=== PATIENT | female | born 1975 ===

== ENCOUNTER 2017-08-10 13:04 | Emergency (ER) | payer SELFPAY ==
[2017-08-10 13:46] VITALS: BP 114/62; PULSE 69; RESP 18; TEMP 98.5; O2SAT 98
[2017-08-10] MEDS ORDERED: Sodium Chloride 0.9% 1,000 ML IV STA (14:07)
--- NOTE | 2017-08-10 14:24 | ED PDOC ---
HPI: CCC, URI, Sore Throat Time Seen by Provider: 08/10/17 13:57 Chief Complaint (Nursing): Cough, Cold, Congestion Chief Complaint (Provider): Cough History Per: Patient History/Exam Limitations: no limitations Onset/Duration Of Symptoms: Days (4) Additional Complaint(s): Cough, congestion, runny nose, body aches, nausea, vomit nonbloody. Has weakness all over. Green sputum. No chest pain or dyspnea. No abd pain. No numbness, tingles, vision changes. Past Medical History Reviewed: Nursing Documentation, Vital Signs Vital Signs: Last Vital Signs Temp 98.5 F 08/10/17 13:42 Pulse 69 08/10/17 13:42 Resp 18 08/10/17 13:42 BP 114/62 08/10/17 13:42 Pulse Ox 98 08/10/17 15:13 - Medical History PMH: Diabetes (type II), HTN, Hypercholesterolemia, Hyperlipidemia Denies: Arthritis, Asthma, Atrial Fibrillation, Cardia Arrhythmia, CHF, COPD , Chronic Kidney Disease, Seizures - Surgical History Surgical History: Denies: CABG, Pacemaker - Family History Family History: States: Unknown Family Hx Denies: CAD - Social History Alcohol: None Drugs: Denies - Home Medications Home Medications: Ambulatory Orders Medication Instructions Recorded Aspirin [Aspirin Chewable] 81 mg PO DAILY #0 chew 03/12/16 Gabapentin [Neurontin] 100 mg PO TID #0 cap 03/12/16 Glimepiride [Amaryl] 4 mg PO DAILY #0 tablet 03/12/16 Omeprazole 40 mg PO DAILY #0 capsule. 03/12/16 Simvastatin 20 mg PO DAILY #0 tablet 03/12/16 Clindamycin [Cleocin] 300 mg PO TID #30 cap 05/08/16 Losartan Potassium [Cozaar] 50 mg PO DAILY #0 tablet 05/12/16 Metoprolol Tartrate [Lopressor] 50 mg PO BID #0 tab 05/12/16 Benzonatate [Tessalon Perles] 100 mg PO BID PRN 5 Days sgl 08/10/17 Ibuprofen [Motrin] 600 mg PO TID 7 Days tab 08/10/17 - Allergies Allergies/Adverse Reactions: Allergies Allergy/AdvReac Type Severity Reaction Status Date / Time No Known Allergies Allergy Verified 08/10/17 13:46 Review of Systems ROS Statement: Except As Marked, All Systems Reviewed And Found Negative Constitutional: Positive for: Weakness ENT: Positive for: Nose Pain, Nose Discharge, Nose Congestion, Throat Pain Respiratory: Positive for: Cough, Sputum. Negative for: Shortness of Breath Gastrointestinal: Positive for: Nausea, Vomiting. Negative for: Abdominal Pain , Diarrhea Neurological: Positive for: Weakness Physical Exam - Reviewed Nursing Documentation Reviewed: Yes Vital Signs Reviewed: Yes - Physical Exam Appears: Positive for: Non-toxic, No Acute Distress Head Exam: Positive for: ATRAUMATIC, NORMAL INSPECTION, NORMOCEPHALIC Skin: Positive for: Normal Color, Warm, DRY Eye Exam: Positive for: EOMI, Normal appearance, PERRL ENT: Positive for: Nasal Congestion. Negative for: Pharyngeal Erythema, Tonsillar Exudate Neck: Positive for: Normal, Painless ROM, Supple Cardiovascular/Chest: Positive for: Regular Rate, Rhythm Respiratory: Positive for: CNT, Normal Breath Sounds Gastrointestinal/Abdominal: Positive for: Normal Exam, Bowel Sounds, Soft. Negative for: Tenderness Back: Positive for: Normal Inspection. Negative for: L CVA Tenderness, R CVA Tenderness Extremity: Positive for: Normal ROM. Negative for: Tenderness, Pedal Edema Neurologic/Psych: Positive for: Alert, business support assistant II-XII, Oriented. Negative for: Motor/Sensory Deficits - Laboratory Results Result Diagrams: 08/10/17 14:35 08/10/17 14:35 Interpretation Of Abn Labs: bun and cr similar to old - ECG ECG: Positive for: Interpreted By Me, Viewed By Me ECG Rhythm: Positive for: Normal QRS, Normal ST Segment, Sinus Rhythm O2 Sat by Pulse Oximetry: 98 Pulse Ox Interpretation: Normal - Progress ED Course And Treament: 1516: Stable. AAOx3. Pain free. Tolerated PO. Flu neg. Fu with pcp. Disposition - Clinical Impression Clinical Impression: URI (upper respiratory infection), Vomiting - Patient ED Disposition Is Patient to be Admitted: No Counseled Patient/Family Regarding: Studies Performed, Diagnosis, Need For Followup, Rx Given - Disposition Referrals: [facility] [Outside] - 08/15/17 Disposition: Routine/Home Disposition Time: 15:17 Condition: STABLE Additional Instructions: Return if not better in 3 days. Prescriptions: Benzonatate [Tessalon Perles] 100 mg PO BID PRN 5 Days sgl PRN Reason: Cough Ibuprofen [Motrin] 600 mg PO TID 7 Days tab Instructions: Acute Nausea and Vomiting (ED), Upper Respiratory Infection (ED) Print Language: ICELANDIC
[2017-08-10 14:41] LABS: BASO # 0.1 K/uL (0.0-0.2); EOS # 0.2 K/uL (0.0-0.7); EOS % 2.7 % (0.0-4.0); LYMPH # 2.2 K/uL (1.0-4.3); LYMPH % 30.7 % (20.0-40.0); MEAN CELL VOLUME 92.1 fl (81.0-99.0); MEAN CORPUSCULAR HEMOGLOBIN 29.9 pg (27.0-31.0); MEAN CORPUSCULAR HGB CONC 32.5 g/dL (33.0-37.0); MEAN PLATELET VOLUME 8.1 fl (7.2-11.7); MONO # 0.6 K/uL (0.0-0.8); MONO % 8.4 % (0.0-10.0); NEUT # 4.1 K/uL (1.8-7.0); NEUT % 57.2 % (50.0-75.0); NRBC % 0.1 % (0.0-0.0); RBC 3.66 Mil/uL (3.80-5.20); RED CELL DISTRIBUTION WIDTH 14.6 % (11.5-14.5); WHITE BLOOD COUNT 7.2 K/uL (4.8-10.8)
[2017-08-10 14:53] LABS: ALB/GLOB RATIO 0.8 (1.0-2.1); ALBUMIN 2.6 g/dL (3.5-5.0); ALT/SGPT 30 U/L (9-52); AST/SGOT 28 U/L (14-36); CALCIUM 8.6 mg/dL (8.4-10.2); GFR AFRICAN-AMERICAN 22; GFR NON-AFRICAN AMERICAN 18
[2017-08-10 14:56] LABS: BLOOD UREA NITROGEN 46 mg/dl (7-17)
--- NOTE | 2017-08-11 11:27 | CARD ---
APPROVED REPORT EKG Measurement Heart [id number] <Conclusion> Normal sinus rhythm Nonspecific ST abnormality Abnormal ECG
== END 2017-08-10 15:51 | disposition home or self-care (01) ==
LOC: H.ER 13:04
DX: J06.9 Acute upper respiratory infection, unspecified (principal); E11.9 Type 2 diabetes mellitus without complications; Z79.84 Long term (current) use of oral hypoglycemic drugs; E78.00 Pure hypercholesterolemia, unspecified; I10 Essential (primary) hypertension; Z79.82 Long term (current) use of aspirin
CPT/HCPCS: 80053; 82948; 84484; 85025; 87804; 93005; 96374; 99282; J1885; J2405; J7040

== ENCOUNTER 2017-11-09 17:44 | Observation (INO) | payer SELFPAY ==
--- NOTE | 2017-11-09 19:42 | ED PDOC ---
Lower Extremity Pain/Injury Time Seen by Provider: 11/09/17 19:01 Chief Complaint (Nursing): Lower Extremity Problem/Injury Chief Complaint (Provider): Lower Extremity Problem/Injury History Per: Patient History/Exam Limitations: no limitations Onset/Duration Of Symptoms: Days (x 2 weeks ) Current Symptoms Are (Timing): Still Present Additional Complaint(s): 42 year old female with a history of HTN, DM, and high cholesterol presents to the ED with right foot pain and swelling that began 2 weeks ago. Patient reports she has had similar symptoms before, went to see her PMD and received medication to resolve the symptoms. She denies chest pain, difficulty breathing , and headache. No numbness, tingles, weakness. No long distance travel or hormone tx. PMD: [facility] Past Medical History Reviewed: Historical Data, Nursing Documentation, Vital Signs Vital Signs: Last Vital Signs Temp 98.0 F 11/09/17 18:32 Pulse 77 11/09/17 18:32 Resp 18 11/09/17 18:32 BP 146/73 11/09/17 18:32 Pulse Ox 99 11/09/17 18:32 - Medical History PMH: Diabetes (type II), HTN, Hypercholesterolemia, Hyperlipidemia Denies: Arthritis, Asthma, Atrial Fibrillation, Cardia Arrhythmia, CHF, COPD , Chronic Kidney Disease, Seizures - Surgical History Surgical History: Denies: CABG, Pacemaker - Family History Family History: States: Unknown Family Hx Denies: CAD - Home Medications Home Medications: Ambulatory Orders Medication Instructions Recorded Aspirin [Aspirin Chewable] 81 mg PO DAILY #0 chew 03/12/16 Gabapentin [Neurontin] 100 mg PO TID #0 cap 03/12/16 Glimepiride [Amaryl] 4 mg PO DAILY #0 tablet 03/12/16 Omeprazole 40 mg PO DAILY #0 capsule. 03/12/16 Simvastatin 20 mg PO DAILY #0 tablet 03/12/16 Clindamycin [Cleocin] 300 mg PO TID #30 cap 05/08/16 Losartan Potassium [Cozaar] 50 mg PO DAILY #0 tablet 05/12/16 Metoprolol Tartrate [Lopressor] 50 mg PO BID #0 tab 05/12/16 Acetaminophen [Tylenol 325mg tab] 650 mg PO TID PRN 5 Days tab 08/10/17 Benzonatate [Tessalon Perles] 100 mg PO BID PRN 5 Days sgl 08/10/17 - Allergies Allergies/Adverse Reactions: Allergies Allergy/AdvReac Type Severity Reaction Status Date / Time No Known Allergies Allergy Verified 08/10/17 13:46 Review of Systems ROS Statement: Except As Marked, All Systems Reviewed And Found Negative Musculoskeletal: Positive for: Foot Pain (right foot pain and swelling) Physical Exam - Reviewed Nursing Documentation Reviewed: Yes Vital Signs Reviewed: Yes - Physical Exam Appears: Positive for: Non-toxic, No Acute Distress Head Exam: Positive for: ATRAUMATIC, NORMOCEPHALIC Skin: Positive for: Normal Color, Warm, Dry Eye Exam: Positive for: EOMI, Normal appearance, PERRL Cardiovascular/Chest: Positive for: Regular Rate, Rhythm. Negative for: Murmur Respiratory: Positive for: Normal Breath Sounds. Negative for: Respiratory Distress Pulses-Dorsalis Pedis (L): 2+ Pulses-Dorsalis Pedis (R): 2+ Gastrointestinal/Abdominal: Positive for: Normal Exam, Soft Back: Positive for: Normal Inspection. Negative for: L CVA Tenderness, R CVA Tenderness Extremity: Positive for: Pedal Edema (swelling and pitting 2+ in feet, 1+ in calf. ). Negative for: Tenderness (or erythema ), Calf Tenderness Neurologic/Psych: Positive for: Alert, Oriented. Negative for: Motor/Sensory Deficits - Laboratory Results Result Diagrams: 11/09/17 21:09 11/09/17 21:09 Interpretation Of Abn Labs: 5.7 k; bun and cr similar to old - ECG ECG: Positive for: Interpreted By Me, Viewed By Me ECG Rhythm: Positive for: Normal QRS, Normal ST Segment, Sinus Rhythm O2 Sat by Pulse Oximetry: 99 (RA) Pulse Ox Interpretation: Normal - CT Scan/US us Other Rad Studies (CT/US): Radiology Report Reviewed Other Rad Interpretation: neg - Progress ED Course And Treament: 2002: Stable. Spoke with [facility] resident who will admit. Renal failure worsened with high K. Will need admit and nephrology evaluation. Medical Decision Making Medical Decision Making: Time: 19:19 Initial Plan: --EKG --BNP --CMP --Troponin I --CBC with differentials --Duplex US lower extremities Duplex US FINDINGS: Right deep veins: Unremarkable. No DVT in the right common femoral, femoral, proximal deep femoral or popliteal veins. The veins demonstrate normal color flow, are normally compressible, with normal phasic flow and/or augmentation response. Right superficial veins: Unremarkable. No thrombus in the visualized right great saphenous vein. Left deep veins: Unremarkable. No DVT in the left common femoral, femoral, proximal deep femoral or popliteal veins. The veins demonstrate normal color flow, are normally compressible, with normal phasic flow and/or augmentation response. Left superficial veins: Unremarkable. No thrombus in the visualized left great saphenous vein. Soft tissues: No acute findings. No popliteal cyst. IMPRESSION: Normal bilateral lower extremity duplex venous ultrasound. ---- Scribe Attestation: Documented by Nurys Winkler, acting as a scribe for Nasir Tamez MD Provider Scribe Attestation: All medical record entries made by the Scribe were at my direction and personally dictated by me. I have reviewed the chart and agree that the record accurately reflects my personal performance of the history, physical exam, medical decision making, and the department course for this patient. I have also personally directed, reviewed, and agree with the discharge instructions and disposition. Disposition - Clinical Impression Clinical Impression: Renal failure, Hyperkalemia - Patient ED Disposition Is Patient to be Admitted: Yes Counseled Patient/Family Regarding: Studies Performed - Disposition Disposition Time: 22:03 Condition: FAIR
[2017-11-09 21:16] LABS: BASO # 0.1 K/uL (0.0-0.2); BASO % 0.7 % (0.0-2.0); EOS # 0.1 K/uL (0.0-0.7); EOS % 1.7 % (0.0-4.0); HEMOGLOBIN 10.1 g/dL (12.0-16.0); LYMPH # 1.6 K/uL (1.0-4.3); LYMPH % 21.5 % (20.0-40.0); MEAN CELL VOLUME 93.9 fl (81.0-99.0); MEAN CORPUSCULAR HEMOGLOBIN 30.9 pg (27.0-31.0); MEAN CORPUSCULAR HGB CONC 32.9 g/dL (33.0-37.0); MEAN PLATELET VOLUME 7.6 fl (7.2-11.7); MONO # 0.4 K/uL (0.0-0.8); MONO % 5.9 % (0.0-10.0); NEUT # 5.2 K/uL (1.8-7.0); NEUT % 70.2 % (50.0-75.0); RBC 3.27 Mil/uL (3.80-5.20); RED CELL DISTRIBUTION WIDTH 14.8 % (11.5-14.5); WHITE BLOOD COUNT 7.5 K/uL (4.8-10.8)
[2017-11-09 21:39] LABS: B-TYPE NATRIURETIC PEPTIDE 672 pg/ml (0-450)
[2017-11-09 21:43] LABS: ALB/GLOB RATIO 0.9 (1.0-2.1); ALBUMIN 2.8 g/dL (3.5-5.0); ALT/SGPT 37 U/L (9-52); AST/SGOT 29 U/L (14-36); BLOOD UREA NITROGEN 43 mg/dl (7-17); CALCIUM 8.4 mg/dL (8.4-10.2); GFR AFRICAN-AMERICAN 17; GFR NON-AFRICAN AMERICAN 14
[2017-11-09] MEDS ORDERED: Albuterol 0.083% Inhal Sol (2.5 mg/3 mL) UD INH STA (21:55)
[2017-11-09] MEDS ORDERED: Sod Polystyrene Sulf 15 gm/60 ml Susp PO STA (21:55)
[2017-11-09] MEDS ORDERED: Insulin Regular 100 units/ml IV STA (21:55)
[2017-11-09] MEDS ORDERED: Dextrose 50% SYRINGE Inj (50 ml) IVP ONE (21:56)
--- NOTE | 2017-11-09 22:40 | CP.PCM.HP ---
History of Present Illness - History of Present Illness History of Present Illness: Hx taken from patient and medical records PMD: Dr Downs [facility] Full code Nex of kin: Sara Garcia ([place] [phone]) 42 y/o F with PMhx of uncontrolled IDDM, HTN and CKD presented to ED with c/o R/ foot and ankle pain and B/L LE edema. Patient states R/ankle and foot pain started after twisting her r/ankle few days ago. Denies numbness or tingling. Afebrile. LE edema is chronic although patient admits has been getting worse for the past week. Patient is taking meds as prescribed including Lasix and Aldactone. Patient has been following up with Nephrology Dr Orozco at [facility] for the past year. She had a kidney biopsy last year and was told that her kidneys were working(30%) she does not have copy of results. Patient was recently started on Minoxidil after she visited Dr Orozco last week and took the first dose today. Patient reports some SE effects after taking Minoxidil today including burning sensation in her neck. THe patient states she has been using 22 units of NPH AM and 20 at night but admits sometimes skipping doses and not always checking her sugars at home. Denies SOB, CP, palpitations, headache, vomiting, nausea. Admits constipation. ED course CBC: Hgb 10.1 CMP: BUN/Creat 43/3.5, K 5.7 ProBnp 672 US LE: No DVT(Vrad report) PMHx: IDDM, HTN, CKD SxhX: C-Sect x1, Cleft lip SHx: Denies tobacco or drugs. ETOH social FHX: MOther and Father DM and HTN NKDA Present on Admission - Present on Admission Any Indicators Present on Admission: Yes History of Uncontrolled Diabetes: Yes Review of Systems - Review of Systems All systems: reviewed and no additional remarkable complaints except (those noted on HPI) Past Patient History - Infectious Disease Hx of Infectious Diseases: None - Past Medical History & Family History Past Medical History?: Yes - Past Social History Smoking Status: Never Smoked Alcohol: Social - CARDIAC Hx Atrial Fibrillation: No Hx Cardia Arrhythmia: No Hx Congestive Heart Failure: No Hx Hypercholesterolemia: Yes Hx Hypertension: Yes Hx Pacemaker: No - PULMONARY Hx Asthma: No Hx Chronic Obstructive Pulmonary Disease (COPD): No - NEUROLOGICAL Hx Seizures: No - HEENT Hx HEENT Problems: No - RENAL Hx Chronic Kidney Disease: Yes Hx Dialysis: No - ENDOCRINE/METABOLIC Hx Endocrine Disorders: Yes (DM2) Hx Diabetes Mellitus Type 2: Yes - HEMATOLOGICAL/ONCOLOGICAL Hx Blood Disorders: No - INTEGUMENTARY Hx Dermatological Problems: No - MUSCULOSKELETAL/RHEUMATOLOGICAL Hx Arthritis: No - GASTROINTESTINAL Hx Gastrointestinal Disorders: No - GENITOURINARY/GYNECOLOGICAL Hx Genitourinary Disorders: No - PSYCHIATRIC Hx Psychophysiologic Disorder: No Hx Substance Use: Yes (History of ETOH abuse. No ETOH since 01/2016) - SURGICAL HISTORY Hx Surgeries: Yes Hx Section: Yes Hx Coronary Artery Bypass Graft: No - ANESTHESIA Hx Anesthesia: Yes Hx Anesthesia Reactions: No Hx Malignant Hyperthermia: No Meds Allergies/Adverse Reactions: Allergies Allergy/AdvReac Type Severity Reaction Status Date / Time No Known Allergies Allergy Verified 08/10/17 13:46 Physical Exam - Constitutional Appears: Non-toxic, No Acute Distress - Head Exam Head Exam: NORMAL INSPECTION - Eye Exam Eye Exam: EOMI, PERRL - ENT Exam ENT Exam: Mucous Membranes Moist - Neck Exam Neck exam: Negative for: Lymphadenopathy, Tenderness - Respiratory Exam Respiratory Exam: Clear to Auscultation Bilateral, NORMAL BREATHING PATTERN. absent: Decreased Breath Sounds, Rales, Rhonchi, Wheezes, Respiratory Distress, Stridor - Cardiovascular Exam Cardiovascular Exam: REGULAR RHYTHM, +S1, +S2. absent: Gallop, Systolic Murmur - GI/Abdominal Exam GI & Abdominal Exam: Normal Bowel Sounds, Soft. absent: Distended, Firm, Guarding, Rebound, Tenderness - Extremities Exam Extremities exam: Positive for: pedal edema (2+). Negative for: calf tenderness , normal inspection (B/L LE edema. Tenderness R/foot and ankle lateral with mild redness and warmness present in the same area. Edema same as L/foot) - Back Exam Back exam: absent: CVA tenderness (L), CVA tenderness (R) - Neurological Exam Neurological exam: Alert, Oriented x3 - Psychiatric Exam Psychiatric exam: Normal Affect, Normal Mood - Skin Skin Exam: Warm Results - Vital Signs Recent Vital Signs: Last Vital Signs Temp 98.0 F 11/09/17 18:32 Pulse 77 11/09/17 18:32 Resp 18 11/09/17 18:32 BP 146/73 11/09/17 18:32 Pulse Ox 99 11/09/17 22:03 - Labs Result Diagrams: 11/09/17 21:09 11/09/17 21:09 Labs: Laboratory Results - last 24 hr 11/09/17 11/09/17 21:09 21:09 WBC 7.5 RBC 3.27 L Hgb 10.1 L Hct 30.7 L MCV 93.9 MCH 30.9 MCHC 32.9 L RDW 14.8 H Plt Count 279 MPV 7.6 Neut % (Auto) 70.2 Lymph % (Auto) 21.5 [place] % (Auto) 5.9 Eos % (Auto) 1.7 Baso % (Auto) 0.7 Neut # (Auto) 5.2 Lymph # (Auto) 1.6 [place] # (Auto) 0.4 Eos # (Auto) 0.1 Baso # (Auto) 0.1 Sodium 138 Potassium 5.7 H Chloride 113 H Carbon Dioxide 14 L Anion Gap 17 BUN 43 H Creatinine 3.5 H Est GFR ( Amer) 17 Est GFR (Non-Af Amer) 14 Random Glucose 85 Calcium 8.4 Total Bilirubin 0.2 AST 29 ALT 37 Alkaline Phosphatase 96 Troponin I < 0.0120 NT-Pro-B Natriuret Pep 672 H Total Protein 5.9 L Albumin 2.8 L Globulin 3.1 Albumin/Globulin Ratio 0.9 L Assessment & Plan - Assessment and Plan (Free Text) Assessment: 42 y/o F with PMHx of uncontrolled IDDM, HTN and CKD admitted for LE edema CKD/ Hyperkalemia Lower ext edema B/L 2+ Probably secondary to CKD Patient on Lasix 40 mg daily and aldactone at home Will give extra dose of Lasix 40 mg IV once Hold aldactone for now since Creatinine clearance borderline 30 CXR ordered Brobnp slightly elevated. Maybe due to impaired kidney function? NO rales or SOB. Unlikely Cardiac(Normal Echo on 05/2016) CKD st 3b BUN/Creat 43/3.5 slightly improvement from 10/15/17 = 54/3.7 but has been progressively worsening for the past 2 years Patient is f/u with Dr Orozco, [employer] at [facility]. Had kidney biopsy there. Told her CKD was due to HTN and DM. NO reports available Presents with hyperkalemia and LE edema Normal Renal US on 2016 Nephrology consult. Will f/u recs F/U MG and Phosphorus Hyperkalemia Poss secondary to CKD + Medication SE Mild Kayaxalate given at ED Hold Losartan and aldactone for now F/U BMP AM IDDM Uncontrolled last HgbAc1 in 05/05/17 = 8.8 On NPH at home BID, noncompliant Start NPH 15 units AMHS for now Low dose ISS F/U A1c HTN Chronic WNL on admission Hold Losartan for now due to hyperkalemia Hold Minoxidil due to patient complains of SE C/W Lasix PO daily Monitor Consider restarting Losartan tomorrow if K WNL R/Ankle sprain Suspected Twisted ankle few days ago Redness + tenderness F/U Xrays to r/o Fx Consider Topical treatment/PT or NSAIDs carefully due to CKD DVT prophylaxis Lovenox 30 mg daily
[2017-11-09] MEDS ORDERED: Dextrose 50% SYRINGE Inj (50 ml) ONE ×2 (22:47→23:15)
[2017-11-09] MEDS ORDERED: Sod Polystyrene Sulf 15 gm/60 ml Susp ONE (22:47)
[2017-11-09] MEDS ORDERED: Insulin Regular 100 units/ml ONE (22:47)
[2017-11-09] MEDS ORDERED: Dextrose 50% SYRINGE Inj (50 ml) IV PRN (23:13)
[2017-11-09] MEDS ORDERED: Glucagon Recombinant 1 mg Inj IM PRN (23:13)
[2017-11-10 06:14] LABS: BASO % 0.8 % (0.0-2.0); EOS # 0.1 K/uL (0.0-0.7); EOS % 2.5 % (0.0-4.0); HEMOGLOBIN 8.9 g/dL (12.0-16.0); LYMPH # 2.1 K/uL (1.0-4.3); LYMPH % 35.4 % (20.0-40.0); MEAN CELL VOLUME 93.1 fl (81.0-99.0); MEAN CORPUSCULAR HEMOGLOBIN 31.9 pg (27.0-31.0); MEAN CORPUSCULAR HGB CONC 34.3 g/dL (33.0-37.0); MEAN PLATELET VOLUME 7.9 fl (7.2-11.7); MONO # 0.5 K/uL (0.0-0.8); MONO % 9.2 % (0.0-10.0); NEUT % 52.1 % (50.0-75.0); RBC 2.78 Mil/uL (3.80-5.20); RED CELL DISTRIBUTION WIDTH 14.5 % (11.5-14.5); WHITE BLOOD COUNT 5.8 K/uL (4.8-10.8)
[2017-11-10 06:40] LABS: CALCIUM 8.1 mg/dL (8.4-10.2)
--- NOTE | 2017-11-10 08:34 | US ---
PROCEDURE: Bilateral lower extremity venous duplex Doppler. HISTORY: r/o dvt COMPARISON: Lower extremity ultrasound dated 03/11/2016. TECHNIQUE: Bilateral common femoral, superficial femoral, popliteal and posterior tibial veins were evaluated. Flow was assessed with color Doppler, compressibility, assessment of phasic flow and augmentation response. FINDINGS: COMMON FEMORAL VEIN: Right CFV: Unremarkable. Left CFV: Unremarkable. SUPERFICIAL FEMORAL VEIN: Right SFV: Unremarkable. Left SFV: Unremarkable. POPLITEAL VEIN: Right Popliteal: Unremarkable. Left Popliteal: Unremarkable. POSTERIOR TIBIAL VEIN: Right PTV: Unremarkable. Left PTV: Unremarkable. OTHER FINDINGS: None. IMPRESSION: No evidence of deep venous thrombosis.
[2017-11-10] MEDS: Enoxaparin 30 mg Syringe SC SCH (08:43)
[2017-11-10] MEDS: Lidocaine 5% Patch TD SCH (08:46)
[2017-11-10] MEDS: Insulin Regular 100 units/ml SC SCH ×4 (08:47→22:29)
[2017-11-10] MEDS: Insulin NPH Human 100 Units/ml Inj SC SCH ×2 (08:47→21:13)
--- NOTE | 2017-11-10 08:54 | CP.PCM.CON ---
History of Present Illness - History of Present Illness History of Present Illness: pt is seen and examined, full consult is dictated #[id number] 1. Darin on ckd 2. proteinuria r/o dm nephropathy check u/a, c/s, repeat sif,uif Past Patient History - Infectious Disease Hx of Infectious Diseases: None - Past Medical History & Family History Past Medical History?: Yes - Past Social History Smoking Status: Never Smoked - CARDIAC Hx Atrial Fibrillation: No Hx Cardia Arrhythmia: No Hx Congestive Heart Failure: No Hx Hypercholesterolemia: Yes Hx Hypertension: Yes Hx Pacemaker: No - PULMONARY Hx Asthma: No Hx Chronic Obstructive Pulmonary Disease (COPD): No - NEUROLOGICAL Hx Seizures: No - HEENT Hx HEENT Problems: No - RENAL Hx Chronic Kidney Disease: Yes Hx Dialysis: No - ENDOCRINE/METABOLIC Hx Endocrine Disorders: Yes Hx Diabetes Mellitus Type 2: Yes - HEMATOLOGICAL/ONCOLOGICAL Hx Blood Disorders: No - INTEGUMENTARY Hx Dermatological Problems: No - MUSCULOSKELETAL/RHEUMATOLOGICAL Hx Falls: No - GASTROINTESTINAL Hx Gastrointestinal Disorders: No - GENITOURINARY/GYNECOLOGICAL Hx Genitourinary Disorders: No - PSYCHIATRIC Hx Substance Use: No - SURGICAL HISTORY Hx Surgeries: Yes Hx Section: Yes Hx Coronary Artery Bypass Graft: No - ANESTHESIA Hx Anesthesia: Yes Hx Anesthesia Reactions: No Hx Malignant Hyperthermia: No Meds Allergies/Adverse Reactions: Allergies Allergy/AdvReac Type Severity Reaction Status Date / Time No Known Allergies Allergy Verified 08/10/17 13:46 - Medications Medications: Current Medications Acetaminophen (Tylenol 325mg Tab) 650 mg PO Q6 PRN PRN Reason: Pain, moderate (4-7) Aspirin (Aspirin Chewable) 81 mg PO DAILY [facility] Last Admin: 11/10/17 08:44 Dose: 81 mg Atorvastatin Calcium (Lipitor) 10 mg PO DAILY [facility] Last Admin: 11/10/17 08:45 Dose: 10 mg Carvedilol (Coreg) 12.5 mg PO BID [facility] Last Admin: 11/10/17 08:44 Dose: 12.5 mg Dextrose (Dextrose 50% Inj) 0 ml IV STAT PRN; Protocol PRN Reason: Hypoglycemia Protocol Dextrose (Glutose 15) 0 gm PO ONCE PRN; Protocol PRN Reason: Hypoglycemia Protocol Docusate Sodium (Colace) 100 mg PO BID [facility] Last Admin: 11/10/17 08:38 Dose: 100 mg Enoxaparin Sodium (Lovenox) 30 mg SC DAILY [facility] PRN Reason: Protocol Last Admin: 11/10/17 08:43 Dose: 30 mg Furosemide (Lasix) 40 mg PO DAILY [facility] Last Admin: 11/10/17 08:44 Dose: 40 mg Glucagon (Glucagen Diagnostic Kit) 0 mg IM STAT PRN; Protocol PRN Reason: Hypoglycemia Protocol Insulin Human NPH (Humulin N) 15 units SC AMHS [facility] Last Admin: 11/10/17 08:47 Dose: 15 units Insulin Human Regular (Humulin R) 0 units SC ACCU-CHECK [facility] PRN Reason: Protocol Last Admin: 11/10/17 08:47 Dose: Not Given Lidocaine (Lidoderm) 1 ea TD DAILY [facility] Last Admin: 11/10/17 08:46 Dose: 1 ea Results - Vital Signs Recent Vital Signs: Last Vital Signs Temp 98.5 F 11/10/17 08:06 Pulse 86 11/10/17 08:44 Resp 18 11/10/17 08:06 BP 130/76 11/10/17 08:44 Pulse Ox 99 11/10/17 08:06 - Labs Result Diagrams: 11/10/17 05:00 11/10/17 05:00 Labs: Laboratory Results - last 24 hr 11/09/17 11/09/17 11/10/17 21:09 21:09 00:33 WBC 7.5 RBC 3.27 L Hgb 10.1 L Hct 30.7 L MCV 93.9 MCH 30.9 MCHC 32.9 L RDW 14.8 H Plt Count 279 MPV 7.6 Neut % (Auto) 70.2 Lymph % (Auto) 21.5 [place] % (Auto) 5.9 Eos % (Auto) 1.7 Baso % (Auto) 0.7 Neut # (Auto) 5.2 Lymph # (Auto) 1.6 [place] # (Auto) 0.4 Eos # (Auto) 0.1 Baso # (Auto) 0.1 Sodium 138 Potassium 5.7 H Chloride 113 H Carbon Dioxide 14 L Anion Gap 17 BUN 43 H Creatinine 3.5 H Est GFR ( Amer) 17 Est GFR (Non-Af Amer) 14 POC Glucose (mg/dL) Random Glucose 85 Calcium 8.4 Phosphorus 5.8 H Magnesium 2.6 H Total Bilirubin 0.2 AST 29 ALT 37 Alkaline Phosphatase 96 Troponin I < 0.0120 NT-Pro-B Natriuret Pep 672 H Total Protein 5.9 L Albumin 2.8 L Globulin 3.1 Albumin/Globulin Ratio 0.9 L 11/10/17 11/10/17 11/10/17 05:00 05:00 05:21 WBC 5.8 RBC 2.78 L Hgb 8.9 L Hct 25.8 L MCV 93.1 MCH 31.9 H MCHC 34.3 RDW 14.5 Plt Count 234 MPV 7.9 Neut % (Auto) 52.1 Lymph % (Auto) 35.4 [place] % (Auto) 9.2 Eos % (Auto) 2.5 Baso % (Auto) 0.8 Neut # (Auto) 3.0 Lymph # (Auto) 2.1 [place] # (Auto) 0.5 Eos # (Auto) 0.1 Baso # (Auto) 0.0 Sodium 141 Potassium 4.9 Chloride 116 H Carbon Dioxide 15 L Anion Gap 15 BUN 41 H Creatinine 3.6 H Est GFR ( Amer) 17 Est GFR (Non-Af Amer) 14 POC Glucose (mg/dL) 134 H Random Glucose 133 H Calcium 8.1 L Phosphorus Magnesium Total Bilirubin AST ALT Alkaline Phosphatase Troponin I NT-Pro-B Natriuret Pep Total Protein Albumin Globulin Albumin/Globulin Ratio
--- NOTE | 2017-11-10 09:49 | CP.PCM.PN ---
Subjective - Date & Time of Evaluation Date of Evaluation: 11/10/17 Time of Evaluation: 09:00 - Subjective Subjective: 42 y/o F evaluated and examined by bedside. Pt reports feeling better than yesterday. Pain is well controlled with medications, b/l leg swelling has improved according to patient. Pt afebrile, tolerating PO with NO acute events overnight. Objective - Vital Signs/Intake and Output Vital Signs (last 24 hours): Temp Pulse Resp BP Pulse Ox 98.5 F 86 18 130/76 99 11/10/17 08:06 11/10/17 08:44 11/10/17 08:06 11/10/17 08:44 11/10/17 08:06 - Medications Medications: Current Medications Acetaminophen (Tylenol 325mg Tab) 650 mg PO Q6 PRN PRN Reason: Pain, moderate (4-7) Aspirin (Aspirin Chewable) 81 mg PO DAILY [facility] Last Admin: 11/10/17 08:44 Dose: 81 mg Atorvastatin Calcium (Lipitor) 10 mg PO DAILY [facility] Last Admin: 11/10/17 08:45 Dose: 10 mg Carvedilol (Coreg) 12.5 mg PO BID [facility] Last Admin: 11/10/17 08:44 Dose: 12.5 mg Dextrose (Dextrose 50% Inj) 0 ml IV STAT PRN; Protocol PRN Reason: Hypoglycemia Protocol Dextrose (Glutose 15) 0 gm PO ONCE PRN; Protocol PRN Reason: Hypoglycemia Protocol Docusate Sodium (Colace) 100 mg PO BID [facility] Last Admin: 11/10/17 08:38 Dose: 100 mg Enoxaparin Sodium (Lovenox) 30 mg SC DAILY [facility] PRN Reason: Protocol Last Admin: 11/10/17 08:43 Dose: 30 mg Furosemide (Lasix) 40 mg IV Q12H [facility] Glucagon (Glucagen Diagnostic Kit) 0 mg IM STAT PRN; Protocol PRN Reason: Hypoglycemia Protocol Insulin Human NPH (Humulin N) 15 units SC AMHS [facility] Last Admin: 11/10/17 08:47 Dose: 15 units Insulin Human Regular (Humulin R) 0 units SC ACCU-CHECK [facility] PRN Reason: Protocol Last Admin: 11/10/17 08:47 Dose: Not Given Lidocaine (Lidoderm) 1 ea TD DAILY [facility] Last Admin: 11/10/17 08:46 Dose: 1 ea - Labs Labs: 11/10/17 05:00 11/10/17 05:00 - Constitutional Appears: No Acute Distress - Head Exam Head Exam: NORMAL INSPECTION - Eye Exam Eye Exam: EOMI - ENT Exam ENT Exam: Mucous Membranes Moist - Neck Exam Neck Exam: Full ROM. absent: Meningismus - Respiratory Exam Respiratory Exam: Clear to Ausculation Bilateral, NORMAL BREATHING PATTERN - Cardiovascular Exam Cardiovascular Exam: +S1, +S2 - GI/Abdominal Exam GI & Abdominal Exam: Soft, Normal Bowel Sounds. absent: Tenderness - Rectal Exam Rectal Exam: NORMAL INSPECTION - Extremities Exam Extremities Exam: Joint Swelling, Pedal Edema, Tenderness. absent: Calf Tenderness - Neurological Exam Neurological Exam: Alert, Awake, Oriented x3 - Psychiatric Exam Psychiatric exam: Normal Affect, Normal Mood Assessment and Plan - Assessment and Plan (Free Text) Assessment: 42 y/o F with PMHx of uncontrolled IDDM, HTN and CKD admitted for LE edema CKD/ Hyperkalemia Lower Extremity Edema -Most possibly due tonephrotic syndrome -Lasix 40 mg IV Q12H -Hold aldactone since CrCl is borderline 30 -CXR - no active disease -Pro-BNP slightly elevated. -Normal Echocardiogram on 05/2016 -F/U immunofixation, prot electrophoresis, UCx. Fracture of R 3rd metatarsal. -On 10/15/17: XR of R foot showed a mild displaced 3rd metatarsal fracture. -XR R ankle and foot ordered. -Podiatry was consulted. F/U recommendations -Acetaminophen for pain management -Lidoderm patch. CKD stage 3b -Patient is f/u with Dr Orozco, [employer] And [employer] Man at [facility]. Had kidney biopsy there. Told her CKD was due to HTN and DM. NO reports available -Presents with hyperkalemia and LE edema -Normal Renal US on 2015 -Nephrology consult. Hyperkalemia -Poss secondary to CKD + Medication Side effect -Mild -Hold Losartan and aldactone for now -Repeated K+ level 4.9-wnl IDDM -Uncontrolled -last HgbAc1 in 05/05/17 = 8.8 -On NPH at home BID, noncompliant -Start NPH 15 units AMHS for now -Low dose ISS -F/U A1c HTN -Chronic -Stable -Hold Losartan for now due to hyperkalemia -Hold Minoxidil due to patient complaints of SE -Lasix PO daily DVT prophylaxis -Lovenox 30 mg daily
--- NOTE | 2017-11-10 10:05 | RAD ---
HISTORY: R/O CHF COMPARISON: Chest radiograph dated 05/10/2016 TECHNIQUE: Chest PA and lateral FINDINGS: LUNGS: No active pulmonary disease. PLEURA: No significant pleural effusion identified. No pneumothorax apparent. CARDIOVASCULAR: Normal. OSSEOUS STRUCTURES: No significant abnormalities. VISUALIZED UPPER ABDOMEN: Normal. OTHER FINDINGS: None. IMPRESSION: No active disease.
--- NOTE | 2017-11-10 12:16 | CARD ---
APPROVED REPORT EKG Measurement Heart [id number] <Conclusion> Normal sinus rhythm Cannot rule out Anterior infarct, age undetermined Abnormal ECG
[2017-11-10 12:48] LABS: SQUAMOUS EPITHIAL 2 /hpf (0-5); URINE BILIRUBIN NEGATIVE (NEGATIVE); URINE BLOOD NEGATIVE (NEGATIVE); URINE CLARITY CLOUDY (Clear); URINE COLOR YELLOW (YELLOW); URINE GLUCOSE (UA) >=500 mg/dL (Normal); URINE LEUKOCYTE ESTERASE NEG Leu/uL (Negative); URINE PROTEIN >=500 mg/dL (NEGATIVE); URINE UROBILINOGEN 0.2-1.0 mg/dL (0.2-1.0)
[2017-11-10] MEDS ORDERED: Morphine 4 MG/ML VIAL IVP PRN ×2 (17:48)
[2017-11-11] MEDS: Insulin Regular 100 units/ml SC SCH ×3 (06:08→17:27)
[2017-11-11 06:44] LABS: HEMOGLOBIN 9.1 g/dL (12.0-16.0); MEAN CELL VOLUME 93.4 fl (81.0-99.0); MEAN CORPUSCULAR HEMOGLOBIN 31.9 pg (27.0-31.0); MEAN CORPUSCULAR HGB CONC 34.2 g/dL (33.0-37.0); RBC 2.84 Mil/uL (3.80-5.20); RED CELL DISTRIBUTION WIDTH 14.3 % (11.5-14.5); WHITE BLOOD COUNT 5.5 K/uL (4.8-10.8)
[2017-11-11 06:55] LABS: IRON 35 ug/dL (37-170)
[2017-11-11 07:05] LABS: % IRON SATURATION 14 % (20-55); TOTAL IRON BINDING CAPACITY 241 ug/dL (250-450)
[2017-11-11 07:07] LABS: ALB/GLOB RATIO 0.8 (1.0-2.1); ALBUMIN 2.3 g/dL (3.5-5.0); ALT/SGPT 32 U/L (9-52); AST/SGOT 23 U/L (14-36); BLOOD UREA NITROGEN 43 mg/dl (7-17); CALCIUM 7.9 mg/dL (8.4-10.2); GFR AFRICAN-AMERICAN 15; GFR NON-AFRICAN AMERICAN 13
[2017-11-11 07:29] LABS: FERRITIN 13.5 ng/Ml (6.24-137.0)
[2017-11-11] MEDS: Lidocaine 5% Patch TD SCH (08:19)
[2017-11-11] MEDS: Enoxaparin 30 mg Syringe SC SCH (08:20)
[2017-11-11] MEDS ORDERED: Insulin NPH Human 100 Units/ml Inj SC SCH ×2 (09:00→22:00)
--- NOTE | 2017-11-11 09:46 | CP.PCM.PN ---
Subjective - Date & Time of Evaluation Date of Evaluation: 11/11/17 Time of Evaluation: 08:15 - Subjective Subjective: 42 y/o F evaluated and examined by bedside. Pt c/o headache, pressure-like, bilateral and 8/10 intensity. Pt reports she usually applies salazar's vaporub on frontal area as she can not take NSAID's due to her kidney failure. Pt afebrile , tolerating Po with NO acute events overnight. Objective - Vital Signs/Intake and Output Vital Signs (last 24 hours): Temp Pulse Resp BP Pulse Ox 98.2 F 73 18 143/84 98 11/11/17 07:51 11/11/17 08:18 11/11/17 07:51 11/11/17 08:18 11/11/17 07:51 - Medications Medications: Current Medications Acetaminophen (Tylenol 325mg Tab) 650 mg PO Q6 PRN PRN Reason: Pain, moderate (4-7) Aspirin (Aspirin Chewable) 81 mg PO DAILY [facility] Last Admin: 11/11/17 08:18 Dose: 81 mg Atorvastatin Calcium (Lipitor) 10 mg PO DAILY [facility] Last Admin: 11/11/17 08:18 Dose: 10 mg Calcium Acetate (Phoslo) 667 mg PO WM [facility] Last Admin: 11/11/17 08:17 Dose: 667 mg Carvedilol (Coreg) 12.5 mg PO BID [facility] Last Admin: 11/11/17 08:18 Dose: 12.5 mg Dextrose (Dextrose 50% Inj) 0 ml IV STAT PRN; Protocol PRN Reason: Hypoglycemia Protocol Dextrose (Glutose 15) 0 gm PO ONCE PRN; Protocol PRN Reason: Hypoglycemia Protocol Docusate Sodium (Colace) 100 mg PO BID [facility] Last Admin: 11/11/17 08:17 Dose: 100 mg Enoxaparin Sodium (Lovenox) 30 mg SC DAILY [facility] PRN Reason: Protocol Last Admin: 11/11/17 08:20 Dose: 30 mg Epoetin Vickey (Procrit) 20,000 unit SC ONCE ONE Stop: 11/11/17 10:01 Furosemide (Lasix) 80 mg IV Q12@0600,1800 [facility] Last Admin: 11/11/17 05:30 Dose: 80 mg Glucagon (Glucagen Diagnostic Kit) 0 mg IM STAT PRN; Protocol PRN Reason: Hypoglycemia Protocol Insulin Human NPH (Humulin N) 18 units SC QAM [facility] Last Admin: 11/11/17 08:21 Dose: 18 units Insulin Human NPH (Humulin N) 12 units SC HS [facility] Insulin Human Regular (Humulin R) 0 units SC ACCU-CHECK [facility] PRN Reason: Protocol Last Admin: 11/11/17 06:08 Dose: Not Given Lidocaine (Lidoderm) 1 ea TD DAILY [facility] Last Admin: 11/11/17 08:19 Dose: 1 ea Morphine Sulfate (Morphine) 1 mg IVP Q6 PRN PRN Reason: Pain, moderate (4-7) Last Admin: 11/10/17 21:25 Dose: 1 mg Morphine Sulfate (Morphine) 2 mg IVP Q6 PRN PRN Reason: Pain, severe (8-10) - Labs Labs: 11/11/17 05:30 11/11/17 05:30 - Constitutional Appears: No Acute Distress - Head Exam Head Exam: ATRAUMATIC - Eye Exam Eye Exam: EOMI, Normal appearance - Neck Exam Neck Exam: Full ROM. absent: Meningismus - Respiratory Exam Respiratory Exam: Clear to Ausculation Bilateral, NORMAL BREATHING PATTERN - Cardiovascular Exam Cardiovascular Exam: +S1, +S2 - GI/Abdominal Exam GI & Abdominal Exam: Soft, Normal Bowel Sounds. absent: Guarding, Rigid, Tenderness, Rebound - Neurological Exam Neurological Exam: Alert, Awake, Oriented x3 - Psychiatric Exam Psychiatric exam: Normal Affect, Normal Mood Assessment and Plan - Assessment and Plan (Free Text) Assessment: 42 y/o F with PMHx of uncontrolled IDDM, HTN and CKD admitted for LE edema CKD/ Hyperkalemia Lower Extremity Edema -Most possibly due tonephrotic syndrome -Lasix 40 mg IV Q12H -Hold aldactone since CrCl is borderline 30 -CXR - no active disease -Pro-BNP slightly elevated. -Normal Echocardiogram on 05/2016 -F/U immunofixation, prot electrophoresis, UCx. Fracture of R 3rd metatarsal. -On 10/15/17: XR of R foot showed a mild displaced 3rd metatarsal fracture. -XR R ankle and foot ordered. -Podiatry was consulted. F/U recommendations -Acetaminophen for pain management -Lidoderm patch. CKD stage 3b -Patient is f/u with Dr Orozco, Human Capital Consultant at [facility]. Had kidney biopsy there. Told her CKD was due to HTN and DM. NO reports available -Presents with hyperkalemia and LE edema -Normal Renal US on 2016 -Nephrology consult. Hyperkalemia -Poss secondary to CKD + Medication Side effect -Mild -Hold Losartan and aldactone for now -Repeated K+ level 4.9-wnl IDDM -Uncontrolled -last HgbAc1 in 05/05/17 = 8.8 -On NPH at home BID, noncompliant -Start NPH 15 units AMHS for now -Low dose ISS -F/U A1c HTN -Chronic -Stable -Hold Losartan for now due to hyperkalemia -Hold Minoxidil due to patient complaints of SE -Lasix PO daily DVT prophylaxis -Lovenox 30 mg daily
[2017-11-11] MEDS ORDERED: Epoetin Alfa 20000 UNIT/ML (RENAL DOSE) SC ONE (10:00)
--- NOTE | 2017-11-11 10:44 | CP.PCM.CON ---
History of Present Illness - History of Present Illness History of Present Illness: Podiatry Consult note: Dr. Rosado 42 year old male with PMHx of uncontrolled IDDM, HTN and CKD was seen and evaluated at bedside for right foot pain. Patient reports that she was at work and slipped off and injured her foot. Reports that the incident occured about a two to three weeks ago. Reports that she has been having pain since then. States that the pain has decreased since then. States that she has been walking on the foot since the injury. Denies of any other pedal complains at this time. Denies of recent F/N/V/C/SOB/CP. PMHx: IDDM, HTN, CKD PSHx: C-Sect x1, Cleft lip SHx: Denies tobacco or drugs. ETOH social Allergies: N.K.D.A Review of Systems - Constitutional Constitutional: As Per HPI Past Patient History - Infectious Disease Hx of Infectious Diseases: None - Past Medical History & Family History Past Medical History?: Yes - Past Social History Smoking Status: Never Smoked - CARDIAC Hx Atrial Fibrillation: No Hx Cardia Arrhythmia: No Hx Congestive Heart Failure: No Hx Hypercholesterolemia: Yes Hx Hypertension: Yes Hx Pacemaker: No - PULMONARY Hx Asthma: No Hx Chronic Obstructive Pulmonary Disease (COPD): No - NEUROLOGICAL Hx Seizures: No - HEENT Hx HEENT Problems: No - RENAL Hx Chronic Kidney Disease: Yes Hx Dialysis: No - ENDOCRINE/METABOLIC Hx Endocrine Disorders: Yes Hx Diabetes Mellitus Type 2: Yes - HEMATOLOGICAL/ONCOLOGICAL Hx Blood Disorders: No - INTEGUMENTARY Hx Dermatological Problems: No - MUSCULOSKELETAL/RHEUMATOLOGICAL Hx Falls: No - GASTROINTESTINAL Hx Gastrointestinal Disorders: No - GENITOURINARY/GYNECOLOGICAL Hx Genitourinary Disorders: No - PSYCHIATRIC Hx Substance Use: No - SURGICAL HISTORY Hx Surgeries: Yes Hx Section: Yes Hx Coronary Artery Bypass Graft: No - ANESTHESIA Hx Anesthesia: Yes Hx Anesthesia Reactions: No Hx Malignant Hyperthermia: No Meds Allergies/Adverse Reactions: Allergies Allergy/AdvReac Type Severity Reaction Status Date / Time No Known Allergies Allergy Verified 08/10/17 13:46 - Medications Medications: Current Medications Acetaminophen (Tylenol 325mg Tab) 650 mg PO Q6 PRN PRN Reason: Pain, moderate (4-7) Aspirin (Aspirin Chewable) 81 mg PO DAILY [facility] Last Admin: 11/11/17 08:18 Dose: 81 mg Atorvastatin Calcium (Lipitor) 10 mg PO DAILY [facility] Last Admin: 11/11/17 08:18 Dose: 10 mg Calcium Acetate (Phoslo) 667 mg PO WM [facility] Last Admin: 11/11/17 08:17 Dose: 667 mg Carvedilol (Coreg) 12.5 mg PO BID [facility] Last Admin: 11/11/17 08:18 Dose: 12.5 mg Dextrose (Dextrose 50% Inj) 0 ml IV STAT PRN; Protocol PRN Reason: Hypoglycemia Protocol Dextrose (Glutose 15) 0 gm PO ONCE PRN; Protocol PRN Reason: Hypoglycemia Protocol Docusate Sodium (Colace) 100 mg PO BID [facility] Last Admin: 11/11/17 08:17 Dose: 100 mg Enoxaparin Sodium (Lovenox) 30 mg SC DAILY [facility] PRN Reason: Protocol Last Admin: 11/11/17 08:20 Dose: 30 mg Furosemide (Lasix) 80 mg IV Q12@0600,1800 [facility] Last Admin: 11/11/17 05:30 Dose: 80 mg Glucagon (Glucagen Diagnostic Kit) 0 mg IM STAT PRN; Protocol PRN Reason: Hypoglycemia Protocol Insulin Human NPH (Humulin N) 18 units SC QAM [facility] Last Admin: 11/11/17 08:21 Dose: 18 units Insulin Human NPH (Humulin N) 12 units SC HS [facility] Insulin Human Regular (Humulin R) 0 units SC ACCU-CHECK [facility] PRN Reason: Protocol Last Admin: 11/11/17 06:08 Dose: Not Given Lidocaine (Lidoderm) 1 ea TD DAILY [facility] Last Admin: 11/11/17 08:19 Dose: 1 ea Morphine Sulfate (Morphine) 1 mg IVP Q6 PRN PRN Reason: Pain, moderate (4-7) Last Admin: 11/10/17 21:25 Dose: 1 mg Morphine Sulfate (Morphine) 2 mg IVP Q6 PRN PRN Reason: Pain, severe (8-10) Physical Exam - Constitutional Appears: Well, Non-toxic, No Acute Distress - Extremities Exam Additional comments: Bilateral LE focused exam: VASC: DP/PT pulses are palpable 2/4 B/L. Cap refill time: < 3 seconds to all digits. Skin temperature warm to cool from proximal to distal. +2 pitting edema on bilateral LE distal to the knee joint DERM: no open lesions, no inter digital maceration, nails are cut to hygenic length, no clinical suspicion of active infection NEURO: Epicritic and protective sensation intact ORTHO: Pain present on palpation along the course of the 3rd metatarsal on the right foot, no pain during AROM or PROM at the MTPJ on the right foot, no pain on palpation of the lateral and medial collateral ligaments at the ankle joint, no pain on tib-fib squeeze test, no pain during ROM in all 4 directions at the ankle joint, MMT: 5/5 in all 4 direction at the ankle joint - Neurological Exam Neurological exam: Alert, Oriented x3 - Psychiatric Exam Psychiatric exam: Normal Affect, Normal Mood Results - Vital Signs Recent Vital Signs: Last Vital Signs Temp 98.2 F 11/11/17 07:51 Pulse 73 11/11/17 08:18 Resp 18 11/11/17 07:51 BP 143/84 11/11/17 08:18 Pulse Ox 98 11/11/17 07:51 - Labs Result Diagrams: 11/11/17 05:30 11/11/17 05:30 Labs: Laboratory Results - last 24 hr 11/10/17 11/10/17 11/10/17 05:00 10:22 10:43 WBC RBC Hgb Hct MCV MCH MCHC RDW Plt Count Sodium Potassium Chloride Carbon Dioxide Anion Gap BUN Creatinine Est GFR ( Amer) Est GFR (Non-Af Amer) POC Glucose (mg/dL) 295 H Random Glucose Hemoglobin A1c 7.8 H Calcium Phosphorus Iron TIBC % Saturation Ferritin Total Bilirubin AST ALT Alkaline Phosphatase Total Protein Total Protein (PEP) 4.6 L Albumin Globulin Albumin/Globulin Ratio Urine Color Urine Clarity Urine pH Ur Specific [place] Urine Protein Urine Glucose (UA) Urine Ketones Urine Blood Urine Nitrate Urine Bilirubin Urine Urobilinogen Ur Leukocyte Esterase Ur Squamous Epith Cells 11/10/17 11/10/17 11/10/17 12:20 15:49 21:11 WBC RBC Hgb Hct MCV MCH MCHC RDW Plt Count Sodium Potassium Chloride Carbon Dioxide Anion Gap BUN Creatinine Est GFR ( Amer) Est GFR (Non-Af Amer) POC Glucose (mg/dL) 116 H 147 H Random Glucose Hemoglobin A1c Calcium Phosphorus Iron TIBC % Saturation Ferritin Total Bilirubin AST ALT Alkaline Phosphatase Total Protein Total Protein (PEP) Albumin Globulin Albumin/Globulin Ratio Urine Color Yellow Urine Clarity Cloudy Urine pH 6.0 Ur Specific [place] 1.010 Urine Protein >=500 Urine Glucose (UA) >=500 Urine Ketones Negative Urine Blood Negative Urine Nitrate Negative Urine Bilirubin Negative Urine Urobilinogen 0.2-1.0 Ur Leukocyte Esterase Neg Ur Squamous Epith Cells 2 11/11/17 11/11/17 11/11/17 05:29 05:30 05:30 WBC 5.5 RBC 2.84 L Hgb 9.1 L Hct 26.6 L MCV 93.4 MCH 31.9 H MCHC 34.2 RDW 14.3 Plt Count 250 Sodium 140 Potassium 4.2 Chloride 113 H Carbon Dioxide 17 L Anion Gap 14 BUN 43 H Creatinine 3.9 H Est GFR ( Amer) 15 Est GFR (Non-Af Amer) 13 POC Glucose (mg/dL) 57 L Random Glucose 53 L Hemoglobin A1c Calcium 7.9 L Phosphorus 6.3 H Iron TIBC % Saturation Ferritin 13.5 Total Bilirubin < 0.1 L AST 23 ALT 32 Alkaline Phosphatase 69 Total Protein 5.1 L Total Protein (PEP) Albumin 2.3 L Globulin 2.9 Albumin/Globulin Ratio 0.8 L Urine Color Urine Clarity Urine pH Ur Specific [place] Urine Protein Urine Glucose (UA) Urine Ketones Urine Blood Urine Nitrate Urine Bilirubin Urine Urobilinogen Ur Leukocyte Esterase Ur Squamous Epith Cells 11/11/17 11/11/17 05:30 06:19 WBC RBC Hgb Hct MCV MCH MCHC RDW Plt Count Sodium Potassium Chloride Carbon Dioxide Anion Gap BUN Creatinine Est GFR ( Amer) Est GFR (Non-Af Amer) POC Glucose (mg/dL) 96 Random Glucose Hemoglobin A1c Calcium Phosphorus Iron 35 L TIBC 241 L % Saturation 14 L Ferritin Total Bilirubin AST ALT Alkaline Phosphatase Total Protein Total Protein (PEP) Albumin Globulin Albumin/Globulin Ratio Urine Color Urine Clarity Urine pH Ur Specific [place] Urine Protein Urine Glucose (UA) Urine Ketones Urine Blood Urine Nitrate Urine Bilirubin Urine Urobilinogen Ur Leukocyte Esterase Ur Squamous Epith Cells Assessment & Plan - Assessment and Plan (Free Text) Assessment: 42 year old female with PMHx of IDDM, HTN, CKD was evaluated for comminuted, displaced right 3rd metatarsal neck fracture Plan: Patient seen and evaluated Discussed plan with attending Dr. Ashlee Puente, labs and charts reviewed X-rays of the foot and ankle ordered/reviewed - Displaced, comminuted fracture at the level of 3rd metatarsal neck on the right Patient provided a surgical shoe - educated to remain in a surgical shoe at all times during WB Rx: CAM boot given Recommend patient to follow up in the podiatry clinic for further care Thank you for the podiatry consult and allowing to take part in patient care - Date & Time Date: 11/11/17 Time: 15:12
--- NOTE | 2017-11-11 12:27 | CP.PCM.PN ---
Subjective - Date & Time of Evaluation Date of Evaluation: 11/11/17 Time of Evaluation: 12:26 - Subjective Subjective: pt is seen and examined, follow up consult is dictated #[id number] Objective - Vital Signs/Intake and Output Vital Signs (last 24 hours): Temp Pulse Resp BP Pulse Ox 98.6 F 73 18 138/69 100 11/11/17 12:00 11/11/17 12:00 11/11/17 12:00 11/11/17 12:00 11/11/17 12:00 - Medications Medications: Current Medications Acetaminophen (Tylenol 325mg Tab) 650 mg PO Q6 PRN PRN Reason: Pain, moderate (4-7) Aspirin (Aspirin Chewable) 81 mg PO DAILY [facility] Last Admin: 11/11/17 08:18 Dose: 81 mg Atorvastatin Calcium (Lipitor) 10 mg PO DAILY [facility] Last Admin: 11/11/17 08:18 Dose: 10 mg Calcium Acetate (Phoslo) 667 mg PO WM [facility] Last Admin: 11/11/17 08:17 Dose: 667 mg Carvedilol (Coreg) 12.5 mg PO BID [facility] Last Admin: 11/11/17 08:18 Dose: 12.5 mg Dextrose (Dextrose 50% Inj) 0 ml IV STAT PRN; Protocol PRN Reason: Hypoglycemia Protocol Dextrose (Glutose 15) 0 gm PO ONCE PRN; Protocol PRN Reason: Hypoglycemia Protocol Docusate Sodium (Colace) 100 mg PO BID [facility] Last Admin: 11/11/17 08:17 Dose: 100 mg Enoxaparin Sodium (Lovenox) 30 mg SC DAILY [facility] PRN Reason: Protocol Last Admin: 11/11/17 08:20 Dose: 30 mg Furosemide (Lasix) 80 mg IV Q12@0600,1800 [facility] Last Admin: 11/11/17 05:30 Dose: 80 mg Glucagon (Glucagen Diagnostic Kit) 0 mg IM STAT PRN; Protocol PRN Reason: Hypoglycemia Protocol Insulin Human NPH (Humulin N) 18 units SC QAM [facility] Last Admin: 11/11/17 08:21 Dose: 18 units Insulin Human NPH (Humulin N) 12 units SC HS [facility] Insulin Human Regular (Humulin R) 0 units SC ACCU-CHECK [facility] PRN Reason: Protocol Last Admin: 11/11/17 06:08 Dose: Not Given Lidocaine (Lidoderm) 1 ea TD DAILY [facility] Last Admin: 11/11/17 08:19 Dose: 1 ea Morphine Sulfate (Morphine) 1 mg IVP Q6 PRN PRN Reason: Pain, moderate (4-7) Last Admin: 11/10/17 21:25 Dose: 1 mg Morphine Sulfate (Morphine) 2 mg IVP Q6 PRN PRN Reason: Pain, severe (8-10) - Labs Labs: 11/11/17 05:30 11/11/17 05:30
--- NOTE | 2017-11-11 14:01 | RAD ---
PROCEDURE: Right Ankle Radiographs. HISTORY: Ankle pain. History of trauma. COMPARISON: Comparison made with prior radiographs of the right ankle dated 10/15/2017 as well as concurrent radiographs right foot. FINDINGS: BONES: No evidence of acute displaced fracture nor dislocation. The osseous structures appear intact. No cortical destructive changes seen. Tiny posterior calcaneal enthesophyte JOINTS: Joint spaces preserved. No significant osteoarthritis. . Ankle mortise maintained. Talar dome intact SOFT TISSUES: Moderate diffuse bilateral soft tissue swelling. . Soft tissue swelling extends proximally into the soft tissues surrounding the distal tibia and fibula The small calcifications in the pretibial soft tissues likely represent calcified phleboliths. OTHER FINDINGS: None. IMPRESSION: No evidence of acute displaced fracture nor dislocation. Moderate diffuse soft tissue swelling.
--- NOTE | 2017-11-11 14:27 | RAD ---
PROCEDURE: Right Foot Radiographs. . HISTORY: Foot pain, Hx of recent 3rd metatarsal fracture. COMPARISON: Comparison made with concurrent radiographs of right ankle as well as prior radiographs right foot 10/15/2017 FINDINGS: BONES: Fracture at the level of the neck distal 3rd metatarsal, likely a stress fracture and new since prior exam. Re- demonstrated is a comminuted fracture of the 3rd metatarsal. There is moderate to fairly significant the surrounding soft tissue swelling most conspicuous within the dorsal soft tissues. . JOINTS: Mild hallux valgus deformity with slight overgrowth of the head of the 1st metatarsal and mild DJD 1st MTP joint. SOFT TISSUES: Normal. OTHER FINDINGS: None. IMPRESSION: Fracture at the level of the neck distal 3rd metatarsal, likely a stress fracture and new since prior exam. Re- demonstrated is a comminuted fracture of the 3rd metatarsal. There is moderate to fairly significant the surrounding soft tissue swelling most conspicuous within the dorsal soft tissues. Mild hallux valgus deformity with slight overgrowth of the head of the 1st metatarsal and mild DJD 1st MTP joint.
--- NOTE | 2017-11-11 15:29 | CP.PCM.DIS ---
Provider - Provider Date of Admission: 11/09/17 22:01 Attending physician: Hien Hadley MD Primary care physician: Dr May at [facility] Consults: Nephrology: Dr Rose Podiatry: Dr Rosado Time Spent in preparation of Discharge (in minutes): 25 Diagnosis - Discharge Diagnosis (1) Fracture of toe of left foot Status: Acute Comment: -XR of L foot showed fracture at level of neck of distal 3rd metatarsal , and re-demonstrated comminuted fracture of the 3rd metatarsal. -Will f/u podiatry in outpatient setting. (2) Renal insufficiency Status: Acute Hospital Course - Lab Results Lab Results: Micro Results 11/10/17 12:20 Urine,Clean Catch Urine Culture - Final No Growth (<1,000 CFU/ML) Most Recent Lab Values WBC 5.5 K/uL (4.8-10.8) 11/11/17 05:30 RBC 2.84 Mil/uL (3.80-5.20) L 11/11/17 05:30 Hgb 9.1 g/dL (12.0-16.0) L 11/11/17 05:30 Hct 26.6 % (34.0-47.0) L 11/11/17 05:30 MCV 93.4 fl (81.0-99.0) 11/11/17 05:30 MCH 31.9 pg (27.0-31.0) H 11/11/17 05:30 MCHC 34.2 g/dL (33.0-37.0) 11/11/17 05:30 RDW 14.3 % (11.5-14.5) 11/11/17 05:30 Plt Count 250 K/uL (130-400) 11/11/17 05:30 MPV 7.9 fl (7.2-11.7) 11/10/17 05:00 Neut % (Auto) 52.1 % (50.0-75.0) 11/10/17 05:00 Lymph % (Auto) 35.4 % (20.0-40.0) 11/10/17 05:00 Campbell % (Auto) 9.2 % (0.0-10.0) 11/10/17 05:00 Eos % (Auto) 2.5 % (0.0-4.0) 11/10/17 05:00 Baso % (Auto) 0.8 % (0.0-2.0) 11/10/17 05:00 Neut # (Auto) 3.0 K/uL (1.8-7.0) 11/10/17 05:00 Lymph # (Auto) 2.1 K/uL (1.0-4.3) 11/10/17 05:00 Campbell # (Auto) 0.5 K/uL (0.0-0.8) 11/10/17 05:00 Eos # (Auto) 0.1 K/uL (0.0-0.7) 11/10/17 05:00 Baso # (Auto) 0.0 K/uL (0.0-0.2) 11/10/17 05:00 Sodium 140 mmol/l (132-148) 11/11/17 05:30 Potassium 4.2 MMOL/L (3.6-5.0) 11/11/17 05:30 Chloride 113 mmol/L (98-107) H 11/11/17 05:30 Carbon Dioxide 17 mmol/L (22-30) L 11/11/17 05:30 Anion Gap 14 (10-20) 11/11/17 05:30 BUN 43 mg/dl (7-17) H 11/11/17 05:30 Creatinine 3.9 mg/dl (0.7-1.2) H 11/11/17 05:30 Est GFR ( Amer) 15 11/11/17 05:30 Est GFR (Non-Af Amer) 13 11/11/17 05:30 POC Glucose (mg/dL) 134 mg/dL (65-110) H 11/11/17 10:41 Random Glucose 53 mg/dL (65-105) L 11/11/17 05:30 Hemoglobin A1c 7.8 % (4.2-6.5) H 11/10/17 05:00 Calcium 7.9 mg/dL (8.4-10.2) L 11/11/17 05:30 Phosphorus 6.3 mg/dl (2.5-4.5) H 11/11/17 05:30 Magnesium 2.6 MG/DL (1.6-2.3) H 11/10/17 00:33 Iron 35 ug/dL (37-170) L 11/11/17 05:30 TIBC 241 ug/dL (250-450) L 11/11/17 05:30 % Saturation 14 % (20-55) L 11/11/17 05:30 Ferritin 13.5 ng/Ml (6.24-137.0) 11/11/17 05:30 Total Bilirubin < 0.1 mg/dl (0.2-1.3) L 11/11/17 05:30 AST 23 U/L (14-36) 11/11/17 05:30 ALT 32 U/L (9-52) 11/11/17 05:30 Alkaline Phosphatase 69 U/L (38-126) 11/11/17 05:30 Troponin I < 0.0120 ng/mL (0.00-0.120) 11/09/17 21:09 NT-Pro-B Natriuret Pep 672 pg/ml (0-450) H 11/09/17 21:09 Total Protein 5.1 G/DL (6.3-8.2) L 11/11/17 05:30 Total Protein (PEP) 4.6 g/dL (6.1-8.1) L 11/10/17 10:22 Albumin 2.3 g/dL (3.5-5.0) L 11/11/17 05:30 Globulin 2.9 gm/dL (2.2-3.9) 11/11/17 05:30 Albumin/Globulin Ratio 0.8 (1.0-2.1) L 11/11/17 05:30 Urine Color Yellow (YELLOW) 11/10/17 12:20 Urine Clarity Cloudy (Clear) 11/10/17 12:20 Urine pH 6.0 (5.0-8.0) 11/10/17 12:20 Ur Specific [place] 1.010 (1.003-1.030) 11/10/17 12:20 Urine Protein >=500 mg/dL (NEGATIVE) 11/10/17 12:20 Urine Glucose (UA) >=500 mg/dL (Normal) 11/10/17 12:20 Urine Ketones Negative mg/dL (NEGATIVE) 11/10/17 12:20 Urine Blood Negative (NEGATIVE) 11/10/17 12:20 Urine Nitrate Negative (NEGATIVE) 11/10/17 12:20 Urine Bilirubin Negative (NEGATIVE) 11/10/17 12:20 Urine Urobilinogen 0.2-1.0 mg/dL (0.2-1.0) 11/10/17 12:20 Ur Leukocyte Esterase Neg Naomi/uL (Negative) 11/10/17 12:20 Ur Squamous Epith Cells 2 /hpf (0-5) 11/10/17 12:20 - Hospital Course Hospital Course: 42 y/o F with a PMHx of uncontrolled IDDM, HTN and CKD admitted for R foot and R ankle pain and B/L LE edema. 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 XR of L foot showed fracture at level of neck of distal 3rd metatarsal, and re- demonstrated comminuted fracture of the 3rd metatarsal. Podiatry evaluated patient and recommended immobilization boot and f/u as outpatient. Home medications were resumed and pt was instructed to f/u with her neprhologist within 1 week. - Date & Time of H&P Date of H&P: 11/11/17 Time of H&P: 22:40 Discharge Exam - Head Exam Head Exam: NORMAL INSPECTION - Eye Exam Eye Exam: EOMI, Normal appearance - ENT Exam ENT Exam: Mucous Membranes Moist - Neck Exam Neck exam: Full Rom - Respiratory Exam Respiratory Exam: Clear to PA & Lateral, NORMAL BREATHING PATTERN, UNREMARKABLE - Cardiovascular Exam Cardiovascular Exam: +S1, +S2 - GI/Abdominal Exam GI & Abdominal Exam: Normal Bowel Sounds, Soft. absent: Distended, Guarding, Tenderness - Extremities Exam Extremities exam: pedal edema, tenderness Discharge Plan - Follow Up Plan Condition: FAIR Disposition: HOME/ ROUTINE Instructions: Hyperkalemia (DC), Kidney Failure (DC) Additional Instructions: -Por favor, jesus ellie roque con [facility] podiatra (doctor moss) dentro de 7 weber para dominick seguimiento a stewart fractura del tercer dedo de pie derecho. -Por favor, assita a stewart nefrologo (doctor jessica heath) dentro de ellie semana. -Siga estrictatmente stewart dieta renal y continue con vj medicamentos. Referrals: Barbara Rose MD [Staff Provider] - Rocael Downs DO [Family Provider] - Rosado,Antoni, DPM [Doctor Podiatric Medicine] -
[2017-11-11 16:17] VITALS: BP 155/80; PULSE 75; RESP 20; TEMP 98.8; O2SAT 99
--- NOTE | 2017-11-14 08:16 | PN ---
DATE: The patient is located in room 402, bed 2. Requested by Hien Hadley MD. REASON FOR FOLLOWUP: Chronic kidney disease, proteinuria, for further evaluation, and anemia. The patient is a 42-year-old middle-aged female with a history of longstanding hypertension, diabetes for more than 15 years, hyperlipidemia, nephrotic range proteinuria, anemia, was admitted with a chief complaint of bilateral leg swelling and found to have worsening renal function. The patient is feeling slightly better today, less leg swelling. Denies any chest pain or palpitation. Denies any fever or cough. No abdominal pain. No nausea, vomiting, diarrhea. PHYSICAL EXAMINATION: VITAL SIGNS: This morning as follows: Blood pressure 138/69, pulse 73, respirations 18, temperature 98.6, saturation 90%. Height 5 feet 4 inches and weight is 220 pounds. GENERAL: The patient is a 42-year-old middle-aged female, well built, well nourished, not in distress. HEENT: Pupils are normal and reactive to light and accommodation. Conjunctiva pink. Sclera anicteric. Tongue is moist. Trachea is midline. LUNGS: Symmetric on both sides. Bilateral breath sounds present. Clear to auscultation. CVS: Partridge at the fifth intercostal space, midclavicular area. S1 and S2 audible. No murmur or gallop. ABDOMEN: Normal in appearance, soft, tympanic. No guarding. No hepatosplenomegaly. SHIPPING POINT INSPECTOR: The patient is alert, awake, oriented x3. Nonfocal neuro examination. Cranial nerves II-XII grossly intact. Sensory and motor system are within normal limits. EXTREMITIES: No cyanosis, no clubbing. The patient has 1 to 2+ edema in both lower extremities. CURRENT MEDICATIONS: Include as follows: Lasix 40 mg p.o. daily, Coreg 12.5 mg p.o. b.i.d., Aldactone 25 mg p.o. daily, minoxidil 5 mg p.o. daily, Lipitor 40 mg p.o. at bedtime, losartan 50 mg p.o. daily, simvastatin 20 mg p.o. daily, omeprazole and metoprolol 50 mg p.o. b.i.d., Amaryl 4 mg daily, gabapentin 100 mg p.o. three times a day., clindamycin 300 mg p.o. three times a day, Tessalon Perles, aspirin 81 mg daily, and Tylenol. The patient was given pneumococcal vaccine on 05/11/2016. CURRENT LABORATORY DATA: Include as follows: As of 11/11/2017: WBC 5.5, hemoglobin 9.1, hemoglobin is 26.6, platelets 250. Sodium 140, potassium 4.2, chloride 113, CO2 is 17, BUN 43, creatinine 3.9, glucose 96, calcium 7.9, phosphorus 6.3, iron 35, TIBC 241, saturation 40, and ferritin is 13.5, total bili 0.1, AST 23, ALT 32, alkaline phosphatase 69, total protein 5.1, albumin is 2.3. Serum immunofixation is pending. In summary, the patient is a 42-year-old middle-aged female with hypertension, diabetes, hyperlipidemia, nephrotic range proteinuria, anemia, and increased BUN and creatinine. 1. 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 2. Anemia secondary to chronic kidney disease and iron deficiency anemia. 3. Hypertension. 4. Diabetes. Continue her current medication and follow up as an outpatient in the [facility]. Thank you for allowing me to participate in your patient's care. If renal function continued to deteriorate, the patient might need to be referred to Vascular Surgery for AV fistula as an outpatient. Consider ferrous sulfate 325 mg p.o. three times a day. Continue to monitor H and H as an outpatient. Abdoul Rose MD
--- NOTE | 2017-11-14 08:39 | CON ---
DATE: 11/10/2017 RENAL CONSULTATION LOCATION: The patient is located in room number 402, bed 2. CONSULTATION REQUESTED BY: . REASON FOR FOLLOWUP: Acute renal failure, chronic kidney disease, and proteinuria for further evaluation. HISTORY OF PRESENT ILLNESS: Mrs. Gastelum is a 42-year-old obese female with a past medical history significant for longstanding diabetes for more than 15 years, hypertension for more than 15 years, chronic kidney disease and diabetic retinopathy, status post cataract surgery and questionable status post laser treatment of the right eye and massive proteinuria who was admitted with chief complaints of bilateral leg swelling for about 2-3 weeks and the patient denies any chest pain or palpitation. Denies any nausea, vomiting, or diarrhea. Denies any abdominal pain. No fever. No cough. No dysuria and no frequency. PAST MEDICAL HISTORY: Significant for hypertension, diabetes, hyperlipidemia, chronic kidney disease, diabetes and hypertension for more than 15 years. PAST SURGICAL HISTORY: Status post x1 and cleft lip surgery. ALLERGIES: NO KNOWN DRUG ALLERGIES. SOCIAL HISTORY: No smoking. No alcohol or drugs. FAMILY HISTORY: Both father and mother had diabetes and hypertension. She has 3 children. CURRENT MEDICATIONS: Include as follows; aspirin 81 mg daily, Colace 100 mg p.o. b.i.d., Coreg 12.5 mg p.o. b.i.d., NPH 15 units subcutaneous a.m. and at bedtime, Lasix 40 mg IV every 12 hours, Lidoderm topical daily, Lipitor 10 mg at bedtime, Lovenox 30 mg subcutaneous daily, morphine sulfate 1 to 2 mg IV push q. 4-6 hours. p.r.n., and Tylenol. REVIEW OF SYSTEMS: Significant for bilateral lower extremity swelling for the last few weeks. All other review of systems are reviewed and are negative. PHYSICAL EXAMINATION: VITAL SIGNS: As follows; blood pressure of 130/76, pulse of 80, respirations of 20, temperature of 98.2, and saturation of 99%. Height is 5 feet 4 inches and weight is 220 pounds. GENERAL: Mrs. Gastelum is a 42-year-old obese middle-aged female, well-built and well-nourished, not in any distress. HEENT: Pupils are normal and reactive to light and accommodation. Conjunctivae are pink. Sclerae are anicteric. Tongue is moist. Trachea is midline. LUNGS: Symmetric on both sides. Bilateral breath sounds present. Clear to auscultation. CARDIOVASCULAR SYSTEMS: Pana at the fifth intercostal space, midclavicular line. S1 and S2 audible. No murmur or gallop. ABDOMEN: Normal in appearance. The patient has a subumbilical midline scar present from the previous . Abdomen is soft and tympanic. No guarding. No rigidity. No hepatosplenomegaly. No abdominal bruits. CENTRAL NERVOUS SYSTEM: The patient is alert, awake, and oriented x3. Nonfocal neurological examination. Cranial nerves II through XII are grossly intact. Sensory and motor system is within normal limits. EXTREMITIES: No cyanosis and no clubbing. The patient has 2+ edema in both lower extremities. LABORATORY DATA: Include as follows, as of 11/10/2017, WBC of 5.8, hemoglobin of 8.9, hematocrit of 25.8, and platelets of 234. Sodium of 141, potassium of 4.9, chloride of 116, CO2 of 15, BUN of 41, creatinine of 3.6, glucose of 133, and calcium of 8.1. Hemoglobin A1c is 7.8. Phosphorus is 5.8 and magnesium is 2.6. Urine analysis; yellow, cloudy, PH is 6, specific gravity of 1010, protein more than 500, glucose more than 500, ketones negative, blood negative, bilirubin negative, nitrites negative, and urobilinogen 0.2 to 1.0. Leukocyte esterase is negative. Squamous epithelial cells are 2. Other laboratory data from the previous admission as of 05/22/2016, urine protein more than 500. Review of the old chart from the [facility] was negative. As of 11/03/2015, hepatitis B surface antigen negative, hepatitis B surface antibody was negative, hepatitis C antibodies was negative, and HIV was negative. As of 08/10/2017, influenza was negative. As of 04/03/2016, complement level of C3 137, C4 is 36 and PADMA was negative. Serum immunofixation as of 04/10/2016 faint IgG lambda monoclonal protein band is present. As of 12/23/2015, free lambda monoclonal light chain present and urine immunofixation and no monoclonal protein detected. Ultrasound kidneys were normal in size. ASSESSMENT: In summary, Nestor Fuchs is a 42-year-old obese female with a history of longstanding hypertension, diabetes, hyperlipidemia, chronic kidney disease who was admitted with increase in BUN and creatinine and bilateral lower extremity swelling, and low hemoglobin and hematocrit. 1. Renal failure acute on chronic kidney disease versus progression of the chronic kidney disease, rule out diabetic nephropathy versus chronic . 2. Anemia secondary to renal failure, rule out multiple myeloma, as serum immunofixation was positive for IgG lambda in the past. Repeat urine immunofixation and serum immunofixation and also check parathyroid hormone intact level. 3. Hypertension. 4. Diabetes. 5. Fluid overload secondary to renal failure. PLAN: Continue IV Lasix every 12 hours and titrate as needed up to 120 mg q. 12 hours. until the edema subsides. We will also check PTH intact level. We will check iron TIBC and ferritin level. We will follow with you. Thank you for allowing me to participate in your patient's care. Abdoul Rose MD
[2017-11-14 12:56] LABS: ALBUMIN (PEP) 2.1 g/dL (3.8-4.8); ALPHA-1-GLOBULIN (PEP) 0.3 g/dL (0.2-0.3)
== END 2017-11-11 18:00 | disposition home or self-care (01) ==
LOC: H.ER 17:44 → H.ERHOLD 22:01 → H.TEL 11-10 00:29
PROVIDERS: ADMIT Family Medicine Geriatric Medicine; ATTEND Family Medicine Geriatric Medicine
DX: E87.5 Hyperkalemia (principal); N18.2 Chronic kidney disease, stage 2 (mild); S92.331A Displaced fracture of third metatarsal bone, right foot, initial encounter for closed fracture; I12.9 Hypertensive chronic kidney disease with stage 1 through stage 4 chronic kidney disease, or unspecified chronic kidney disease; D63.1 Anemia in chronic kidney disease; E11.22 Type 2 diabetes mellitus with diabetic chronic kidney disease; E11.319 Type 2 diabetes mellitus with unspecified diabetic retinopathy without macular edema; Z91.19 Patient's noncompliance with other medical treatment and regimen; E78.5 Hyperlipidemia, unspecified; E78.00 Pure hypercholesterolemia, unspecified; E66.9 Obesity, unspecified; Z79.4 Long term (current) use of insulin; Z79.84 Long term (current) use of oral hypoglycemic drugs; Z87.730 Personal history of (corrected) cleft lip and palate; X58.XXXA Exposure to other specified factors, initial encounter; Y92.9 Unspecified place or not applicable
CPT/HCPCS: 36415; 71046; 73610; 73630; 80048; 80053; 81003; 82570; 82728; 82948; 83036; 83540; 83550; 83735; 83880; 83970; 84100; 84155; 84156; 84165; 84166; 84484; 85025; 85027; 86334; 86335; 87086; 93005; 93970; 96372; 96374; 96375; 96376; 99285; G0378; J1650; J1885; J1940; J2270; Q4081

== ENCOUNTER 2018-01-18 17:13 | Emergency (ER) | payer SELFPAY ==
[2018-01-18 17:43] VITALS: BP 144/80; PULSE 77; RESP 16; TEMP 98.2; O2SAT 97
[2018-01-18 20:05] LABS: BASO % 0.6 % (0.0-2.0); EOS # 0.1 K/uL (0.0-0.7); EOS % 1.4 % (0.0-4.0); HEMOGLOBIN 9.9 g/dL (12.0-16.0); LYMPH % 34.3 % (20.0-40.0); MEAN CORPUSCULAR HEMOGLOBIN 30.7 pg (27.0-31.0); MEAN PLATELET VOLUME 8.1 fl (7.2-11.7); MONO # 0.5 K/uL (0.0-0.8); NEUT # 3.1 K/uL (1.8-7.0); NEUT % 54.7 % (50.0-75.0); RBC 3.21 Mil/uL (3.80-5.20); RED CELL DISTRIBUTION WIDTH 15.1 % (11.5-14.5); WHITE BLOOD COUNT 5.7 K/uL (4.8-10.8)
[2018-01-18 20:16] LABS: ALB/GLOB RATIO 0.8 (1.0-2.1); ALBUMIN 2.3 g/dL (3.5-5.0); ALT/SGPT 56 U/L (9-52); AST/SGOT 54 U/L (14-36); BLOOD UREA NITROGEN 49 mg/dl (7-17); CALCIUM 7.7 mg/dL (8.4-10.2); GFR AFRICAN-AMERICAN 13; GFR NON-AFRICAN AMERICAN 11
[2018-01-18 20:38] LABS: INR 0.9 (0.9-1.2); PROTHROMBIN TIME 9.4 Seconds (9.8-13.1)
[2018-01-18 20:39] LABS: PARTIAL THROMBOPLASTIN TIME 26.8 Seconds (25.6-37.1)
--- NOTE | 2018-01-18 20:47 | ED PDOC ---
Syncope/Near Syncope/Dizziness Time Seen by Provider: 01/18/18 19:16 Chief Complaint (Nursing): Dizziness/Lightheaded Chief Complaint (Provider): Dizziness/Lightheaded History Per: Patient History/Exam Limitations: no limitations Onset/Duration Of Symptoms: Intermittent Episodes (x4) Current Symptoms Are (Timing): Still Present Additional Complaint(s): 42 year old female with medical history of HTN, DM and renal insufficency (no dialysis treatments), presents to the ED with a complaint of intermittent dizziness described as "inbalance", onset of 4 days. She reports additional left ear noise sensation, headache and bilateral leg swelling ( chronic). No reports of chest pain or shortness of breath. Upon arrival to ED, patient states headache has resolved. PMD: Dr. Rocael Downs Past Medical History Reviewed: Historical Data, Nursing Documentation, Vital Signs Vital Signs: Last Vital Signs Temp 98.2 F 01/18/18 17:40 Pulse 77 01/18/18 17:40 Resp 16 01/18/18 17:40 BP 144/80 01/18/18 17:40 Pulse Ox 97 01/18/18 17:40 - Medical History PMH: Diabetes (type II), HTN, Hypercholesterolemia, Hyperlipidemia, Chronic Kidney Disease Denies: Arthritis, Asthma, Atrial Fibrillation, Cardia Arrhythmia, CHF, COPD , Seizures - Surgical History Surgical History: Denies: CABG, Pacemaker - Family History Family History: States: Unknown Family Hx Denies: CAD - Social History Current smoker - smoking cessation education provided: No Alcohol: Occasional Drugs: Denies - Home Medications Home Medications: Ambulatory Orders Medication Instructions Recorded Aspirin [Aspirin Chewable] 81 mg PO DAILY #0 chew 03/12/16 Gabapentin [Neurontin] 100 mg PO TID #0 cap 03/12/16 Glimepiride [Amaryl] 4 mg PO DAILY #0 tablet 03/12/16 Omeprazole 40 mg PO DAILY #0 capsule. 03/12/16 Simvastatin 20 mg PO DAILY #0 tablet 03/12/16 Clindamycin [Cleocin] 300 mg PO TID #30 cap 05/08/16 Losartan Potassium [Cozaar] 50 mg PO DAILY #0 tablet 05/12/16 Metoprolol Tartrate [Lopressor] 50 mg PO BID #0 tab 05/12/16 Acetaminophen [Tylenol 325mg tab] 650 mg PO TID PRN 5 Days tab 08/10/17 Benzonatate [Tessalon Perles] 100 mg PO BID PRN 5 Days sgl 08/10/17 Atorvastatin [Lipitor] 40 mg PO HS 11/09/17 Carvedilol [Coreg] 12.5 mg PO BID 11/09/17 Furosemide [Lasix] 40 mg PO DAILY 11/09/17 Minoxidil [Loniten] 5 mg PO DAILY 11/09/17 Spironolactone [Aldactone] 25 mg PO DAILY 11/09/17 - Allergies Allergies/Adverse Reactions: Allergies Allergy/AdvReac Type Severity Reaction Status Date / Time No Known Allergies Allergy Verified 01/18/18 17:40 Review of Systems ROS Statement: Except As Marked, All Systems Reviewed And Found Negative ENT: Positive for: Other (left ear noise sensation) Cardiovascular: Negative for: Chest Pain Respiratory: Negative for: Shortness of Breath Musculoskeletal: Positive for: Other (chronic leg swelling bilaterally) Neurological: Positive for: Headache (resolved), Dizziness Physical Exam - Reviewed Nursing Documentation Reviewed: Yes Vital Signs Reviewed: Yes - Physical Exam Appears: Positive for: Non-toxic, No Acute Distress Head Exam: Positive for: ATRAUMATIC, NORMAL INSPECTION, NORMOCEPHALIC Skin: Positive for: Normal Color Eye Exam: Positive for: Normal appearance ENT: Positive for: Normal ENT Inspection Neck: Positive for: Normal Cardiovascular/Chest: Positive for: Regular Rate, Rhythm. Negative for: Murmur Respiratory: Positive for: Normal Breath Sounds. Negative for: Wheezing, Respiratory Distress Gastrointestinal/Abdominal: Positive for: Normal Exam, Soft. Negative for: Tenderness Extremity: Positive for: Normal ROM (upper/lower), Pedal Edema (2+ bilaterally) Neurologic/Psych: Positive for: Alert, Oriented. Negative for: Motor/Sensory Deficits - Laboratory Results Result Diagrams: 01/18/18 19:59 01/18/18 19:59 - ECG O2 Sat by Pulse Oximetry: 97 (RA) Pulse Ox Interpretation: Normal Medical Decision Making Medical Decision Making: Initial Impression: 42 y/o female with dizziness in setting of known HTN and DM Initial Plan: * EKG * CMP * Troponin I * Urine dipstick * CBC * PTT * PT * Antivert 25mg PO * Accucheck Time: 1951 --Accucheck: 140 --Negative for . Time: 2311 --Labs reviewed showed no clinically significant abnormalities. Evaluated by Dr. Toni Shelby who will make arrangements for patient to be evaluated in clinic within the next 24 hours. --Patient is stable and ready for discharge upon provider evaluation. Scribe Attestation: Documented by Rakel Garcia, acting as a scribe for Javier Read MD. Provider Scribe Attestation: All medical record entries made by the Scribe were at my direction and personally dictated by me. I have reviewed the chart and agree that the record accurately reflects my personal performance of the history, physical exam, medical decision making, and the department course for this patient. I have also personally directed, reviewed, and agree with the discharge instructions and disposition. Disposition - Clinical Impression Clinical Impression: Dizziness - Patient ED Disposition Is Patient to be Admitted: No - Disposition Disposition: Routine/Home Disposition Time: 23:14 Condition: STABLE Instructions: Dizziness, Nonvertigo, (DC) Forms: [employer] (Frisian) Print Language: TAJIK
--- NOTE | 2018-01-19 15:06 | CARD ---
APPROVED REPORT Date of service: 01/18/2018 EKG Measurement Heart [id number] <Conclusion> Normal sinus rhythm Normal ECG
== END 2018-01-19 00:20 | disposition home or self-care (01) ==
LOC: H.ER 17:13
DX: R42 Dizziness and giddiness (principal); E11.22 Type 2 diabetes mellitus with diabetic chronic kidney disease; E78.00 Pure hypercholesterolemia, unspecified; I12.9 Hypertensive chronic kidney disease with stage 1 through stage 4 chronic kidney disease, or unspecified chronic kidney disease; Z79.84 Long term (current) use of oral hypoglycemic drugs

== ENCOUNTER 2018-03-28 18:31 | Emergency (ER) | payer SELFPAY ==
[2018-03-28 18:48] VITALS: BP 185/76; PULSE 89; RESP 18; TEMP 99.3; O2SAT 99
--- NOTE | 2018-03-28 19:39 | ED PDOC ---
Lower Extremity Pain/Injury Time Seen by Provider: 03/28/18 18:49 Chief Complaint (Nursing): Lower Extremity Problem/Injury Chief Complaint (Provider): Right knee pain History Per: Patient History/Exam Limitations: no limitations Onset/Duration Of Symptoms: Days (x4) Current Symptoms Are (Timing): Still Present Additional Complaint(s): Marion Gastelum is a 42 year old female, with a past medical history of diabetes and HTN, who presents to the emergency department complaining of right knee pain s/p fall x4 days ago. Patient did not seek medical attention at the time and has been able to ambulate since but pain worsened today prompting ED visit. Patient took Excedrin today for symptoms which did not help. She denies any head injuries or LOC. PMD: [facility] - Knee Description Of Injury: Fell Past Medical History Reviewed: Historical Data, Nursing Documentation, Vital Signs Vital Signs: Last Vital Signs Temp 99.3 F 03/28/18 18:44 Pulse 89 03/28/18 18:44 Resp 18 03/28/18 18:44 BP 185/76 H 03/28/18 18:44 Pulse Ox 99 03/28/18 18:44 - Medical History PMH: Diabetes (type II), HTN, Hypercholesterolemia, Hyperlipidemia, Chronic Kidney Disease - Surgical History Surgical History: - Family History Family History: States: Unknown Family Hx Denies: CAD - Social History Current smoker - smoking cessation education provided: No Alcohol: Social Drugs: Denies - Home Medications Home Medications: Ambulatory Orders Medication Instructions Recorded Aspirin [Aspirin Chewable] 81 mg PO DAILY #0 chew 03/12/16 Gabapentin [Neurontin] 100 mg PO TID #0 cap 03/12/16 Glimepiride [Amaryl] 4 mg PO DAILY #0 tablet 03/12/16 Omeprazole 40 mg PO DAILY #0 capsule.dr 03/12/16 Simvastatin 20 mg PO DAILY #0 tablet 03/12/16 Clindamycin [Cleocin] 300 mg PO TID #30 cap 05/08/16 Losartan Potassium [Cozaar] 50 mg PO DAILY #0 tablet 05/12/16 Metoprolol Tartrate [Lopressor] 50 mg PO BID #0 tab 05/12/16 Acetaminophen [Tylenol 325mg tab] 650 mg PO TID PRN 5 Days tab 08/10/17 Benzonatate [Tessalon Perles] 100 mg PO BID PRN 5 Days sgl 08/10/17 Atorvastatin [Lipitor] 40 mg PO HS 11/09/17 Carvedilol [Coreg] 12.5 mg PO BID 11/09/17 Furosemide [Lasix] 40 mg PO DAILY 11/09/17 Minoxidil [Loniten] 5 mg PO DAILY 11/09/17 Spironolactone [Aldactone] 25 mg PO DAILY 11/09/17 Cyclobenzaprine [Cyclobenzaprine 10 mg PO TID PRN #20 tab 03/28/18 HCl] Naproxen [Naprosyn] 500 mg PO BID #20 tab 03/28/18 - Allergies Allergies/Adverse Reactions: Allergies Allergy/AdvReac Type Severity Reaction Status Date / Time No Known Allergies Allergy Verified 03/28/18 18:43 Review of Systems ROS Statement: Except As Marked, All Systems Reviewed And Found Negative Musculoskeletal: Positive for: Leg Pain (right knee) Physical Exam - Reviewed Nursing Documentation Reviewed: Yes Vital Signs Reviewed: Yes - Physical Exam Appears: Positive for: No Acute Distress Head Exam: Positive for: ATRAUMATIC, NORMOCEPHALIC Skin: Positive for: Normal Color, Warm, Dry Eye Exam: Positive for: Normal appearance Neck: Positive for: Painless ROM Extremity: Positive for: Normal ROM (Full ROM of right knee), Calf Tenderness (moderate swelling and tenderness to right calf region), Other (Diffused ecchymosis to right knee). Negative for: Deformity Neurologic/Psych: Positive for: Alert, Oriented. Negative for: Motor/Sensory Deficits - ECG O2 Sat by Pulse Oximetry: 99 (RA) Pulse Ox Interpretation: Normal - Other Rad Right knee x-ray X-Ray: Interpreted by Me, Viewed By Me X-Ray Interpretation: no fx, no dis, arthritic changes US of right leg X-Ray: Read By Radiologist X-Ray Interpretation: no DVT Medical Decision Making Medical Decision Making: Time: 18:49 Initial Impression: Right knee injury Initial Plan: --Knee 3 views RT [RAD] --Tylenol 325 mg tab 975 mg PO --Toradol 30 mg IM --Ultram 50 mg PO --Duplex Lower Extrm Vein Right [US] Patient reports improvement pain after meds given in ED. Crutches given. Knee immobilizer applied to right leg. Patient given prescriptions for Naprosyn and Flexeril and was advised to follow-up with clinic or orthopedist. Scribe Attestation: Documented by Bryant De Dios, acting as a scribe for Lidia Bowling PA-C Provider Scribe Attestation: All medical record entries made by the Scribe were at my direction and personally dictated by me. I have reviewed the chart and agree that the record accurately reflects my personal performance of the history, physical exam, medical decision making, and the department course for this patient. I have also personally directed, reviewed, and agree with the discharge instructions and disposition. Procedures - Splinting Location: right knee Pre-Made Type: knee immobilizer Pre-Proc Neuro Vasc Exam: normal Post-Proc Neuro Vasc Exam: normal Disposition - Clinical Impression Clinical Impression: Knee contusion - Patient ED Disposition Is Patient to be Admitted: No Counseled Patient/Family Regarding: Studies Performed, Diagnosis, Need For Followup, Rx Given - Disposition Referrals: Jonathan Humphreys MD [Medical Doctor] - [facility] [Outside] Disposition: Routine/Home Disposition Time: 21:37 Condition: STABLE Additional Instructions: Ice, rest and elevate affected area. Take prescription meds as directed as needed for pain. Follow-up with clinic or orthopedist in 2-3 days. Prescriptions: Cyclobenzaprine [Cyclobenzaprine HCl] 10 mg PO TID PRN #20 tab PRN Reason: Muscle Spasm Naproxen [Naprosyn] 500 mg PO BID #20 tab Instructions: Contusion (DC), Knee Sprain (DC), Knee Immobilizer (DC), How to Use Crutches, Going Up and Down Curbs or Stairs With a Walker or Crutches Forms: [employer] (Italian), [employer] (Syrian), [facility] ED S chool/Work Excuse Print Language: [id number]
--- NOTE | 2018-03-29 10:08 | RAD ---
Date of service: 03/28/2018 PROCEDURE: Right Knee Radiographs. HISTORY: trauma COMPARISON: None. FINDINGS: BONES: Limited joint space narrowing seen the medial femorotibial compartment compatible degenerative joint disease. Lesser similar changes are present at the patellofemoral articulation. Osteophyte development is mild at the lateral femorotibial compartment. No destructive bony lesion is identified. JOINTS: No subluxation or dislocation. JOINT EFFUSION: None. OTHER FINDINGS: Marked increased reticular markings seen in the subcutaneous fat throughout than knee, distal thigh and proximal leg suspicious for cellulitis. Clinically correlate further. No emphysematous soft tissue changes accompany these findings. No retained radiodense foreign body appreciable. IMPRESSION: Mild degenerative joint disease right knee but tricompartmental. No subluxation or dislocation. Potential cellulitis pattern as discussed above. Clinically correlate further.
--- NOTE | 2018-03-29 10:42 | US ---
Date of service: 03/28/2018 PROCEDURE: Right lower extremity venous duplex Doppler. HISTORY: ecchymosis and swelling to right leg s/p fall COMPARISON: Bilateral lower extremity duplex venous ultrasound performed 11/09/2017. TECHNIQUE: Common femoral, superficial femoral, popliteal and posterior tibial veins were evaluated. Flow was assessed with color Doppler, compressibility, assessment of phasic flow and augmentation response. FINDINGS: COMMON FEMORAL VEIN: Unremarkable. SUPERFICIAL FEMORAL VEIN: Unremarkable. POPLITEAL VEIN: Unremarkable. POSTERIOR TIBIAL VEIN: Unremarkable. OTHER FINDINGS: Calf subcutaneous edema IMPRESSION: No evidence of deep venous thrombosis in the right lower extremity.
== END 2018-03-28 22:13 | disposition home or self-care (01) ==
LOC: H.ER 18:31
DX: S80.01XA Contusion of right knee, initial encounter (principal); W19.XXXA Unspecified fall, initial encounter; Y92.89 Other specified places as the place of occurrence of the external cause; E11.22 Type 2 diabetes mellitus with diabetic chronic kidney disease; Z79.84 Long term (current) use of oral hypoglycemic drugs
CPT/HCPCS: 29530; 73562; 93971; 96372; 99282; J1885

== ENCOUNTER 2018-04-28 17:28 | Emergency (ER) | payer SELFPAY ==
[2018-04-28 17:47] VITALS: BP 172/65; PULSE 88; RESP 18; TEMP 98.5; O2SAT 100
[2018-04-28] MEDS ORDERED: DiphenhydrAMINE 50 mg/ml Inj IM STA (18:17)
[2018-04-28] MEDS ORDERED: DiphenhydrAMINE 50 mg/ml Inj ONE (18:24)
--- NOTE | 2018-04-28 19:04 | ED PDOC ---
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 Patient states that she has been using Benadryl cream without relief and reports that on Tuesday she had ceviche with a fish she has never had before. Patient denies any chest pain, shortness of breath, fever, or antipyretic use. PMD: none provided Past Medical History Reviewed: Historical Data, Nursing Documentation, Vital Signs Vital Signs: Last Vital Signs Temp 98.5 F 04/28/18 17:44 Pulse 88 04/28/18 17:44 Resp 18 04/28/18 17:44 BP 172/65 H 04/28/18 17:44 Pulse Ox 100 04/28/18 17:44 - Medical History PMH: Diabetes (type II), HTN, Hypercholesterolemia, Hyperlipidemia, Chronic Kidney Disease Denies: Arthritis, Asthma, Atrial Fibrillation, Cardia Arrhythmia, CHF, COPD, Seizures - Surgical History Surgical History: Denies: CABG, Pacemaker - Family History Family History: States: Unknown Family Hx Denies: CAD - Social History Current smoker - smoking cessation education provided: No Alcohol: Social Drugs: Denies - Home Medications Home Medications: Ambulatory Orders Medication Instructions Recorded RX: Aspirin [Aspirin Chewable] 81 mg PO DAILY #0 chew 03/12/16 RX: Gabapentin [Neurontin] 100 mg PO TID #0 cap 03/12/16 RX: Glimepiride [Amaryl] 4 mg PO DAILY #0 tablet 03/12/16 RX: Omeprazole 40 mg PO DAILY #0 capsule.dr 03/12/16 RX: Simvastatin 20 mg PO DAILY #0 tablet 03/12/16 RX: Clindamycin [Cleocin] 300 mg PO TID #30 cap 05/08/16 RX: Losartan Potassium [Cozaar] 50 mg PO DAILY #0 tablet 05/12/16 RX: Metoprolol Tartrate [Lopressor] 50 mg PO BID #0 tab 05/12/16 RX: Acetaminophen [Tylenol 325mg 650 mg PO TID PRN 5 Days tab 08/10/17 tab] RX: Benzonatate [Tessalon Perles] 100 mg PO BID PRN 5 Days sgl 08/10/17 RX: Atorvastatin [Lipitor] 40 mg PO HS 11/09/17 RX: Carvedilol [Coreg] 12.5 mg PO BID 11/09/17 RX: Furosemide [Lasix] 40 mg PO DAILY 11/09/17 RX: Minoxidil [Loniten] 5 mg PO DAILY 11/09/17 RX: Spironolactone [Aldactone] 25 mg PO DAILY 11/09/17 Cyclobenzaprine [Cyclobenzaprine 10 mg PO TID PRN #20 tab 03/28/18 HCl] Naproxen [Naprosyn] 500 mg PO BID #20 tab 03/28/18 DiphenhydrAMINE [Benadryl] 50 mg PO Q6 PRN #20 cap 04/28/18 predniSONE [Prednisone] 20 mg PO DAILY #4 tab 04/28/18 - Allergies Allergies/Adverse Reactions: Allergies Allergy/AdvReac Type Severity Reaction Status Date / Time No Known Allergies Allergy Verified 03/28/18 18:43 Review of Systems ROS Statement: Except As Marked, All Systems Reviewed And Found Negative Constitutional: Negative for: Fever Cardiovascular: Negative for: Chest Pain Respiratory: Negative for: Shortness of Breath Skin: Positive for: Rash Physical Exam - Reviewed Nursing Documentation Reviewed: Yes Vital Signs Reviewed: Yes - Physical Exam Appears: Positive for: Non-toxic, No Acute Distress Head Exam: Positive for: ATRAUMATIC, NORMAL INSPECTION, NORMOCEPHALIC Skin: Positive for: Warm, Dry, Rash (scattered erythematous patches with blanching on upper chest, anterior neck, bilateral legs, no pustules and no break in skin integrity ) Eye Exam: Positive for: EOMI, Normal appearance, PERRL ENT: Positive for: Normal ENT Inspection Neck: Positive for: Normal Cardiovascular/Chest: Positive for: Regular Rate, Rhythm. Negative for: Murmur Respiratory: Positive for: Normal Breath Sounds. Negative for: Respiratory Distress Neurologic/Psych: Positive for: Alert, Oriented. Negative for: Motor/Sensory Deficits - ECG O2 Sat by Pulse Oximetry: 100 (RA) Pulse Ox Interpretation: Normal Medical Decision Making Medical Decision Making: Time: 18:18 Plan: --Prednisone Tab 20 mg PO --Benadryl 50 mg IM Scribe Attestation: Documented by Sheree Aaron, acting as a scribe for Biju Galicia PA-C. Provider Scribe Attestation: All medical record entries made by the Scribe were at my direction and personally dictated by me. I have reviewed the chart and agree that the record accurately reflects my personal performance of the history, physical exam, m edical decision making, and the department course for this patient. I have also personally directed, reviewed, and agree with the discharge instructions and disposition. Disposition - Clinical Impression Clinical Impression: Urticaria - Patient ED Disposition Is Patient to be Admitted: No - Disposition Referrals: [facility] [Outside] [facility] [Outside] Disposition Time: 19:20 Condition: STABLE Additional Instructions: MARION GASTELUM, thank you for letting us take care of you today. Your provider was Channing Das MD and you were treated for POSS ALLERGIC REACTION. The emergency medical care you received today was directed at your acute symptoms. If you were prescribed any medication, please fill it and take as directed. It may take several days for your symptoms to resolve. Return to the Emergency Department if your symptoms worsen, do not improve, or if you have any other problems. Please contact your doctor or call one of the physicians/clinics you have been referred to that are listed on the Patient Visit Information form that is included in your discharge packet. Bring any paperwork you were given at discharge with you along with any medications you are taking to your follow up visit. Our treatment cannot replace ongoing medical care by a primary care provider outside of the emergency department. Thank you for allowing the [facility] team to be part of your care today. If you had an X-Ray or CT scan: A Radiologist will review the ED reading if any change in treatment is needed we will contact you. If you had a blood, urine, or wound culture: It will take several days for the results, if any change in treatment is needed we will contact you. If you had an STI test: It will take 48 hours for the results. Please call after 1 week if you have not heard back. Prescriptions: DiphenhydrAMINE [Benadryl] 50 mg PO Q6 PRN #20 cap PRN Reason: itching or rash predniSONE [Prednisone] 20 mg PO DAILY #4 tab Instructions: Faustinoes (DC) Forms: [facility] (Wolof) Print Language: BAHRAINI
== END 2018-04-28 19:42 | disposition home or self-care (01) ==
LOC: H.ER 17:28
DX: L50.9 Urticaria, unspecified (principal); E11.22 Type 2 diabetes mellitus with diabetic chronic kidney disease; E78.00 Pure hypercholesterolemia, unspecified; Z79.84 Long term (current) use of oral hypoglycemic drugs
CPT/HCPCS: 96372; 99282; J1200

== ENCOUNTER 2018-05-05 16:42 | Inpatient (IN) | payer OTHER, SELFPAY ==
[2018-05-05 18:31] LABS: BASO # 0.1 K/uL (0.0-0.2); BASO % 0.7 % (0.0-2.0); EOS # 0.5 K/uL (0.0-0.7); EOS % 6.2 % (0.0-4.0); HEMOGLOBIN 7.4 g/dL (12.0-16.0); LYMPH # 1.7 K/uL (1.0-4.3); LYMPH % 19.6 % (20.0-40.0); MEAN CELL VOLUME 93.8 fl (81.0-99.0); MEAN CORPUSCULAR HEMOGLOBIN 30.8 pg (27.0-31.0); MEAN CORPUSCULAR HGB CONC 32.9 g/dL (33.0-37.0); MEAN PLATELET VOLUME 7.4 fl (7.2-11.7); MONO # 0.8 K/uL (0.0-0.8); MONO % 9.2 % (0.0-10.0); NEUT # 5.7 K/uL (1.8-7.0); NEUT % 64.3 % (50.0-75.0); RBC 2.4 Mil/uL (3.80-5.20); RED CELL DISTRIBUTION WIDTH 14.7 % (11.5-14.5)
[2018-05-05 18:32] LABS: SQUAMOUS EPITHIAL 2 /hpf (0-5); URINE BACTERIA OCC (<OCC); URINE BILIRUBIN NEGATIVE (NEGATIVE); URINE BLOOD SMALL (NEGATIVE); URINE CLARITY SLIGHTY-CLOUDY (Clear); URINE COLOR STRAW (YELLOW); URINE GLUCOSE (UA) >=500 mg/dL (Normal); URINE LEUKOCYTE ESTERASE NEG Leu/uL (Negative); URINE PROTEIN >=500 mg/dL (NEGATIVE); URINE UROBILINOGEN 0.2-1.0 mg/dL (0.2-1.0)
[2018-05-05 18:36] LABS: WHITE BLOOD COUNT 8.9 K/uL (4.8-10.8)
--- NOTE | 2018-05-05 18:37 | ED PDOC ---
HPI: General Adult Time Seen by Provider: 05/05/18 17:44 Chief Complaint (Nursing): Dizziness/Lightheaded Chief Complaint (Provider): Abnormal Labs History Per: Patient History/Exam Limitations: no limitations Onset/Duration Of Symptoms: Days (x3) Current Symptoms Are (Timing): Still Present Additional Complaint(s): Marion Gastelum is a 42 year old female with a past medical history of hypertension, diabetes, and hyperlipidemia who is presenting to the ED for e valuation of abnormal labs. Patient states that she was seen in [facility], where she had bloodwork done, and was told to go to the ED as labs were abnormal. She reports that for 3 days she has had non-bloody, watery diarrhea and bilateral lower abdominal pain. She denies any fevers, chest pain, shortness of breath, or history of kidney disease. PMD: [facility] Past Medical History Reviewed: Historical Data, Nursing Documentation, Vital Signs Vital Signs: Last Vital Signs Temp 98.7 F 05/05/18 16:59 Pulse 87 05/05/18 16:59 Resp 16 05/05/18 16:59 BP 184/90 H 05/05/18 16:59 Pulse Ox 98 05/05/18 16:59 - Medical History PMH: Diabetes (type II), HTN, Hypercholesterolemia, Hyperlipidemia, Chronic Kidney Disease Denies: Arthritis, Asthma, Atrial Fibrillation, Cardia Arrhythmia, CHF, COPD, Seizures - Surgical History Surgical History: Denies: CABG, Pacemaker - Family History Family History: States: Unknown Family Hx Denies: CAD - Social History Current smoker - smoking cessation education provided: No Alcohol: Social Drugs: Denies - Home Medications Home Medications: Ambulatory Orders Medication Instructions Recorded Atorvastatin [Lipitor] 40 mg PO HS 05/05/18 Carvedilol [Coreg] 12.5 mg PO Q12 05/05/18 Furosemide [Lasix] 40 mg PO DAILY 05/05/18 Insulin Human Isophane (NPH) 22 unit SC QPM 05/05/18 [Novolin N] Insulin Human Isophane (NPH) 24 unit SC QAM 05/05/18 [Novolin N] RX: Aspirin [Ecotrin] 81 mg PO DAILY 05/05/18 RX: Losartan [Cozaar] 100 mg PO DAILY 05/05/18 RX: Spironolactone [Aldactone] 25 mg PO DAILY 05/05/18 - Allergies Allergies/Adverse Reactions: Allergies Allergy/AdvReac Type Severity Reaction Status Date / Time No Known Allergies Allergy Verified 03/28/18 18:43 Review of Systems ROS Statement: Except As Marked, All Systems Reviewed And Found Negative Constitutional: Negative for: Fever Cardiovascular: Negative for: Chest Pain Respiratory: Negative for: Shortness of Breath Gastrointestinal: Positive for: Abdominal Pain, Diarrhea Physical Exam - Reviewed Nursing Documentation Reviewed: Yes Vital Signs Reviewed: Yes - Physical Exam Appears: Positive for: Non-toxic, No Acute Distress Head Exam: Positive for: ATRAUMATIC, NORMAL INSPECTION, NORMOCEPHALIC Skin: Positive for: Normal Color, Warm, DRY Eye Exam: Positive for: EOMI, Normal appearance, PERRL ENT: Positive for: Normal ENT Inspection Neck: Positive for: Normal, Painless ROM, Supple Cardiovascular/Chest: Positive for: Regular Rate, Rhythm. Negative for: Murmur Respiratory: Positive for: Normal Breath Sounds. Negative for: Respiratory Distress Gastrointestinal/Abdominal: Positive for: Soft, Tenderness (minimal bilateral lower abdominal tenderness) Back: Positive for: Normal Inspection. Negative for: L CVA Tenderness, R CVA Tenderness, Vertebral Tenderness Rectal: Positive for: Normal Exam, Other (Mari COFFMAN present as biological engineer). Negative for: Black Stool, Blood Streaked Stool, Hemorrhoids, Mass Extremity: Positive for: Normal ROM. Negative for: Deformity, Swelling Neurologic/Psych: Positive for: Alert, Oriented. Negative for: Motor/Sensory Deficits - Laboratory Results Result Diagrams: 05/06/18 05:15 05/06/18 05:15 - ECG O2 Sat by Pulse Oximetry: 98 (RA) Pulse Ox Interpretation: Normal Medical Decision Making Medical Decision Making: Time: 18:03 Plan: --CT Abd/Pelvis --EKG --CMP --ED Urine --CBC --Blood Culture --Urinalysis Pt. informed of low Hgb and elevated creatinine. Reports no hx of previous transfusions or dialysis but has seen a director of [facility] in the past. Further reports that she does see Dr. Keating in the clinic. Blood transfusion request obtained. Pt. agrees to obtaining blood results. As per lab more stools is needed on hemoccult card. 2nd rectal exam done to obtain more stool with Мария willoughby present as biological engineer. Case d/w Dr. Harry, resident, who states pt. is to be admitted under hospitalist service despite being private pt. of Dr. Keating. Still pending CT and labs. Scribe Attestation: Documented by, Sheree Aaron acting as a scribe for Biju Galicia PA-C. Provider Scribe Attestation: All medical record entries made by the Scribe were at my direction and personally dictated by me. I have reviewed the chart and agree that the record accurately reflects my personal performance of the history, physical exam, medical decision making, and the department course for this patient. I have also personally directed, reviewed, and agree with the discharge instructions and disposition. Disposition - Clinical Impression Clinical Impression: Anemia, Enterocolitis, Renal failure - Patient ED Disposition Is Patient to be Admitted: Transfer of Care (Signed out to Jolanta MORENO pending CT report and discussion with hospitalist) - Disposition Disposition Time: 20:00 Condition: FAIR
[2018-05-05 18:38] LABS: ALB/GLOB RATIO 0.8 (1.0-2.1); ALBUMIN 2.2 g/dL (3.5-5.0); ALT/SGPT 46 U/L (9-52); AST/SGOT 31 U/L (14-36); BLOOD UREA NITROGEN 68 mg/dl (7-17); CALCIUM 7.3 mg/dL (8.4-10.2); GFR NON-AFRICAN AMERICAN 6
[2018-05-05 19:19] LABS: INR 0.9
[2018-05-05 19:22] LABS: PARTIAL THROMBOPLASTIN TIME 28.3 Seconds (25.6-37.1)
[2018-05-05 20:23] LABS: PROTHROMBIN TIME 9.8 Seconds (9.8-13.1)
--- NOTE | 2018-05-05 20:34 | ED PDOC ---
- Laboratory Results Result Diagrams: 05/05/18 18:22 05/05/18 18:22 - ECG O2 Sat by Pulse Oximetry: 98 (RA) Pulse Ox Interpretation: Normal Medical Decision Making Medical Decision Making: Case endorsed to typewriter assembler, Jolanta MORENO, at 1999 due to shift change. Pertinent details reviewed. Labs reviewed. Patient pending CT results, consult with hospitalist. 2114. CT report reviewed. CT Abd/Pelvis: History: Abdominal pain. Diarrhea. Technique Multiple axial, coronal, sagittal CT images were obtained through the abdomen and pelvis without administration of oral or IV contrast material. Radiation dose: Total exam DLP = 923.42 MGy-cm. This CT exam was performed using one or more of the following dose reduction techniques: Automated exposure control, adjustment of the mA and/or kV according to patient size, and/or use of iterative reconstruction technique. Findings Lower thorax Unremarkable. Liver Unremarkable. No gross lesion or ductal dilatation. Gallbladder and bile ducts Unremarkable. Pancreas Unremarkable. No gross lesion or ductal dilatation. Spleen Unremarkable. Adrenals Unremarkable. No mass. Kidneys and ureters Unremarkable. No hydronephrosis. No solid mass. Vasculature Unremarkable. No aortic aneurysm. Bowel No obstruction. There is evidence of thickening involving all colonic segments especially the right colon. There is stranding adjacent to the cecum and ascending colon. This is consistent with colitis. There is also evidence of fluid-filled thick-walled loops of small bowel noted. Wall thickness overall consistent with enteritis. There is diffuse nonspecific anasarca present. Appendix Normal appendix. Peritoneum Unremarkable. No free fluid. No free air. Lymph nodes Unremarkable. No enlarged lymph nodes. Bladder Unremarkable. Reproductive The uterus and ovaries are unremarkable. Bilateral calcified buttock granulomas are present. Bones No acute fracture. Other Findings None. Impression 1. Evidence of enterocolitis as discussed above. Infectious and inflammatory etiologies are considered. 2. Diffuse nonspecific anasarca. Stool guaiac negative Consult placed to Dr Alexander, who is agreeable to admission at this time. Arrangements made for admission. Results discussed with patient using [email or web address] dental associate #[id number]. Patient agr eeable to admission at this time. [id number] Patient with persistently elevated BP in ED. Clonidine 0.2mg PO ordered. Disposition Discussed With Dr.: Kar Alexander Doctor Will See Patient In The: ED Counseled Patient/Family Regarding: Studies Performed, Diagnosis - Clinical Impression Clinical Impression: Anemia, Enterocolitis, Renal failure - POA Present On Arrival: None - Disposition Disposition: Admitted as In-Patient (telemetry) Disposition Time: 21:22 Condition: FAIR Results - Lab Results Lab Results: 05/05/18 05/05/18 05/05/18 20:07 19:05 19:05 WBC RBC Hgb Hct MCV MCH MCHC RDW Plt Count MPV Neut % (Auto) Lymph % (Auto) [place] % (Auto) Eos % (Auto) Baso % (Auto) Neut # (Auto) Lymph # (Auto) [place] # (Auto) Eos # (Auto) Baso # (Auto) PT 9.8 INR 0.9 APTT 28.3 Sodium Potassium Chloride Carbon Dioxide Anion Gap BUN Creatinine Est GFR ( Amer) Est GFR (Non-Af Amer) POC Glucose (mg/dL) Random Glucose Calcium Total Bilirubin AST ALT Alkaline Phosphatase Total Protein Albumin Globulin Albumin/Globulin Ratio Urine Color Urine Clarity Urine pH Ur Specific [place] Urine Protein Urine Glucose (UA) Urine Ketones Urine Blood Urine Nitrate Urine Bilirubin Urine Urobilinogen Ur Leukocyte Esterase Urine RBC (Auto) Urine Microscopic WBC Ur Squamous Epith Cells Urine Bacteria Stool Occult Blood Negative Blood Type O POSITIVE Antibody Screen Negative BBK History Checked No verified bt 05/05/18 05/05/18 05/05/18 19:05 18:22 18:22 WBC 8.9 D RBC 2.40 L Hgb 7.4 L D Hct 22.5 L MCV 93.8 MCH 30.8 MCHC 32.9 L RDW 14.7 H Plt Count 298 MPV 7.4 Neut % (Auto) 64.3 Lymph % (Auto) 19.6 L [place] % (Auto) 9.2 Eos % (Auto) 6.2 H Baso % (Auto) 0.7 Neut # (Auto) 5.7 Lymph # (Auto) 1.7 [place] # (Auto) 0.8 Eos # (Auto) 0.5 Baso # (Auto) 0.1 PT INR APTT Sodium 141 Potassium 4.7 Chloride 118 H Carbon Dioxide 15 L Anion Gap 13 BUN 68 H Creatinine 7.7 H* Est GFR ( Amer) 7 Est GFR (Non-Af Amer) 6 POC Glucose (mg/dL) Random Glucose 128 H Calcium 7.3 L Total Bilirubin < 0.1 L AST 31 ALT 46 Alkaline Phosphatase 95 Total Protein 5.1 L Albumin 2.2 L Globulin 2.9 Albumin/Globulin Ratio 0.8 L Urine Color Urine Clarity Urine pH Ur Specific [place] Urine Protein Urine Glucose (UA) Urine Ketones Urine Blood Urine Nitrate Urine Bilirubin Urine Urobilinogen Ur Leukocyte Esterase Urine RBC (Auto) Urine Microscopic WBC Ur Squamous Epith Cells Urine Bacteria Stool Occult Blood Negative Blood Type Antibody Screen BBK History Checked 05/05/18 05/05/18 18:22 18:12 WBC RBC Hgb Hct MCV MCH MCHC RDW Plt Count MPV Neut % (Auto) Lymph % (Auto) [place] % (Auto) Eos % (Auto) Baso % (Auto) Neut # (Auto) Lymph # (Auto) [place] # (Auto) Eos # (Auto) Baso # (Auto) PT INR APTT Sodium Potassium Chloride Carbon Dioxide Anion Gap BUN Creatinine Est GFR ( Amer) Est GFR (Non-Af Amer) POC Glucose (mg/dL) 147 H Random Glucose Calcium Total Bilirubin AST ALT Alkaline Phosphatase Total Protein Albumin Globulin Albumin/Globulin Ratio Urine Color Straw Urine Clarity Slighty-cloudy Urine pH 7.0 Ur Specific [place] 1.011 Urine Protein >=500 Urine Glucose (UA) >=500 Urine Ketones Negative Urine Blood Small Urine Nitrate Negative Urine Bilirubin Negative Urine Urobilinogen 0.2-1.0 Ur Leukocyte Esterase Neg Urine RBC (Auto) 6 H Urine Microscopic WBC 3 Ur Squamous Epith Cells 2 Urine Bacteria Occ H Stool Occult Blood Blood Type Antibody Screen BBK History Checked
--- NOTE | 2018-05-05 21:53 | CP.PCM.HP ---
<Latisha Harry - Last Filed: 05/06/18 00:29> History of Present Illness - History of Present Illness History of Present Illness: This is 42 y/o F with PMH of CKD stage 3, HTN, DM, anemia and HLD admitted to [facility] for evaluation and treatment of Acute on CKD, enterocolitis, and anemia. Patient presented to ER after PMD called patient for elevated BUN/Cr > 7/60 and instructed to go to the ER for evaluation. As per patient, She has been feeling weak since last 3 months, gets tired after walking to 1-2 blocks, c/o diarrhea and lower abdominal pain since last 3 days, watery loss NB diarrhea, denies any nausea, vomiting or fever. Denies any chest pain, SOB, hematuria. Reports occasionally she feels dizziness with blurred vision. Patient reports she used to follow up with Nephro at [facility], last visit 10/2017, no visit since due to insurance issue. Voyce: [id number] PMD: [facility] PMH:CKD stage 3, HTN, DM, anemia and HLD PSH: , Cleft lip Meds: See med rec Allg: NKDA FH: + DM SH: Denies alcohol/smoking or drug use ROS: As per HPI ER course: 98.7, HR 87, RR 16, 184/90, CBC: no WBCh/h 7.4/22.5 CMP: BUN/CR 68/7.7, Albumin 2.2 Stool negative for blood x2 F/u Bcx CT abdo/pelv: Entrocolitis S/p Clonidine 0.2, PPI 80mg Present on Admission - Present on Admission Any Indicators Present on Admission: No Past Patient History - Infectious Disease Hx of Infectious Diseases: None - Past Medical History & Family History Past Medical History?: Yes - Past Social History Alcohol: Social Drugs: Denies - CARDIAC Hx Atrial Fibrillation: No Hx Cardia Arrhythmia: No Hx Congestive Heart Failure: No Hx Hypercholesterolemia: Yes Hx Hypertension: Yes Hx Pacemaker: No - PULMONARY Hx Asthma: No Hx Chronic Obstructive Pulmonary Disease (COPD): No - NEUROLOGICAL Hx Seizures: No - HEENT Hx HEENT Problems: No - RENAL Hx Chronic Kidney Disease: Yes - ENDOCRINE/METABOLIC Hx Endocrine Disorders: Yes Hx Diabetes Mellitus Type 2: Yes - HEMATOLOGICAL/ONCOLOGICAL Hx Blood Disorders: No - INTEGUMENTARY Hx Dermatological Problems: No - MUSCULOSKELETAL/RHEUMATOLOGICAL Hx Arthritis: No - GASTROINTESTINAL Hx Gastrointestinal Disorders: No - GENITOURINARY/GYNECOLOGICAL Hx Genitourinary Disorders: No - PSYCHIATRIC Hx Psychophysiologic Disorder: No Hx Substance Use: No - SURGICAL HISTORY Hx Coronary Artery Bypass Graft: No - ANESTHESIA Hx Anesthesia: Yes Hx Anesthesia Reactions: No Hx Malignant Hyperthermia: No Meds Allergies/Adverse Reactions: Allergies Allergy/AdvReac Type Severity Reaction Status Date / Time No Known Allergies Allergy Verified 03/28/18 18:43 Physical Exam - Constitutional Appears: No Acute Distress - Head Exam Head Exam: NORMAL INSPECTION - Eye Exam Eye Exam: Normal appearance - ENT Exam ENT Exam: Mucous Membranes Moist - Neck Exam Neck exam: Positive for: Normal Inspection - Respiratory Exam Respiratory Exam: Clear to Auscultation Bilateral, NORMAL BREATHING PATTERN - Cardiovascular Exam Cardiovascular Exam: REGULAR RHYTHM, +S1, +S2 - GI/Abdominal Exam GI & Abdominal Exam: Normal Bowel Sounds, Soft. absent: Guarding, Organomegaly, Rebound, Rigid, Tenderness - Extremities Exam Extremities exam: Positive for: pedal edema. Negative for: tenderness - Back Exam Back exam: absent: CVA tenderness (L), CVA tenderness (R) - Neurological Exam Neurological exam: Alert, CN II-XII Intact, Oriented x3 - Psychiatric Exam Psychiatric exam: Normal Affect - Skin Skin Exam: Dry, Intact, Normal Color, Warm Results - Vital Signs Recent Vital Signs: Last Vital Signs Temp 98.3 F 05/05/18 21:02 Pulse 84 05/05/18 21:30 Resp 18 05/05/18 21:30 BP 160/96 H 05/05/18 21:30 Pulse Ox 100 05/05/18 21:30 - Labs Result Diagrams: 05/05/18 18:22 05/05/18 18:22 Labs: Laboratory Results - last 24 hr 05/05/18 05/05/18 05/05/18 18:12 18:22 18:22 WBC 8.9 D RBC 2.40 L Hgb 7.4 L D Hct 22.5 L MCV 93.8 MCH 30.8 MCHC 32.9 L RDW 14.7 H Plt Count 298 MPV 7.4 Neut % (Auto) 64.3 Lymph % (Auto) 19.6 L [place] % (Auto) 9.2 Eos % (Auto) 6.2 H Baso % (Auto) 0.7 Neut # (Auto) 5.7 Lymph # (Auto) 1.7 [place] # (Auto) 0.8 Eos # (Auto) 0.5 Baso # (Auto) 0.1 PT INR APTT Sodium Potassium Chloride Carbon Dioxide Anion Gap BUN Creatinine Est GFR ( Amer) Est GFR (Non-Af Amer) POC Glucose (mg/dL) 147 H Random Glucose Calcium Total Bilirubin AST ALT Alkaline Phosphatase Total Protein Albumin Globulin Albumin/Globulin Ratio Urine Color Straw Urine Clarity Slighty-cloudy Urine pH 7.0 Ur Specific [place] 1.011 Urine Protein >=500 Urine Glucose (UA) >=500 Urine Ketones Negative Urine Blood Small Urine Nitrate Negative Urine Bilirubin Negative Urine Urobilinogen 0.2-1.0 Ur Leukocyte Esterase Neg Urine RBC (Auto) 6 H Urine Microscopic WBC 3 Ur Squamous Epith Cells 2 Urine Bacteria Occ H Stool Occult Blood Blood Type Antibody Screen BBK History Checked 05/05/18 05/05/18 05/05/18 18:22 19:05 19:05 WBC RBC Hgb Hct MCV MCH MCHC RDW Plt Count MPV Neut % (Auto) Lymph % (Auto) [place] % (Auto) Eos % (Auto) Baso % (Auto) Neut # (Auto) Lymph # (Auto) [place] # (Auto) Eos # (Auto) Baso # (Auto) PT 9.8 INR 0.9 APTT 28.3 Sodium 141 Potassium 4.7 Chloride 118 H Carbon Dioxide 15 L Anion Gap 13 BUN 68 H Creatinine 7.7 H* Est GFR ( Amer) 7 Est GFR (Non-Af Amer) 6 POC Glucose (mg/dL) Random Glucose 128 H Calcium 7.3 L Total Bilirubin < 0.1 L AST 31 ALT 46 Alkaline Phosphatase 95 Total Protein 5.1 L Albumin 2.2 L Globulin 2.9 Albumin/Globulin Ratio 0.8 L Urine Color Urine Clarity Urine pH Ur Specific [place] Urine Protein Urine Glucose (UA) Urine Ketones Urine Blood Urine Nitrate Urine Bilirubin Urine Urobilinogen Ur Leukocyte Esterase Urine RBC (Auto) Urine Microscopic WBC Ur Squamous Epith Cells Urine Bacteria Stool Occult Blood Negative Blood Type Antibody Screen BBK History Checked 05/05/18 05/05/18 19:05 20:07 WBC RBC Hgb Hct MCV MCH MCHC RDW Plt Count MPV Neut % (Auto) Lymph % (Auto) [place] % (Auto) Eos % (Auto) Baso % (Auto) Neut # (Auto) Lymph # (Auto) [place] # (Auto) Eos # (Auto) Baso # (Auto) PT INR APTT Sodium Potassium Chloride Carbon Dioxide Anion Gap BUN Creatinine Est GFR ( Amer) Est GFR (Non-Af Amer) POC Glucose (mg/dL) Random Glucose Calcium Total Bilirubin AST ALT Alkaline Phosphatase Total Protein Albumin Globulin Albumin/Globulin Ratio Urine Color Urine Clarity Urine pH Ur Specific [place] Urine Protein Urine Glucose (UA) Urine Ketones Urine Blood Urine Nitrate Urine Bilirubin Urine Urobilinogen Ur Leukocyte Esterase Urine RBC (Auto) Urine Microscopic WBC Ur Squamous Epith Cells Urine Bacteria Stool Occult Blood Negative Blood Type O POSITIVE Antibody Screen Negative BBK History Checked No verified bt Assessment & Plan - Assessment and Plan (Free Text) Assessment: A/P: 42 y/o F with PMH of CKD stage 3, HTN, DM, anemia and HLD admitted to [facility] for evaluation and treatment of Acute on CKD, enterocolitis, and anemia. Acute injury on chronic kidney disease - Nephrology Consult, follow up recommendations - Will start patient on albumin and IVF 100mls/hr - Follow up AM labs Lower extremity edema, likely 2/2 CKD vs CHF - Lasix 40mg IV, will hold Aldacton for now due to LYNETTE/CKD - Follow up CXR and ECHO Enterocolitis, Infectious vs inflammatory etiologies on CT - Start Zosyn 500 Q8H day#0 - Start Cipro 400 Q24H day#0 - Monitor WBC and VS Diffuse nonspecific anasarca on CT with low albumin - Albumin 12.5gm Q6H x3 doses Anemia, likely due to chronic disease - Type and Screen - Follow up nephro recommendations - Iron panel 11/2017 with low iron, TIBC and % satu Hypertension - Hold Losaartan due to kidney injury - C/w Coreg - Labetolol IV 20mg PRN if BP >200 systolic DM-type II - HBA1C 7.1 on 05/2018 - C/w home NPH 24U AM/22U PM - lispro high dose sliding scale - Hypoglycemic protocol HLD - C/w STATIN DVT PPX - SCD for now (LYNETTE/ANEMIA) <Kar Alexander - Last Filed: 05/06/18 05:04> Results - Vital Signs Recent Vital Signs: Last Vital Signs Temp 98.6 F 05/06/18 00:48 Pulse 73 05/06/18 00:48 Resp 16 05/06/18 02:16 BP 167/83 H 05/06/18 00:48 Pulse Ox 98 05/06/18 04:01 - Labs Result Diagrams: 05/05/18 18:22 05/05/18 18:22 Labs: Laboratory Results - last 24 hr 05/05/18 05/05/18 05/05/18 18:12 18:22 18:22 WBC 8.9 D RBC 2.40 L Hgb 7.4 L D Hct 22.5 L MCV 93.8 MCH 30.8 MCHC 32.9 L RDW 14.7 H Plt Count 298 MPV 7.4 Neut % (Auto) 64.3 Lymph % (Auto) 19.6 L [place] % (Auto) 9.2 Eos % (Auto) 6.2 H Baso % (Auto) 0.7 Neut # (Auto) 5.7 Lymph # (Auto) 1.7 [place] # (Auto) 0.8 Eos # (Auto) 0.5 Baso # (Auto) 0.1 PT INR APTT Sodium Potassium Chloride Carbon Dioxide Anion Gap BUN Creatinine Est GFR ( Amer) Est GFR (Non-Af Amer) POC Glucose (mg/dL) 147 H Random Glucose Calcium Total Bilirubin AST ALT Alkaline Phosphatase Total Protein Albumin Globulin Albumin/Globulin Ratio Urine Color Straw Urine Clarity Slighty-cloudy Urine pH 7.0 Ur Specific [place] 1.011 Urine Protein >=500 Urine Glucose (UA) >=500 Urine Ketones Negative Urine Blood Small Urine Nitrate Negative Urine Bilirubin Negative Urine Urobilinogen 0.2-1.0 Ur Leukocyte Esterase Neg Urine RBC (Auto) 6 H Urine Microscopic WBC 3 Ur Squamous Epith Cells 2 Urine Bacteria Occ H Stool Occult Blood Blood Type Antibody Screen BBK History Checked 05/05/18 05/05/18 05/05/18 18:22 19:05 19:05 WBC RBC Hgb Hct MCV MCH MCHC RDW Plt Count MPV Neut % (Auto) Lymph % (Auto) [place] % (Auto) Eos % (Auto) Baso % (Auto) Neut # (Auto) Lymph # (Auto) [place] # (Auto) Eos # (Auto) Baso # (Auto) PT 9.8 INR 0.9 APTT 28.3 Sodium 141 Potassium 4.7 Chloride 118 H Carbon Dioxide 15 L Anion Gap 13 BUN 68 H Creatinine 7.7 H* Est GFR ( Amer) 7 Est GFR (Non-Af Amer) 6 POC Glucose (mg/dL) Random Glucose 128 H Calcium 7.3 L Total Bilirubin < 0.1 L AST 31 ALT 46 Alkaline Phosphatase 95 Total Protein 5.1 L Albumin 2.2 L Globulin 2.9 Albumin/Globulin Ratio 0.8 L Urine Color Urine Clarity Urine pH Ur Specific [place] Urine Protein Urine Glucose (UA) Urine Ketones Urine Blood Urine Nitrate Urine Bilirubin Urine Urobilinogen Ur Leukocyte Esterase Urine RBC (Auto) Urine Microscopic WBC Ur Squamous Epith Cells Urine Bacteria Stool Occult Blood Negative Blood Type Antibody Screen BBK History Checked 05/05/18 05/05/18 19:05 20:07 WBC RBC Hgb Hct MCV MCH MCHC RDW Plt Count MPV Neut % (Auto) Lymph % (Auto) [place] % (Auto) Eos % (Auto) Baso % (Auto) Neut # (Auto) Lymph # (Auto) [place] # (Auto) Eos # (Auto) Baso # (Auto) PT INR APTT Sodium Potassium Chloride Carbon Dioxide Anion Gap BUN Creatinine Est GFR ( Amer) Est GFR (Non-Af Amer) POC Glucose (mg/dL) Random Glucose Calcium Total Bilirubin AST ALT Alkaline Phosphatase Total Protein Albumin Globulin Albumin/Globulin Ratio Urine Color Urine Clarity Urine pH Ur Specific [place] Urine Protein Urine Glucose (UA) Urine Ketones Urine Blood Urine Nitrate Urine Bilirubin Urine Urobilinogen Ur Leukocyte Esterase Urine RBC (Auto) Urine Microscopic WBC Ur Squamous Epith Cells Urine Bacteria Stool Occult Blood Negative Blood Type O POSITIVE Antibody Screen Negative BBK History Checked No verified bt Attending/Attestation - Attestation I have personally seen and examined this patient.: Yes I have fully participated in the care of the patient.: Yes I have reviewed all pertinent clinical information: Yes Notes (Text): 05/06/18 04:43 I saw, examined and discussed this patient with Dr aHrry. I Agree with the assessment and plan which represent my direct input. this 42 years old female with hx of CKD, DM and HTN comes with lightheadedness, a 3 days of diarrhea and elevated BUN/creatinine. Her Albumin is 2.[address] abdomen/Pelvis shows evidence of diffuse nonspecific anasarca and enterocolitis. A&P #. Diarrhea with Enterocolitis - Cipro - Flagyl - IV Fluids #. Acute on Chronic Kidney disease - Consult Dr Wheat value stream leader - IV Fluids - follow Renal labs #. Malnutrition with hypoalbuminemia - Consult Dietitian #.Diffuse Anasarca secondary to Hypoalbuminemia - Albumin with IV Fluids #. Anemia Secondary to CKD - Follow Iron panel/Vitamin B12/Folate - Transfuse PRBC if HB falls below 7g/dl #. HTN uncontrolled - Restart Home medications - labetalol IV PRN SBP >200 #. DM II -NPH and Lispro insulin Kar Alexander MD
[2018-05-05] MEDS ORDERED: Glucagon Recombinant 1 mg Inj IM PRN (22:30)
[2018-05-05] MEDS ORDERED: Dextrose 50% SYRINGE Inj (50 ml) IV PRN (22:30)
[2018-05-05] MEDS ORDERED: Labetalol 5 mg/ml Inj 20ML IVP STA (22:44)
[2018-05-05] MEDS ORDERED: Sodium Chloride 0.9% 1,000 ML IV SCH (22:45)
[2018-05-05] MEDS ORDERED: Labetalol 5mg/ml (4ml) IVP PRN (22:59)
[2018-05-05] MEDS ORDERED: Ciprofloxacin 400mg/200ml D5W 400 MG/200 ML BAG IVPB SCH (23:00)
[2018-05-06] MEDS: Albumin Human 25% (12.5 gm/50 ml) IV SCH ×3 (00:56→09:56)
[2018-05-06] MEDS: metroNIDAZOLE 500mg/100ml NS 100 ML IVPB SCH ×3 (01:30→16:26)
[2018-05-06 06:55] LABS: BASO # 0.1 K/uL (0.0-0.2); BASO % 0.8 % (0.0-2.0); EOS # 0.5 K/uL (0.0-0.7); EOS % 6.9 % (0.0-4.0); HEMOGLOBIN 7.3 g/dL (12.0-16.0); LYMPH # 1.8 K/uL (1.0-4.3); LYMPH % 23.1 % (20.0-40.0); MEAN CORPUSCULAR HEMOGLOBIN 30.5 pg (27.0-31.0); MEAN CORPUSCULAR HGB CONC 32.1 g/dL (33.0-37.0); MEAN PLATELET VOLUME 7.9 fl (7.2-11.7); MONO # 0.7 K/uL (0.0-0.8); MONO % 9.3 % (0.0-10.0); NEUT # 4.7 K/uL (1.8-7.0); NEUT % 59.9 % (50.0-75.0); RBC 2.38 Mil/uL (3.80-5.20); RED CELL DISTRIBUTION WIDTH 14.7 % (11.5-14.5); WHITE BLOOD COUNT 7.9 K/uL (4.8-10.8)
[2018-05-06 06:58] LABS: IRON 34 ug/dL (37-170)
[2018-05-06 07:07] LABS: % IRON SATURATION 17 % (20-55); TOTAL IRON BINDING CAPACITY 204 ug/dL (250-450)
[2018-05-06 07:42] LABS: ALB/GLOB RATIO 0.8 (1.0-2.1); ALBUMIN 2.2 g/dL (3.5-5.0); ALT/SGPT 40 U/L (9-52); AST/SGOT 24 U/L (14-36); BLOOD UREA NITROGEN 64 mg/dl (7-17); CALCIUM 7.6 mg/dL (8.4-10.2); GFR NON-AFRICAN AMERICAN 6
--- NOTE | 2018-05-06 08:48 | CP.PCM.CON ---
History of Present Illness - History of Present Illness History of Present Illness: renal consult note 42 y/o F with PMH of CKD stage 3, HTN, DM, anemia and HLD admitted to [facility] for evaluation and treatment of Acute on CKD, enterocolitis, and anemia. Patient presented to ER after PMD called patient for elevated BUN/Cr > 7/60 and instructed to go to the ER for evaluation. As per patient, She has been feeling weak since last 3 months, gets tired after walking to 1-2 blocks, c/o diarrhea and lower abdominal pain since last 3 days, watery loss NB diarrhea, denies any nausea, vomiting or fever. Denies any chest pain, SOB, hematuria. Reports occasionally she feels dizziness with blurred vision. Patient reports she used to follow up with Nephro at [facility], last visit 10/2017, no visit since due to insurance issue. Voyce: [id number] PMD: [facility] PMH:CKD stage 3, HTN, DM, anemia and HLD PSH: , Cleft lip Meds: See med rec Allg: NKDA FH: + DM SH: Denies alcohol/smoking or drug use vitals reviewed midl distress sec to nausea heent normal op moist no jvd s1s2 present noresp distress abd soft skin normal ao times 3 A&P: shahida/ckd/acidosis/htn shahida sec to prerenal sec to abdominal pain and diarrhea monitor I&Os continue fluids, morning labs pending acidosis noted, if worsens consider switching bicarb gtt volume stabke d/w nurse bedside Past Patient History - Infectious Disease Hx of Infectious Diseases: None - Past Medical History & Family History Past Medical History?: Yes - Past Social History Smoking Status: Former Smoker - CARDIAC Hx Cardiac Disorders: Yes Hx Atrial Fibrillation: No Hx Cardia Arrhythmia: No Hx Congestive Heart Failure: No Hx Hypercholesterolemia: Yes Hx Hypertension: Yes Hx Pacemaker: No - PULMONARY Hx Respiratory Disorders: No Hx Asthma: No Hx Chronic Obstructive Pulmonary Disease (COPD): No - NEUROLOGICAL Hx Neurological Disorder: No Hx Seizures: No - HEENT Hx HEENT Problems: No - RENAL Hx Chronic Kidney Disease: Yes - ENDOCRINE/METABOLIC Hx Endocrine Disorders: Yes Hx Diabetes Mellitus Type 2: Yes - HEMATOLOGICAL/ONCOLOGICAL Hx Blood Disorders: No - INTEGUMENTARY Hx Dermatological Problems: No - MUSCULOSKELETAL/RHEUMATOLOGICAL Hx Musculoskeletal Disorders: No Hx Arthritis: No Hx Falls: No - GASTROINTESTINAL Hx Gastrointestinal Disorders: No - GENITOURINARY/GYNECOLOGICAL Hx Genitourinary Disorders: No - PSYCHIATRIC Hx Psychophysiologic Disorder: No Hx Substance Use: No - SURGICAL HISTORY Hx Surgeries: Yes Hx Coronary Artery Bypass Graft: No Other/Comment: Cleft left repair - ANESTHESIA Hx Anesthesia: Yes Hx Anesthesia Reactions: No Hx Malignant Hyperthermia: No Meds Allergies/Adverse Reactions: Allergies Allergy/AdvReac Type Severity Reaction Status Date / Time No Known Allergies Allergy Verified 03/28/18 18:43 - Medications Medications: Current Medications Albumin Human (Albumin Human 25% (12.5 Gm/50 Ml)) 12.5 gm IV Q6H [facility] Stop: 05/06/18 10:46 Last Admin: 05/06/18 05:07 Dose: 12.5 gm Aspirin (Ecotrin) 81 mg PO DAILY [facility] Atorvastatin Calcium (Lipitor) 40 mg PO HS [facility] Carvedilol (Coreg) 12.5 mg PO Q12 [facility] Dextrose (Dextrose 50% Inj) 0 ml IV STAT PRN; Protocol PRN Reason: Hypoglycemia Protocol Dextrose (Glutose 15) 0 gm PO ONCE PRN; Protocol PRN Reason: Hypoglycemia Protocol Glucagon (Glucagen Diagnostic Kit) 0 mg IM STAT PRN; Protocol PRN Reason: Hypoglycemia Protocol Sodium Chloride (Sodium Chloride 0.9%) 1,000 mls @ 100 mls/hr IV .Q10H [facility] Stop: 05/06/18 22:44 Last Admin: 05/05/18 23:03 Dose: 100 mls/hr Ciprofloxacin (Cipro 400mg/200ml Dsw) 400 mg in 200 mls @ 200 mls/hr IVPB Q24H [facility]; Protocol Last Admin: 05/06/18 01:28 Dose: 200 mls/hr Metronidazole (Flagyl 500mg/100ml Ns) 100 mls @ 100 mls/hr IVPB Q8 [facility]; Protocol Last Admin: 05/06/18 01:30 Dose: 100 mls/hr Insulin Human Lispro (Humalog) 0 units SC ACHS [facility]; Protocol Insulin Human NPH (Humulin N) 22 units SC QPM [facility] Insulin Human NPH (Humulin N) 24 units SC QAM [facility] Labetalol HCl (Trandate) 20 mg IVP Q6H PRN PRN Reason: Systolic Blood Pressure Last Admin: 05/06/18 05:06 Dose: 20 mg Results - Vital Signs Recent Vital Signs: Last Vital Signs Temp 98.1 F 05/06/18 08:26 Pulse 81 05/06/18 08:26 Resp 20 05/06/18 08:26 BP 152/72 H 05/06/18 08:26 Pulse Ox 99 05/06/18 08:26 - Labs Result Diagrams: 05/06/18 05:15 05/06/18 15:35 Labs: Laboratory Results - last 24 hr 05/05/18 05/05/18 05/05/18 18:12 18:22 18:22 WBC 8.9 D RBC 2.40 L Hgb 7.4 L D Hct 22.5 L MCV 93.8 MCH 30.8 MCHC 32.9 L RDW 14.7 H Plt Count 298 MPV 7.4 Neut % (Auto) 64.3 Lymph % (Auto) 19.6 L Sequoyah % (Auto) 9.2 Eos % (Auto) 6.2 H Baso % (Auto) 0.7 Neut # (Auto) 5.7 Lymph # (Auto) 1.7 Sequoyah # (Auto) 0.8 Eos # (Auto) 0.5 Baso # (Auto) 0.1 PT INR APTT Sodium Potassium Chloride Carbon Dioxide Anion Gap BUN Creatinine Est GFR ( Amer) Est GFR (Non-Af Amer) POC Glucose (mg/dL) 147 H Random Glucose Calcium Phosphorus Magnesium Iron TIBC % Saturation Total Bilirubin AST ALT Alkaline Phosphatase Total Protein Albumin Globulin Albumin/Globulin Ratio Vitamin B12 Urine Color Straw Urine Clarity Slighty-cloudy Urine pH 7.0 Ur Specific Cary 1.011 Urine Protein >=500 Urine Glucose (UA) >=500 Urine Ketones Negative Urine Blood Small Urine Nitrate Negative Urine Bilirubin Negative Urine Urobilinogen 0.2-1.0 Ur Leukocyte Esterase Neg Urine RBC (Auto) 6 H Urine Microscopic WBC 3 Ur Squamous Epith Cells 2 Urine Bacteria Occ H Stool Occult Blood Blood Type Blood Type Confirm Antibody Screen BBK History Checked 05/05/18 05/05/18 05/05/18 18:22 19:05 19:05 WBC RBC Hgb Hct MCV MCH MCHC RDW Plt Count MPV Neut % (Auto) Lymph % (Auto) Sequoyah % (Auto) Eos % (Auto) Baso % (Auto) Neut # (Auto) Lymph # (Auto) Sequoyah # (Auto) Eos # (Auto) Baso # (Auto) PT 9.8 INR 0.9 APTT 28.3 Sodium 141 Potassium 4.7 Chloride 118 H Carbon Dioxide 15 L Anion Gap 13 BUN 68 H Creatinine 7.7 H* Est GFR ( Amer) 7 Est GFR (Non-Af Amer) 6 POC Glucose (mg/dL) Random Glucose 128 H Calcium 7.3 L Phosphorus Magnesium Iron TIBC % Saturation Total Bilirubin < 0.1 L AST 31 ALT 46 Alkaline Phosphatase 95 Total Protein 5.1 L Albumin 2.2 L Globulin 2.9 Albumin/Globulin Ratio 0.8 L Vitamin B12 Urine Color Urine Clarity Urine pH Ur Specific Cary Urine Protein Urine Glucose (UA) Urine Ketones Urine Blood Urine Nitrate Urine Bilirubin Urine Urobilinogen Ur Leukocyte Esterase Urine RBC (Auto) Urine Microscopic WBC Ur Squamous Epith Cells Urine Bacteria Stool Occult Blood Negative Blood Type Blood Type Confirm Antibody Screen BBK History Checked 05/05/18 05/05/18 05/06/18 19:05 20:07 05:15 WBC 7.9 RBC 2.38 L Hgb 7.3 L Hct 22.6 L MCV 95.0 MCH 30.5 MCHC 32.1 L RDW 14.7 H Plt Count 269 MPV 7.9 Neut % (Auto) 59.9 Lymph % (Auto) 23.1 Sequoyah % (Auto) 9.3 Eos % (Auto) 6.9 H Baso % (Auto) 0.8 Neut # (Auto) 4.7 Lymph # (Auto) 1.8 Sequoyah # (Auto) 0.7 Eos # (Auto) 0.5 Baso # (Auto) 0.1 PT INR APTT Sodium Potassium Chloride Carbon Dioxide Anion Gap BUN Creatinine Est GFR ( Amer) Est GFR (Non-Af Amer) POC Glucose (mg/dL) Random Glucose Calcium Phosphorus Magnesium Iron TIBC % Saturation Total Bilirubin AST ALT Alkaline Phosphatase Total Protein Albumin Globulin Albumin/Globulin Ratio Vitamin B12 Urine Color Urine Clarity Urine pH Ur Specific Cary Urine Protein Urine Glucose (UA) Urine Ketones Urine Blood Urine Nitrate Urine Bilirubin Urine Urobilinogen Ur Leukocyte Esterase Urine RBC (Auto) Urine Microscopic WBC Ur Squamous Epith Cells Urine Bacteria Stool Occult Blood Negative Blood Type O POSITIVE Blood Type Confirm Antibody Screen Negative BBK History Checked No verified bt 05/06/18 05/06/18 05/06/18 05:15 05:15 05:15 WBC RBC Hgb Hct MCV MCH MCHC RDW Plt Count MPV Neut % (Auto) Lymph % (Auto) Sequoyah % (Auto) Eos % (Auto) Baso % (Auto) Neut # (Auto) Lymph # (Auto) Sequoyah # (Auto) Eos # (Auto) Baso # (Auto) PT INR APTT Sodium 142 Potassium 4.4 Chloride 122 H Carbon Dioxide 15 L Anion Gap 9 L BUN 64 H Creatinine 7.4 H* Est GFR ( Amer) 7 Est GFR (Non-Af Amer) 6 POC Glucose (mg/dL) Random Glucose 107 H Calcium 7.6 L Phosphorus 6.2 H Magnesium 1.7 Iron 34 L TIBC 204 L % Saturation 17 L Total Bilirubin < 0.1 L AST 24 ALT 40 Alkaline Phosphatase 70 Total Protein 5.0 L Albumin 2.2 L Globulin 2.7 Albumin/Globulin Ratio 0.8 L Vitamin B12 727 Urine Color Urine Clarity Urine pH Ur Specific Cary Urine Protein Urine Glucose (UA) Urine Ketones Urine Blood Urine Nitrate Urine Bilirubin Urine Urobilinogen Ur Leukocyte Esterase Urine RBC (Auto) Urine Microscopic WBC Ur Squamous Epith Cells Urine Bacteria Stool Occult Blood Blood Type Blood Type Confirm Antibody Screen BBK History Checked 05/06/18 05/06/18 05:15 06:41 WBC RBC Hgb Hct MCV MCH MCHC RDW Plt Count MPV Neut % (Auto) Lymph % (Auto) Sequoyah % (Auto) Eos % (Auto) Baso % (Auto) Neut # (Auto) Lymph # (Auto) Sequoyah # (Auto) Eos # (Auto) Baso # (Auto) PT INR APTT Sodium Potassium Chloride Carbon Dioxide Anion Gap BUN Creatinine Est GFR ( Amer) Est GFR (Non-Af Amer) POC Glucose (mg/dL) 116 H Random Glucose Calcium Phosphorus Magnesium Iron TIBC % Saturation Total Bilirubin AST ALT Alkaline Phosphatase Total Protein Albumin Globulin Albumin/Globulin Ratio Vitamin B12 Urine Color Urine Clarity Urine pH Ur Specific Cary Urine Protein Urine Glucose (UA) Urine Ketones Urine Blood Urine Nitrate Urine Bilirubin Urine Urobilinogen Ur Leukocyte Esterase Urine RBC (Auto) Urine Microscopic WBC Ur Squamous Epith Cells Urine Bacteria Stool Occult Blood Blood Type Blood Type Confirm O POSITIVE Antibody Screen BBK History Checked
--- NOTE | 2018-05-06 08:49 | CARD ---
APPROVED REPORT Date of service: 05/05/2018 EKG Measurement Heart [id number] <Conclusion> Normal sinus rhythm Nonspecific T wave abnormality Abnormal ECG
[2018-05-06] MEDS ORDERED: Enoxaparin 40 mg Syringe SC SCH (09:00)
[2018-05-06] MEDS ORDERED: Insulin NPH Human 100 Units/ml Inj SC SCH ×2 (09:00→18:00)
--- NOTE | 2018-05-06 09:24 | CP.PCM.PN ---
<Jonel Pennington - Last Filed: 05/06/18 09:42> Subjective - Date & Time of Evaluation Date of Evaluation: 05/06/18 Time of Evaluation: 09:24 - Subjective Subjective: pt seen and examined at bedside. No acute events overnight. BP remains elevated and uncontrolled. Pt complains of mild headache, but reports it is improving. Feels hungry, but still has abdominal pain which is mildly controlled with meds. Denies fever. No other complaints/concerns. Denies chills, N/V, CP/SOB/palpitations. Objective - Vital Signs/Intake and Output Vital Signs (last 24 hours): Temp Pulse Resp BP Pulse Ox 98.1 F 81 20 152/72 H 98 05/06/18 08:26 05/06/18 08:26 05/06/18 08:26 05/06/18 08:26 05/06/18 08:56 - Medications Medications: Current Medications Albumin Human (Albumin Human 25% (12.5 Gm/50 Ml)) 12.5 gm IV Q6H [facility] Stop: 05/06/18 10:46 Last Admin: 05/06/18 05:07 Dose: 12.5 gm Aspirin (Ecotrin) 81 mg PO DAILY [facility] Atorvastatin Calcium (Lipitor) 40 mg PO HS [facility] Carvedilol (Coreg) 12.5 mg PO Q12 [facility] Dextrose (Dextrose 50% Inj) 0 ml IV STAT PRN; Protocol PRN Reason: Hypoglycemia Protocol Dextrose (Glutose 15) 0 gm PO ONCE PRN; Protocol PRN Reason: Hypoglycemia Protocol Epoetin Vickey (Procrit) 20,000 unit SC TTS [facility] Glucagon (Glucagen Diagnostic Kit) 0 mg IM STAT PRN; Protocol PRN Reason: Hypoglycemia Protocol Sodium Chloride (Sodium Chloride 0.9%) 1,000 mls @ 100 mls/hr IV .Q10H [facility] Stop: 05/06/18 22:44 Last Admin: 05/05/18 23:03 Dose: 100 mls/hr Ciprofloxacin (Cipro 400mg/200ml Dsw) 400 mg in 200 mls @ 200 mls/hr IVPB Q24H [facility]; Protocol Last Admin: 05/06/18 01:28 Dose: 200 mls/hr Metronidazole (Flagyl 500mg/100ml Ns) 100 mls @ 100 mls/hr IVPB Q8 [facility]; Protocol Last Admin: 05/06/18 01:30 Dose: 100 mls/hr Iron Sucrose 100 mg/ Sodium (Chloride) 105 mls @ 105 mls/hr IVPB DAILY [facility] Stop: 05/08/18 09:59 Insulin Human Lispro (Humalog) 0 units SC ACHS [facility]; Protocol Insulin Human NPH (Humulin N) 22 units SC QPM [facility] Insulin Human NPH (Humulin N) 24 units SC QAM [facility] Labetalol HCl (Trandate) 20 mg IVP Q6H PRN PRN Reason: Systolic Blood Pressure Last Admin: 05/06/18 05:06 Dose: 20 mg - Labs Labs: 05/06/18 05:15 05/06/18 05:15 PT 9.8 Seconds (9.8-13.1) 05/05/18 19:05 INR 0.9 05/05/18 19:05 APTT 28.3 Seconds (25.6-37.1) 05/05/18 19:05 - Constitutional Appears: Non-toxic, No Acute Distress - Head Exam Head Exam: ATRAUMATIC, NORMOCEPHALIC - Eye Exam Eye Exam: EOMI Pupil Exam: PERRL - ENT Exam ENT Exam: Mucous Membranes Moist - Neck Exam Neck Exam: Full ROM. absent: Tenderness - Respiratory Exam Respiratory Exam: Clear to Ausculation Bilateral, NORMAL BREATHING PATTERN. absent: Accessory Muscle Use, Rales, Rhonchi, Wheezes - Cardiovascular Exam Cardiovascular Exam: REGULAR RHYTHM, RRR, +S1, +S2. absent: JVD, Rubs, Murmur - GI/Abdominal Exam GI & Abdominal Exam: Soft, Tenderness (LLQ tenderness ), Normal Bowel Sounds - Extremities Exam Extremities Exam: Pedal Edema (2+ pitting b/l up to mid tibia ) - Neurological Exam Neurological Exam: Alert, Awake, CN II-XII Intact, Oriented x3 - Psychiatric Exam Psychiatric exam: Normal Affect, Normal Mood Assessment and Plan - Assessment and Plan (Free Text) Assessment: 42 y/o female with a PMHx remarkable for CKD stage 3, HTN, IDDM, Iron def anemia, and HLD admitted to [facility] for Acute on chronic kidney injury, enterocolitis, and anemia. Plan: 1) Acute injury on chronic kidney Injury -likely 2/2 to dehydration from enterocolitis -Nephrology Consult, follow up recommendations -Will start patient on albumin and IVF 100mls/hr -monitor BUN/Cr, K+ 2) Lower extremity edema, likely 2/2 CKD vs CHF -Lasix 40mg IV, will hold Aldacton for now due to LYNETTE -Follow up CXR and ECHO 3) Enterocolitis -c/w Zosyn 500 Q8H day#2 -c/w Cipro 400 Q24H day#2 -no leukocytosis -afebrile 4) Diffuse nonspecific anasarca on CT with low albumin - Albumin 12.5gm Q6H x3 doses 5) Anemia, likely due to chronic disease -Type and Screen -Follow up nephro recommendations -Iron panel low iron, TIBC and % saturation -below baseline (pt usually runs high 8s) -Hemoglobin 7.4 on presentation, now 7.3 -IV venofer -EPO -Vit B12: wnl -occult blood negative 6) Hypertension -uncontrolled -Hold Losaartan due to acute kidney injury -C/w Coreg -Labetolol IV 20mg PRN if BP >200 systolic -Hydralzine 10mg PRN -monitor 7) IDDM-type II - HBA1C 7.1 on 05/2018 - C/w home NPH 24U AM/22U PM - lispro high dose sliding scale - Hypoglycemic protocol 8) HLD - c/w with home statin therapy 9) DVT PPX -SCD -Heparin 5000 U Q12H <Rachel Murillo - Last Filed: 05/06/18 15:27> Objective - Vital Signs/Intake and Output Vital Signs (last 24 hours): Temp Pulse Resp BP Pulse Ox 98.0 F 83 20 176/84 H 99 05/06/18 12:46 05/06/18 12:46 05/06/18 12:46 05/06/18 12:46 05/06/18 12:46 - Medications Medications: Current Medications Aspirin (Ecotrin) 81 mg PO DAILY [facility] Last Admin: 05/06/18 12:37 Dose: 81 mg Atorvastatin Calcium (Lipitor) 40 mg PO HS [facility] Carvedilol (Coreg) 12.5 mg PO Q12 [facility] Last Admin: 05/06/18 12:36 Dose: 12.5 mg Clonidine HCl (Catapres) 0.1 mg PO BID [facility] Dextrose (Dextrose 50% Inj) 0 ml IV STAT PRN; Protocol PRN Reason: Hypoglycemia Protocol Dextrose (Glutose 15) 0 gm PO ONCE PRN; Protocol PRN Reason: Hypoglycemia Protocol Epoetin Vickey (Procrit) 20,000 unit SC TTS [facility] Last Admin: 05/06/18 12:32 Dose: 20,000 unit Glucagon (Glucagen Diagnostic Kit) 0 mg IM STAT PRN; Protocol PRN Reason: Hypoglycemia Protocol Heparin Sodium (Porcine) (Heparin) 5,000 units SC Q12 [facility]; Protocol Metronidazole (Flagyl 500mg/100ml Ns) 100 mls @ 100 mls/hr IVPB Q8 [facility]; Protocol Last Admin: 05/06/18 09:52 Dose: 100 mls/hr Iron Sucrose 100 mg/ Sodium (Chloride) 105 mls @ 105 mls/hr IVPB DAILY [facility] Stop: 05/08/18 09:59 Last Admin: 05/06/18 12:34 Dose: 105 mls/hr Cefepime HCl 0.500 gm/ Sodium (Chloride) 50 mls @ 50 mls/hr IVPB DAILY [facility]; Protocol Sodium Bicarbonate 50 meq/ (Sodium Chloride) 1,050 mls @ 100 mls/hr IV .[id number] [facility] Stop: 05/07/18 15:13 Insulin Detemir (Levemir) 4 units SC HS [facility] Insulin Human Lispro (Humalog) 0 units SC ACHS [facility]; Protocol Last Admin: 05/06/18 12:33 Dose: Not Given Labetalol HCl (Trandate) 20 mg IVP Q6H PRN PRN Reason: Systolic Blood Pressure Last Admin: 05/06/18 05:06 Dose: 20 mg Ondansetron HCl (Zofran Inj) 4 mg IVP Q6 PRN PRN Reason: Nausea/Vomiting Sodium Bicarbonate (Sodium Bicarbonate Tab) 650 mg PO Q8 [facility] - Labs Labs: 05/06/18 05:15 05/06/18 05:15 PT 9.8 Seconds (9.8-13.1) 05/05/18 19:05 INR 0.9 05/05/18 19:05 APTT 28.3 Seconds (25.6-37.1) 05/05/18 19:05 Attending/Attestation - Attestation I have personally seen and examined this patient.: Yes I have fully participated in the care of the patient.: Yes I have reviewed all pertinent clinical information, including history, physical exam and plan: Yes Notes (Text): Metabolic Acidosis sec to Renal Disease , worsened by GI Loss - start IVF with Sodium Bicarb - Bicarb tabs Enterocolitis - change Cipro to Cefepime, cont IV Flagyl - Uremia prob exacerb vomiting DM Type II, Insulin requiring - Hold NPH due to pt not tolerating PO diet - start low dose Levemir 4 units only
[2018-05-06] MEDS: Insulin Lispro (humaLOG) 100 Units/ml Inj SC SCH ×4 (09:34→21:18)
--- NOTE | 2018-05-06 09:53 | CT ---
Date of service: 05/05/2018 PROCEDURE: CT Abdomen and Pelvis without intravenous contrast HISTORY: b/l lower abd pain COMPARISON: None. TECHNIQUE: Technique. Contrast dose: Radiation dose: Total exam DLP = 923.42 mGy-cm. This CT exam was performed using one or more of the following dose reduction techniques: Automated exposure control, adjustment of the mA and/or kV according to patient size, and/or use of iterative reconstruction technique. FINDINGS: LOWER THORAX: Unremarkable. LIVER: Unremarkable. No gross lesion or ductal dilatation. GALLBLADDER AND BILE DUCTS: Unremarkable. PANCREAS: Unremarkable. No gross lesion or ductal dilatation. SPLEEN: Unremarkable. ADRENALS: Unremarkable. No mass. KIDNEYS AND URETERS: Unremarkable. No hydronephrosis. No solid mass. VASCULATURE: Unremarkable. No aortic aneurysm. No aortic atherosclerotic calcification or mural plaque present. BOWEL: Unremarkable. No obstruction. No gross mural thickening. APPENDIX: Unremarkable. Normal appendix. PERITONEUM: Unremarkable. No free fluid. No free air. LYMPH NODES: Unremarkable. No enlarged lymph nodes. BLADDER: Unremarkable. REPRODUCTIVE: Unremarkable. BONES: No acute fracture. OTHER FINDINGS: Diffuse anasarca. IMPRESSION: Anasarca.
[2018-05-06] MEDS: Epoetin Alfa 20000 UNIT/ML (RENAL DOSE) SC SCH (12:32)
--- NOTE | 2018-05-06 14:31 | RAD ---
Date of service: 05/05/2018 PROCEDURE: CHEST RADIOGRAPH, 1 VIEW HISTORY: CKD, edema LEs COMPARISON: None available. FINDINGS: LUNGS: Clear. PLEURA: No pneumothorax or pleural fluid seen. CARDIOVASCULAR: Normal. OSSEOUS STRUCTURES: No significant abnormalities. VISUALIZED UPPER ABDOMEN: Normal. OTHER FINDINGS: None. IMPRESSION: No active disease.
--- NOTE | 2018-05-06 15:30 | CARD ---
APPROVED REPORT Date of service: 05/06/2018 EXAM: Two-dimensional and M-mode echocardiogram with Doppler and color Doppler. Other Information Quality : GoodRhythm : NSR INDICATION CKD/LEs EDEMA 2D DIMENSIONS IVSd1.29 (0.7-1.1cm)LVDd5.14 (3.9-5.9cm) LVOT Diameter2.06 (1.8-2.4cm)PWd0.78 (0.7-1.1cm) IVSs1.88 (0.8-1.2cm)LVDs3.02 (2.5-4.0cm) FS (%) 41.1 %PWs1.68 (0.8-1.2cm) M-Mode DIMENSIONS Left Atrium (MM)4.66 (2.5-4.0cm)Aortic Root2.84 (2.2-3.7cm) Aortic Valve AoV Peak Odvvvgmy380.6cm/sAoV VTI34.7cmAO Peak GR.12mmHg LVOT Peak Pgzineob855.4cm/sLVOT VTI30.70cmAO Mean GR.6mmHg ISSA (VMAX)1.11wr5XVN (VTI)1.42cm2 Mitral Valve MV E Wyadjjdq40.9cm/sMV E Peak Gr.76mmHgMV DECEL NADG322zg MV A Eacetbaj041.1cm/sMV UXG17khY/A ratio0.8 MVA (PHT)3.33cm2 TDI Lateral E' Peak V6.35cm/sMedial E' Peak V6.52cm/sE/Lateral E'13.1 E/Medial E'12.7 Pulmonary Valve PV Peak Ikffrklw66.4cm/s Tricuspid Valve TR Peak Biijoqkn143iy/sTR Peak Gr.41mhAbBKBC69drSh LEFT VENTRICLE The left ventricle is normal size. There is normal left ventricular wall thickness. The left ventricular systolic function is normal. The estimated ejection fraction is 60-65% No regional wall motion abnormalities noted.. Transmitral Doppler flow pattern is Grade I-abnormal relaxation pattern. No left ventricle thrombus noted on this study. There is no ventricular septal defect visualized. There is no left ventricular aneurysm. There is no mass noted in the left ventricle. RIGHT VENTRICLE The right ventricle is normal size. There is normal right ventricular wall thickness. The right ventricular systolic function is normal. ATRIA The left atrium is mildly dilated. The right atrium size is normal. The interatrial septum is intact with no evidence for an atrial septal defect. AORTIC VALVE The aortic valve is normal in structure. No aortic regurgitation is present. There is no aortic valvular stenosis. There is no aortic valvular vegetation. MITRAL VALVE The mitral valve is normal in structure. There is no evidence of mitral valve prolapse. There is no mitral valve stenosis. There is trace mitral valve regurgitation noted. TRICUSPID VALVE The tricuspid valve is normal in structure. There is trace tricuspid valve regurgitation noted. RVSP is calculated at 30 mm Hg. There is no tricuspid valve prolapse or vegetation. There is no tricuspid valve stenosis. PULMONIC VALVE The pulmonary valve is normal in structure. There is no pulmonic valvular regurgitation. There is no pulmonic valvular stenosis. GREAT VESSELS The aortic root is normal in size. The ascending aorta is normal in size. The pulmonary artery is normal. The IVC is normal in size and collapses >50% with inspiration. PERICARDIAL EFFUSION There is no pericardial effusion. There is no pleural effusion. <Conclusion> The estimated ejection fraction is 60-65% Transmitral Doppler flow pattern is Grade I-abnormal relaxation pattern. The left atrium is mildly dilated. There is trace mitral valve regurgitation noted. There is trace tricuspid valve regurgitation noted. RVSP is calculated at 30 mm Hg.
[2018-05-06 16:25] LABS: CALCIUM 7.6 mg/dL (8.4-10.2)
[2018-05-06] MEDS: Insulin Detemir 100 Units/ml Inj SC SCH (21:22)
[2018-05-07] MEDS: metroNIDAZOLE 500mg/100ml NS 100 ML IVPB SCH ×3 (01:59→16:47)
[2018-05-07 06:41] LABS: MEAN CELL VOLUME 93.9 fl (81.0-99.0); MEAN CORPUSCULAR HEMOGLOBIN 30.2 pg (27.0-31.0); MEAN CORPUSCULAR HGB CONC 32.2 g/dL (33.0-37.0); RBC 2.32 Mil/uL (3.80-5.20); RED CELL DISTRIBUTION WIDTH 15.1 % (11.5-14.5); WHITE BLOOD COUNT 6.2 K/uL (4.8-10.8)
[2018-05-07 07:12] LABS: ALB/GLOB RATIO 0.8 (1.0-2.1); ALBUMIN 2.2 g/dL (3.5-5.0); ALT/SGPT 42 U/L (9-52); AST/SGOT 19 U/L (14-36); BLOOD UREA NITROGEN 56 mg/dl (7-17); CALCIUM 7.5 mg/dL (8.4-10.2); GFR NON-AFRICAN AMERICAN 6
[2018-05-07 07:32] LABS: FERRITIN 74.2 ng/Ml (6.24-137.0)
[2018-05-07] MEDS: Insulin Lispro (humaLOG) 100 Units/ml Inj SC SCH ×4 (09:22→21:22)
[2018-05-07] MEDS: Sucralfate 1 gm/10 ml Oral Susp UD PO SCH ×4 (09:33→21:12)
--- NOTE | 2018-05-07 10:56 | CP.PCM.PN ---
<Jonel Pennington - Last Filed: 05/07/18 17:13> Subjective - Date & Time of Evaluation Date of Evaluation: 05/07/18 Time of Evaluation: 10:52 - Subjective Subjective: pt seen and evaluated at bedside. Afebrile. No acute events overnight. Lying in bed comfortably, NAD. Pt reports nausea, vomiting, and headache returned this morning. Reports constant nausea despite zofran and had a single episode of NBNB emesis this morning. Headache is approx 5-6/10, band like, w/o radiation. pt denies photophobia/phonophobia, numbness/tingling. No other complaints/concerns. Denies changes in vision, CP/SOB/palpitations, N/V/D/C, leg pain. Objective - Vital Signs/Intake and Output Vital Signs (last 24 hours): Temp Pulse Resp BP Pulse Ox 98.8 F 78 20 186/83 H 99 05/07/18 08:37 05/07/18 09:21 05/07/18 08:37 05/07/18 09:21 05/07/18 08:37 - Medications Medications: Current Medications Acetaminophen (Tylenol 325mg Tab) 650 mg PO Q6 PRN PRN Reason: Headache Last Admin: 05/07/18 04:30 Dose: 650 mg Aspirin (Ecotrin) 81 mg PO DAILY [facility] Last Admin: 05/07/18 09:21 Dose: 81 mg Atorvastatin Calcium (Lipitor) 40 mg PO HS [facility] Last Admin: 05/06/18 21:17 Dose: 40 mg Carvedilol (Coreg) 12.5 mg PO Q12 [facility] Last Admin: 05/07/18 09:21 Dose: 12.5 mg Clonidine HCl (Catapres) 0.1 mg PO BID [facility] Last Admin: 05/07/18 09:20 Dose: 0.1 mg Dextrose (Dextrose 50% Inj) 0 ml IV STAT PRN; Protocol PRN Reason: Hypoglycemia Protocol Dextrose (Glutose 15) 0 gm PO ONCE PRN; Protocol PRN Reason: Hypoglycemia Protocol Epoetin Vickey (Procrit) 20,000 unit SC TTS [facility] Last Admin: 05/06/18 12:32 Dose: 20,000 unit Famotidine (Pepcid) 40 mg PO DAILY [facility] Glucagon (Glucagen Diagnostic Kit) 0 mg IM STAT PRN; Protocol PRN Reason: Hypoglycemia Protocol Heparin Sodium (Porcine) (Heparin) 5,000 units SC Q12 [facility]; Protocol Last Admin: 05/07/18 09:19 Dose: 5,000 units Hydralazine HCl (Apresoline) 10 mg IV Q6 PRN PRN Reason: Systolic Blood Pressure Hydralazine HCl (Apresoline) 10 mg PO TID [facility] Metronidazole (Flagyl 500mg/100ml Ns) 100 mls @ 100 mls/hr IVPB Q8 [facility]; Protocol Last Admin: 05/07/18 09:33 Dose: 100 mls/hr Iron Sucrose 100 mg/ Sodium (Chloride) 105 mls @ 105 mls/hr IVPB DAILY [facility] Stop: 05/08/18 09:59 Last Admin: 05/07/18 09:19 Dose: 105 mls/hr Cefepime HCl 0.500 gm/ Sodium (Chloride) 50 mls @ 50 mls/hr IVPB DAILY [facility]; Protocol Last Admin: 05/07/18 09:22 Dose: 50 mls/hr Sodium Bicarbonate 50 meq/ (Sodium Chloride) 1,050 mls @ 100 mls/hr IV .[id number] [facility] Stop: 05/07/18 15:13 Last Admin: 05/07/18 01:00 EST Dose: 100 mls/hr Insulin Detemir (Levemir) 4 units SC HS [facility] Last Admin: 05/06/18 21:22 Dose: 4 units Insulin Human Lispro (Humalog) 0 units SC ACHS [facility]; Protocol Last Admin: 05/07/18 09:22 Dose: Not Given Labetalol HCl (Trandate) 20 mg IVP Q6H PRN PRN Reason: Systolic Blood Pressure Last Admin: 05/06/18 05:06 Dose: 20 mg Ondansetron HCl (Zofran Inj) 4 mg IVP Q6 PRN PRN Reason: Nausea/Vomiting Last Admin: 05/07/18 04:37 Dose: 4 mg Sodium Bicarbonate (Sodium Bicarbonate Tab) 1,300 mg PO Q8 [facility] Last Admin: 05/07/18 09:23 Dose: 1,300 mg Sucralfate (Carafate Oral Susp) 1 gm PO QID [facility] Last Admin: 05/07/18 09:33 Dose: 1 gm - Labs Labs: 05/07/18 05:30 05/07/18 05:30 PT 9.8 Seconds (9.8-13.1) 05/05/18 19:05 INR 0.9 05/05/18 19:05 APTT 28.3 Seconds (25.6-37.1) 05/05/18 19:05 - Constitutional Appears: Non-toxic, No Acute Distress - Head Exam Head Exam: ATRAUMATIC, NORMOCEPHALIC - Eye Exam Eye Exam: EOMI. absent: Nystagmus, Scleral icterus Pupil Exam: PERRL - ENT Exam ENT Exam: Mucous Membranes Moist - Neck Exam Neck Exam: Full ROM. absent: Meningismus, Tenderness - Respiratory Exam Respiratory Exam: Clear to Ausculation Bilateral, NORMAL BREATHING PATTERN. absent: Rales, Rhonchi, Wheezes - Cardiovascular Exam Cardiovascular Exam: REGULAR RHYTHM, RRR, +S1, +S2. absent: JVD, Rubs - GI/Abdominal Exam GI & Abdominal Exam: Soft, Normal Bowel Sounds. absent: Tenderness - Extremities Exam Extremities Exam: Normal Inspection. absent: Calf Tenderness, Pedal Edema, Tenderness - Back Exam Back Exam: absent: CVA tenderness (L), CVA tenderness (R) - Neurological Exam Neurological Exam: Alert, Awake, CN II-XII Intact, Oriented x3 Assessment and Plan - Assessment and Plan (Free Text) Assessment: 42 y/o female with a PMHx remarkable for CKD stage 3, HTN, IDDM, Iron def an emia, and HLD admitted to [facility] for Acute on chronic kidney injury, enterocolitis, and anemia. Plan: 1) Acute injury on chronic kidney Injury -likely 2/2 to dehydration from enterocolitis -improving -Nephrology Consult, follow up recommendations -Will start patient on albumin and IVF 100mls/hr -monitor BUN/Cr, K+ 2) Headache/Nausea/Vomiting/HTN -head CT ordered -zofran -carafate 3) Metabolic Acidosis secondary to LYNETTE -improving -PO bicarb -monitor, repeat BMP in AM 4) Enterocolitis -c/w Zosyn 500 Q8H day#3 -c/w Cipro 400 Q24H day#3 -no leukocytosis -afebrile 5) Diffuse nonspecific anasarca on CT with low albumin - Albumin 12.5gm Q6H x3 doses 6) Acute on Chronic Anemia -Follow up nephro recommendations -Iron panel low iron, TIBC and % saturation -below baseline (pt usually runs high 8s) -down to 7.0 -IV venofer -EPO -1 unit PRBCs -Vit B12: wnl -occult blood negative -f/u H/H post-transfusion 7) Uncontrolled Hypertension -Losartan held 2/2 to LYNETTE -C/w Coreg 12.5 -Labetolol IV 20mg PRN if BP >200 systolic -Hydralzine 10mg PO TID -Clonidine 0.1mg BID -monitor 8) IDDM-type II - HBA1C 7.1 on 05/2018 - C/w home NPH 24U AM/22U PM - lispro high dose sliding scale - Hypoglycemic protocol 9) HLD - c/w with home statin therapy 10) DVT PPX -SCD -Heparin 5000 U Q12H <Rachel Murillo - Last Filed: 05/07/18 17:20> Objective - Vital Signs/Intake and Output Vital Signs (last 24 hours): Temp Pulse Resp BP Pulse Ox 98.1 F 71 16 188/96 H 100 05/07/18 16:27 05/07/18 16:45 05/07/18 16:27 05/07/18 16:45 05/07/18 16:27 - Medications Medications: Current Medications Acetaminophen (Tylenol 325mg Tab) 650 mg PO Q6 PRN PRN Reason: Headache Last Admin: 05/07/18 04:30 Dose: 650 mg Aspirin (Ecotrin) 81 mg PO DAILY [facility] Last Admin: 05/07/18 09:21 Dose: 81 mg Atorvastatin Calcium (Lipitor) 40 mg PO HS [facility] Last Admin: 05/06/18 21:17 Dose: 40 mg Carvedilol (Coreg) 12.5 mg PO Q12 [facility] Last Admin: 05/07/18 09:21 Dose: 12.5 mg Clonidine HCl (Catapres) 0.2 mg PO BID [facility] Dextrose (Dextrose 50% Inj) 0 ml IV STAT PRN; Protocol PRN Reason: Hypoglycemia Protocol Dextrose (Glutose 15) 0 gm PO ONCE PRN; Protocol PRN Reason: Hypoglycemia Protocol Epoetin Vickey (Procrit) 20,000 unit SC TTS [facility] Last Admin: 05/06/18 12:32 Dose: 20,000 unit Famotidine (Pepcid) 40 mg PO DAILY [facility] Last Admin: 05/07/18 10:59 Dose: 40 mg Glucagon (Glucagen Diagnostic Kit) 0 mg IM STAT PRN; Protocol PRN Reason: Hypoglycemia Protocol Heparin Sodium (Porcine) (Heparin) 5,000 units SC Q12 [facility]; Protocol Last Admin: 05/07/18 09:19 Dose: 5,000 units Hydralazine HCl (Apresoline) 10 mg IV Q6 PRN PRN Reason: Systolic Blood Pressure Hydralazine HCl (Apresoline) 10 mg PO TID [facility] Last Admin: 05/07/18 16:45 Dose: 10 mg Metronidazole (Flagyl 500mg/100ml Ns) 100 mls @ 100 mls/hr IVPB Q8 [facility]; Protocol Last Admin: 05/07/18 16:47 Dose: 100 mls/hr Iron Sucrose 100 mg/ Sodium (Chloride) 105 mls @ 105 mls/hr IVPB DAILY [facility] Stop: 05/08/18 09:59 Last Admin: 05/07/18 09:19 Dose: 105 mls/hr Cefepime HCl 0.500 gm/ Sodium (Chloride) 50 mls @ 50 mls/hr IVPB DAILY [facility]; Protocol Last Admin: 05/07/18 09:22 Dose: 50 mls/hr Insulin Detemir (Levemir) 4 units SC HS [facility] Last Admin: 05/06/18 21:22 Dose: 4 units Insulin Human Lispro (Humalog) 0 units SC ACHS [facility]; Protocol Last Admin: 05/07/18 12:52 Dose: 4 units Labetalol HCl (Trandate) 20 mg IVP Q6H PRN PRN Reason: Systolic Blood Pressure Last Admin: 05/06/18 05:06 Dose: 20 mg Ondansetron HCl (Zofran Inj) 4 mg IVP Q6 PRN PRN Reason: Nausea/Vomiting Last Admin: 05/07/18 04:37 Dose: 4 mg Sodium Bicarbonate (Sodium Bicarbonate Tab) 1,300 mg PO Q8 [facility] Last Admin: 05/07/18 09:23 Dose: 1,300 mg Sucralfate (Carafate Oral Susp) 1 gm PO QID [facility] Last Admin: 05/07/18 16:46 Dose: 1 gm - Labs Labs: 05/07/18 05:30 05/07/18 05:30 PT 9.8 Seconds (9.8-13.1) 05/05/18 19:05 INR 0.9 05/05/18 19:05 APTT 28.3 Seconds (25.6-37.1) 05/05/18 19:05 Attending/Attestation - Attestation I have personally seen and examined this patient.: Yes I have fully participated in the care of the patient.: Yes I have reviewed all pertinent clinical information, including history, physical exam and plan: Yes Notes (Text): HTN uncontrolled -Increase Clonidine to 0.2 mg bid
[2018-05-07] MEDS: Famotidine 40 MG/5 ML PO SCH (10:59)
[2018-05-07 16:18] VITALS: BMI 38.3
[2018-05-07 20:33] LABS: FOLATE 8.3 ng/mL
[2018-05-07] MEDS: Insulin Detemir 100 Units/ml Inj SC SCH (21:23)
[2018-05-08] MEDS: metroNIDAZOLE 500mg/100ml NS 100 ML IVPB SCH ×3 (00:50→16:16)
[2018-05-08 06:01] LABS: HEMOGLOBIN 9.2 g/dL (12.0-16.0); MEAN CELL VOLUME 92.8 fl (81.0-99.0); MEAN CORPUSCULAR HEMOGLOBIN 29.8 pg (27.0-31.0); MEAN CORPUSCULAR HGB CONC 32.1 g/dL (33.0-37.0); RBC 3.11 Mil/uL (3.80-5.20); WHITE BLOOD COUNT 7.3 K/uL (4.8-10.8)
[2018-05-08 06:35] LABS: ALB/GLOB RATIO 0.9 (1.0-2.1); ALBUMIN 2.4 g/dL (3.5-5.0); CALCIUM 7.6 mg/dL (8.4-10.2)
[2018-05-08] MEDS: Insulin Lispro (humaLOG) 100 Units/ml Inj SC SCH ×3 (06:40→23:05)
--- NOTE | 2018-05-08 09:26 | CP.PCM.PN ---
<Fidencio June - Last Filed: 05/08/18 14:58> Subjective - Date & Time of Evaluation Date of Evaluation: 05/08/18 Time of Evaluation: 09:21 - Subjective Subjective: 42 y/o F patient seen and evaluated at bedside. Patient was Lying in bed comfortably, NAD. Patient states that she is still having frequent episodes of nausea, NBNB emesis and headache. Patient denies any overnight acute events. patient denies any fever, photophobia/phonophobia, numbness/tingling. She denies changes in vision, CP/SOB/palpitations, N/V/D/C or leg pain. Objective - Vital Signs/Intake and Output Vital Signs (last 24 hours): Temp Pulse Resp BP Pulse Ox 98.3 F 77 18 173/81 H 98 05/08/18 08:26 05/08/18 08:26 05/08/18 08:26 05/08/18 08:26 05/08/18 08:26 - Medications Medications: Current Medications Acetaminophen (Tylenol 325mg Tab) 650 mg PO Q6 PRN PRN Reason: Headache Last Admin: 05/08/18 01:06 Dose: 650 mg Acetaminophen (Tylenol 325mg Tab) 650 mg PO Q6 PRN PRN Reason: Pain, Mild (1-3) Aspirin (Ecotrin) 81 mg PO DAILY [facility] Last Admin: 05/07/18 09:21 Dose: 81 mg Atorvastatin Calcium (Lipitor) 40 mg PO HS [facility] Last Admin: 05/07/18 21:12 Dose: 40 mg Carvedilol (Coreg) 12.5 mg PO Q12 [facility] Last Admin: 05/07/18 21:12 Dose: 12.5 mg Clonidine HCl (Catapres) 0.2 mg PO BID [facility] Dextrose (Dextrose 50% Inj) 0 ml IV STAT PRN; Protocol PRN Reason: Hypoglycemia Protocol Dextrose (Glutose 15) 0 gm PO ONCE PRN; Protocol PRN Reason: Hypoglycemia Protocol Epoetin Vickey (Procrit) 20,000 unit SC TTS [facility] Last Admin: 05/06/18 12:32 Dose: 20,000 unit Famotidine (Pepcid) 40 mg PO DAILY [facility] Last Admin: 05/07/18 10:59 Dose: 40 mg Glucagon (Glucagen Diagnostic Kit) 0 mg IM STAT PRN; Protocol PRN Reason: Hypoglycemia Protocol Heparin Sodium (Porcine) (Heparin) 5,000 units SC Q12 [facility]; Protocol Last Admin: 05/07/18 21:13 Dose: 5,000 units Hydralazine HCl (Apresoline) 10 mg IV Q6 PRN PRN Reason: Systolic Blood Pressure Last Admin: 05/07/18 17:15 Dose: 10 mg Hydralazine HCl (Apresoline) 10 mg PO TID [facility] Last Admin: 05/07/18 16:45 Dose: 10 mg Metronidazole (Flagyl 500mg/100ml Ns) 100 mls @ 100 mls/hr IVPB Q8 [facility]; Protocol Last Admin: 05/08/18 00:50 Dose: 100 mls/hr Iron Sucrose 100 mg/ Sodium (Chloride) 105 mls @ 105 mls/hr IVPB DAILY [facility] Stop: 05/08/18 09:59 Last Admin: 05/07/18 09:19 Dose: 105 mls/hr Cefepime HCl 0.500 gm/ Sodium (Chloride) 50 mls @ 50 mls/hr IVPB DAILY [facility]; Protocol Last Admin: 05/07/18 09:22 Dose: 50 mls/hr Insulin Detemir (Levemir) 4 units SC HS [facility] Last Admin: 05/07/18 21:23 Dose: 4 units Insulin Human Lispro (Humalog) 0 units SC ACHS [facility]; Protocol Last Admin: 05/08/18 06:40 Dose: 2 units Labetalol HCl (Trandate) 20 mg IVP Q6H PRN PRN Reason: Systolic Blood Pressure Last Admin: 05/06/18 05:06 Dose: 20 mg Ondansetron HCl (Zofran Inj) 4 mg IVP Q6 PRN PRN Reason: Nausea/Vomiting Last Admin: 05/08/18 00:49 Dose: 4 mg Sodium Bicarbonate (Sodium Bicarbonate Tab) 1,300 mg PO Q8 [facility] Last Admin: 05/08/18 01:04 Dose: 1,300 mg Sucralfate (Carafate Oral Susp) 1 gm PO QID [facility] Last Admin: 05/07/18 21:12 Dose: 1 gm - Labs Labs: 05/08/18 04:20 05/08/18 04:20 PT 9.8 Seconds (9.8-13.1) 05/05/18 19:05 INR 0.9 05/05/18 19:05 APTT 28.3 Seconds (25.6-37.1) 05/05/18 19:05 - Constitutional Appears: Well, Non-toxic, No Acute Distress - Head Exam Head Exam: ATRAUMATIC, NORMAL INSPECTION, NORMOCEPHALIC - Eye Exam Eye Exam: EOMI, Normal appearance - ENT Exam ENT Exam: Normal Exam - Neck Exam Neck Exam: Full ROM, Normal Inspection - Respiratory Exam Respiratory Exam: Clear to Ausculation Bilateral, NORMAL BREATHING PATTERN - Cardiovascular Exam Cardiovascular Exam: REGULAR RHYTHM - GI/Abdominal Exam GI & Abdominal Exam: Soft, Normal Bowel Sounds - Extremities Exam Extremities Exam: Full ROM, Normal Capillary Refill, Normal Inspection - Back Exam Back Exam: CVA tenderness (L), CVA tenderness (R), muscle spasm - Neurological Exam Neurological Exam: Alert, Awake, Oriented x3 - Psychiatric Exam Psychiatric exam: Normal Affect, Normal Mood - Skin Skin Exam: Dry, Intact, Normal Color, Warm Assessment and Plan - Assessment and Plan (Free Text) Assessment: 42 y/o female patient admitted Acute on chronic kidney injury 2ry to dehydration, enterocolitis, and acute on chronic anemia. Plan: 1) Acute injury on chronic kidney Injury -likely 2/2 to dehydration from enterocolitis -improving -Nephrology Consult, recommendations appreciated -Will start patient on albumin and IVF 100mls/hr -Ordered temporary cath insertion. -Patient to start renal dialysis today as per Dr. Cardenas. -monitor BUN/Cr, K+ 2) Headache/Nausea/Vomiting/HTN -Head CT done: No acute intracranial abnormality. -Start NPO. -Raglan 5mg Q6H PRN IV. -zofran -carafate 3) Metabolic Acidosis secondary to LYNETTE -improving -PO bicarb -monitor, repeat BMP in AM 4) Enterocolitis -c/w flagyl day#2 -c/w Cefipime 500 Q24H day#3 -no leukocytosis -afebrile 5) Diffuse nonspecific anasarca on CT with low albumin - Albumin 12.5gm Q6H x3 doses 6) Acute on Chronic Anemia -Follow up nephro recommendations -Iron panel low iron, TIBC and % saturation -below baseline (pt usually runs high 8s) -down to 7.0 -IV venofer -EPO -1 unit PRBCs -Vit B12: wnl -occult blood negative -f/u H/H post-transfusion 9.08/31 7) Uncontrolled Hypertension -Losartan held 2/2 to LYNETTE -C/w Coreg 12.5 -Labetolol IV 20mg PRN if BP >200 systolic -Hydralzine 10mg PO TID -Clonidine 0.2mg BID -monitor BP 8) IDDM-type II - HBA1C 7.1 on 05/2018 - On low dose Levemir - lispro high dose Correction scale - Hypoglycemic protocol 9) HLD - c/w with home statin therapy 10) DVT PPX -SCD -Heparin 5000 U Q12H <Caitlyn Perez - Last Filed: 05/08/18 15:16> Objective - Vital Signs/Intake and Output Vital Signs (last 24 hours): Temp Pulse Resp BP Pulse Ox 98.9 F 79 18 200/98 H 99 05/08/18 11:53 05/08/18 11:53 05/08/18 11:53 05/08/18 14:41 05/08/18 11:53 - Medications Medications: Current Medications Acetaminophen (Tylenol 325mg Tab) 650 mg PO Q6 PRN PRN Reason: Headache Last Admin: 05/08/18 01:06 Dose: 650 mg Acetaminophen (Tylenol 325mg Tab) 650 mg PO Q6 PRN PRN Reason: Pain, Mild (1-3) Aspirin (Ecotrin) 81 mg PO DAILY [facility] Last Admin: 05/08/18 10:53 Dose: 81 mg Atorvastatin Calcium (Lipitor) 40 mg PO HS [facility] Last Admin: 05/07/18 21:12 Dose: 40 mg Carvedilol (Coreg) 12.5 mg PO Q12 [facility] Last Admin: 05/08/18 10:53 Dose: 12.5 mg Clonidine HCl (Catapres) 0.2 mg PO BID [facility] Last Admin: 05/08/18 10:52 Dose: 0.2 mg Dextrose (Dextrose 50% Inj) 0 ml IV STAT PRN; Protocol PRN Reason: Hypoglycemia Protocol Dextrose (Glutose 15) 0 gm PO ONCE PRN; Protocol PRN Reason: Hypoglycemia Protocol Epoetin Vickey (Procrit) 20,000 unit SC TTS [facility] Last Admin: 05/06/18 12:32 Dose: 20,000 unit Ergocalciferol (Drisdol 50,000 Intl Units Cap) 1 cap PO Q7D [facility] Famotidine (Pepcid) 40 mg PO DAILY [facility] Last Admin: 05/08/18 10:55 Dose: 40 mg Ferrous Gluconate (Fergon) 324 mg PO TID [facility] Last Admin: 05/08/18 14:43 Dose: Not Given Glucagon (Glucagen Diagnostic Kit) 0 mg IM STAT PRN; Protocol PRN Reason: Hypoglycemia Protocol Heparin Sodium (Porcine) (Heparin) 5,000 units SC Q12 [facility]; Protocol Last Admin: 05/08/18 14:47 Dose: Not Given Hydralazine HCl (Apresoline) 10 mg IV Q6 PRN PRN Reason: Systolic Blood Pressure Last Admin: 05/08/18 14:41 Dose: 10 mg Hydralazine HCl (Apresoline) 50 mg PO TID [facility] Last Admin: 05/08/18 14:36 Dose: Not Given Metronidazole (Flagyl 500mg/100ml Ns) 100 mls @ 100 mls/hr IVPB Q8 [facility]; Protocol Last Admin: 05/08/18 10:00 Dose: 100 mls/hr Cefepime HCl 0.500 gm/ Sodium (Chloride) 50 mls @ 50 mls/hr IVPB DAILY [facility]; Protocol Last Admin: 05/08/18 10:54 Dose: 50 mls/hr Insulin Detemir (Levemir) 4 units SC HS [facility] Last Admin: 05/07/18 21:23 Dose: 4 units Insulin Human Lispro (Humalog) 0 units SC ACHS [facility]; Protocol Last Admin: 05/08/18 14:37 Dose: Not Given Labetalol HCl (Trandate) 20 mg IVP Q6H PRN PRN Reason: Systolic Blood Pressure Last Admin: 05/06/18 05:06 Dose: 20 mg Metoclopramide HCl (Reglan) 10 mg IVP Q6 PRN PRN Reason: Nausea/Vomiting Ondansetron HCl (Zofran Inj) 4 mg IVP Q6 PRN PRN Reason: Nausea/Vomiting Last Admin: 05/08/18 10:59 Dose: 4 mg Sevelamer Carbonate (Renvela) 800 mg PO TID [facility] Last Admin: 05/08/18 14:49 Dose: Not Given Sodium Bicarbonate (Sodium Bicarbonate Tab) 1,300 mg PO Q8 [facility] Last Admin: 05/08/18 10:55 Dose: 1,300 mg Vitamin B Complex/Vit C/Folic Acid (Nephro-Tana) 1 tab PO DAILY [facility] Last Admin: 05/08/18 14:49 Dose: Not Given - Labs Labs: 05/08/18 04:20 05/08/18 04:20 PT 9.8 Seconds (9.8-13.1) 05/05/18 19:05 INR 0.9 05/05/18 19:05 APTT 28.3 Seconds (25.6-37.1) 05/05/18 19:05 Attending/Attestation - Attestation I have personally seen and examined this patient.: Yes I have fully participated in the care of the patient.: Yes I have reviewed all pertinent clinical information, including history, physical exam and plan: Yes Notes (Text): 05/08/18 15:10 patient seen examined and discussed with resident Nephro consult appreciated. Will initiated dialysis, d/c fluids/albumin. Patient for temp cath today per IR given lab derangements.
[2018-05-08] MEDS ORDERED: Sodium Chloride 0.45% 1,000 ML IV SCH (09:45)
[2018-05-08] MEDS: Sucralfate 1 gm/10 ml Oral Susp UD PO SCH (10:51)
[2018-05-08] MEDS: Famotidine 40 MG/5 ML PO SCH (10:55)
--- NOTE | 2018-05-08 14:24 | CT ---
Date of service: 05/07/2018 PROCEDURE: CT HEAD WITHOUT CONTRAST. HISTORY: headache, vomiting COMPARISON: Noncontrast head CT 05/10/2016. TECHNIQUE: Axial computed tomography images were obtained through the head/brain without intravenous contrast. Radiation dose: Total exam DLP = 790.89 mGy-cm. This CT exam was performed using one or more of the following dose reduction techniques: Automated exposure control, adjustment of the mA and/or kV according to patient size, and/or use of iterative reconstruction technique. FINDINGS: HEMORRHAGE: No intracranial hemorrhage. BRAIN: Normal ro-white matter differentiation and density are appreciated throughout the cerebrum and cerebellum with the brainstem appearing unremarkable as well. There is no mass effect. There is no suspicious extra-axial fluid collection and the midline brain anatomy appears diffusely unremarkable. VENTRICLES: Unremarkable. No hydrocephalus. CALVARIUM: Unremarkable. PARANASAL SINUSES: Unremarkable as visualized. No significant inflammatory changes. MASTOID AIR CELLS: Unremarkable as visualized. No inflammatory changes. OTHER FINDINGS: None. IMPRESSION: Stable, unremarkable noncontrast CT of the Head. Concordant preliminary report from [facility], 05/07/2018.
[2018-05-08] MEDS: Multivitamin Vitamin B Complex (Nephro-Vite) Tab PO SCH (14:49)
[2018-05-08] MEDS ORDERED: Lidocaine 1% Inj (20ml) ONE (15:18)
--- NOTE | 2018-05-08 15:43 | PCM.SURG1 ---
Surgeon's Initial Post Op Note - Surgeon's Notes Surgeon: [employer] Utility Worker: None Type of Anesthesia: Local Pre-Operative Diagnosis: RF Operative Findings: Patent right IJV Post-Operative Diagnosis: RF Operation Performed: Right IJV shiley catheter placed. with the tip in the prox RA Specimen/Specimens Removed: None Estimated Blood Loss: EBL {In ML}: 1 Date of Surgery/Procedure: 05/08/18 Time of Surgery/Procedure: 15:35
--- NOTE | 2018-05-08 16:08 | CP.PCM.PN ---
Subjective - Date & Time of Evaluation Date of Evaluation: 05/08/18 Time of Evaluation: 15:59 - Subjective Subjective: renal f/up note 42 y/o F with PMH of CKD stage 3, HTN, DM, anemia and HLD admitted to [facility] for evaluation and treatment of Acute on CKD, enterocolitis, and anemia. Patient presented to ER after PMD called patient for elevated BUN/Cr > 7/60 and instructed to go to the ER for evaluation. As per patient, She has been feeling weak since last 3 months, gets tired after walking to 1-2 blocks, c/o diarrhea and lower abdominal pain since last 3 days, watery loss NB diarrhea, denies any nausea, vomiting or fever. Denies any chest pain, SOB, hematuria. Reports occasionally she feels dizziness with blurred vision. Patient reports she used to follow up with Nephro at [facility], last visit 10/2017, no visit since due to insurance issue. Voyce used for latvian interpretation PMD: [facility] PMH:CKD stage 3, HTN, DM, anemia and HLD PSH: , Cleft lip Meds: See med rec Allg: NKDA FH: + DM SH: Denies alcohol/smoking or drug use Subjective: Noted events overnight. Patients feels sick with persistent nausea/vomitting, bad taste Denies chest pain, palpitation, shortness of breath, has leg swelling. Physical Examination: General Appearance: uncomfortable, in no acute respiratory distress, co- operative . ill appearing Vitals reviewed and noted as below Head; Atraumatic, normocephalic ENT: no ulcers no thrush. Tongue is midline. Oropharynx: no rash or ulcers. EYES: Pupils are equal, round and reactive to light accommodation. Eye muscles and extraocular movement intact. Sclera is anicteric. Neck; supple no lymphadenopathy, no thyromegaly or bruit Lungs: Normal respiratory rate/effort. Breath sounds bilateral equal and clear Heart: Normal rate. s1s2 normal. No rub or gallop. Extremities: 2+ edema. No varicose veins Neurological: Patient is alert, awake and oriented to person, place and time. No focal deficit. Strength bilateral appropriate and equal Skin: Warm and dry. Normal turgor. No rash. Palpitation: Normal elasticity for age Abdomen: Abdomen is soft. Bowel sounds +. There is no abdominal tenderness, no guarding/rigidity no organomegaly Psych: normal insight and normal affect/mood MSK: no joint tenderness or swelling. Digits and nails normal, no deformity : kidney or bladder not palpable imaging: anasarca HIV/Hep B and C neg in past Assessment: critical CKD 5 likely ESRD with anasarca ? uremia Diabetic chronic Kidney Disease (E11.22) Hypertensive Chronic Kidney Disease (I12.0) Anemia (D64.9), Hyperphosphatemia (E83.39), Secondary Hyperparathyroidism (E21.1), HTN (I12.0) obesity Plan: considering her low GFR and current symptoms and associated complications, initiation of dialysis is indicated. d/W patients, risks/consequences, pros/cons, she agreed and consented for HD. d/w primary team to obtain permacath placement Will plan for HD as ordered once access in place Continue with Nephrovite 1 tab/day. PRBC as needed for anemia. on RICCARDO as anemic, PRBC as needed added phos binders, last phos level 6.2 started weekly Vit D, pending PTH BP control with meds as ordered. Patient not on RAAS dudley as advanced CKD, consider to add soon once on dialysis. d/c IVF. increased hydralazine Glycemic control, Dialysis consistent diet Further work up/management as per primary team Dose meds/antibiotics (if needed) for ESRD status. Avoid fleets enema/magnesium based laxatives. SW consult for outpt HD placement. vascular surgery consult for AVF. save non- dominant arm from phlebotomy/IV lines. Thanks for allowing me to participate in care of your patient. Will follow patient with you. Please call if any Qs. had d/w team Office: [phone] Objective - Vital Signs/Intake and Output Vital Signs (last 24 hours): Temp Pulse Resp BP Pulse Ox 98.8 F 93 H 18 182/76 H 98 05/08/18 15:56 05/08/18 15:56 05/08/18 15:56 05/08/18 15:56 05/08/18 15:56 - Medications Medications: Current Medications Acetaminophen (Tylenol 325mg Tab) 650 mg PO Q6 PRN PRN Reason: Headache Last Admin: 05/08/18 01:06 Dose: 650 mg Acetaminophen (Tylenol 325mg Tab) 650 mg PO Q6 PRN PRN Reason: Pain, Mild (1-3) Aspirin (Ecotrin) 81 mg PO DAILY [facility] Last Admin: 05/08/18 10:53 Dose: 81 mg Atorvastatin Calcium (Lipitor) 40 mg PO HS [facility] Last Admin: 05/07/18 21:12 Dose: 40 mg Carvedilol (Coreg) 12.5 mg PO Q12 [facility] Last Admin: 05/08/18 10:53 Dose: 12.5 mg Clonidine HCl (Catapres) 0.2 mg PO BID [facility] Last Admin: 05/08/18 10:52 Dose: 0.2 mg Dextrose (Dextrose 50% Inj) 0 ml IV STAT PRN; Protocol PRN Reason: Hypoglycemia Protocol Dextrose (Glutose 15) 0 gm PO ONCE PRN; Protocol PRN Reason: Hypoglycemia Protocol Epoetin Vickey (Procrit) 20,000 unit SC TTS [facility] Last Admin: 05/06/18 12:32 Dose: 20,000 unit Ergocalciferol (Drisdol 50,000 Intl Units Cap) 1 cap PO Q7D [facility] Famotidine (Pepcid) 40 mg PO DAILY [facility] Last Admin: 05/08/18 10:55 Dose: 40 mg Ferrous Gluconate (Fergon) 324 mg PO TID [facility] Last Admin: 05/08/18 14:43 Dose: Not Given Glucagon (Glucagen Diagnostic Kit) 0 mg IM STAT PRN; Protocol PRN Reason: Hypoglycemia Protocol Heparin Sodium (Porcine) (Heparin) 5,000 units SC Q12 [facility]; Protocol Last Admin: 05/08/18 14:47 Dose: Not Given Hydralazine HCl (Apresoline) 10 mg IV Q6 PRN PRN Reason: Systolic Blood Pressure Last Admin: 05/08/18 14:41 Dose: 10 mg Hydralazine HCl (Apresoline) 50 mg PO TID [facility] Last Admin: 05/08/18 14:36 Dose: Not Given Metronidazole (Flagyl 500mg/100ml Ns) 100 mls @ 100 mls/hr IVPB Q8 [facility]; Protoco l Last Admin: 05/08/18 10:00 Dose: 100 mls/hr Cefepime HCl 0.500 gm/ Sodium (Chloride) 50 mls @ 50 mls/hr IVPB DAILY [facility]; Protocol Last Admin: 05/08/18 10:54 Dose: 50 mls/hr Insulin Detemir (Levemir) 4 units SC [facility] Last Admin: 05/07/18 21:23 Dose: 4 units Insulin Human Lispro (Humalog) 0 units SC [facility]; Protocol Last Admin: 05/08/18 14:37 Dose: Not Given Labetalol HCl (Trandate) 20 mg IVP Q6H PRN PRN Reason: Systolic Blood Pressure Last Admin: 05/06/18 05:06 Dose: 20 mg Metoclopramide HCl (Reglan) 10 mg IVP Q6 PRN PRN Reason: Nausea/Vomiting Ondansetron HCl (Zofran Inj) 4 mg IVP Q6 PRN PRN Reason: Nausea/Vomiting Last Admin: 05/08/18 10:59 Dose: 4 mg Sevelamer Carbonate (Renvela) 800 mg PO TID [facility] Last Admin: 05/08/18 14:49 Dose: Not Given Sodium Bicarbonate (Sodium Bicarbonate Tab) 1,300 mg PO Q8 [facility] Last Admin: 05/08/18 10:55 Dose: 1,300 mg Vitamin B Complex/Vit C/Folic Acid (Nephro-Tana) 1 tab PO DAILY [facility] Last Admin: 05/08/18 14:49 Dose: Not Given - Labs Labs: 05/08/18 04:20 05/08/18 04:20 PT 9.8 Seconds (9.8-13.1) 05/05/18 19:05 INR 0.9 05/05/18 19:05 APTT 28.3 Seconds (25.6-37.1) 05/05/18 19:05
[2018-05-08] MEDS: Ergocalciferol 50,000 Intl Units Cap PO SCH (16:19)
[2018-05-08] MEDS: Insulin Detemir 100 Units/ml Inj SC SCH (23:05)
[2018-05-09] MEDS: metroNIDAZOLE 500mg/100ml NS 100 ML IVPB SCH ×3 (01:11→17:15)
[2018-05-09 05:31] LABS: HEMOGLOBIN 9.1 g/dL (12.0-16.0); MEAN CELL VOLUME 92.7 fl (81.0-99.0); MEAN CORPUSCULAR HEMOGLOBIN 30.4 pg (27.0-31.0); MEAN CORPUSCULAR HGB CONC 32.8 g/dL (33.0-37.0); RBC 2.98 Mil/uL (3.80-5.20); WHITE BLOOD COUNT 8.9 K/uL (4.8-10.8)
[2018-05-09 05:43] LABS: ALB/GLOB RATIO 0.9 (1.0-2.1); ALBUMIN 2.3 g/dL (3.5-5.0); CALCIUM 7.8 mg/dL (8.4-10.2)
[2018-05-09] MEDS: Insulin Lispro (humaLOG) 100 Units/ml Inj SC SCH ×4 (08:45→22:43)
[2018-05-09] MEDS: Multivitamin Vitamin B Complex (Nephro-Vite) Tab PO SCH (09:45)
[2018-05-09] MEDS: Famotidine 40 MG/5 ML PO SCH (09:45)
--- NOTE | 2018-05-09 09:49 | CP.PCM.PN ---
<Shaylee,Nader - Last Filed: 05/09/18 14:04> Subjective - Date & Time of Evaluation Date of Evaluation: 05/09/18 Time of Evaluation: 09:47 - Subjective Subjective: 42 y/o F patient seen and evaluated at bedside. Patient was Lying in bed comfortably, NAD. Patient states that she is still having episodes of nausea, NBNB emesis and headache but less than yesterday. Patient denies any overnight acute events. patient denies any fever, photophobia/phonophobia, numbness/tingling. She denies changes in vision, CP/SOB/palpitations, N/V/D/C or leg pain. Objective - Vital Signs/Intake and Output Vital Signs (last 24 hours): Temp Pulse Resp BP Pulse Ox 98.2 F 85 20 169/77 H 100 05/09/18 08:30 05/09/18 08:30 05/09/18 08:30 05/09/18 08:30 05/09/18 08:30 - Medications Medications: Current Medications Acetaminophen (Tylenol 325mg Tab) 650 mg PO Q6 PRN PRN Reason: Headache Last Admin: 05/09/18 04:21 Dose: 650 mg Acetaminophen (Tylenol 325mg Tab) 650 mg PO Q6 PRN PRN Reason: Pain, Mild (1-3) Aspirin (Ecotrin) 81 mg PO DAILY [facility] Last Admin: 05/08/18 10:53 Dose: 81 mg Atorvastatin Calcium (Lipitor) 40 mg PO HS [facility] Last Admin: 05/08/18 23:03 Dose: 40 mg Carvedilol (Coreg) 12.5 mg PO Q12 [facility] Last Admin: 05/08/18 23:03 Dose: 12.5 mg Clonidine HCl (Catapres) 0.2 mg PO BID [facility] Last Admin: 05/08/18 20:13 Dose: Not Given Dextrose (Dextrose 50% Inj) 0 ml IV STAT PRN; Protocol PRN Reason: Hypoglycemia Protocol Dextrose (Glutose 15) 0 gm PO ONCE PRN; Protocol PRN Reason: Hypoglycemia Protocol Epoetin Vickey (Procrit) 20,000 unit SC TTS [facility] Last Admin: 05/06/18 12:32 Dose: 20,000 unit Ergocalciferol (Drisdol 50,000 Intl Units Cap) 1 cap PO Q7D [facility] Last Admin: 05/08/18 16:19 Dose: Not Given Famotidine (Pepcid) 40 mg PO DAILY [facility] Last Admin: 05/08/18 10:55 Dose: 40 mg Glucagon (Glucagen Diagnostic Kit) 0 mg IM STAT PRN; Protocol PRN Reason: Hypoglycemia Protocol Heparin Sodium (Porcine) (Heparin) 5,000 units SC Q12 [facility]; Protocol Last Admin: 05/08/18 23:04 Dose: 5,000 units Hydralazine HCl (Apresoline) 10 mg IV Q6 PRN PRN Reason: Systolic Blood Pressure Last Admin: 05/08/18 14:41 Dose: 10 mg Hydralazine HCl (Apresoline) 50 mg PO TID [facility] Last Admin: 05/08/18 14:36 Dose: Not Given Metronidazole (Flagyl 500mg/100ml Ns) 100 mls @ 100 mls/hr IVPB Q8 [facility]; Protocol Last Admin: 05/09/18 01:11 Dose: 100 mls/hr Cefepime HCl 0.500 gm/ Sodium (Chloride) 50 mls @ 50 mls/hr IVPB DAILY [facility]; Protocol Last Admin: 05/08/18 10:54 Dose: 50 mls/hr Iron Sucrose 100 mg/ Sodium (Chloride) 105 mls @ 105 mls/hr IVPB DAILY [facility] Stop: 05/19/18 09:01 Insulin Detemir (Levemir) 4 units SC HS [facility] Last Admin: 05/08/18 23:05 Dose: 4 units Insulin Human Lispro (Humalog) 0 units SC ACHS [facility]; Protocol Last Admin: 05/08/18 23:05 Dose: Not Given Labetalol HCl (Trandate) 20 mg IVP Q6H PRN PRN Reason: Systolic Blood Pressure Last Admin: 05/06/18 05:06 Dose: 20 mg Metoclopramide HCl (Reglan) 10 mg IVP Q6 PRN PRN Reason: Nausea/Vomiting Last Admin: 05/08/18 23:01 Dose: 10 mg Ondansetron HCl (Zofran Inj) 4 mg IVP Q6 PRN PRN Reason: Nausea/Vomiting Last Admin: 05/08/18 10:59 Dose: 4 mg Sevelamer Carbonate (Renvela) 800 mg PO TID [facility] Last Admin: 05/08/18 21:00 Dose: Not Given Vitamin B Complex/Vit C/Folic Acid (Nephro-Tana) 1 tab PO DAILY [facility] Last Admin: 05/08/18 14:49 Dose: Not Given - Labs Labs: 05/09/18 05:10 05/09/18 05:10 PT 9.8 Seconds (9.8-13.1) 05/05/18 19:05 INR 0.9 05/05/18 19:05 APTT 28.3 Seconds (25.6-37.1) 05/05/18 19:05 - Constitutional Appears: Well, Non-toxic, No Acute Distress - Head Exam Head Exam: ATRAUMATIC, NORMAL INSPECTION, NORMOCEPHALIC - Eye Exam Eye Exam: EOMI, Normal appearance, PERRL - ENT Exam ENT Exam: Mucous Membranes Moist, Normal Exam - Neck Exam Neck Exam: Full ROM, Normal Inspection - Respiratory Exam Respiratory Exam: Clear to Ausculation Bilateral, NORMAL BREATHING PATTERN - Cardiovascular Exam Cardiovascular Exam: REGULAR RHYTHM - GI/Abdominal Exam GI & Abdominal Exam: Soft, Normal Bowel Sounds - Extremities Exam Extremities Exam: Normal Capillary Refill, Normal Inspection - Neurological Exam Neurological Exam: Alert, Awake, Oriented x3 Neuro motor strength exam: Left Upper Extremity: 5, Right Upper Extremity: 5, Left Lower Extremity: 5, Right Lower Extremity: 5 - Psychiatric Exam Psychiatric exam: Normal Affect, Normal Mood - Skin Skin Exam: Dry, Intact, Normal Color, Warm Assessment and Plan - Assessment and Plan (Free Text) Assessment: 42 y/o female patient admitted Acute on chronic kidney injury 2ry to dehydration, enterocolitis, and acute on chronic anemia. Plan: 1) Acute injury on chronic kidney Injury -likely 2/2 to dehydration from enterocolitis -Improving -Nephrology Consult, recommendations appreciated -Temporary IJ vein catheter inserted yesterday -Patient started renal dialysis yesterday as per Dr. Cardenas. -Continue monitoring BUN/Cr, K+ (34/5.4,3.7) -Start D5W, 0.45% saline, 20meq K....100 ml/hour -Spoke to her embedded case manager for arranging HD on outpatient basis. 2) Headache/Nausea/Vomiting/HTN -Head CT done: No acute intracranial abnormality. -Continue NPO. -Continue Raglan 5mg Q6H PRN IV. -Zofran -carafate 3) Metabolic Acidosis secondary to LYNETTE -Improving -PO bicarb -Monitor, repeat BMP in AM 4) Enterocolitis -c/w flagyl day#3 -c/w Cefipime 500 Q24H day#4 -No leukocytosis -Afebrile 5) Diffuse nonspecific anasarca on CT with low albumin - Status post 3 doses of albumin infusion 6) Acute on Chronic Anemia -Follow up nephro recommendations -Iron panel low iron, TIBC and % saturation -below baseline (pt usually runs high 8s) -down to 7.0 -IV venofer -EPO -1 unit PRBCs -Vit B12: WNL -occult blood negative -f/u H/H post-transfusion 9.1/27.7 7) Uncontrolled Hypertension -Losartan held 2/2 to LYNETTE -C/w Coreg 12.5 -Labetolol IV 20mg PRN if BP >200 systolic -Hydralzine 10mg PO TID -Clonidine 0.2mg BID -Continue monitoring BP 8) IDDM-type II - HBA1C 7.1 on 05/2018 - On low dose Levemir - lispro high dose Correction scale - Hypoglycemic protocol 9) HLD - c/w with home statin therapy 10) DVT PPX -SCD -Heparin 5000 U Q12H <Caitlyn Perez - Last Filed: 05/09/18 16:04> Objective - Vital Signs/Intake and Output Vital Signs (last 24 hours): Temp Pulse Resp BP Pulse Ox 98.7 F 83 20 144/76 98 05/09/18 16:03 05/09/18 16:03 05/09/18 16:03 05/09/18 16:03 05/09/18 16:03 - Medications Medications: Current Medications Acetaminophen (Tylenol 325mg Tab) 650 mg PO Q6 PRN PRN Reason: Headache Last Admin: 05/09/18 04:21 Dose: 650 mg Acetaminophen (Tylenol 325mg Tab) 650 mg PO Q6 PRN PRN Reason: Pain, Mild (1-3) Aspirin (Ecotrin) 81 mg PO DAILY [facility] Last Admin: 05/08/18 10:53 Dose: 81 mg Atorvastatin Calcium (Lipitor) 40 mg PO HS [facility] Last Admin: 05/08/18 23:03 Dose: 40 mg Carvedilol (Coreg) 12.5 mg PO Q12 [facility] Last Admin: 05/09/18 10:00 Dose: 12.5 mg Clonidine HCl (Catapres) 0.2 mg PO BID [facility] Last Admin: 05/09/18 09:58 Dose: 0.2 mg Dextrose (Dextrose 50% Inj) 0 ml IV STAT PRN; Protocol PRN Reason: Hypoglycemia Protocol Dextrose (Glutose 15) 0 gm PO ONCE PRN; Protocol PRN Reason: Hypoglycemia Protocol Epoetin Vickey (Procrit) 20,000 unit SC TTS [facility] Last Admin: 05/09/18 10:01 Dose: 20,000 unit Ergocalciferol (Drisdol 50,000 Intl Units Cap) 1 cap PO Q7D [facility] Last Admin: 05/08/18 16:19 Dose: Not Given Famotidine (Pepcid) 40 mg PO DAILY [facility] Last Admin: 05/08/18 10:55 Dose: 40 mg Glucagon (Glucagen Diagnostic Kit) 0 mg IM STAT PRN; Protocol PRN Reason: Hypoglycemia Protocol Heparin Sodium (Porcine) (Heparin) 5,000 units SC Q12 [facility]; Protocol Last Admin: 05/09/18 09:49 Dose: 5,000 units Hydralazine HCl (Apresoline) 10 mg IV Q6 PRN PRN Reason: Systolic Blood Pressure Last Admin: 05/08/18 14:41 Dose: 10 mg Hydralazine HCl (Apresoline) 50 mg PO TID [facility] Last Admin: 05/09/18 13:30 Dose: 50 mg Metronidazole (Flagyl 500mg/100ml Ns) 100 mls @ 100 mls/hr IVPB Q8 [facility]; Protocol Last Admin: 05/09/18 09:49 Dose: 100 mls/hr Iron Sucrose 100 mg/ Sodium (Chloride) 105 mls @ 105 mls/hr IVPB DAILY [facility] Stop: 05/19/18 09:01 Last Admin: 05/09/18 09:52 Dose: 105 mls/hr Potassium Chloride/Dextrose/Sod Cl (Potassium Chl 20 Meq In D5-1/2ns) 1,000 mls @ 100 mls/hr IV .Q10H [facility] Stop: 05/10/18 11:48 Last Admin: 05/09/18 12:20 Dose: 100 mls/hr Insulin Detemir (Levemir) 4 units SC HS [facility] Last Admin: 05/08/18 23:05 Dose: 4 units Insulin Human Lispro (Humalog) 0 units SC [facility]; Protocol Last Admin: 05/09/18 13:32 Dose: 4 units Labetalol HCl (Trandate) 20 mg IVP Q6H PRN PRN Reason: Systolic Blood Pressure Last Admin: 05/06/18 05:06 Dose: 20 mg Metoclopramide HCl (Reglan) 10 mg IVP Q6 PRN PRN Reason: Nausea/Vomiting Last Admin: 05/09/18 10:07 Dose: 10 mg Ondansetron HCl (Zofran Inj) 4 mg IVP Q6 PRN PRN Reason: Nausea/Vomiting Last Admin: 05/08/18 10:59 Dose: 4 mg Sevelamer Carbonate (Renvela) 800 mg PO TID [facility] Last Admin: 05/08/18 21:00 Dose: Not Given Vitamin B Complex/Vit C/Folic Acid (Nephro-Tana) 1 tab PO DAILY [facility] Last Admin: 05/08/18 14:49 Dose: Not Given - Labs Labs: 05/09/18 05:10 05/09/18 05:10 PT 9.8 Seconds (9.8-13.1) 05/05/18 19:05 INR 0.9 05/05/18 19:05 APTT 28.3 Seconds (25.6-37.1) 05/05/18 19:05 Attending/Attestation - Attestation I have personally seen and examined this patient.: Yes I have fully participated in the care of the patient.: Yes I have reviewed all pertinent clinical information, including history, physical exam and plan: Yes Notes (Text): 05/09/18 16:04 Seen examined and discussed with resident. Agree with findings and plan as above.
[2018-05-09] MEDS: Epoetin Alfa 20000 UNIT/ML (RENAL DOSE) SC SCH (10:01)
--- NOTE | 2018-05-09 10:47 | CP.PCM.PN ---
Subjective - Date & Time of Evaluation Date of Evaluation: 05/09/18 Time of Evaluation: 10:47 - Subjective Subjective: patient awake and conscious She is feeling much better No vomiting reported Vital signs stable Objective - Vital Signs/Intake and Output Vital Signs (last 24 hours): Temp Pulse Resp BP Pulse Ox 98.2 F 85 20 169/77 H 100 05/09/18 08:30 05/09/18 10:00 05/09/18 08:30 05/09/18 10:00 05/09/18 08:30 - Medications Medications: Current Medications Acetaminophen (Tylenol 325mg Tab) 650 mg PO Q6 PRN PRN Reason: Headache Last Admin: 05/09/18 04:21 Dose: 650 mg Acetaminophen (Tylenol 325mg Tab) 650 mg PO Q6 PRN PRN Reason: Pain, Mild (1-3) Aspirin (Ecotrin) 81 mg PO DAILY [facility] Last Admin: 05/08/18 10:53 Dose: 81 mg Atorvastatin Calcium (Lipitor) 40 mg PO HS [facility] Last Admin: 05/08/18 23:03 Dose: 40 mg Carvedilol (Coreg) 12.5 mg PO Q12 [facility] Last Admin: 05/09/18 10:00 Dose: 12.5 mg Clonidine HCl (Catapres) 0.2 mg PO BID [facility] Last Admin: 05/09/18 09:58 Dose: 0.2 mg Dextrose (Dextrose 50% Inj) 0 ml IV STAT PRN; Protocol PRN Reason: Hypoglycemia Protocol Dextrose (Glutose 15) 0 gm PO ONCE PRN; Protocol PRN Reason: Hypoglycemia Protocol Epoetin Vickey (Procrit) 20,000 unit SC TTS [facility] Last Admin: 05/09/18 10:01 Dose: 20,000 unit Ergocalciferol (Drisdol 50,000 Intl Units Cap) 1 cap PO Q7D [facility] Last Admin: 05/08/18 16:19 Dose: Not Given Famotidine (Pepcid) 40 mg PO DAILY [facility] Last Admin: 05/08/18 10:55 Dose: 40 mg Glucagon (Glucagen Diagnostic Kit) 0 mg IM STAT PRN; Protocol PRN Reason: Hypoglycemia Protocol Heparin Sodium (Porcine) (Heparin) 5,000 units SC Q12 [facility]; Protocol Last Admin: 05/09/18 09:49 Dose: 5,000 units Hydralazine HCl (Apresoline) 10 mg IV Q6 PRN PRN Reason: Systolic Blood Pressure Last Admin: 05/08/18 14:41 Dose: 10 mg Hydralazine HCl (Apresoline) 50 mg PO TID [facility] Last Admin: 05/09/18 09:59 Dose: 50 mg Metronidazole (Flagyl 500mg/100ml Ns) 100 mls @ 100 mls/hr IVPB Q8 [facility]; Protocol Last Admin: 05/09/18 09:49 Dose: 100 mls/hr Cefepime HCl 0.500 gm/ Sodium (Chloride) 50 mls @ 50 mls/hr IVPB DAILY [facility]; Protocol Last Admin: 05/09/18 10:09 Dose: 50 mls/hr Iron Sucrose 100 mg/ Sodium (Chloride) 105 mls @ 105 mls/hr IVPB DAILY [facility] Stop: 05/19/18 09:01 Last Admin: 05/09/18 09:52 Dose: 105 mls/hr Insulin Detemir (Levemir) 4 units SC HS [facility] Last Admin: 05/08/18 23:05 Dose: 4 units Insulin Human Lispro (Humalog) 0 units SC ACHS [facility]; Protocol Last Admin: 05/09/18 08:45 Dose: Not Given Labetalol HCl (Trandate) 20 mg IVP Q6H PRN PRN Reason: Systolic Blood Pressure Last Admin: 05/06/18 05:06 Dose: 20 mg Metoclopramide HCl (Reglan) 10 mg IVP Q6 PRN PRN Reason: Nausea/Vomiting Last Admin: 05/09/18 10:07 Dose: 10 mg Ondansetron HCl (Zofran Inj) 4 mg IVP Q6 PRN PRN Reason: Nausea/Vomiting Last Admin: 05/08/18 10:59 Dose: 4 mg Sevelamer Carbonate (Renvela) 800 mg PO TID [facility] Last Admin: 05/08/18 21:00 Dose: Not Given Vitamin B Complex/Vit C/Folic Acid (Nephro-Tana) 1 tab PO DAILY [facility] Last Admin: 05/08/18 14:49 Dose: Not Given - Labs Labs: 05/09/18 05:10 05/09/18 05:10 PT 9.8 Seconds (9.8-13.1) 05/05/18 19:05 INR 0.9 05/05/18 19:05 APTT 28.3 Seconds (25.6-37.1) 05/05/18 19:05 - Constitutional Appears: No Acute Distress - Eye Exam Eye Exam: Conjunctival injection - ENT Exam ENT Exam: Mucous Membranes Moist - Neck Exam Neck Exam: absent: Lymphadenopathy - Respiratory Exam Respiratory Exam: NORMAL BREATHING PATTERN. absent: Chest Wall Tenderness - Cardiovascular Exam Cardiovascular Exam: REGULAR RHYTHM. absent: JVD, Rubs - GI/Abdominal Exam GI & Abdominal Exam: Soft, Normal Bowel Sounds - Extremities Exam Extremities Exam: absent: Calf Tenderness - Back Exam Back Exam: absent: CVA tenderness (L), CVA tenderness (R) - Neurological Exam Neurological Exam: Alert - Psychiatric Exam Psychiatric exam: Normal Affect - Skin Skin Exam: absent: Cyanosis Assessment and Plan - Assessment and Plan (Free Text) Assessment: 1) Acute injury on chronic kidney Injury patient to receive second hemodialysis shortly Patient feeling much better no nausea or vomiting today -likely 2/2 to dehydration from enterocolitis -improving -Ordered temporary cath insertion. -monitor BUN/Cr, K+ 2) Headache/Nausea/Vomiting/HTN -Head CT done: No acute intracranial abnormality. -Start NPO. -Raglan 5mg Q6H PRN IV. -zofran -carafate 3) Metabolic Acidosis secondary to LYNETTE -improving -PO bicarb -monitor, repeat BMP in AM 4) Enterocolitis -c/w flagyl day#2 -c/w Cefipime 500 Q24H day#3 -no leukocytosis -afebrile 5) Diffuse nonspecific anasarca on CT with low albumin - Albumin 12.5gm Q6H x3 doses 6) Acute on Chronic Anemia -Iron panel low iron, TIBC and % saturation -below baseline (pt usually runs high 8s) -down to 7.0 -IV venofer -EPO -1 unit PRBCs -Vit B12: wnl -occult blood negative -f/u H/H post-transfusion 9.08/31 7) Uncontrolled Hypertension -Losartan held 2/2 to LYNETTE -C/w Coreg 12.5 -Labetolol IV 20mg PRN if BP >200 systolic -Hydralzine 10mg PO TID -Clonidine 0.2mg BID -monitor BP 8) IDDM-type II - HBA1C 7.1 on 05/2018 - On low dose Levemir - lispro high dose Correction scale - Hypoglycemic protocol 9) HLD - c/w with home statin therapy 10) DVT PPX -SCD -Heparin 5000 U Q12H
[2018-05-09] MEDS: Potassium Ch 20mEq in D5-1/2NS 1,000 ML IV SCH ×2 (12:20→22:45)
[2018-05-09 12:50] LABS: HEPATITIS B SURFACE AG Negative (NEGATIVE)
[2018-05-09 12:55] LABS: HEPATITIS B CORE AB NEGATIVE (NEGATIVE)
--- NOTE | 2018-05-09 18:23 | CARD ---
APPROVED REPORT Date of service: 05/09/2018 EKG Measurement Heart [id number] <Conclusion> Normal sinus rhythm T wave abnormality, consider lateral ischemia Abnormal ECG
[2018-05-09] MEDS: Insulin Detemir 100 Units/ml Inj SC SCH (22:42)
[2018-05-10] MEDS: metroNIDAZOLE 500mg/100ml NS 100 ML IVPB SCH ×3 (00:42→16:54)
[2018-05-10 05:41] LABS: HEMOGLOBIN 8.7 g/dL (12.0-16.0); MEAN CELL VOLUME 92.3 fl (81.0-99.0); MEAN CORPUSCULAR HEMOGLOBIN 30.7 pg (27.0-31.0); MEAN CORPUSCULAR HGB CONC 33.3 g/dL (33.0-37.0); RBC 2.84 Mil/uL (3.80-5.20); RED CELL DISTRIBUTION WIDTH 15.8 % (11.5-14.5)
[2018-05-10 05:52] LABS: ALB/GLOB RATIO 0.8 (1.0-2.1); CALCIUM 7.4 mg/dL (8.4-10.2)
[2018-05-10] MEDS: Famotidine 40 MG/5 ML PO SCH (08:38)
[2018-05-10] MEDS: Insulin Lispro (humaLOG) 100 Units/ml Inj SC SCH ×4 (08:40→21:51)
--- NOTE | 2018-05-10 11:20 | CP.PCM.PN ---
<ShayleeFidencio angel - Last Filed: 05/10/18 14:31> Subjective - Date & Time of Evaluation Date of Evaluation: 05/10/18 Time of Evaluation: 10:55 - Subjective Subjective: 42 y/o F patient seen and evaluated at bedside. Patient was Lying in bed comfortably, NAD. Patient states that she didn't have any nausea or vomiting since yesterday. Patient denies any overnight acute events. patient denies any fever, photophobia/phonophobia, numbness/tingling. She denies changes in vision, CP/SOB/palpitations, N/V/D/C or leg pain. Patient denies any overnight abdominal pain. Objective - Vital Signs/Intake and Output Vital Signs (last 24 hours): Temp Pulse Resp BP Pulse Ox 98.8 F 67 19 176/96 H 97 05/10/18 05:16 05/10/18 08:40 05/10/18 05:16 05/10/18 08:40 05/10/18 05:16 - Medications Medications: Current Medications Acetaminophen (Tylenol 325mg Tab) 650 mg PO Q6 PRN PRN Reason: Headache Last Admin: 05/09/18 04:21 Dose: 650 mg Acetaminophen (Tylenol 325mg Tab) 650 mg PO Q6 PRN PRN Reason: Pain, Mild (1-3) Aspirin (Ecotrin) 81 mg PO DAILY [facility] Last Admin: 05/09/18 09:45 Dose: Not Given Atorvastatin Calcium (Lipitor) 40 mg PO HS [facility] Last Admin: 05/09/18 22:47 Dose: 40 mg Carvedilol (Coreg) 12.5 mg PO Q12 [facility] Last Admin: 05/10/18 08:39 Dose: 12.5 mg Clonidine HCl (Catapres) 0.2 mg PO BID [facility] Last Admin: 05/10/18 08:37 Dose: 0.2 mg Dextrose (Dextrose 50% Inj) 0 ml IV STAT PRN; Protocol PRN Reason: Hypoglycemia Protocol Dextrose (Glutose 15) 0 gm PO ONCE PRN; Protocol PRN Reason: Hypoglycemia Protocol Epoetin Vickey (Procrit) 20,000 unit SC TTS [facility] Last Admin: 05/09/18 10:01 Dose: 20,000 unit Ergocalciferol (Drisdol 50,000 Intl Units Cap) 1 cap PO Q7D [facility] Last Admin: 05/08/18 16:19 Dose: Not Given Famotidine (Pepcid) 40 mg PO DAILY [facility] Last Admin: 05/10/18 08:38 Dose: Not Given Glucagon (Glucagen Diagnostic Kit) 0 mg IM STAT PRN; Protocol PRN Reason: Hypoglycemia Protocol Heparin Sodium (Porcine) (Heparin) 5,000 units SC Q12 [facility]; Protocol Last Admin: 05/10/18 08:40 Dose: 5,000 units Hydralazine HCl (Apresoline) 10 mg IV Q6 PRN PRN Reason: Systolic Blood Pressure Last Admin: 05/08/18 14:41 Dose: 10 mg Hydralazine HCl (Apresoline) 50 mg PO TID [facility] Last Admin: 05/10/18 08:40 Dose: 50 mg Metronidazole (Flagyl 500mg/100ml Ns) 100 mls @ 100 mls/hr IVPB Q8 [facility]; Protocol Last Admin: 05/10/18 08:39 Dose: 100 mls/hr Iron Sucrose 100 mg/ Sodium (Chloride) 105 mls @ 105 mls/hr IVPB DAILY [facility] Stop: 05/19/18 09:01 Last Admin: 05/10/18 08:38 Dose: 105 mls/hr Potassium Chloride/Dextrose/Sod Cl (Potassium Chl 20 Meq In D5-1/2ns) 1,000 mls @ 100 mls/hr IV .Q10H [facility] Stop: 05/10/18 11:48 Last Admin: 05/09/18 22:45 Dose: 100 mls/hr Insulin Detemir (Levemir) 4 units SC HS [facility] Last Admin: 05/09/18 22:42 Dose: 4 units Insulin Human Lispro (Humalog) 0 units SC ACHS [facility]; Protocol Last Admin: 05/10/18 08:40 Dose: Not Given Labetalol HCl (Trandate) 20 mg IVP Q6H PRN PRN Reason: Systolic Blood Pressure Last Admin: 05/06/18 05:06 Dose: 20 mg Metoclopramide HCl (Reglan) 10 mg IVP Q6 PRN PRN Reason: Nausea/Vomiting Last Admin: 05/10/18 08:41 Dose: 10 mg Ondansetron HCl (Zofran Inj) 4 mg IVP Q6 PRN PRN Reason: Nausea/Vomiting Last Admin: 05/08/18 10:59 Dose: 4 mg Sevelamer Carbonate (Renvela) 800 mg PO TID [facility] Last Admin: 05/10/18 08:38 Dose: Not Given Vitamin B Complex/Vit C/Folic Acid (Nephro-Tana) 1 tab PO DAILY [facility] Last Admin: 05/09/18 09:45 Dose: Not Given - Labs Labs: 05/10/18 05:10 05/10/18 05:10 PT 9.8 Seconds (9.8-13.1) 05/05/18 19:05 INR 0.9 05/05/18 19:05 APTT 28.3 Seconds (25.6-37.1) 05/05/18 19:05 - Constitutional Appears: Well, Non-toxic, No Acute Distress - Head Exam Head Exam: ATRAUMATIC, NORMAL INSPECTION, NORMOCEPHALIC - Eye Exam Eye Exam: EOMI, Normal appearance, PERRL - ENT Exam ENT Exam: Mucous Membranes Moist - Neck Exam Neck Exam: Full ROM, Normal Inspection Additional comments: R IJ triple lumen central venous catheter in place with sutures intact, Tegaderm clean and intact. No signs of acute infection, No erythema, hotness or edema. No leaking from the entry site of the catheter. Catheter is patent and flushed. - Respiratory Exam Respiratory Exam: Clear to Ausculation Bilateral, NORMAL BREATHING PATTERN - Cardiovascular Exam Cardiovascular Exam: REGULAR RHYTHM - GI/Abdominal Exam GI & Abdominal Exam: Soft, Normal Bowel Sounds - Extremities Exam Extremities Exam: Normal Capillary Refill, Normal Inspection - Back Exam Back Exam: NORMAL INSPECTION - Neurological Exam Neurological Exam: Alert, Awake, Oriented x3 Neuro motor strength exam: Left Upper Extremity: 5, Right Upper Extremity: 5, Left Lower Extremity: 5, Right Lower Extremity: 5 - Psychiatric Exam Psychiatric exam: Normal Affect, Normal Mood - Skin Skin Exam: Dry, Intact, Normal Color, Warm Assessment and Plan - Assessment and Plan (Free Text) Assessment: 42 y/o female patient admitted Acute on chronic kidney injury 2ry to dehydration, enterocolitis, and acute on chronic anemia. Plan: 1) ESRD according to nephrology evaluation -likely 2/2 to dehydration from enterocolitis -Improving -Nephrology Consult, recommendations appreciated -Ordered Kidney ultrasound; Follow up results. -Temporary IJ vein catheter inserted yesterday -Patient started renal dialysis yesterday as per Dr. Cardenas. -Continue monitoring BUN/Cr, K+ (19/4.2,3.4) -Start D5W, 0.45% saline, 20meq K ---- 100 ml/hour -Spoke to her adult protective caseworker for arranging HD on outpatient basis. -Ordered vein mapping. - Will plan to replace the temporary cath with permicath. - Will order vascular consult for A-V fistula surgery. 2) Headache/Nausea/Vomiting/HTN -Head CT done: No acute intracranial abnormality. -Start clear liquid diet. -Continue Raglan 5mg Q6H PRN IV. -Zofran PRN -carafate 3) Metabolic Acidosis secondary to LYNETTE -Improving -PO bicarb -Monitor, repeat BMP in AM 4) Enterocolitis -c/w flagyl day#4 -c/w Cefipime 500 Q24H day#5 -No leukocytosis -Afebrile 5) Diffuse nonspecific anasarca on CT with low albumin - Status post 3 doses of albumin infusion 6) Acute on Chronic Anemia -Follow up nephro recommendations -Iron panel low iron, TIBC and % saturation -below baseline (pt usually runs high 8s) -down to 7.0 -IV venofer -EPO -1 unit PRBCs -Vit B12: WNL -occult blood negative -f/u H/H post-transfusion 8.7/26.2 7) Uncontrolled Hypertension -Losartan held 2/2 to LYNETTE -C/w Coreg 12.5 mg -Labetolol IV 20mg PRN if BP >200 systolic -Hydralzine 10mg PO TID -Clonidine 0.2mg BID -Continue monitoring BP -EKG (Abnormal T wave, Mild lateral ischemia) -Eccho; EF: 60-65, Mildly dilated L atrium, Mild TR. 8) IDDM-type II - HBA1C 7.1 on 05/2018 - On low dose Levemir - lispro high dose Correction scale - Hypoglycemic protocol 9) HLD - c/w with home statin therapy 10) DVT PPX -SCD -Heparin 5000 U Q12H 11) Foreign bodies - Triple lumen R IJ central venous catheter. <Caitlyn Perez - Last Filed: 05/10/18 16:05> Objective - Vital Signs/Intake and Output Vital Signs (last 24 hours): Temp Pulse Resp BP Pulse Ox 98.4 F 75 18 163/87 H 98 05/10/18 09:00 05/10/18 12:59 05/10/18 09:00 05/10/18 12:59 05/10/18 09:00 - Medications Medications: Current Medications Acetaminophen (Tylenol 325mg Tab) 650 mg PO Q6 PRN PRN Reason: Headache Last Admin: 05/09/18 04:21 Dose: 650 mg Acetaminophen (Tylenol 325mg Tab) 650 mg PO Q6 PRN PRN Reason: Pain, Mild (1-3) Aspirin (Ecotrin) 81 mg PO DAILY [facility] Last Admin: 05/10/18 12:55 Dose: Not Given Atorvastatin Calcium (Lipitor) 40 mg PO HS [facility] Last Admin: 05/09/18 22:47 Dose: 40 mg Carvedilol (Coreg) 12.5 mg PO Q12 [facility] Last Admin: 05/10/18 08:39 Dose: 12.5 mg Clonidine HCl (Catapres) 0.2 mg PO BID [facility] Last Admin: 05/10/18 08:37 Dose: 0.2 mg Dextrose (Dextrose 50% Inj) 0 ml IV STAT PRN; Protocol PRN Reason: Hypoglycemia Protocol Dextrose (Glutose 15) 0 gm PO ONCE PRN; Protocol PRN Reason: Hypoglycemia Protocol Epoetin Vickey (Procrit) 20,000 unit SC TTS [facility] Last Admin: 05/09/18 10:01 Dose: 20,000 unit Ergocalciferol (Drisdol 50,000 Intl Units Cap) 1 cap PO Q7D [facility] Last Admin: 05/08/18 16:19 Dose: Not Given Famotidine (Pepcid) 40 mg PO DAILY [facility] Last Admin: 05/10/18 08:38 Dose: Not Given Glucagon (Glucagen Diagnostic Kit) 0 mg IM STAT PRN; Protocol PRN Reason: Hypoglycemia Protocol Heparin Sodium (Porcine) (Heparin) 5,000 units SC Q12 [facility]; Protocol Last Admin: 05/10/18 08:40 Dose: 5,000 units Hydralazine HCl (Apresoline) 10 mg IV Q6 PRN PRN Reason: Systolic Blood Pressure Last Admin: 05/08/18 14:41 Dose: 10 mg Hydralazine HCl (Apresoline) 50 mg PO TID [facility] Last Admin: 05/10/18 12:59 Dose: 50 mg Metronidazole (Flagyl 500mg/100ml Ns) 100 mls @ 100 mls/hr IVPB Q8 [facility]; Protocol Last Admin: 05/10/18 08:39 Dose: 100 mls/hr Iron Sucrose 100 mg/ Sodium (Chloride) 105 mls @ 105 mls/hr IVPB DAILY [facility] Stop: 05/19/18 09:01 Last Admin: 05/10/18 08:38 Dose: 105 mls/hr Insulin Detemir (Levemir) 4 units SC HS [facility] Last Admin: 05/09/18 22:42 Dose: 4 units Insulin Human Lispro (Humalog) 0 units SC ACHS [facility]; Protocol Last Admin: 05/10/18 12:54 Dose: Not Given Labetalol HCl (Trandate) 20 mg IVP Q6H PRN PRN Reason: Systolic Blood Pressure Last Admin: 05/06/18 05:06 Dose: 20 mg Metoclopramide HCl (Reglan) 10 mg IVP Q6 PRN PRN Reason: Nausea/Vomiting Last Admin: 05/10/18 08:41 Dose: 10 mg Ondansetron HCl (Zofran Inj) 4 mg IVP Q6 PRN PRN Reason: Nausea/Vomiting Last Admin: 05/08/18 10:59 Dose: 4 mg Sevelamer Carbonate (Renvela) 800 mg PO TID [facility] Last Admin: 05/10/18 08:38 Dose: Not Given Vitamin B Complex/Vit C/Folic Acid (Nephro-Tana) 1 tab PO DAILY [facility] Last Admin: 05/10/18 12:55 Dose: Not Given - Labs Labs: 05/10/18 05:10 05/10/18 05:10 PT 9.8 Seconds (9.8-13.1) 05/05/18 19:05 INR 0.9 05/05/18 19:05 APTT 28.3 Seconds (25.6-37.1) 05/05/18 19:05 Attending/Attestation - Attestation I have personally seen and examined this patient.: Yes I have fully participated in the care of the patient.: Yes I have reviewed all pertinent clinical information, including history, physical exam and plan: Yes Notes (Text): 05/10/18 16:05 Seen examined and discussed with resident. Agree with findings and plan as above.
[2018-05-10] MEDS: Multivitamin Vitamin B Complex (Nephro-Vite) Tab PO SCH (12:55)
[2018-05-10] MEDS: Potassium Ch 20mEq in D5-1/2NS 1,000 ML IV SCH (12:59)
--- NOTE | 2018-05-10 13:55 | CP.PCM.PN ---
Subjective - Date & Time of Evaluation Date of Evaluation: 05/10/18 Time of Evaluation: 13:53 - Subjective Subjective: patient M bed feeling much better less shortness of breath No diarrhea reported Vital signs stable Objective - Vital Signs/Intake and Output Vital Signs (last 24 hours): Temp Pulse Resp BP Pulse Ox 98.8 F 75 19 163/87 H 97 05/10/18 05:16 05/10/18 12:59 05/10/18 05:16 05/10/18 12:59 05/10/18 05:16 - Medications Medications: Current Medications Acetaminophen (Tylenol 325mg Tab) 650 mg PO Q6 PRN PRN Reason: Headache Last Admin: 05/09/18 04:21 Dose: 650 mg Acetaminophen (Tylenol 325mg Tab) 650 mg PO Q6 PRN PRN Reason: Pain, Mild (1-3) Aspirin (Ecotrin) 81 mg PO DAILY [facility] Last Admin: 05/10/18 12:55 Dose: Not Given Atorvastatin Calcium (Lipitor) 40 mg PO HS [facility] Last Admin: 05/09/18 22:47 Dose: 40 mg Carvedilol (Coreg) 12.5 mg PO Q12 [facility] Last Admin: 05/10/18 08:39 Dose: 12.5 mg Clonidine HCl (Catapres) 0.2 mg PO BID [facility] Last Admin: 05/10/18 08:37 Dose: 0.2 mg Dextrose (Dextrose 50% Inj) 0 ml IV STAT PRN; Protocol PRN Reason: Hypoglycemia Protocol Dextrose (Glutose 15) 0 gm PO ONCE PRN; Protocol PRN Reason: Hypoglycemia Protocol Epoetin Vickey (Procrit) 20,000 unit SC TTS [facility] Last Admin: 05/09/18 10:01 Dose: 20,000 unit Ergocalciferol (Drisdol 50,000 Intl Units Cap) 1 cap PO Q7D [facility] Last Admin: 05/08/18 16:19 Dose: Not Given Famotidine (Pepcid) 40 mg PO DAILY [facility] Last Admin: 05/10/18 08:38 Dose: Not Given Glucagon (Glucagen Diagnostic Kit) 0 mg IM STAT PRN; Protocol PRN Reason: Hypoglycemia Protocol Heparin Sodium (Porcine) (Heparin) 5,000 units SC Q12 [facility]; Protocol Last Admin: 05/10/18 08:40 Dose: 5,000 units Hydralazine HCl (Apresoline) 10 mg IV Q6 PRN PRN Reason: Systolic Blood Pressure Last Admin: 05/08/18 14:41 Dose: 10 mg Hydralazine HCl (Apresoline) 50 mg PO TID [facility] Last Admin: 05/10/18 12:59 Dose: 50 mg Metronidazole (Flagyl 500mg/100ml Ns) 100 mls @ 100 mls/hr IVPB Q8 [facility]; Protocol Last Admin: 05/10/18 08:39 Dose: 100 mls/hr Iron Sucrose 100 mg/ Sodium (Chloride) 105 mls @ 105 mls/hr IVPB DAILY [facility] Stop: 05/19/18 09:01 Last Admin: 05/10/18 08:38 Dose: 105 mls/hr Insulin Detemir (Levemir) 4 units SC HS [facility] Last Admin: 05/09/18 22:42 Dose: 4 units Insulin Human Lispro (Humalog) 0 units SC ACHS [facility]; Protocol Last Admin: 05/10/18 12:54 Dose: Not Given Labetalol HCl (Trandate) 20 mg IVP Q6H PRN PRN Reason: Systolic Blood Pressure Last Admin: 05/06/18 05:06 Dose: 20 mg Metoclopramide HCl (Reglan) 10 mg IVP Q6 PRN PRN Reason: Nausea/Vomiting Last Admin: 05/10/18 08:41 Dose: 10 mg Ondansetron HCl (Zofran Inj) 4 mg IVP Q6 PRN PRN Reason: Nausea/Vomiting Last Admin: 05/08/18 10:59 Dose: 4 mg Sevelamer Carbonate (Renvela) 800 mg PO TID [facility] Last Admin: 05/10/18 08:38 Dose: Not Given Vitamin B Complex/Vit C/Folic Acid (Nephro-Tana) 1 tab PO DAILY [facility] Last Admin: 05/10/18 12:55 Dose: Not Given - Labs Labs: 05/10/18 05:10 05/10/18 05:10 PT 9.8 Seconds (9.8-13.1) 05/05/18 19:05 INR 0.9 05/05/18 19:05 APTT 28.3 Seconds (25.6-37.1) 05/05/18 19:05 - Constitutional Appears: No Acute Distress - Eye Exam Eye Exam: Conjunctival injection - ENT Exam ENT Exam: Mucous Membranes Moist - Respiratory Exam Respiratory Exam: NORMAL BREATHING PATTERN. absent: Chest Wall Tenderness - Cardiovascular Exam Cardiovascular Exam: absent: Gallop, JVD, Rubs - GI/Abdominal Exam GI & Abdominal Exam: Soft, Normal Bowel Sounds - Extremities Exam Extremities Exam: absent: Calf Tenderness - Back Exam Back Exam: absent: CVA tenderness (L), CVA tenderness (R) - Neurological Exam Neurological Exam: Alert - Psychiatric Exam Psychiatric exam: Normal Affect - Skin Skin Exam: absent: Cyanosis Assessment and Plan (1) Chronic kidney disease with end stage renal failure on dialysis Assessment & Plan: end stage renal disease patient requiring dialysis Diabetic kidney disease with diabetes mellitus Hypertension Anasarca reported on CT scan of the abdomen Anemia Hyperphosphatemia Secondary hyperparathyroidism Recommendation Still waiting for ultrasound of the kidney protein to creatinine ratio in the urine still pending Anemia continue EPO on dialysis Patient need to chronic dialysis Call social service for an arrangement as outpatient for dialysis at [facility] Replaced temporarily dialysis catheter with a permacath Venous mapping of the upper extremity Call vascular surgery for AV fistula continue phosphorus binder Status: Acute (2) Anemia in chronic kidney disease, on chronic dialysis Status: Acute
[2018-05-10] MEDS: Insulin Detemir 100 Units/ml Inj SC SCH (21:50)
[2018-05-11] MEDS: metroNIDAZOLE 500mg/100ml NS 100 ML IVPB SCH ×2 (00:50→12:49)
[2018-05-11 05:39] LABS: HEMOGLOBIN 8.8 g/dL (12.0-16.0); MEAN CELL VOLUME 93.5 fl (81.0-99.0); MEAN CORPUSCULAR HEMOGLOBIN 30.8 pg (27.0-31.0); MEAN CORPUSCULAR HGB CONC 32.9 g/dL (33.0-37.0); RBC 2.84 Mil/uL (3.80-5.20); RED CELL DISTRIBUTION WIDTH 15.8 % (11.5-14.5); WHITE BLOOD COUNT 7.3 K/uL (4.8-10.8)
[2018-05-11 05:48] LABS: ALB/GLOB RATIO 0.8 (1.0-2.1); ALBUMIN 1.9 g/dL (3.5-5.0); CALCIUM 7.6 mg/dL (8.4-10.2)
[2018-05-11] MEDS: Insulin Lispro (humaLOG) 100 Units/ml Inj SC SCH ×4 (07:30→22:37)
[2018-05-11] MEDS: Multivitamin Vitamin B Complex (Nephro-Vite) Tab PO SCH (09:00)
--- NOTE | 2018-05-11 10:09 | CP.PCM.PN ---
Subjective - Date & Time of Evaluation Date of Evaluation: 05/11/18 Time of Evaluation: 10:07 - Subjective Subjective: dialysis note she was seen on hemodialysis now. Patient awake and conscious vital signs stable Dialysis and running through temporarily dialysis catheter which need to be replaced with a permacath Objective - Vital Signs/Intake and Output Vital Signs (last 24 hours): Temp Pulse Resp BP Pulse Ox 98.1 F 72 20 165/82 H 98 05/11/18 05:53 05/11/18 05:53 05/11/18 05:53 05/11/18 05:53 05/11/18 05:53 - Medications Medications: Current Medications Acetaminophen (Tylenol 325mg Tab) 650 mg PO Q6 PRN PRN Reason: Headache Last Admin: 05/09/18 04:21 Dose: 650 mg Acetaminophen (Tylenol 325mg Tab) 650 mg PO Q6 PRN PRN Reason: Pain, Mild (1-3) Aspirin (Ecotrin) 81 mg PO DAILY [facility] Last Admin: 05/10/18 12:55 Dose: Not Given Atorvastatin Calcium (Lipitor) 40 mg PO HS [facility] Last Admin: 05/10/18 21:24 Dose: 40 mg Carvedilol (Coreg) 12.5 mg PO Q12 [facility] Last Admin: 05/11/18 00:38 Dose: 12.5 mg Clonidine HCl (Catapres) 0.2 mg PO BID [facility] Last Admin: 05/10/18 16:55 Dose: 0.2 mg Dextrose (Dextrose 50% Inj) 0 ml IV STAT PRN; Protocol PRN Reason: Hypoglycemia Protocol Dextrose (Glutose 15) 0 gm PO ONCE PRN; Protocol PRN Reason: Hypoglycemia Protocol Epoetin Vickey (Procrit) 20,000 unit SC TTS [facility] Last Admin: 05/09/18 10:01 Dose: 20,000 unit Ergocalciferol (Drisdol 50,000 Intl Units Cap) 1 cap PO Q7D [facility] Last Admin: 05/08/18 16:19 Dose: Not Given Famotidine (Pepcid) 40 mg PO DAILY [facility] Glucagon (Glucagen Diagnostic Kit) 0 mg IM STAT PRN; Protocol PRN Reason: Hypoglycemia Protocol Heparin Sodium (Porcine) (Heparin) 5,000 units SC Q12 [facility]; Protocol Last Admin: 05/10/18 21:23 Dose: 5,000 units Hydralazine HCl (Apresoline) 10 mg IV Q6 PRN PRN Reason: Systolic Blood Pressure Last Admin: 05/08/18 14:41 Dose: 10 mg Hydralazine HCl (Apresoline) 50 mg PO TID [facility] Last Admin: 05/10/18 16:54 Dose: 50 mg Iron Sucrose 100 mg/ Sodium (Chloride) 105 mls @ 105 mls/hr IVPB DAILY [facility] Stop: 05/19/18 09:01 Last Admin: 05/10/18 08:38 Dose: 105 mls/hr Insulin Detemir (Levemir) 4 units SC [facility] Last Admin: 05/10/18 21:50 Dose: 4 units Insulin Human Lispro (Humalog) 0 units SC [facility]; Protocol Last Admin: 05/10/18 21:51 Dose: Not Given Labetalol HCl (Trandate) 20 mg IVP Q6H PRN PRN Reason: Systolic Blood Pressure Last Admin: 05/06/18 05:06 Dose: 20 mg Metoclopramide HCl (Reglan) 10 mg IVP Q6 PRN PRN Reason: Nausea/Vomiting Last Admin: 05/10/18 21:22 Dose: 10 mg Ondansetron HCl (Zofran Inj) 4 mg IVP Q6 PRN PRN Reason: Nausea/Vomiting Last Admin: 05/08/18 10:59 Dose: 4 mg Sevelamer Carbonate (Renvela) 800 mg PO TID [facility] Last Admin: 05/10/18 16:55 Dose: 800 mg Vitamin B Complex/Vit C/Folic Acid (Nephro-Tana) 1 tab PO DAILY [facility] Last Admin: 05/10/18 12:55 Dose: Not Given - Labs Labs: 05/11/18 05:00 05/11/18 05:00 PT 9.8 Seconds (9.8-13.1) 05/05/18 19:05 INR 0.9 05/05/18 19:05 APTT 28.3 Seconds (25.6-37.1) 05/05/18 19:05 - Constitutional Appears: No Acute Distress - Eye Exam Eye Exam: Conjunctival injection - ENT Exam ENT Exam: Mucous Membranes Moist - Neck Exam Neck Exam: absent: Lymphadenopathy - Respiratory Exam Respiratory Exam: NORMAL BREATHING PATTERN. absent: Chest Wall Tenderness - Cardiovascular Exam Cardiovascular Exam: absent: Gallop, JVD, Rubs - GI/Abdominal Exam GI & Abdominal Exam: Soft, Normal Bowel Sounds - Extremities Exam Extremities Exam: absent: Calf Tenderness - Back Exam Back Exam: absent: CVA tenderness (L), CVA tenderness (R) - Neurological Exam Neurological Exam: Alert - Psychiatric Exam Psychiatric exam: Normal Affect - Skin Skin Exam: absent: Cyanosis Assessment and Plan (1) Chronic kidney disease with end stage renal failure on dialysis Assessment & Plan: Assessment & Plan: end stage renal disease patient requiring dialysis Diabetic kidney disease with diabetes mellitus Hypertension Anasarca reported on CT scan of the abdomen Anemia Hyperphosphatemia Secondary hyperparathyroidism Recommendation she was seen on hemodialysis. I discussed the order with the dialysis nurse at the bedside. Vital signs stable. Still waiting for ultrasound of the kidney protein to creatinine ratio in the urine still pending Anemia continue EPO on dialysis Patient need to chronic dialysis Call social service for an arrangement as outpatient for dialysis at [facility] Replaced temporarily dialysis catheter with a permacath Venous mapping of the upper extremity Call vascular surgery for AV fistula continue phosphorus binder Status: Acute (2) Anemia in chronic kidney disease, on chronic dialysis Status: Acute
--- NOTE | 2018-05-11 11:45 | CP.PCM.PN ---
<Fidencio June - Last Filed: 05/11/18 15:20> Subjective - Date & Time of Evaluation Date of Evaluation: 05/11/18 Time of Evaluation: 11:40 - Subjective Subjective: 42 y/o F patient seen and evaluated at bedside. Patient was Lying in bed comfortably, NAD. Patient states that she didn't have any nausea or vomiting since yesterday. Patient denies any overnight acute events. patient denies any fever, photophobia/phonophobia, numbness/tingling. She denies changes in vision, CP/SOB/palpitations, N/V/D/C or leg pain. Patient denies any overnight abdominal pain. Objective - Vital Signs/Intake and Output Vital Signs (last 24 hours): Temp Pulse Resp BP Pulse Ox 98.1 F 72 20 165/82 H 98 05/11/18 05:53 05/11/18 05:53 05/11/18 05:53 05/11/18 05:53 05/11/18 05:53 - Medications Medications: Current Medications Acetaminophen (Tylenol 325mg Tab) 650 mg PO Q6 PRN PRN Reason: Headache Last Admin: 05/09/18 04:21 Dose: 650 mg Acetaminophen (Tylenol 325mg Tab) 650 mg PO Q6 PRN PRN Reason: Pain, Mild (1-3) Aspirin (Ecotrin) 81 mg PO DAILY [facility] Last Admin: 05/11/18 09:00 Dose: Not Given Atorvastatin Calcium (Lipitor) 40 mg PO HS [facility] Last Admin: 05/10/18 21:24 Dose: 40 mg Carvedilol (Coreg) 12.5 mg PO Q12 [facility] Last Admin: 05/11/18 09:00 Dose: Not Given Clonidine HCl (Catapres) 0.2 mg PO BID [facility] Last Admin: 05/11/18 09:00 Dose: Not Given Dextrose (Dextrose 50% Inj) 0 ml IV STAT PRN; Protocol PRN Reason: Hypoglycemia Protocol Dextrose (Glutose 15) 0 gm PO ONCE PRN; Protocol PRN Reason: Hypoglycemia Protocol Epoetin Vickey (Procrit) 20,000 unit SC TTS [facility] Last Admin: 05/09/18 10:01 Dose: 20,000 unit Ergocalciferol (Drisdol 50,000 Intl Units Cap) 1 cap PO Q7D [facility] Last Admin: 05/08/18 16:19 Dose: Not Given Famotidine (Pepcid) 40 mg PO DAILY [facility] Last Admin: 05/11/18 09:00 Dose: Not Given Glucagon (Glucagen Diagnostic Kit) 0 mg IM STAT PRN; Protocol PRN Reason: Hypoglycemia Protocol Heparin Sodium (Porcine) (Heparin) 5,000 units SC Q12 [facility]; Protocol Last Admin: 05/10/18 21:23 Dose: 5,000 units Hydralazine HCl (Apresoline) 10 mg IV Q6 PRN PRN Reason: Systolic Blood Pressure Last Admin: 05/08/18 14:41 Dose: 10 mg Hydralazine HCl (Apresoline) 50 mg PO TID [facility] Last Admin: 05/11/18 09:00 Dose: Not Given Iron Sucrose 100 mg/ Sodium (Chloride) 105 mls @ 105 mls/hr IVPB DAILY [facility] Stop: 05/19/18 09:01 Last Admin: 05/10/18 08:38 Dose: 105 mls/hr Insulin Detemir (Levemir) 4 units SC HS [facility] Last Admin: 05/10/18 21:50 Dose: 4 units Insulin Human Lispro (Humalog) 0 units SC ACHS [facility]; Protocol Last Admin: 05/11/18 07:30 Dose: Not Given Labetalol HCl (Trandate) 20 mg IVP Q6H PRN PRN Reason: Systolic Blood Pressure Last Admin: 05/06/18 05:06 Dose: 20 mg Metoclopramide HCl (Reglan) 10 mg IVP Q6 PRN PRN Reason: Nausea/Vomiting Last Admin: 05/10/18 21:22 Dose: 10 mg Ondansetron HCl (Zofran Inj) 4 mg IVP Q6 PRN PRN Reason: Nausea/Vomiting Last Admin: 05/08/18 10:59 Dose: 4 mg Sevelamer Carbonate (Renvela) 800 mg PO TID [facility] Last Admin: 05/11/18 09:00 Dose: Not Given Vitamin B Complex/Vit C/Folic Acid (Nephro-Tana) 1 tab PO DAILY [facility] Last Admin: 05/11/18 09:00 Dose: Not Given - Labs Labs: 05/11/18 05:00 05/11/18 05:00 PT 9.8 Seconds (9.8-13.1) 05/05/18 19:05 INR 0.9 05/05/18 19:05 APTT 28.3 Seconds (25.6-37.1) 05/05/18 19:05 - Constitutional Appears: Well, Non-toxic, No Acute Distress - Head Exam Head Exam: ATRAUMATIC, NORMOCEPHALIC - Eye Exam Eye Exam: EOMI, Normal appearance, PERRL Pupil Exam: PERRL - ENT Exam ENT Exam: Mucous Membranes Moist, Normal Exam - Neck Exam Neck Exam: Full ROM Additional comments: 42 y/o female patient admitted Acute on chronic kidney injury 2ry to dehydration, enterocolitis, and acute on chronic anemia. - Respiratory Exam Respiratory Exam: Clear to Ausculation Bilateral, NORMAL BREATHING PATTERN - Cardiovascular Exam Cardiovascular Exam: REGULAR RHYTHM - GI/Abdominal Exam GI & Abdominal Exam: Soft, Normal Bowel Sounds - Neurological Exam Neurological Exam: Alert, Awake, Oriented x3 Neuro motor strength exam: Left Upper Extremity: 5, Right Upper Extremity: 5, Left Lower Extremity: 5, Right Lower Extremity: 5 - Psychiatric Exam Psychiatric exam: Normal Affect, Normal Mood - Skin Skin Exam: Dry, Intact, Normal Color, Warm Assessment and Plan - Assessment and Plan (Free Text) Assessment: R IJ triple lumen central venous catheter in place with sutures intact, Tegaderm clean and intact. No signs of acute infection, No erythema, hotness or edema. No leaking from the entry site of the catheter. Catheter is patent and flushed. Plan: 1) ESRD according to nephrology evaluation -likely 2/2 to dehydration from enterocolitis -Improving -Nephrology Consult, recommendations appreciated -Kidney ultrasound; Unremarkable renal US -Temporary IJ vein catheter inserted 2 days ago -Patient had her 2nd renal dialysis session today. -Continue monitoring BUN/Cr, K+ (18/4.6,4.0) -continue D5W, 0.45% saline, 20meq K ---- 100 ml/hour -Spoke to her social services manager for arranging HD on outpatient basis; Follow up -UE Veins US; focal R UE partially occlusive thrombus, LUE No evidence of DVT. -Venous mapping; Follow up -ordered permicath. 2) Headache/Nausea/Vomiting/HTN -Head CT done: No acute intracranial abnormality. -start renal diet. -Continue Raglan 5mg Q6H PRN IV. -Zofran PRN -carafate 3) Metabolic Acidosis secondary to LYNETTE -Improving -PO bicarb -Monitor, repeat BMP in AM 4) Enterocolitis -c/w flagyl day#4 -c/w Cefipime 500 Q24H day#5 -No leukocytosis -Afebrile 5) Diffuse nonspecific anasarca on CT with low albumin - Status post 3 doses of albumin infusion 6) Acute on Chronic Anemia -Follow up nephro recommendations -Iron panel low iron, TIBC and % saturation -below baseline (pt usually runs high 8s) -down to 7.0 -IV venofer -EPO -1 unit PRBCs -Vit B12: WNL -occult blood negative -f/u H/H post-transfusion 8.7/26.2 7) Uncontrolled Hypertension -Losartan held 2/2 to LYNETTE -C/w Coreg 12.5 mg -Labetolol IV 20mg PRN if BP >200 systolic -Hydralzine 10mg PO TID -Clonidine 0.2mg BID -Continue monitoring BP -EKG (Abnormal T wave, Mild lateral ischemia) -Eccho; EF: 60-65, Mildly dilated L atrium, Mild TR. 8) IDDM-type II - HBA1C 7.1 on 05/2018 - On low dose Levemir - lispro high dose Correction scale - Hypoglycemic protocol 9) HLD - c/w with home statin therapy 10) DVT PPX -SCD -Heparin 5000 U Q12H 11) Foreign bodies - Triple lumen R IJ central venous catheter. <Caitlyn Perez - Last Filed: 05/20/18 10:17> Objective - Vital Signs/Intake and Output Vital Signs (last 24 hours): Temp Pulse Resp BP Pulse Ox 98.4 F 80 20 148/77 96 05/20/18 08:28 05/20/18 08:28 05/20/18 08:28 05/20/18 08:28 05/20/18 08:28 - Medications Medications: Current Medications Acetaminophen (Tylenol 325mg Tab) 650 mg PO Q6 PRN PRN Reason: Pain, Mild (1-3) Last Admin: 05/19/18 20:55 Dose: 650 mg Aspirin (Ecotrin) 81 mg PO DAILY [facility] Last Admin: 05/19/18 09:24 Dose: 81 mg Atorvastatin Calcium (Lipitor) 40 mg PO HS [facility] Last Admin: 05/19/18 21:05 Dose: 40 mg Calcitriol (Rocaltrol) 0.25 mcg PO DAILY [facility] Last Admin: 05/19/18 09:26 Dose: 0.25 mcg Carvedilol (Coreg) 12.5 mg PO Q12 [facility] Last Admin: 05/19/18 20:44 Dose: 12.5 mg Cephalexin Monohydrate (Keflex) 500 mg PO Q12 [facility]; Protocol Last Admin: 05/19/18 20:47 Dose: 500 mg Clonidine HCl (Catapres) 0.2 mg PO BID [facility] Last Admin: 05/19/18 16:58 Dose: 0.2 mg Dextrose (Dextrose 50% Inj) 0 ml IV STAT PRN; Protocol PRN Reason: Hypoglycemia Protocol Dextrose (Glutose 15) 0 gm PO ONCE PRN; Protocol PRN Reason: Hypoglycemia Protocol Epoetin Vickey (Procrit) 20,000 unit SC TTS [facility] Last Admin: 05/18/18 08:27 Dose: 20,000 unit Ergocalciferol (Drisdol 50,000 Intl Units Cap) 1 cap PO Q7D [facility] Last Admin: 05/15/18 17:55 Dose: 1 cap Famotidine (Pepcid) 40 mg PO DAILY [facility] Last Admin: 05/19/18 09:26 Dose: 40 mg Glipizide (Glucotrol) 5 mg PO ACB [facility] Last Admin: 05/19/18 09:25 Dose: 5 mg Glucagon (Glucagen Diagnostic Kit) 0 mg IM STAT PRN; Protocol PRN Reason: Hypoglycemia Protocol Heparin Sodium (Porcine) (Heparin) 5,000 units SC Q12 [facility]; Protocol Last Admin: 05/19/18 20:46 Dose: 5,000 units Hydralazine HCl (Apresoline) 50 mg PO TID [facility] Last Admin: 05/19/18 16:57 Dose: 50 mg Insulin Detemir (Levemir) 20 units SC HS [facility] Last Admin: 05/19/18 21:41 Dose: 20 u Insulin Human Lispro (Humalog) 0 units SC ACHS [facility]; Protocol Last Admin: 05/20/18 07:30 Dose: Not Given Losartan Potassium (Cozaar) 50 mg PO QPM [facility] Last Admin: 05/19/18 16:59 Dose: 50 mg Ondansetron HCl (Zofran Inj) 4 mg IVP Q6 PRN PRN Reason: Nausea/Vomiting Last Admin: 05/08/18 10:59 Dose: 4 mg Psyllium Hydrophilic Mucilloid (Hydrocil Instant) 1 pkt PO DAILY [facility] Last Admin: 05/19/18 09:26 Dose: 1 pkt Sevelamer Carbonate (Renvela) 800 mg PO TID [facility] Last Admin: 05/19/18 16:57 Dose: 800 mg Vitamin B Complex/Vit C/Folic Acid (Nephro-Tana) 1 tab PO DAILY [facility] Last Admin: 05/19/18 09:26 Dose: 1 tab - Labs Labs: 05/20/18 07:00 05/18/18 05:45 PT 9.8 Seconds (9.8-13.1) 05/05/18 19:05 INR 0.9 05/05/18 19:05 APTT 28.3 Seconds (25.6-37.1) 05/05/18 19:05 Attending/Attestation - Attestation I have personally seen and examined this patient.: Yes I have fully participated in the care of the patient.: Yes I have reviewed all pertinent clinical information, including history, physical exam and plan: Yes Notes (Text): 05/20/18 10:17 Seen, examined, and discussed with resident. Agree with findings and plan as above.
[2018-05-11] MEDS: Epoetin Alfa 20000 UNIT/ML (RENAL DOSE) SC SCH (12:48)
--- NOTE | 2018-05-11 15:12 | US ---
Date of service: 05/10/2018 PROCEDURE: Ultrasound of the Kidneys HISTORY: LYNETTE COMPARISON: 05/11/2016. TECHNIQUE: Sonogram of the kidneys. FINDINGS: RIGHT KIDNEY: Measures: 5.9 x 9.8 cm. Normal in size, contour and echogenicity. No stone, solid mass lesion or hydronephrosis visualized. LEFT KIDNEY: Measures: 7 x 10.5 cm. Normal in size, contour and echogenicity. No stone, solid mass lesion or hydronephrosis visualized. OTHER FINDINGS: None. IMPRESSION: Unremarkable renal sonogram.No significant interval change compared to the prior examination(s).
--- NOTE | 2018-05-11 15:16 | US ---
Date of service: 05/10/2018 PROCEDURE: Left Upper Extremity Venous Doppler HISTORY: For vein mapping COMPARISON: None available. TECHNIQUE: Bilateral upper extremity deep veins, including the lower internal jugular, subclavian, axillary and brachial veins, were evaluated flow, compressibility and respiratory phasicity. FINDINGS: Normal flow, compressibility and respiratory phasicity was observed in the the left upper extremity deep veins. Focal occlusive disease, partial thrombosis limited to the distal right cephalic vein. Incidental finding(s): Documentation of right internal jugular vein line. IMPRESSION: Right upper extremity: Focal partially occlusive thrombus confined to the right cephalic vein. Left upper extremity: No evidence of deep venous thrombosis.
--- NOTE | 2018-05-11 15:21 | US ---
Date of service: 05/11/2018 PROCEDURE: Upper Extremity Venous Duplex Exam HISTORY: HD access PRIORS: None. TECHNIQUE: Bilateral upper extremity, internal jugular, subclavian, axillary, brachial, ulnar, radial, basilic and upper cephalic veins were evaluated. Flow was assessed with color Doppler, compressibility, assessment of phasic flow and augmentation response. Report prepared by sterile processing technologist. FINDINGS: RIGHT: 1. Cephalic Vein: Thrombus identified in the distal right cephalic vein. 1.1. Proximal Diameter: 0.44cm. Mid Diameter:0.41cm. Thrombosis confined to the distal right cephalic vein. 2. Basilic Vein:Compressibility - Fully compressible: thrombus - None 2.1. Proximal Diameter: 0.54cm. Mid Diameter:0.45cm. Distal Diameter: 0.37cm. LEFT: 1. Cephalic Vein: Compressibility - Fully compressible: thrombus - None 1.1. Proximal Diameter: 0.60cm. Mid Diameter:0.48cm. Distal Diameter: 0.46cm 2. Basilic Vein:Compressibility - Fully compressible: thrombus - None 2.1. Proximal Diameter: 0.46cm. Mid Diameter:0.25cm. Distal Diameter: 0.29cm. OTHER FINDINGS: Right: None. Left: None. IMPRESSION: Right: Diameter measurements of the right cephalic vein is measured between 0.41 cm and 0.44 cm and basilic vein is measured between 0.37 cm and 0.54 cm. Limited thrombosis confined to the distal right cephalic Left: Diameter measurements of the left cephalic vein is measured between 0.46 cm and 0.60 cm and basilic vein is measured between 0.25cm and 0.46cm.
[2018-05-11] MEDS: Insulin Detemir 100 Units/ml Inj SC SCH (22:34)
[2018-05-12 08:14] LABS: HEMOGLOBIN 9.1 g/dL (12.0-16.0); MEAN CELL VOLUME 93.5 fl (81.0-99.0); MEAN CORPUSCULAR HEMOGLOBIN 30.5 pg (27.0-31.0); MEAN CORPUSCULAR HGB CONC 32.6 g/dL (33.0-37.0); RED CELL DISTRIBUTION WIDTH 15.7 % (11.5-14.5); WHITE BLOOD COUNT 7.2 K/uL (4.8-10.8)
[2018-05-12 08:23] LABS: ALB/GLOB RATIO 0.8 (1.0-2.1); CALCIUM 7.7 mg/dL (8.4-10.2)
[2018-05-12] MEDS ORDERED: Midazolam 2 MG/2 ML VIAL ONE (11:02)
[2018-05-12] MEDS ORDERED: Povidone Iodine Topical 10% Sol ONE (11:07)
[2018-05-12] MEDS ORDERED: Lidocaine 1% Inj (20ml) ONE (11:11)
[2018-05-12] MEDS ORDERED: Lidocaine 1% 5ml Abboject ONE (11:24)
[2018-05-12] MEDS ORDERED: Propofol 10 mg/ml Inj (20 ML) ONE (11:24)
--- NOTE | 2018-05-12 11:32 | CP.PCM.PN ---
Subjective - Date & Time of Evaluation Date of Evaluation: 05/12/18 Time of Evaluation: 11:32 - Subjective Subjective: Patient awake and conscious not in acute distress Patient feeling much better No nausea no vomiting Vital signs stable Objective - Vital Signs/Intake and Output Vital Signs (last 24 hours): Temp Pulse Resp BP Pulse Ox 98.5 F 76 18 144/85 99 05/12/18 08:09 05/12/18 08:09 05/12/18 08:09 05/12/18 08:09 05/12/18 08:09 - Medications Medications: Current Medications Acetaminophen (Tylenol 325mg Tab) 650 mg PO Q6 PRN PRN Reason: Pain, Mild (1-3) Aspirin (Ecotrin) 81 mg PO DAILY [facility] Last Admin: 05/11/18 09:00 Dose: Not Given Atorvastatin Calcium (Lipitor) 40 mg PO HS [facility] Last Admin: 05/11/18 22:28 Dose: 40 mg Carvedilol (Coreg) 12.5 mg PO Q12 [facility] Last Admin: 05/11/18 22:36 Dose: 12.5 mg Clonidine HCl (Catapres) 0.2 mg PO BID [facility] Last Admin: 05/11/18 16:34 Dose: 0.2 mg Dextrose (Dextrose 50% Inj) 0 ml IV STAT PRN; Protocol PRN Reason: Hypoglycemia Protocol Dextrose (Glutose 15) 0 gm PO ONCE PRN; Protocol PRN Reason: Hypoglycemia Protocol Epoetin Vickey (Procrit) 20,000 unit SC TTS [facility] Last Admin: 05/11/18 12:48 Dose: 20,000 unit Ergocalciferol (Drisdol 50,000 Intl Units Cap) 1 cap PO Q7D [facility] Last Admin: 05/08/18 16:19 Dose: Not Given Famotidine (Pepcid) 40 mg PO DAILY [facility] Last Admin: 05/11/18 09:00 Dose: Not Given Glucagon (Glucagen Diagnostic Kit) 0 mg IM STAT PRN; Protocol PRN Reason: Hypoglycemia Protocol Hydralazine HCl (Apresoline) 10 mg IV Q6 PRN PRN Reason: Systolic Blood Pressure Last Admin: 05/08/18 14:41 Dose: 10 mg Hydralazine HCl (Apresoline) 50 mg PO TID [facility] Last Admin: 05/11/18 16:34 Dose: 50 mg Iron Sucrose 100 mg/ Sodium (Chloride) 105 mls @ 105 mls/hr IVPB DAILY [facility] Stop: 05/19/18 09:01 Last Admin: 05/12/18 09:04 Dose: 105 mls/hr Insulin Detemir (Levemir) 4 units SC [facility] Last Admin: 05/11/18 22:34 Dose: 4 units Insulin Human Lispro (Humalog) [address] [facility]; Protocol Last Admin: 05/11/18 22:37 Dose: Not Given Labetalol HCl (Trandate) 20 mg IVP Q6H PRN PRN Reason: Systolic Blood Pressure Last Admin: 05/06/18 05:06 Dose: 20 mg Metoclopramide HCl (Reglan) 10 mg IVP Q6 PRN PRN Reason: Nausea/Vomiting Last Admin: 05/10/18 21:22 Dose: 10 mg Ondansetron HCl (Zofran Inj) 4 mg IVP Q6 PRN PRN Reason: Nausea/Vomiting Last Admin: 05/08/18 10:59 Dose: 4 mg Sevelamer Carbonate (Renvela) 800 mg PO TID [facility] Last Admin: 05/11/18 16:34 Dose: 800 mg Vitamin B Complex/Vit C/Folic Acid (Nephro-Tana) 1 tab PO DAILY [facility] Last Admin: 05/11/18 09:00 Dose: Not Given - Labs Labs: 05/12/18 08:02 05/12/18 08:02 PT 9.8 Seconds (9.8-13.1) 05/05/18 19:05 INR 0.9 05/05/18 19:05 APTT 28.3 Seconds (25.6-37.1) 05/05/18 19:05 - Constitutional Appears: No Acute Distress - Eye Exam Eye Exam: Conjunctival injection - ENT Exam ENT Exam: Mucous Membranes Moist - Neck Exam Neck Exam: absent: Lymphadenopathy - Cardiovascular Exam Cardiovascular Exam: REGULAR RHYTHM. absent: Gallop, JVD, Rubs - GI/Abdominal Exam GI & Abdominal Exam: Soft, Normal Bowel Sounds - Extremities Exam Extremities Exam: absent: Calf Tenderness - Back Exam Back Exam: absent: CVA tenderness (L), CVA tenderness (R) - Neurological Exam Neurological Exam: Alert - Skin Skin Exam: absent: Cyanosis Assessment and Plan (1) Chronic kidney disease with end stage renal failure on dialysis Assessment & Plan: end stage renal disease patient requiring dialysis Diabetic kidney disease with diabetes mellitus Hypertension Anasarca reported on CT scan of the abdomen Anemia Hyperphosphatemia Secondary hyperparathyroidism Hypoalbuminemia The plan Continue hemodialysis TTS Patient went for permacath today EPO on dialysis for anemia Phosphorus binders Patient to go to [facility] dialysis as outpatient Spot urine for protein to creatinine ratio remain pending PTH still pending Ultrasound of the kidney nonspecific Please call dietitian for hypoalbuminemia and diet instruction Status: Acute (2) Anemia in chronic kidney disease, on chronic dialysis Status: Acute
--- NOTE | 2018-05-12 11:40 | CP.PCM.PN ---
<Matias Juneer - Last Filed: 05/12/18 14:31> Subjective - Date & Time of Evaluation Date of Evaluation: 05/12/18 Time of Evaluation: 11:24 - Subjective Subjective: 42 y/o F patient seen and evaluated at bedside. Patient was Lying in bed comfortably, NAD. Patient states that she didn't have any nausea or vomiting since yesterday. Patient denies any overnight acute events. patient denies any fever, photophobia/phonophobia, numbness/tingling. She denies changes in vision, CP/SOB/palpitations, N/V/D/C or leg pain. Patient denies any overnight abdominal pain or acute events. Objective - Vital Signs/Intake and Output Vital Signs (last 24 hours): Temp Pulse Resp BP Pulse Ox 98.5 F 76 18 144/85 99 05/12/18 08:09 05/12/18 08:09 05/12/18 08:09 05/12/18 08:09 05/12/18 08:09 - Medications Medications: Current Medications Acetaminophen (Tylenol 325mg Tab) 650 mg PO Q6 PRN PRN Reason: Pain, Mild (1-3) Aspirin (Ecotrin) 81 mg PO DAILY [facility] Last Admin: 05/11/18 09:00 Dose: Not Given Atorvastatin Calcium (Lipitor) 40 mg PO HS [facility] Last Admin: 05/11/18 22:28 Dose: 40 mg Carvedilol (Coreg) 12.5 mg PO Q12 [facility] Last Admin: 05/11/18 22:36 Dose: 12.5 mg Clonidine HCl (Catapres) 0.2 mg PO BID [facility] Last Admin: 05/11/18 16:34 Dose: 0.2 mg Dextrose (Dextrose 50% Inj) 0 ml IV STAT PRN; Protocol PRN Reason: Hypoglycemia Protocol Dextrose (Glutose 15) 0 gm PO ONCE PRN; Protocol PRN Reason: Hypoglycemia Protocol Epoetin Vickey (Procrit) 20,000 unit SC TTS [facility] Last Admin: 05/11/18 12:48 Dose: 20,000 unit Ergocalciferol (Drisdol 50,000 Intl Units Cap) 1 cap PO Q7D [facility] Last Admin: 05/08/18 16:19 Dose: Not Given Famotidine (Pepcid) 40 mg PO DAILY [facility] Last Admin: 05/11/18 09:00 Dose: Not Given Glucagon (Glucagen Diagnostic Kit) 0 mg IM STAT PRN; Protocol PRN Reason: Hypoglycemia Protocol Hydralazine HCl (Apresoline) 10 mg IV Q6 PRN PRN Reason: Systolic Blood Pressure Last Admin: 05/08/18 14:41 Dose: 10 mg Hydralazine HCl (Apresoline) 50 mg PO TID [facility] Last Admin: 05/11/18 16:34 Dose: 50 mg Iron Sucrose 100 mg/ Sodium (Chloride) 105 mls @ 105 mls/hr IVPB DAILY [facility] Stop: 05/19/18 09:01 Last Admin: 05/12/18 09:04 Dose: 105 mls/hr Insulin Detemir (Levemir) 4 units SC [facility] Last Admin: 05/11/18 22:34 Dose: 4 units Insulin Human Lispro (Humalog) 0 units SC [facility]; Protocol Last Admin: 05/11/18 22:37 Dose: Not Given Labetalol HCl (Trandate) 20 mg IVP Q6H PRN PRN Reason: Systolic Blood Pressure Last Admin: 05/06/18 05:06 Dose: 20 mg Metoclopramide HCl (Reglan) 10 mg IVP Q6 PRN PRN Reason: Nausea/Vomiting Last Admin: 05/10/18 21:22 Dose: 10 mg Ondansetron HCl (Zofran Inj) 4 mg IVP Q6 PRN PRN Reason: Nausea/Vomiting Last Admin: 05/08/18 10:59 Dose: 4 mg Sevelamer Carbonate (Renvela) 800 mg PO TID [facility] Last Admin: 05/11/18 16:34 Dose: 800 mg Vitamin B Complex/Vit C/Folic Acid (Nephro-Tana) 1 tab PO DAILY [facility] Last Admin: 05/11/18 09:00 Dose: Not Given - Labs Labs: 05/12/18 08:02 05/12/18 08:02 PT 9.8 Seconds (9.8-13.1) 05/05/18 19:05 INR 0.9 05/05/18 19:05 APTT 28.3 Seconds (25.6-37.1) 05/05/18 19:05 - Constitutional Appears: Well, Non-toxic, No Acute Distress - Head Exam Head Exam: ATRAUMATIC, NORMAL INSPECTION, NORMOCEPHALIC - Eye Exam Eye Exam: EOMI, Normal appearance, PERRL Pupil Exam: PERRL - ENT Exam ENT Exam: Mucous Membranes Moist, Normal Exam - Neck Exam Neck Exam: Full ROM Additional comments: R IJ triple lumen central venous catheter in place with sutures intact, Tegaderm clean and intact. No signs of acute infection, No erythema, hotness or edema. No leaking from the entry site of the catheter. Catheter is patent and flushed. - Respiratory Exam Respiratory Exam: Clear to Ausculation Bilateral, NORMAL BREATHING PATTERN - Cardiovascular Exam Cardiovascular Exam: REGULAR RHYTHM - GI/Abdominal Exam GI & Abdominal Exam: Soft, Normal Bowel Sounds - Extremities Exam Extremities Exam: Normal Capillary Refill, Normal Inspection - Back Exam Back Exam: NORMAL INSPECTION - Neurological Exam Neurological Exam: Alert, Awake, Oriented x3 Neuro motor strength exam: Left Upper Extremity: 5, Right Upper Extremity: 5, Left Lower Extremity: 5, Right Lower Extremity: 5 - Psychiatric Exam Psychiatric exam: Normal Affect, Normal Mood - Skin Skin Exam: Dry, Intact, Normal Color, Warm Assessment and Plan - Assessment and Plan (Free Text) Assessment: 42 y/o female patient admitted Acute on chronic kidney injury 2ry to dehydration, enterocolitis, and acute on chronic anemia. Plan: 1) ESRD according to nephrology evaluation -likely 2/2 to dehydration from enterocolitis -Improving -Nephrology Consult, recommendations appreciated -Kidney ultrasound; Unremarkable renal US -Temporary IJ vein catheter inserted 2 days ago -Patient had her 2nd renal dialysis session today. -Continue monitoring BUN/Cr, K+ (18/4.6,4.0) [05/11] -continue D5W, 0.45% saline, 20meq K ---- 100 ml/hour -Spoke to her social service assistant for arranging HD on outpatient basis; Follow up -UE Veins US; focal R UE partially occlusive thrombus, LUE No evidence of DVT. -Venous mapping; Follow up -teporary RIJ triple lumen catheter replaced by permicath today. -c/w Sevlamer carbonate 800mg TID -Ergocalciferol 50.000 Q7days 2) Headache/Nausea/Vomiting/HTN -Head CT done: No acute intracranial abnormality. -Continue renal diet. -Continue Raglan 5mg Q6H PRN IV. -Zofran PRN -carafate. -Pepcid 40mg QD 3) Metabolic Acidosis secondary to LYNETTE -Improving -PO bicarb -Monitor, repeat BMP in AM 4) Enterocolitis -No leukocytosis -Afebrile 5) Diffuse nonspecific anasarca on CT with low albumin - Status post 3 doses of albumin infusion 6) Acute on Chronic Anemia -nephro recommendations appreciated -Iron panel low iron, TIBC and % saturation -below baseline (pt usually runs high 8s) -down to 7.0 -IV venofer -EPO -1 unit PRBCs -Vit B12: WNL -occult blood negative -f/u H/H post-transfusion 8.7/26.2 7) Uncontrolled Hypertension -Losartan held 2/2 to LYNETTE -C/w Coreg 12.5 mg -Labetolol IV 20mg PRN if BP >200 systolic -Hydralzine 10mg PO TID -Clonidine 0.2mg BID -Continue monitoring BP -EKG (Abnormal T wave, Mild lateral ischemia) -Eccho; EF: 60-65, Mildly dilated L atrium, Mild TR. 8) IDDM-type II - HBA1C 7.1 on 05/2018 - On low dose Levemir - lispro high dose Correction scale - Hypoglycemic protocol 9) HLD - c/w with home statin therapy -Aspirin 81mg tablets QD 10) DVT PPX -SCD -Heparin 5000 U Q12H 11) Foreign bodies - Triple lumen R IJ central venous catheter. <Caitlyn Perez - Last Filed: 05/20/18 10:11> Objective - Vital Signs/Intake and Output Vital Signs (last 24 hours): Temp Pulse Resp BP Pulse Ox 98.4 F 80 20 148/77 96 05/20/18 08:28 05/20/18 08:28 05/20/18 08:28 05/20/18 08:28 05/20/18 08:28 - Medications Medications: Current Medications Acetaminophen (Tylenol 325mg Tab) 650 mg PO Q6 PRN PRN Reason: Pain, Mild (1-3) Last Admin: 05/19/18 20:55 Dose: 650 mg Aspirin (Ecotrin) 81 mg PO DAILY [facility] Last Admin: 05/19/18 09:24 Dose: 81 mg Atorvastatin Calcium (Lipitor) 40 mg PO HS [facility] Last Admin: 05/19/18 21:05 Dose: 40 mg Calcitriol (Rocaltrol) 0.25 mcg PO DAILY [facility] Last Admin: 05/19/18 09:26 Dose: 0.25 mcg Carvedilol (Coreg) 12.5 mg PO Q12 [facility] Last Admin: 05/19/18 20:44 Dose: 12.5 mg Cephalexin Monohydrate (Keflex) 500 mg PO Q12 [facility]; Protocol Last Admin: 05/19/18 20:47 Dose: 500 mg Clonidine HCl (Catapres) 0.2 mg PO BID [facility] Last Admin: 05/19/18 16:58 Dose: 0.2 mg Dextrose (Dextrose 50% Inj) 0 ml IV STAT PRN; Protocol PRN Reason: Hypoglycemia Protocol Dextrose (Glutose 15) 0 gm PO ONCE PRN; Protocol PRN Reason: Hypoglycemia Protocol Epoetin Vickey (Procrit) 20,000 unit SC TTS [facility] Last Admin: 05/18/18 08:27 Dose: 20,000 unit Ergocalciferol (Drisdol 50,000 Intl Units Cap) 1 cap PO Q7D [facility] Last Admin: 05/15/18 17:55 Dose: 1 cap Famotidine (Pepcid) 40 mg PO DAILY [facility] Last Admin: 05/19/18 09:26 Dose: 40 mg Glipizide (Glucotrol) 5 mg PO ACB [facility] Last Admin: 05/19/18 09:25 Dose: 5 mg Glucagon (Glucagen Diagnostic Kit) 0 mg IM STAT PRN; Protocol PRN Reason: Hypoglycemia Protocol Heparin Sodium (Porcine) (Heparin) 5,000 units SC Q12 [facility]; Protocol Last Admin: 05/19/18 20:46 Dose: 5,000 units Hydralazine HCl (Apresoline) 50 mg PO TID [facility] Last Admin: 05/19/18 16:57 Dose: 50 mg Insulin Detemir (Levemir) 20 units SC HS [facility] Last Admin: 05/19/18 21:41 Dose: 20 u Insulin Human Lispro (Humalog) 0 units SC A[facility]S [facility]; Protocol Last Admin: 05/20/18 07:30 Dose: Not Given Losartan Potassium (Cozaar) 50 mg PO QPM [facility] Last Admin: 05/19/18 16:59 Dose: 50 mg Ondansetron HCl (Zofran Inj) 4 mg IVP Q6 PRN PRN Reason: Nausea/Vomiting Last Admin: 05/08/18 10:59 Dose: 4 mg Psyllium Hydrophilic Mucilloid (Hydrocil Instant) 1 pkt PO DAILY [facility] Last Admin: 05/19/18 09:26 Dose: 1 pkt Sevelamer Carbonate (Renvela) 800 mg PO TID [facility] Last Admin: 05/19/18 16:57 Dose: 800 mg Vitamin B Complex/Vit C/Folic Acid (Nephro-Tana) 1 tab PO DAILY [facility] Last Admin: 05/19/18 09:26 Dose: 1 tab - Labs Labs: 05/20/18 07:00 05/18/18 05:45 PT 9.8 Seconds (9.8-13.1) 05/05/18 19:05 INR 0.9 05/05/18 19:05 APTT 28.3 Seconds (25.6-37.1) 05/05/18 19:05 Attending/Attestation - Attestation I have personally seen and examined this patient.: Yes I have fully participated in the care of the patient.: Yes I have reviewed all pertinent clinical information, including history, physical exam and plan: Yes Notes (Text): 05/20/18 10:11 Seen, examined, and discussed with resident. Agree with findings and plan as above.
--- NOTE | 2018-05-12 12:17 | PCM.SURG1 ---
Surgeon's Initial Post Op Note - Surgeon's Notes Surgeon: Roe Surgical Device Sales Representative: none Type of Anesthesia: IV Sedation, Local Pre-Operative Diagnosis: RF Operative Findings: Right shiley and patent right IJV Post-Operative Diagnosis: RF Operation Performed: Conversion of right IJV shiley to permcath Specimen/Specimens Removed: None Estimated Blood Loss: EBL {In ML}: 1 Date of Surgery/Procedure: 05/12/18 Time of Surgery/Procedure: 11:30
[2018-05-12] MEDS: Multivitamin Vitamin B Complex (Nephro-Vite) Tab PO SCH (15:22)
[2018-05-12] MEDS: Insulin Lispro (humaLOG) 100 Units/ml Inj SC SCH ×3 (15:22→21:40)
[2018-05-12] MEDS: Insulin Detemir 100 Units/ml Inj SC SCH (21:39)
[2018-05-13] MEDS: Multivitamin Vitamin B Complex (Nephro-Vite) Tab PO SCH (08:54)
[2018-05-13] MEDS: Insulin Lispro (humaLOG) 100 Units/ml Inj SC SCH ×4 (08:56→21:53)
--- NOTE | 2018-05-13 09:19 | CP.PCM.PN ---
<Elkin Nava - Last Filed: 05/13/18 09:37> Subjective - Date & Time of Evaluation Date of Evaluation: 05/13/18 Time of Evaluation: 09:00 - Subjective Subjective: No events overnight. Pt seen and examined this am. Seen getting HD and eating breakfast. Appears comfortable. Denies complaints. Objective - Vital Signs/Intake and Output Vital Signs (last 24 hours): Temp Pulse Resp BP Pulse Ox 98.4 F 78 18 148/79 98 05/13/18 08:20 05/13/18 08:20 05/13/18 08:20 05/13/18 08:20 05/13/18 08:20 - Medications Medications: Current Medications Acetaminophen (Tylenol 325mg Tab) 650 mg PO Q6 PRN PRN Reason: Pain, Mild (1-3) Aspirin (Ecotrin) 81 mg PO DAILY [facility] Last Admin: 05/13/18 08:54 Dose: 81 mg Atorvastatin Calcium (Lipitor) 40 mg PO HS [facility] Last Admin: 05/12/18 21:39 Dose: 40 mg Carvedilol (Coreg) 12.5 mg PO Q12 [facility] Last Admin: 05/12/18 21:38 Dose: 12.5 mg Clonidine HCl (Catapres) 0.2 mg PO BID [facility] Last Admin: 05/12/18 17:45 Dose: 0.2 mg Dextrose (Dextrose 50% Inj) 0 ml IV STAT PRN; Protocol PRN Reason: Hypoglycemia Protocol Dextrose (Glutose 15) 0 gm PO ONCE PRN; Protocol PRN Reason: Hypoglycemia Protocol Epoetin Vickey (Procrit) 20,000 unit SC TTS [facility] Last Admin: 05/11/18 12:48 Dose: 20,000 unit Ergocalciferol (Drisdol 50,000 Intl Units Cap) 1 cap PO Q7D [facility] Last Admin: 05/08/18 16:19 Dose: Not Given Famotidine (Pepcid) 40 mg PO DAILY [facility] Last Admin: 05/13/18 08:53 Dose: 40 mg Glucagon (Glucagen Diagnostic Kit) 0 mg IM STAT PRN; Protocol PRN Reason: Hypoglycemia Protocol Hydralazine HCl (Apresoline) 10 mg IV Q6 PRN PRN Reason: Systolic Blood Pressure Last Admin: 05/08/18 14:41 Dose: 10 mg Hydralazine HCl (Apresoline) 50 mg PO TID [facility] Last Admin: 05/12/18 17:44 Dose: 50 mg Iron Sucrose 100 mg/ Sodium (Chloride) 105 mls @ 105 mls/hr IVPB DAILY [facility] Stop: 05/19/18 09:01 Last Admin: 05/13/18 08:57 Dose: 105 mls/hr Insulin Detemir (Levemir) 4 units SC [facility] Last Admin: 05/12/18 21:39 Dose: 4 units Insulin Human Lispro (Humalog) 0 units SC [facility]; Protocol Last Admin: 05/13/18 08:56 Dose: 4 units Labetalol HCl (Trandate) 20 mg IVP Q6H PRN PRN Reason: Systolic Blood Pressure Last Admin: 05/06/18 05:06 Dose: 20 mg Metoclopramide HCl (Reglan) 10 mg IVP Q6 PRN PRN Reason: Nausea/Vomiting Last Admin: 05/10/18 21:22 Dose: 10 mg Ondansetron HCl (Zofran Inj) 4 mg IVP Q6 PRN PRN Reason: Nausea/Vomiting Last Admin: 05/08/18 10:59 Dose: 4 mg Sevelamer Carbonate (Renvela) 800 mg PO TID [facility] Last Admin: 05/13/18 08:54 Dose: 800 mg Vitamin B Complex/Vit C/Folic Acid (Nephro-Tana) 1 tab PO DAILY [facility] Last Admin: 05/13/18 08:54 Dose: 1 tab - Labs Labs: 05/12/18 08:02 05/12/18 08:02 PT 9.8 Seconds (9.8-13.1) 05/05/18 19:05 INR 0.9 05/05/18 19:05 APTT 28.3 Seconds (25.6-37.1) 05/05/18 19:05 - Constitutional Appears: Well, Non-toxic, No Acute Distress - Head Exam Head Exam: absent: ATRAUMATIC - Eye Exam Eye Exam: Normal appearance - ENT Exam ENT Exam: Mucous Membranes Moist - Neck Exam Neck Exam: Full ROM - Respiratory Exam Respiratory Exam: Clear to Ausculation Bilateral. absent: Accessory Muscle Use, Rales, Wheezes - Cardiovascular Exam Cardiovascular Exam: REGULAR RHYTHM, +S1, +S2. absent: Murmur - GI/Abdominal Exam GI & Abdominal Exam: Soft. absent: Tenderness - Extremities Exam Extremities Exam: Pedal Edema (trace) - Neurological Exam Neurological Exam: Alert, Oriented x3 - Psychiatric Exam Psychiatric exam: Normal Affect - Skin Skin Exam: Normal Color Assessment and Plan - Assessment and Plan (Free Text) Assessment: 42 y/o female patient admitted Acute on chronic kidney injury 2ry to dehydration, enterocolitis, and acute on chronic anemia. Transferred to MEd/Surg today, will continue with HD treatments TTS. Plan: 1) Acute on Chronic Kidney disease -Likely ESRD as per Neprho. Receiving HD via Permacath (placed on 05/12/18) -Improving, Crea 3.6 today. -Nephrology on board -HD today 2) Headache/Nausea/Vomiting/HTN -Head CT done: No acute intracranial abnormality. -Continue Raglan 5mg Q6H PRN IV -Zofran, Carafate, Pepcid 40mg QD 3) Metabolic Acidosis secondary to LYNETTE -Resolved, Bicarb 27 today, s/p BICARB po 4) Enterocolitis -No leukocytosis -Afebrile -No GI symptoms 5) Diffuse nonspecific anasarca on CT with low albumin - Status post 3 doses of albumin infusion 6) Uncontrolled Hypertension -Normotensive, controlled -Losartan held 2/2 to LYNETTE -C/w Coreg 12.5 mg -Labetolol IV 20mg PRN if BP >200 systolic -Hydralzine 10mg PO TID -Clonidine 0.2mg BID 7) IDDM-type II - HBA1C 7.1 on 05/2018 - On low dose Levemir - lispro high dose Correction scale - Hypoglycemic protocol 8) HLD - c/w with home statin therapy -Aspirin 81mg tablets QD 9) DVT PPX -SCD -Heparin 5000 U Q12H, restarted today 10) Lines - Triple lumen R IJ central venous catheter. Full CODE <Rachel Murillo - Last Filed: 05/13/18 13:49> Objective - Vital Signs/Intake and Output Vital Signs (last 24 hours): Temp Pulse Resp BP Pulse Ox 98.4 F 78 18 148/79 98 05/13/18 08:20 05/13/18 08:20 05/13/18 08:20 05/13/18 08:20 05/13/18 08:20 - Medications Medications: Current Medications Acetaminophen (Tylenol 325mg Tab) 650 mg PO Q6 PRN PRN Reason: Pain, Mild (1-3) Aspirin (Ecotrin) 81 mg PO DAILY [facility] Last Admin: 05/13/18 08:54 Dose: 81 mg Atorvastatin Calcium (Lipitor) 40 mg PO HS [facility] Last Admin: 05/12/18 21:39 Dose: 40 mg Carvedilol (Coreg) 12.5 mg PO Q12 [facility] Last Admin: 05/12/18 21:38 Dose: 12.5 mg Clonidine HCl (Catapres) 0.2 mg PO BID [facility] Last Admin: 05/12/18 17:45 Dose: 0.2 mg Dextrose (Dextrose 50% Inj) 0 ml IV STAT PRN; Protocol PRN Reason: Hypoglycemia Protocol Dextrose (Glutose 15) 0 gm PO ONCE PRN; Protocol PRN Reason: Hypoglycemia Protocol Epoetin Vickey (Procrit) 20,000 unit SC TTS [facility] Last Admin: 05/11/18 12:48 Dose: 20,000 unit Ergocalciferol (Drisdol 50,000 Intl Units Cap) 1 cap PO Q7D [facility] Last Admin: 05/08/18 16:19 Dose: Not Given Famotidine (Pepcid) 40 mg PO DAILY [facility] Last Admin: 05/13/18 08:53 Dose: 40 mg Glucagon (Glucagen Diagnostic Kit) 0 mg IM STAT PRN; Protocol PRN Reason: Hypoglycemia Protocol Heparin Sodium (Porcine) (Heparin) 5,000 units SC Q12 [facility]; Protocol Hydralazine HCl (Apresoline) 10 mg IV Q6 PRN PRN Reason: Systolic Blood Pressure Last Admin: 05/08/18 14:41 Dose: 10 mg Hydralazine HCl (Apresoline) 50 mg PO TID [facility] Last Admin: 05/12/18 17:44 Dose: 50 mg Iron Sucrose 100 mg/ Sodium (Chloride) 105 mls @ 105 mls/hr IVPB DAILY [facility] Stop: 05/19/18 09:01 Last Admin: 05/13/18 08:57 Dose: 105 mls/hr Insulin Detemir (Levemir) 10 units SC HS [facility] Insulin Human Lispro (Humalog) 0 units SC ACHS [facility]; Protocol Last Admin: 05/13/18 08:56 Dose: 4 units Labetalol HCl (Trandate) 20 mg IVP Q6H PRN PRN Reason: Systolic Blood Pressure Last Admin: 05/06/18 05:06 Dose: 20 mg Losartan Potassium (Cozaar) 25 mg PO QPM [facility] Metoclopramide HCl (Reglan) 10 mg IVP Q6 PRN PRN Reason: Nausea/Vomiting Last Admin: 05/10/18 21:22 Dose: 10 mg Ondansetron HCl (Zofran Inj) 4 mg IVP Q6 PRN PRN Reason: Nausea/Vomiting Last Admin: 05/08/18 10:59 Dose: 4 mg Sevelamer Carbonate (Renvela) 800 mg PO TID [facility] Last Admin: 05/13/18 08:54 Dose: 800 mg Vitamin B Complex/Vit C/Folic Acid (Nephro-Tana) 1 tab PO DAILY [facility] Last Admin: 05/13/18 08:54 Dose: 1 tab - Labs Labs: 05/12/18 08:02 05/12/18 08:02 PT 9.8 Seconds (9.8-13.1) 05/05/18 19:05 INR 0.9 05/05/18 19:05 APTT 28.3 Seconds (25.6-37.1) 05/05/18 19:05 Attending/Attestation - Attestation I have personally seen and examined this patient.: Yes I have fully participated in the care of the patient.: Yes I have reviewed all pertinent clinical information, including history, physical exam and plan: Yes Notes (Text): ESRD on HD - cont TIW HD - New HD - awaiting outpt placement DM Type II, Insulin requiring - Increase Levemir to 10 units SQ q HS
[2018-05-13 12:04] LABS: CREATININE, RANDOM URINE 20.3 mg/dL
--- NOTE | 2018-05-13 16:16 | CP.PCM.PN ---
Subjective - Date & Time of Evaluation Date of Evaluation: 05/13/18 Time of Evaluation: 16:14 - Subjective Subjective: renal f/up note 42 y/o F with PMH of CKD stage 3, HTN, DM, anemia and HLD admitted to [facility] for evaluation and treatment of Acute on CKD, enterocolitis, and anemia. Patient presented to ER after PMD called patient for elevated BUN/Cr > 7/60 and instructed to go to the ER for evaluation. As per patient, She has been feeling weak since last 3 months, gets tired after walking to 1-2 blocks, c/o diarrhea and lower abdominal pain since last 3 days, watery loss NB diarrhea, denies any nausea, vomiting or fever. Denies any chest pain, SOB, hematuria. Reports occasionally she feels dizziness with blurred vision. Patient reports she used to follow up with Nephro at [facility], last visit 10/2017, no visit since due to insurance issue. PMD: [facility] PMH:CKD stage 3, HTN, DM, anemia and HLD PSH: , Cleft lip Meds: See med rec Allg: NKDA FH: + DM SH: Denies alcohol/smoking or drug use Subjective: Noted events overnight. Patients feels well, no nausea/vomitting Denies chest pain, palpitation, shortness of breath, has leg swelling. Physical Examination: General Appearance: comfortable, in no acute respiratory distress, co-operative . well appearing Vitals reviewed and noted as below Head; Atraumatic, normocephalic ENT: no ulcers no thrush. Tongue is midline. Oropharynx: no rash or ulcers. EYES: Pupils are equal, round and reactive to light accommodation. Eye muscles and extraocular movement intact. Sclera is anicteric. Neck; supple no lymphadenopathy, no thyromegaly or bruit Lungs: Normal respiratory rate/effort. Breath sounds bilateral equal and clear Heart: Normal rate. s1s2 normal. No rub or gallop. Extremities: 2+ edema. No varicose veins Neurological: Patient is alert, awake and oriented to person, place and time. No focal deficit. Strength bilateral appropriate and equal Skin: Warm and dry. Normal turgor. No rash. Palpitation: Normal elasticity for age Abdomen: Abdomen is soft. Bowel sounds +. There is no abdominal tenderness, no guarding/rigidity no organomegaly Psych: normal insight and normal affect/mood MSK: no joint tenderness or swelling. Digits and nails normal, no deformity : kidney or bladder not palpable imaging: anasarca HIV/Hep B and C neg in past Assessment: stable CKD 5 likely ESRD with anasarca ? uremia now on hemodialysis TTS Diabetic chronic Kidney Disease (E11.22) Hypertensive Chronic Kidney Disease (I12.0) Anemia (D64.9), Hyperphosphatemia (E83.39), Secondary Hyperparathyroidism (E21.1), HTN (I12.0) obesity Plan: HD as TTS schedule, continue Continue with Nephrovite 1 tab/day. PRBC as needed for anemia. on RICCARDO as anemic, PRBC as needed, iron supplements added phos binders, started weekly Vit D BP control with meds as ordered. Patient not on RAAS dudley hence added losartan Glycemic control, Dialysis consistent diet Further work up/management as per primary team Dose meds/antibiotics (if needed) for ESRD status. Avoid fleets enema/magnesium based laxatives. SW consult for outpt HD placement. vascular surgery consult for AVF. save non-dominant arm from phlebotomy/IV lines. Thanks for allowing me to participate in care of your patient. Will follow patient with you. Please call if any Qs. Office: [phone] Objective - Vital Signs/Intake and Output Vital Signs (last 24 hours): Temp Pulse Resp BP Pulse Ox 98.4 F 78 18 148/79 98 05/13/18 08:20 05/13/18 08:20 05/13/18 08:20 05/13/18 08:20 05/13/18 08:20 - Medications Medications: Current Medications Acetaminophen (Tylenol 325mg Tab) 650 mg PO Q6 PRN PRN Reason: Pain, Mild (1-3) Aspirin (Ecotrin) 81 mg PO DAILY [facility] Last Admin: 05/13/18 08:54 Dose: 81 mg Atorvastatin Calcium (Lipitor) 40 mg PO HS [facility] Last Admin: 05/12/18 21:39 Dose: 40 mg Carvedilol (Coreg) 12.5 mg PO Q12 [facility] Last Admin: 05/12/18 21:38 Dose: 12.5 mg Clonidine HCl (Catapres) 0.2 mg PO BID [facility] Last Admin: 05/12/18 17:45 Dose: 0.2 mg Dextrose (Dextrose 50% Inj) 0 ml IV STAT PRN; Protocol PRN Reason: Hypoglycemia Protocol Dextrose (Glutose 15) 0 gm PO ONCE PRN; Protocol PRN Reason: Hypoglycemia Protocol Epoetin Vickey (Procrit) 20,000 unit SC TTS [facility] Last Admin: 05/11/18 12:48 Dose: 20,000 unit Ergocalciferol (Drisdol 50,000 Intl Units Cap) 1 cap PO Q7D [facility] Last Admin: 05/08/18 16:19 Dose: Not Given Famotidine (Pepcid) 40 mg PO DAILY [facility] Last Admin: 05/13/18 08:53 Dose: 40 mg Glucagon (Glucagen Diagnostic Kit) 0 mg IM STAT PRN; Protocol PRN Reason: Hypoglycemia Protocol Heparin Sodium (Porcine) (Heparin) 5,000 units SC Q12 [facility]; Protocol Hydralazine HCl (Apresoline) 10 mg IV Q6 PRN PRN Reason: Systolic Blood Pressure Last Admin: 05/08/18 14:41 Dose: 10 mg Hydralazine HCl (Apresoline) 50 mg PO TID [facility] Last Admin: 05/12/18 17:44 Dose: 50 mg Iron Sucrose 100 mg/ Sodium (Chloride) 105 mls @ 105 mls/hr IVPB DAILY [facility] Stop: 05/19/18 09:01 Last Admin: 05/13/18 08:57 Dose: 105 mls/hr Insulin Detemir (Levemir) 10 units SC HS [facility] Insulin Human Lispro (Humalog) 0 units SC ACHS [facility]; Protocol Last Admin: 05/13/18 08:56 Dose: 4 units Labetalol HCl (Trandate) 20 mg IVP Q6H PRN PRN Reason: Systolic Blood Pressure Last Admin: 05/06/18 05:06 Dose: 20 mg Losartan Potassium (Cozaar) 25 mg PO QPM [facility] Metoclopramide HCl (Reglan) 10 mg IVP Q6 PRN PRN Reason: Nausea/Vomiting Last Admin: 05/10/18 21:22 Dose: 10 mg Ondansetron HCl (Zofran Inj) 4 mg IVP Q6 PRN PRN Reason: Nausea/Vomiting Last Admin: 05/08/18 10:59 Dose: 4 mg Sevelamer Carbonate (Renvela) 800 mg PO TID [facility] Last Admin: 05/13/18 08:54 Dose: 800 mg Vitamin B Complex/Vit C/Folic Acid (Nephro-Tana) 1 tab PO DAILY [facility] Last Admin: 05/13/18 08:54 Dose: 1 tab - Labs Labs: 05/12/18 08:02 05/12/18 08:02 PT 9.8 Seconds (9.8-13.1) 05/05/18 19:05 INR 0.9 05/05/18 19:05 APTT 28.3 Seconds (25.6-37.1) 05/05/18 19:05
[2018-05-13] MEDS: Epoetin Alfa 20000 UNIT/ML (RENAL DOSE) SC SCH (16:23)
[2018-05-13] MEDS ORDERED: Insulin Detemir 100 Units/ml Inj SC SCH (22:00)
[2018-05-14] MEDS: Insulin Lispro (humaLOG) 100 Units/ml Inj SC SCH ×4 (09:16→22:37)
[2018-05-14] MEDS: Multivitamin Vitamin B Complex (Nephro-Vite) Tab PO SCH (09:17)
[2018-05-14 10:35] LABS: CALCIUM 7.7 mg/dL (8.4-10.2)
--- NOTE | 2018-05-14 10:35 | CP.PCM.PN ---
<Jonel Pennington - Last Filed: 05/14/18 10:51> Subjective - Date & Time of Evaluation Date of Evaluation: 05/14/18 Time of Evaluation: 10:35 - Subjective Subjective: pt seen and evaluated at bedside. No acute events overnight. Afebrile. S/P HD on 05/14. Lying in bed comfortably, NAD. BPs with improving control. Blood sugars r emain uncontrolled. No new complaints nor concerns. Objective - Vital Signs/Intake and Output Vital Signs (last 24 hours): Temp Pulse Resp BP Pulse Ox 98.6 F 80 20 165/90 H 97 05/14/18 08:13 05/14/18 09:13 05/14/18 08:13 05/14/18 09:13 05/14/18 08:13 - Medications Medications: Current Medications Acetaminophen (Tylenol 325mg Tab) 650 mg PO Q6 PRN PRN Reason: Pain, Mild (1-3) Aspirin (Ecotrin) 81 mg PO DAILY [facility] Last Admin: 05/14/18 09:14 Dose: 81 mg Atorvastatin Calcium (Lipitor) 40 mg PO HS [facility] Last Admin: 05/13/18 22:47 Dose: 40 mg Carvedilol (Coreg) 12.5 mg PO Q12 [facility] Last Admin: 05/14/18 09:13 Dose: 12.5 mg Clonidine HCl (Catapres) 0.2 mg PO BID [facility] Last Admin: 05/14/18 09:13 Dose: 0.2 mg Dextrose (Dextrose 50% Inj) 0 ml IV STAT PRN; Protocol PRN Reason: Hypoglycemia Protocol Dextrose (Glutose 15) 0 gm PO ONCE PRN; Protocol PRN Reason: Hypoglycemia Protocol Epoetin Vickey (Procrit) 20,000 unit SC TTS [facility] Last Admin: 05/13/18 16:23 Dose: 20,000 unit Ergocalciferol (Drisdol 50,000 Intl Units Cap) 1 cap PO Q7D [facility] Last Admin: 05/08/18 16:19 Dose: Not Given Famotidine (Pepcid) 40 mg PO DAILY [facility] Last Admin: 05/14/18 09:17 Dose: 40 mg Glucagon (Glucagen Diagnostic Kit) 0 mg IM STAT PRN; Protocol PRN Reason: Hypoglycemia Protocol Heparin Sodium (Porcine) (Heparin) 5,000 units SC Q12 [facility]; Protocol Last Admin: 05/14/18 09:14 Dose: 5,000 units Hydralazine HCl (Apresoline) 10 mg IV Q6 PRN PRN Reason: Systolic Blood Pressure Last Admin: 05/08/18 14:41 Dose: 10 mg Hydralazine HCl (Apresoline) 50 mg PO TID [facility] Last Admin: 05/14/18 09:12 Dose: 50 mg Iron Sucrose 100 mg/ Sodium (Chloride) 105 mls @ 105 mls/hr IVPB DAILY [facility] Stop: 05/19/18 09:01 Last Admin: 05/14/18 09:18 Dose: 105 mls/hr Insulin Detemir (Levemir) 15 units SC HS [facility] Insulin Human Lispro (Humalog) 0 units SC ACHS [facility]; Protocol Last Admin: 05/14/18 09:16 Dose: 4 units Labetalol HCl (Trandate) 20 mg IVP Q6H PRN PRN Reason: Systolic Blood Pressure Last Admin: 05/06/18 05:06 Dose: 20 mg Losartan Potassium (Cozaar) 25 mg PO QPM [facility] Last Admin: 05/13/18 19:16 Dose: 25 mg Metoclopramide HCl (Reglan) 10 mg IVP Q6 PRN PRN Reason: Nausea/Vomiting Last Admin: 05/10/18 21:22 Dose: 10 mg Ondansetron HCl (Zofran Inj) 4 mg IVP Q6 PRN PRN Reason: Nausea/Vomiting Last Admin: 05/08/18 10:59 Dose: 4 mg Sevelamer Carbonate (Renvela) 800 mg PO TID [facility] Last Admin: 05/14/18 09:18 Dose: 800 mg Vitamin B Complex/Vit C/Folic Acid (Nephro-Tana) 1 tab PO DAILY [facility] Last Admin: 05/14/18 09:17 Dose: 1 tab - Labs Labs: 05/12/18 08:02 05/12/18 08:02 PT 9.8 Seconds (9.8-13.1) 05/05/18 19:05 INR 0.9 05/05/18 19:05 APTT 28.3 Seconds (25.6-37.1) 05/05/18 19:05 - Constitutional Appears: Non-toxic, No Acute Distress - Head Exam Head Exam: ATRAUMATIC - Eye Exam Eye Exam: EOMI. absent: Nystagmus, Scleral icterus Pupil Exam: PERRL - ENT Exam ENT Exam: Mucous Membranes Moist - Respiratory Exam Respiratory Exam: Clear to Ausculation Bilateral, NORMAL BREATHING PATTERN. a bsent: Rales, Rhonchi, Wheezes - Cardiovascular Exam Cardiovascular Exam: REGULAR RHYTHM, RRR, +S1, +S2. absent: JVD, Rubs, Murmur - GI/Abdominal Exam GI & Abdominal Exam: Soft, Tenderness, Normal Bowel Sounds - Extremities Exam Extremities Exam: Full ROM, Normal Inspection. absent: Calf Tenderness, Pedal Edema Additional comments: Right Subclavian perma cath, C/D/I, functioning. - Neurological Exam Neurological Exam: Alert, Awake, CN II-XII Intact, Normal Gait, Oriented x3 - Psychiatric Exam Psychiatric exam: Normal Affect, Normal Mood - Skin Skin Exam: Intact, Normal Color, Warm. absent: Dry Assessment and Plan - Assessment and Plan (Free Text) Assessment: 42 y/o female patient admitted Acute on chronic kidney injury 2ry to dehydration, enterocolitis, and acute on chronic anemia. Transferred to Med/Surg today, will continue with HD treatments TTS. Plan: 1) ESRD -HD via Permacath (placed on 05/12/18) -Nephrology on board -HD: TTS -f/u am CBC/CMP 2) Metabolic Acidosis secondary to LYNETTE -Resolved 3) Enterocolitis -resolved 4) Diffuse nonspecific anasarca on CT with low albumin - Status post 3 doses of albumin infusion 5) Hypertension -improving control -Losartan held 2/2 to LYNETTE -C/w Coreg 12.5 mg -Labetolol IV 20mg PRN if BP >200 systolic -Hydralzine 10mg PO TID -Clonidine 0.2mg BID 6) IDDM-type II -uncontrolled -elevated fasting BS -HBA1C 7.1 on 05/2018 -Increased Levemir to 15 Units -lispro high dose Correction scale -Hypoglycemic protocol 7) HLD - c/w with home statin therapy 8) DVT PPX -Heparin 5000 U Q12H 9) Lines - Right Subclavian permacath 10) Code Status -Full CODE <Rachel Murillo - Last Filed: 05/14/18 15:56> Objective - Vital Signs/Intake and Output Vital Signs (last 24 hours): Temp Pulse Resp BP Pulse Ox 98.6 F 71 20 129/81 97 05/14/18 08:13 05/14/18 12:00 05/14/18 08:13 05/14/18 12:00 05/14/18 08:13 - Medications Medications: Current Medications Acetaminophen (Tylenol 325mg Tab) 650 mg PO Q6 PRN PRN Reason: Pain, Mild (1-3) Aspirin (Ecotrin) 81 mg PO DAILY [facility] Last Admin: 05/14/18 09:14 Dose: 81 mg Atorvastatin Calcium (Lipitor) 40 mg PO HS [facility] Last Admin: 05/13/18 22:47 Dose: 40 mg Carvedilol (Coreg) 12.5 mg PO Q12 [facility] Last Admin: 05/14/18 09:13 Dose: 12.5 mg Clonidine HCl (Catapres) 0.2 mg PO BID [facility] Last Admin: 05/14/18 09:13 Dose: 0.2 mg Dextrose (Dextrose 50% Inj) 0 ml IV STAT PRN; Protocol PRN Reason: Hypoglycemia Protocol Dextrose (Glutose 15) 0 gm PO ONCE PRN; Protocol PRN Reason: Hypoglycemia Protocol Epoetin Vickey (Procrit) 20,000 unit SC TTS [facility] Last Admin: 05/13/18 16:23 Dose: 20,000 unit Ergocalciferol (Drisdol 50,000 Intl Units Cap) 1 cap PO Q7D [facility] Last Admin: 05/08/18 16:19 Dose: Not Given Famotidine (Pepcid) 40 mg PO DAILY [facility] Last Admin: 05/14/18 09:17 Dose: 40 mg Glucagon (Glucagen Diagnostic Kit) 0 mg IM STAT PRN; Protocol PRN Reason: Hypoglycemia Protocol Heparin Sodium (Porcine) (Heparin) 5,000 units SC Q12 [facility]; Protocol Last Admin: 05/14/18 09:14 Dose: 5,000 units Hydralazine HCl (Apresoline) 10 mg IV Q6 PRN PRN Reason: Systolic Blood Pressure Last Admin: 05/08/18 14:41 Dose: 10 mg Hydralazine HCl (Apresoline) 50 mg PO TID [facility] Last Admin: 05/14/18 12:00 Dose: 50 mg Iron Sucrose 100 mg/ Sodium (Chloride) 105 mls @ 105 mls/hr IVPB DAILY [facility] Stop: 05/19/18 09:01 Last Admin: 05/14/18 09:18 Dose: 105 mls/hr Insulin Detemir (Levemir) 15 units SC [facility] Insulin Human Lispro (Humalog) 0 units SC [facility]; Protocol Last Admin: 05/14/18 11:59 Dose: 10 units Labetalol HCl (Trandate) 20 mg IVP Q6H PRN PRN Reason: Systolic Blood Pressure Last Admin: 05/06/18 05:06 Dose: 20 mg Losartan Potassium (Cozaar) 50 mg PO QPM [facility] Metoclopramide HCl (Reglan) 10 mg IVP Q6 PRN PRN Reason: Nausea/Vomiting Last Admin: 05/10/18 21:22 Dose: 10 mg Ondansetron HCl (Zofran Inj) 4 mg IVP Q6 PRN PRN Reason: Nausea/Vomiting Last Admin: 05/08/18 10:59 Dose: 4 mg Sevelamer Carbonate (Renvela) 800 mg PO TID [facility] Last Admin: 05/14/18 09:18 Dose: 800 mg Vitamin B Complex/Vit C/Folic Acid (Nephro-Tana) 1 tab PO DAILY [facility] Last Admin: 05/14/18 09:17 Dose: 1 tab - Labs Labs: 05/12/18 08:02 05/14/18 10:00 PT 9.8 Seconds (9.8-13.1) 05/05/18 19:05 INR 0.9 05/05/18 19:05 APTT 28.3 Seconds (25.6-37.1) 05/05/18 19:05 Attending/Attestation - Attestation I have personally seen and examined this patient.: Yes I have fully participated in the care of the patient.: Yes I have reviewed all pertinent clinical information, including history, physical exam and plan: Yes
--- NOTE | 2018-05-14 12:57 | CP.PCM.PN ---
Subjective - Date & Time of Evaluation Date of Evaluation: 05/14/18 Time of Evaluation: 12:56 - Subjective Subjective: renal f/up note 42 y/o F with PMH of CKD stage 3, HTN, DM, anemia and HLD admitted to [facility] for evaluation and treatment of Acute on CKD, enterocolitis, and anemia. Patient presented to ER after PMD called patient for elevated BUN/Cr > 7/60 and instructed to go to the ER for evaluation. As per patient, She has been feeling weak since last 3 months, gets tired after walking to 1-2 blocks, c/o diarrhea and lower abdominal pain since last 3 days, watery loss NB diarrhea, denies any nausea, vomiting or fever. Denies any chest pain, SOB, hematuria. Reports occasionally she feels dizziness with blurred vision. Patient reports she used to follow up with Nephro at [facility], last visit 10/2017, no visit since due to insurance issue. PMD: [facility] PMH:CKD stage 3, HTN, DM, anemia and HLD PSH: , Cleft lip Meds: See med rec Allg: NKDA FH: + DM SH: Denies alcohol/smoking or drug use Subjective: Noted events overnight. Patients feels well, no nausea/vomitting Denies chest pain, palpitation, shortness of breath, has leg swelling. Physical Examination: General Appearance: comfortable, in no acute respiratory distress, co-operative . well appearing Vitals reviewed and noted as below Head; Atraumatic, normocephalic ENT: no ulcers no thrush. Tongue is midline. Oropharynx: no rash or ulcers. EYES: Pupils are equal, round and reactive to light accommodation. Eye muscles and extraocular movement intact. Sclera is anicteric. Neck; supple no lymphadenopathy, no thyromegaly or bruit Lungs: Normal respiratory rate/effort. Breath sounds bilateral equal and clear Heart: Normal rate. s1s2 normal. No rub or gallop. Extremities: 2+ edema. No varicose veins Neurological: Patient is alert, awake and oriented to person, place and time. No focal deficit. Strength bilateral appropriate and equal Skin: Warm and dry. Normal turgor. No rash. Palpitation: Normal elasticity for age Abdomen: Abdomen is soft. Bowel sounds +. There is no abdominal tenderness, no guarding/rigidity no organomegaly Psych: normal insight and normal affect/mood MSK: no joint tenderness or swelling. Digits and nails normal, no deformity : kidney or bladder not palpable imaging: anasarca HIV/Hep B and C neg in past Assessment: stable CKD 5 likely ESRD with anasarca ? uremia now on hemodialysis TTS Diabetic chronic Kidney Disease (E11.22) Hypertensive Chronic Kidney Disease (I12.0) Anemia (D64.9), Hyperphosphatemia (E83.39), Secondary Hyperparathyroidism (E21.1), HTN (I12.0) obesity Plan: HD as TTS schedule, continue Continue with Nephrovite 1 tab/day. PRBC as needed for anemia. on RICCARDO as anemic, PRBC as needed, iron supplements added phos binders, started weekly Vit D BP control with meds as ordered. Patient not on RAAS dudley hence added losartan 50 mg Glycemic control, Dialysis consistent diet Further work up/management as per primary team Dose meds/antibiotics (if needed) for ESRD status. Avoid fleets enema/magnesium based laxatives. SW consult for outpt HD placement. vascular surgery consult for AVF. save non- dominant arm from phlebotomy/IV lines. pt stable for d/c from renal perspective once has outpt hd arrangements Thanks for allowing me to participate in care of your patient. Will follow patient with you. Please call if any Qs. Office: [phone] Objective - Vital Signs/Intake and Output Vital Signs (last 24 hours): Temp Pulse Resp BP Pulse Ox 98.6 F 71 20 129/81 97 05/14/18 08:13 05/14/18 12:00 05/14/18 08:13 05/14/18 12:00 05/14/18 08:13 - Medications Medications: Current Medications Acetaminophen (Tylenol 325mg Tab) 650 mg PO Q6 PRN PRN Reason: Pain, Mild (1-3) Aspirin (Ecotrin) 81 mg PO DAILY [facility] Last Admin: 05/14/18 09:14 Dose: 81 mg Atorvastatin Calcium (Lipitor) 40 mg PO HS [facility] Last Admin: 05/13/18 22:47 Dose: 40 mg Carvedilol (Coreg) 12.5 mg PO Q12 [facility] Last Admin: 05/14/18 09:13 Dose: 12.5 mg Clonidine HCl (Catapres) 0.2 mg PO BID [facility] Last Admin: 05/14/18 09:13 Dose: 0.2 mg Dextrose (Dextrose 50% Inj) 0 ml IV STAT PRN; Protocol PRN Reason: Hypoglycemia Protocol Dextrose (Glutose 15) 0 gm PO ONCE PRN; Protocol PRN Reason: Hypoglycemia Protocol Epoetin Vickey (Procrit) 20,000 unit SC TTS [facility] Last Admin: 05/13/18 16:23 Dose: 20,000 unit Ergocalciferol (Drisdol 50,000 Intl Units Cap) 1 cap PO Q7D [facility] Last Admin: 05/08/18 16:19 Dose: Not Given Famotidine (Pepcid) 40 mg PO DAILY [facility] Last Admin: 05/14/18 09:17 Dose: 40 mg Glucagon (Glucagen Diagnostic Kit) 0 mg IM STAT PRN; Protocol PRN Reason: Hypoglycemia Protocol Heparin Sodium (Porcine) (Heparin) 5,000 units SC Q12 [facility]; Protocol Last Admin: 05/14/18 09:14 Dose: 5,000 units Hydralazine HCl (Apresoline) 10 mg IV Q6 PRN PRN Reason: Systolic Blood Pressure Last Admin: 05/08/18 14:41 Dose: 10 mg Hydralazine HCl (Apresoline) 50 mg PO TID [facility] Last Admin: 05/14/18 12:00 Dose: 50 mg Iron Sucrose 100 mg/ Sodium (Chloride) 105 mls @ 105 mls/hr IVPB DAILY [facility] Stop: 05/19/18 09:01 Last Admin: 05/14/18 09:18 Dose: 105 mls/hr Insulin Detemir (Levemir) 15 units SC [facility] Insulin Human Lispro (Humalog) [address] [facility]; Protocol Last Admin: 05/14/18 11:59 Dose: 10 units Labetalol HCl (Trandate) 20 mg IVP Q6H PRN PRN Reason: Systolic Blood Pressure Last Admin: 05/06/18 05:06 Dose: 20 mg Losartan Potassium (Cozaar) 50 mg PO QPM [facility] Metoclopramide HCl (Reglan) 10 mg IVP Q6 PRN PRN Reason: Nausea/Vomiting Last Admin: 05/10/18 21:22 Dose: 10 mg Ondansetron HCl (Zofran Inj) 4 mg IVP Q6 PRN PRN Reason: Nausea/Vomiting Last Admin: 05/08/18 10:59 Dose: 4 mg Sevelamer Carbonate (Renvela) 800 mg PO TID [facility] Last Admin: 05/14/18 09:18 Dose: 800 mg Vitamin B Complex/Vit C/Folic Acid (Nephro-Tana) 1 tab PO DAILY [facility] Last Admin: 05/14/18 09:17 Dose: 1 tab - Labs Labs: 05/12/18 08:02 05/14/18 10:00 PT 9.8 Seconds (9.8-13.1) 05/05/18 19:05 INR 0.9 05/05/18 19:05 APTT 28.3 Seconds (25.6-37.1) 05/05/18 19:05
--- NOTE | 2018-05-14 18:10 | VASCULAR ---
Non tunneled to tunneled dialysis catheter conversion. History: Renal failure. Anesthesia: Local lidocaine and managed anesthesia care. Procedure and findings: Informed consent was obtained from the patient. Patient was positioned supine on the angiographic table. The right upper neck including the existing non tunneled dialysis catheter was prepped and draped in the usual sterile techniques. Initial fluoroscopic images demonstrated the previously placed non tunneled dialysis catheter via the right internal jugular vein. 2 percent lidocaine was used to anesthetize the skin and the underlying soft tissues. A stiff Amplatz guidewire was introduced through the catheter into the IVC. Catheter was then removed. A subcutaneous tunnel was made from the upper chest into the without any site in the right neck. A 15 [place] dual-lumen 24 centimeter (19 centimeter tip to cuff) dialysis catheter was then tunneled subcutaneously and inserted into the venotomy via a peel-away sheath (which was introduced over the guidewire). The catheter was placed with the tip in the proximal right atrium. Catheter was flushed and heparinized appropriately. Catheter was sutured to the skin and a sterile dressing was applied. Patient tolerated the procedure well. Impression: Successful fluoroscopically guided conversion of non tunneled dialysis catheter into a tunneled dialysis catheter. Fluoroscopic images saved.
--- NOTE | 2018-05-14 19:29 | VASCULAR ---
Ultrasound and fluoroscopically guided insertion of right internal jugular vein non tunneled dialysis catheter History: 42 -year-old female requiring non tunneled dialysis catheter for plasmapheresis. Comparison: None. Anesthesia: Local lidocaine. Procedure findings: The procedure was explained to the patient with relative risks and benefits. The patient understood the procedure and provided written informed consent. The patient was positioned supine on the angiographic table. Continuous physiologic monitoring was provided by the interventional radiology nurse. The right neck region was prepped and draped in the usual sterile technique. Under direct ultrasound guidance, the right internal jugular vein was accessed using a 21 gauge micropuncture needle. A 0.018 inch wire was introduced through the needle into the SVC. The micropuncture needle was then exchanged for a 4 Nauruan transition catheter. A stiff guidewire was introduced through the transition catheter into the IVC. The transition catheter was then removed and serial fascial dilators were introduced into the right neck extending up to the venotomy site. Subsequently, a 14 Nauruan, 15 centimeter dual lumen non tunneled dialysis catheter was introduced into the right internal jugular vein under fluoroscopic guidance. The catheter flushed with normal saline and heparin. A subsequent chest radiograph demonstrated no pneumothorax. The patient tolerated the procedure well without any incident. The patient was transferred from the interventional Radiology department in stable condition. Impression: Successful introduction of a right internal jugular vein non tunneled dialysis catheter.
[2018-05-14] MEDS: Insulin Detemir 100 Units/ml Inj SC SCH (22:43)
[2018-05-15 06:37] LABS: HEMOGLOBIN 9.5 g/dL (12.0-16.0); MEAN CELL VOLUME 95.8 fl (81.0-99.0); MEAN CORPUSCULAR HEMOGLOBIN 30.7 pg (27.0-31.0); MEAN CORPUSCULAR HGB CONC 32.1 g/dL (33.0-37.0); RBC 3.11 Mil/uL (3.80-5.20); RED CELL DISTRIBUTION WIDTH 17.3 % (11.5-14.5); WHITE BLOOD COUNT 6.2 K/uL (4.8-10.8)
[2018-05-15 06:47] LABS: ALB/GLOB RATIO 0.8 (1.0-2.1); ALBUMIN 2.1 g/dL (3.5-5.0); CALCIUM 7.7 mg/dL (8.4-10.2)
--- NOTE | 2018-05-15 08:19 | CP.PCM.PN ---
<[email or web address] - Last Filed: 05/15/18 08:44> Subjective - Date & Time of Evaluation Date of Evaluation: 05/15/18 Time of Evaluation: 08:07 - Subjective Subjective: pt seen and evaluated at bedside. No acute events overnight. Patient ia Afebrile. Patient states that she didn't ass stool since 5 days but she passes gas. Patient is S/P HD on 05/14. Lying in bed comfortably, NAD. Patient BP is improving and controlled. Blood sugars remain uncontrolled. No new complaints nor concerns. Objective - Vital Signs/Intake and Output Vital Signs (last 24 hours): Temp Pulse Resp BP Pulse Ox 98.7 F 68 17 180/90 H 100 05/14/18 21:08 05/14/18 21:08 05/14/18 21:08 05/14/18 21:08 05/14/18 21:08 - Medications Medications: Current Medications Acetaminophen (Tylenol 325mg Tab) 650 mg PO Q6 PRN PRN Reason: Pain, Mild (1-3) Aspirin (Ecotrin) 81 mg PO DAILY [facility] Last Admin: 05/14/18 09:14 Dose: 81 mg Atorvastatin Calcium (Lipitor) 40 mg PO HS [facility] Last Admin: 05/14/18 21:08 Dose: 40 mg Carvedilol (Coreg) 12.5 mg PO Q12 [facility] Last Admin: 05/14/18 21:08 Dose: 12.5 mg Clonidine HCl (Catapres) 0.2 mg PO BID [facility] Last Admin: 05/14/18 16:09 Dose: 0.2 mg Dextrose (Dextrose 50% Inj) 0 ml IV STAT PRN; Protocol PRN Reason: Hypoglycemia Protocol Dextrose (Glutose 15) 0 gm PO ONCE PRN; Protocol PRN Reason: Hypoglycemia Protocol Epoetin Vickey (Procrit) 20,000 unit SC TTS [facility] Last Admin: 05/13/18 16:23 Dose: 20,000 unit Ergocalciferol (Drisdol 50,000 Intl Units Cap) 1 cap PO Q7D [facility] Last Admin: 05/08/18 16:19 Dose: Not Given Famotidine (Pepcid) 40 mg PO DAILY [facility] Last Admin: 05/14/18 09:17 Dose: 40 mg Glucagon (Glucagen Diagnostic Kit) 0 mg IM STAT PRN; Protocol PRN Reason: Hypoglycemia Protocol Heparin Sodium (Porcine) (Heparin) 5,000 units SC Q12 [facility]; Protocol Last Admin: 05/14/18 20:49 Dose: 5,000 units Hydralazine HCl (Apresoline) 10 mg IV Q6 PRN PRN Reason: Systolic Blood Pressure Last Admin: 05/08/18 14:41 Dose: 10 mg Hydralazine HCl (Apresoline) 50 mg PO TID [facility] Last Admin: 05/14/18 16:08 Dose: 50 mg Iron Sucrose 100 mg/ Sodium (Chloride) 105 mls @ 105 mls/hr IVPB DAILY [facility] Stop: 05/19/18 09:01 Last Admin: 05/14/18 09:18 Dose: 105 mls/hr Insulin Detemir (Levemir) 15 units SC HS [facility] Last Admin: 05/14/18 22:43 Dose: 15 units Insulin Human Lispro (Humalog) 0 units SC ACHS [facility]; Protocol Last Admin: 05/14/18 22:37 Dose: Not Given Labetalol HCl (Trandate) 20 mg IVP Q6H PRN PRN Reason: Systolic Blood Pressure Last Admin: 05/06/18 05:06 Dose: 20 mg Losartan Potassium (Cozaar) 50 mg PO QPM [facility] Metoclopramide HCl (Reglan) 10 mg IVP Q6 PRN PRN Reason: Nausea/Vomiting Last Admin: 05/10/18 21:22 Dose: 10 mg Ondansetron HCl (Zofran Inj) 4 mg IVP Q6 PRN PRN Reason: Nausea/Vomiting Last Admin: 05/08/18 10:59 Dose: 4 mg Sevelamer Carbonate (Renvela) 800 mg PO TID [facility] Last Admin: 05/14/18 16:11 Dose: 800 mg Vitamin B Complex/Vit C/Folic Acid (Nephro-Tana) 1 tab PO DAILY [facility] Last Admin: 05/14/18 09:17 Dose: 1 tab - Labs Labs: 05/15/18 05:45 05/15/18 05:45 PT 9.8 Seconds (9.8-13.1) 05/05/18 19:05 INR 0.9 05/05/18 19:05 APTT 28.3 Seconds (25.6-37.1) 05/05/18 19:05 - Constitutional Appears: Well, Non-toxic, No Acute Distress - Head Exam Head Exam: ATRAUMATIC, NORMAL INSPECTION, NORMOCEPHALIC - Eye Exam Eye Exam: EOMI, Normal appearance, PERRL Pupil Exam: PERRL - ENT Exam ENT Exam: Mucous Membranes Moist, Normal Exam - Neck Exam Neck Exam: Full ROM, Normal Inspection - Respiratory Exam Respiratory Exam: Clear to Ausculation Bilateral, NORMAL BREATHING PATTERN - Cardiovascular Exam Cardiovascular Exam: REGULAR RHYTHM, RRR - GI/Abdominal Exam GI & Abdominal Exam: Soft, Normal Bowel Sounds - Extremities Exam Extremities Exam: Full ROM, Normal Capillary Refill, Normal Inspection - Back Exam Back Exam: NORMAL INSPECTION - Neurological Exam Neurological Exam: Alert, Awake, Oriented x3 Neuro motor strength exam: Left Upper Extremity: 5, Right Upper Extremity: 5, Left Lower Extremity: 5, Right Lower Extremity: 5 - Psychiatric Exam Psychiatric exam: Normal Affect, Normal Mood - Skin Skin Exam: Dry, Intact, Normal Color, Warm Assessment and Plan - Assessment and Plan (Free Text) Assessment: 42 y/o female patient admitted Acute on chronic kidney injury 2ry to dehydration, enterocolitis, and acute on chronic anemia. Transferred to Med/Surg today, will continue with HD treatments TTS. Plan: 1) ESRD -HD via Permacath (placed on 05/12/18) -Nephrology on board -HD: TTS -f/u am CBC/CMP - Still waiting to find an outpatient dialysis for the patient. 2) Metabolic Acidosis secondary to LYNETTE -Resolved 3) Enterocolitis -resolved 4) Diffuse nonspecific anasarca on CT with low albumin - Status post 3 doses of albumin infusion 5) Hypertension -improving control -Losartan held 2/2 to LYNETTE -C/w Coreg 12.5 mg -Labetolol IV 20mg PRN if BP >200 systolic -Hydralzine 10mg PO TID -Clonidine 0.2mg BID 6) IDDM-type II -uncontrolled -elevated fasting BS -HBA1C 7.1 on 05/2018 -Increased Levemir to 15 Units -lispro high dose Correction scale -Hypoglycemic protocol 7) HLD - c/w with home statin therapy 8) DVT PPX -Heparin 5000 U Q12H 9) Lines - Right Subclavian permacath 10) Code Status -Full CODE 11) Constipation - Metamulcil packet QD <Rachel Murillo - Last Filed: 05/15/18 16:04> Objective - Vital Signs/Intake and Output Vital Signs (last 24 hours): Temp Pulse Resp BP Pulse Ox 98 F 69 18 156/85 H 98 05/15/18 16:02 05/15/18 16:02 05/15/18 16:02 05/15/18 16:02 05/15/18 16:02 - Medications Medications: Current Medications Acetaminophen (Tylenol 325mg Tab) 650 mg PO Q6 PRN PRN Reason: Pain, Mild (1-3) Aspirin (Ecotrin) 81 mg PO DAILY [facility] Last Admin: 05/15/18 10:24 Dose: 81 mg Atorvastatin Calcium (Lipitor) 40 mg PO HS [facility] Last Admin: 05/14/18 21:08 Dose: 40 mg Calcitriol (Rocaltrol) 0.25 mcg PO DAILY [facility] Carvedilol (Coreg) 12.5 mg PO Q12 [facility] Last Admin: 05/15/18 13:08 Dose: 12.5 mg Clonidine HCl (Catapres) 0.2 mg PO BID [facility] Last Admin: 05/15/18 10:22 Dose: 0.2 mg Dextrose (Dextrose 50% Inj) 0 ml IV STAT PRN; Protocol PRN Reason: Hypoglycemia Protocol Dextrose (Glutose 15) 0 gm PO ONCE PRN; Protocol PRN Reason: Hypoglycemia Protocol Epoetin Vickey (Procrit) 20,000 unit SC TTS [facility] Last Admin: 05/13/18 16:23 Dose: 20,000 unit Ergocalciferol (Drisdol 50,000 Intl Units Cap) 1 cap PO Q7D [facility] Last Admin: 05/08/18 16:19 Dose: Not Given Famotidine (Pepcid) 40 mg PO DAILY [facility] Last Admin: 05/15/18 10:29 Dose: 40 mg Glipizide (Glucotrol) 5 mg PO ACB [facility] Glucagon (Glucagen Diagnostic Kit) 0 mg IM STAT PRN; Protocol PRN Reason: Hypoglycemia Protocol Heparin Sodium (Porcine) (Heparin) 5,000 units SC Q12 [facility]; Protocol Last Admin: 05/15/18 10:24 Dose: 5,000 units Hydralazine HCl (Apresoline) 10 mg IV Q6 PRN PRN Reason: Systolic Blood Pressure Last Admin: 05/08/18 14:41 Dose: 10 mg Hydralazine HCl (Apresoline) 50 mg PO TID [facility] Last Admin: 05/15/18 13:07 Dose: 50 mg Iron Sucrose 100 mg/ Sodium (Chloride) 105 mls @ 105 mls/hr IVPB DAILY [facility] Stop: 05/19/18 09:01 Last Admin: 05/15/18 10:29 Dose: 105 mls/hr Insulin Detemir (Levemir) 15 units SC [facility] Last Admin: 05/14/18 22:43 Dose: 15 units Insulin Human Lispro (Humalog) 0 units SC [facility]; Protocol Last Admin: 05/15/18 13:09 Dose: 12 units Labetalol HCl (Trandate) 20 mg IVP Q6H PRN PRN Reason: Systolic Blood Pressure Last Admin: 05/06/18 05:06 Dose: 20 mg Losartan Potassium (Cozaar) 50 mg PO QPM [facility] Last Admin: 05/14/18 17:30 Dose: 50 mg Metoclopramide HCl (Reglan) 10 mg IVP Q6 PRN PRN Reason: Nausea/Vomiting Last Admin: 05/10/18 21:22 Dose: 10 mg Ondansetron HCl (Zofran Inj) 4 mg IVP Q6 PRN PRN Reason: Nausea/Vomiting Last Admin: 05/08/18 10:59 Dose: 4 mg Psyllium Hydrophilic Mucilloid (Hydrocil Instant) 1 pkt PO DAILY [facility] Sevelamer Carbonate (Renvela) 800 mg PO TID [facility] Last Admin: 05/15/18 13:09 Dose: 800 mg Vitamin B Complex/Vit C/Folic Acid (Nephro-Tana) 1 tab PO DAILY [facility] Last Admin: 05/15/18 10:28 Dose: 1 tab - Labs Labs: 05/15/18 05:45 05/15/18 05:45 PT 9.8 Seconds (9.8-13.1) 05/05/18 19:05 INR 0.9 05/05/18 19:05 APTT 28.3 Seconds (25.6-37.1) 05/05/18 19:05 Attending/Attestation - Attestation I have personally seen and examined this patient.: Yes I have fully participated in the care of the patient.: Yes I have reviewed all pertinent clinical information, including history, physical exam and plan: Yes Notes (Text): DM type II , with Hyperglycemia and with Insulin Use - cont Levemir 15 units sq hs - add Glipizide 5 mg after breakfast ESRD on HD - awaiting placement
--- NOTE | 2018-05-15 09:25 | CP.PCM.PN ---
Subjective - Date & Time of Evaluation Date of Evaluation: 05/15/18 Time of Evaluation: 09:26 - Subjective Subjective: patient is conscious and alert not in distress feeling much better no nausea no vomiting. Vital signs stable. Objective - Vital Signs/Intake and Output Vital Signs (last 24 hours): Temp Pulse Resp BP Pulse Ox 98.0 F 77 19 110/64 97 05/15/18 08:59 05/15/18 08:59 05/15/18 08:59 05/15/18 08:59 05/15/18 08:59 - Medications Medications: Current Medications Acetaminophen (Tylenol 325mg Tab) 650 mg PO Q6 PRN PRN Reason: Pain, Mild (1-3) Aspirin (Ecotrin) 81 mg PO DAILY [facility] Last Admin: 05/14/18 09:14 Dose: 81 mg Atorvastatin Calcium (Lipitor) 40 mg PO HS [facility] Last Admin: 05/14/18 21:08 Dose: 40 mg Carvedilol (Coreg) 12.5 mg PO Q12 [facility] Last Admin: 05/14/18 21:08 Dose: 12.5 mg Clonidine HCl (Catapres) 0.2 mg PO BID [facility] Last Admin: 05/14/18 16:09 Dose: 0.2 mg Dextrose (Dextrose 50% Inj) 0 ml IV STAT PRN; Protocol PRN Reason: Hypoglycemia Protocol Dextrose (Glutose 15) 0 gm PO ONCE PRN; Protocol PRN Reason: Hypoglycemia Protocol Epoetin Vickey (Procrit) 20,000 unit SC TTS [facility] Last Admin: 05/13/18 16:23 Dose: 20,000 unit Ergocalciferol (Drisdol 50,000 Intl Units Cap) 1 cap PO Q7D [facility] Last Admin: 05/08/18 16:19 Dose: Not Given Famotidine (Pepcid) 40 mg PO DAILY [facility] Last Admin: 05/14/18 09:17 Dose: 40 mg Glucagon (Glucagen Diagnostic Kit) 0 mg IM STAT PRN; Protocol PRN Reason: Hypoglycemia Protocol Heparin Sodium (Porcine) (Heparin) 5,000 units SC Q12 [facility]; Protocol Last Admin: 05/14/18 20:49 Dose: 5,000 units Hydralazine HCl (Apresoline) 10 mg IV Q6 PRN PRN Reason: Systolic Blood Pressure Last Admin: 05/08/18 14:41 Dose: 10 mg Hydralazine HCl (Apresoline) 50 mg PO TID [facility] Last Admin: 05/14/18 16:08 Dose: 50 mg Iron Sucrose 100 mg/ Sodium (Chloride) 105 mls @ 105 mls/hr IVPB DAILY [facility] Stop: 05/19/18 09:01 Last Admin: 05/14/18 09:18 Dose: 105 mls/hr Insulin Detemir (Levemir) 15 units SC HS [facility] Last Admin: 05/14/18 22:43 Dose: 15 units Insulin Human Lispro (Humalog) 0 units SC ACHS [facility]; Protocol Last Admin: 05/14/18 22:37 Dose: Not Given Labetalol HCl (Trandate) 20 mg IVP Q6H PRN PRN Reason: Systolic Blood Pressure Last Admin: 05/06/18 05:06 Dose: 20 mg Losartan Potassium (Cozaar) 50 mg PO QPM [facility] Metoclopramide HCl (Reglan) 10 mg IVP Q6 PRN PRN Reason: Nausea/Vomiting Last Admin: 05/10/18 21:22 Dose: 10 mg Ondansetron HCl (Zofran Inj) 4 mg IVP Q6 PRN PRN Reason: Nausea/Vomiting Last Admin: 05/08/18 10:59 Dose: 4 mg Psyllium Hydrophilic Mucilloid (Hydrocil Instant) 1 pkt PO DAILY [facility] Sevelamer Carbonate (Renvela) 800 mg PO TID [facility] Last Admin: 05/14/18 16:11 Dose: 800 mg Vitamin B Complex/Vit C/Folic Acid (Nephro-Tana) 1 tab PO DAILY [facility] Last Admin: 05/14/18 09:17 Dose: 1 tab - Labs Labs: 05/15/18 05:45 05/15/18 05:45 PT 9.8 Seconds (9.8-13.1) 05/05/18 19:05 INR 0.9 05/05/18 19:05 APTT 28.3 Seconds (25.6-37.1) 05/05/18 19:05 - Constitutional Appears: No Acute Distress - Eye Exam Eye Exam: absent: Conjunctival injection - ENT Exam ENT Exam: absent: Mucous Membranes Moist - Respiratory Exam Respiratory Exam: NORMAL BREATHING PATTERN. absent: Chest Wall Tenderness - Cardiovascular Exam Cardiovascular Exam: absent: Gallop, JVD, Rubs - GI/Abdominal Exam GI & Abdominal Exam: Soft, Normal Bowel Sounds - Extremities Exam Extremities Exam: absent: Calf Tenderness - Back Exam Back Exam: absent: CVA tenderness (R) - Neurological Exam Neurological Exam: Alert - Psychiatric Exam Psychiatric exam: Normal Affect - Skin Skin Exam: absent: Cyanosis Assessment and Plan (1) Chronic kidney disease with end stage renal failure on dialysis Assessment & Plan: Assessment & Plan: end stage renal disease patient requiring dialysis Diabetic kidney disease with diabetes mellitus Hypertension Anasarca reported on CT scan of the abdomen appeared to be resolving Anemia Hyperphosphatemia Secondary hyperparathyroidism Hypoalbuminemia The plan Continue hemodialysis TTS Patient went for permacath today EPO on dialysis for anemia Phosphorus binders Patient to go to [facility] dialysis as outpatient Spot urine for protein to creatinine ratio remain pending PTH 308 add calcitriol 0.25 g daily Ultrasound of the kidney nonspecific Please call dietitian for hypoalbuminemia and diet instruction Status: Acute Status: Acute (2) Anemia in chronic kidney disease, on chronic dialysis Status: Acute
[2018-05-15] MEDS: Insulin Lispro (humaLOG) 100 Units/ml Inj SC SCH ×5 (10:25→21:57)
[2018-05-15] MEDS: Multivitamin Vitamin B Complex (Nephro-Vite) Tab PO SCH (10:28)
[2018-05-15] MEDS: Ergocalciferol 50,000 Intl Units Cap PO SCH (17:55)
[2018-05-15] MEDS: Psyllium Packet PO SCH (17:57)
[2018-05-15] MEDS: Insulin Detemir 100 Units/ml Inj SC SCH (21:56)
[2018-05-16] MEDS: Insulin Lispro (humaLOG) 100 Units/ml Inj SC SCH ×4 (06:45→21:50)
[2018-05-16] MEDS: Psyllium Packet PO SCH (08:37)
[2018-05-16] MEDS: Multivitamin Vitamin B Complex (Nephro-Vite) Tab PO SCH (08:38)
[2018-05-16] MEDS: Epoetin Alfa 20000 UNIT/ML (RENAL DOSE) SC SCH (10:05)
--- NOTE | 2018-05-16 11:04 | CP.PCM.PN ---
Subjective - Date & Time of Evaluation Date of Evaluation: 05/16/18 Time of Evaluation: 11:04 - Subjective Subjective: dialysis note she was seen on hemodialysis now She is sitting up awake and conscious feeling good. Vital signs stable Discussed with the dialysis nurse at the bedside. Objective - Vital Signs/Intake and Output Vital Signs (last 24 hours): Temp Pulse Resp BP Pulse Ox 98.4 F 80 19 119/75 97 05/16/18 08:01 05/16/18 08:01 05/16/18 08:01 05/16/18 08:01 05/16/18 08:01 - Medications Medications: Current Medications Acetaminophen (Tylenol 325mg Tab) 650 mg PO Q6 PRN PRN Reason: Pain, Mild (1-3) Aspirin (Ecotrin) 81 mg PO DAILY [facility] Last Admin: 05/16/18 08:36 Dose: 81 mg Atorvastatin Calcium (Lipitor) 40 mg PO HS [facility] Last Admin: 05/15/18 21:55 Dose: 40 mg Calcitriol (Rocaltrol) 0.25 mcg PO DAILY [facility] Last Admin: 05/16/18 08:39 Dose: 0.25 mcg Carvedilol (Coreg) 12.5 mg PO Q12 [facility] Last Admin: 05/16/18 08:33 Dose: Not Given Clonidine HCl (Catapres) 0.2 mg PO BID [facility] Last Admin: 05/16/18 08:33 Dose: Not Given Dextrose (Dextrose 50% Inj) 0 ml IV STAT PRN; Protocol PRN Reason: Hypoglycemia Protocol Dextrose (Glutose 15) 0 gm PO ONCE PRN; Protocol PRN Reason: Hypoglycemia Protocol Epoetin Vickey (Procrit) 20,000 unit SC TTS [facility] Last Admin: 05/16/18 10:05 Dose: 20,000 unit Ergocalciferol (Drisdol 50,000 Intl Units Cap) 1 cap PO Q7D [facility] Last Admin: 05/15/18 17:55 Dose: 1 cap Famotidine (Pepcid) 40 mg PO DAILY [facility] Last Admin: 05/16/18 08:38 Dose: 40 mg Glipizide (Glucotrol) 5 mg PO ACB [facility] Last Admin: 05/16/18 08:36 Dose: 5 mg Glucagon (Glucagen Diagnostic Kit) 0 mg IM STAT PRN; Protocol PRN Reason: Hypoglycemia Protocol Heparin Sodium (Porcine) (Heparin) 5,000 units SC Q12 [facility]; Protocol Last Admin: 05/16/18 08:36 Dose: 5,000 units Hydralazine HCl (Apresoline) 10 mg IV Q6 PRN PRN Reason: Systolic Blood Pressure Last Admin: 05/08/18 14:41 Dose: 10 mg Hydralazine HCl (Apresoline) 50 mg PO TID [facility] Last Admin: 05/16/18 08:32 Dose: Not Given Iron Sucrose 100 mg/ Sodium (Chloride) 105 mls @ 105 mls/hr IVPB DAILY [facility] Stop: 05/19/18 09:01 Last Admin: 05/16/18 08:39 Dose: 105 mls/hr Insulin Detemir (Levemir) 15 units SC HS [facility] Last Admin: 05/15/18 21:56 Dose: 15 units Insulin Human Lispro (Humalog) 0 units SC ACHS [facility]; Protocol Last Admin: 05/16/18 06:45 Dose: Not Given Labetalol HCl (Trandate) 20 mg IVP Q6H PRN PRN Reason: Systolic Blood Pressure Last Admin: 05/06/18 05:06 Dose: 20 mg Losartan Potassium (Cozaar) 50 mg PO QPM [facility] Last Admin: 05/15/18 17:57 Dose: 50 mg Metoclopramide HCl (Reglan) 10 mg IVP Q6 PRN PRN Reason: Nausea/Vomiting Last Admin: 05/10/18 21:22 Dose: 10 mg Ondansetron HCl (Zofran Inj) 4 mg IVP Q6 PRN PRN Reason: Nausea/Vomiting Last Admin: 05/08/18 10:59 Dose: 4 mg Psyllium Hydrophilic Mucilloid (Hydrocil Instant) 1 pkt PO DAILY [facility] Last Admin: 05/16/18 08:37 Dose: 1 pkt Sevelamer Carbonate (Renvela) 800 mg PO TID [facility] Last Admin: 05/16/18 08:38 Dose: 800 mg Vitamin B Complex/Vit C/Folic Acid (Nephro-Tana) 1 tab PO DAILY [facility] Last Admin: 05/16/18 08:38 Dose: 1 tab - Labs Labs: 05/15/18 05:45 05/15/18 05:45 PT 9.8 Seconds (9.8-13.1) 05/05/18 19:05 INR 0.9 05/05/18 19:05 APTT 28.3 Seconds (25.6-37.1) 05/05/18 19:05 - Constitutional Appears: No Acute Distress - Eye Exam Eye Exam: Conjunctival injection - ENT Exam ENT Exam: Mucous Membranes Moist - Neck Exam Neck Exam: absent: Lymphadenopathy - Respiratory Exam Respiratory Exam: NORMAL BREATHING PATTERN. absent: Chest Wall Tenderness - Cardiovascular Exam Cardiovascular Exam: REGULAR RHYTHM. absent: Gallop, JVD, Rubs - GI/Abdominal Exam GI & Abdominal Exam: Soft, Normal Bowel Sounds - Extremities Exam Extremities Exam: absent: Calf Tenderness - Back Exam Back Exam: absent: CVA tenderness (L), CVA tenderness (R) - Neurological Exam Neurological Exam: Alert - Psychiatric Exam Psychiatric exam: Normal Affect - Skin Skin Exam: absent: Cyanosis Assessment and Plan (1) Chronic kidney disease with end stage renal failure on dialysis Assessment & Plan: Assessment & Plan: end stage renal disease patient requiring dialysis Diabetic kidney disease with diabetes mellitus Hypertension Anasarca reported on CT scan of the abdomen appeared to be resolving Anemia Hyperphosphatemia Secondary hyperparathyroidism Hypoalbuminemia The plan she was seen on hemodialysis now. Having problem with the dialysis catheter alteplase has been given and it seems lik catheter working better now Continue hemodialysis TTS EPO on dialysis for anemia Phosphorus binders Patient to go to [facility] dialysis as outpatient PTH 308 add calcitriol 0.25 g daily Ultrasound of the kidney nonspecific Please call dietitian for hypoalbuminemia and diet instruction Status: Acute (2) Anemia in chronic kidney disease, on chronic dialysis Status: Acute
--- NOTE | 2018-05-16 11:17 | CP.PCM.PN ---
<ShayleeFidencio - Last Filed: 05/16/18 11:15> Subjective - Date & Time of Evaluation Date of Evaluation: 05/16/18 Time of Evaluation: 11:15 - Subjective Subjective: pt seen and evaluated at bedside. No acute events overnight. Patient is Afebrile. Patient states that she didn't ass stool since 6 days but she passes gas. Patient was seen while she is on the HD session. Lying in bed comfortably, NAD. Patient BP is improving and controlled. Blood sugars remain uncontrolled. No new complaints nor concerns. She denies any overnight F/N/V/C or SOB. Objective - Vital Signs/Intake and Output Vital Signs (last 24 hours): Temp Pulse Resp BP Pulse Ox 98.4 F 80 19 119/75 97 05/16/18 08:01 05/16/18 08:01 05/16/18 08:01 05/16/18 08:01 05/16/18 08:01 - Medications Medications: Current Medications Acetaminophen (Tylenol 325mg Tab) 650 mg PO Q6 PRN PRN Reason: Pain, Mild (1-3) Aspirin (Ecotrin) 81 mg PO DAILY [facility] Last Admin: 05/16/18 08:36 Dose: 81 mg Atorvastatin Calcium (Lipitor) 40 mg PO HS [facility] Last Admin: 05/15/18 21:55 Dose: 40 mg Calcitriol (Rocaltrol) 0.25 mcg PO DAILY [facility] Last Admin: 05/16/18 08:39 Dose: 0.25 mcg Carvedilol (Coreg) 12.5 mg PO Q12 [facility] Last Admin: 05/16/18 08:33 Dose: Not Given Clonidine HCl (Catapres) 0.2 mg PO BID [facility] Last Admin: 05/16/18 08:33 Dose: Not Given Dextrose (Dextrose 50% Inj) 0 ml IV STAT PRN; Protocol PRN Reason: Hypoglycemia Protocol Dextrose (Glutose 15) 0 gm PO ONCE PRN; Protocol PRN Reason: Hypoglycemia Protocol Epoetin Vickey (Procrit) 20,000 unit SC TTS [facility] Last Admin: 05/16/18 10:05 Dose: 20,000 unit Ergocalciferol (Drisdol 50,000 Intl Units Cap) 1 cap PO Q7D [facility] Last Admin: 05/15/18 17:55 Dose: 1 cap Famotidine (Pepcid) 40 mg PO DAILY [facility] Last Admin: 05/16/18 08:38 Dose: 40 mg Glipizide (Glucotrol) 5 mg PO ACB [facility] Last Admin: 05/16/18 08:36 Dose: 5 mg Glucagon (Glucagen Diagnostic Kit) 0 mg IM STAT PRN; Protocol PRN Reason: Hypoglycemia Protocol Heparin Sodium (Porcine) (Heparin) 5,000 units SC Q12 [facility]; Protocol Last Admin: 05/16/18 08:36 Dose: 5,000 units Hydralazine HCl (Apresoline) 10 mg IV Q6 PRN PRN Reason: Systolic Blood Pressure Last Admin: 05/08/18 14:41 Dose: 10 mg Hydralazine HCl (Apresoline) 50 mg PO TID [facility] Last Admin: 05/16/18 08:32 Dose: Not Given Iron Sucrose 100 mg/ Sodium (Chloride) 105 mls @ 105 mls/hr IVPB DAILY [facility] Stop: 05/19/18 09:01 Last Admin: 05/16/18 08:39 Dose: 105 mls/hr Insulin Detemir (Levemir) 15 units SC HS [facility] Last Admin: 05/15/18 21:56 Dose: 15 units Insulin Human Lispro (Humalog) 0 units SC ACHS [facility]; Protocol Last Admin: 05/16/18 06:45 Dose: Not Given Labetalol HCl (Trandate) 20 mg IVP Q6H PRN PRN Reason: Systolic Blood Pressure Last Admin: 05/06/18 05:06 Dose: 20 mg Losartan Potassium (Cozaar) 50 mg PO QPM [facility] Last Admin: 05/15/18 17:57 Dose: 50 mg Metoclopramide HCl (Reglan) 10 mg IVP Q6 PRN PRN Reason: Nausea/Vomiting Last Admin: 05/10/18 21:22 Dose: 10 mg Ondansetron HCl (Zofran Inj) 4 mg IVP Q6 PRN PRN Reason: Nausea/Vomiting Last Admin: 05/08/18 10:59 Dose: 4 mg Psyllium Hydrophilic Mucilloid (Hydrocil Instant) 1 pkt PO DAILY [facility] Last Admin: 05/16/18 08:37 Dose: 1 pkt Sevelamer Carbonate (Renvela) 800 mg PO TID [facility] Last Admin: 05/16/18 08:38 Dose: 800 mg Vitamin B Complex/Vit C/Folic Acid (Nephro-Tana) 1 tab PO DAILY [facility] Last Admin: 05/16/18 08:38 Dose: 1 tab - Labs Labs: 05/15/18 05:45 05/15/18 05:45 PT 9.8 Seconds (9.8-13.1) 05/05/18 19:05 INR 0.9 05/05/18 19:05 APTT 28.3 Seconds (25.6-37.1) 05/05/18 19:05 - Constitutional Appears: Well, Non-toxic, No Acute Distress - Head Exam Head Exam: ATRAUMATIC, NORMOCEPHALIC - Eye Exam Eye Exam: EOMI, Normal appearance, PERRL Pupil Exam: PERRL - ENT Exam ENT Exam: Mucous Membranes Moist, Normal Exam - Neck Exam Neck Exam: Full ROM, Normal Inspection Additional comments: Right Subclavian permacath looks in place with sutures intact. Clean site. No clinical signs of active bacterial infection, No erythema, No edema, No pus, No tenderness. - Respiratory Exam Respiratory Exam: Clear to Ausculation Bilateral, NORMAL BREATHING PATTERN - Cardiovascular Exam Cardiovascular Exam: REGULAR RHYTHM - GI/Abdominal Exam GI & Abdominal Exam: Soft, Normal Bowel Sounds - Extremities Exam Extremities Exam: Normal Inspection - Back Exam Back Exam: NORMAL INSPECTION - Neurological Exam Neurological Exam: Alert, Awake, Oriented x3 Neuro motor strength exam: Left Upper Extremity: 5, Right Upper Extremity: 5, Left Lower Extremity: 5, Right Lower Extremity: 5 - Psychiatric Exam Psychiatric exam: Normal Affect, Normal Mood - Skin Skin Exam: Dry, Intact, Normal Color, Warm Assessment and Plan - Assessment and Plan (Free Text) Assessment: 42 y/o female patient admitted Acute on chronic kidney injury 2ry to dehydration, enterocolitis, and acute on chronic anemia. Transferred to Med/Surg today, will continue with HD treatments TTS. Plan: 1) ESRD -HD via Permacath (placed on 05/12/18) -Nephrology on board -HD: TTS -f/u am CBC/CMP - Still waiting to find an outpatient dialysis for the patient. 2) Metabolic Acidosis secondary to LYNETTE -Resolved 3) Enterocolitis -resolved 4) Diffuse nonspecific anasarca on CT with low albumin - Status post 3 doses of albumin infusion 5) Hypertension -improving control -Losartan held 2/2 to LYNETTE -C/w Coreg .5 mg -Labetolol IV 20mg PRN if BP >200 systolic -Hydralzine 10mg PO TID -Clonidine 0.2mg BID 6) IDDM-type II -uncontrolled -elevated fasting BS -HBA1C 7.1 on 05/2018 -Increased Levemir to 15 Units -lispro high dose Correction scale -Hypoglycemic protocol 7) HLD - c/w with home statin therapy 8) DVT PPX -Heparin 5000 U Q12H 9) Lines - Right Subclavian permacath 10) Constipation - Metamulcil packet QD - Dulcolax 5mg PO once 10) Code Status -Full CODE <Rachel Murillo - Last Filed: 05/16/18 16:03> Objective - Vital Signs/Intake and Output Vital Signs (last 24 hours): Temp Pulse Resp BP Pulse Ox 98.4 F 80 19 119/75 97 05/16/18 08:01 05/16/18 08:01 05/16/18 08:01 05/16/18 08:01 05/16/18 08:01 - Medications Medications: Current Medications Acetaminophen (Tylenol 325mg Tab) 650 mg PO Q6 PRN PRN Reason: Pain, Mild (1-3) Aspirin (Ecotrin) 81 mg PO DAILY [facility] Last Admin: 05/16/18 08:36 Dose: 81 mg Atorvastatin Calcium (Lipitor) 40 mg PO HS [facility] Last Admin: 05/15/18 21:55 Dose: 40 mg Calcitriol (Rocaltrol) 0.25 mcg PO DAILY [facility] Last Admin: 05/16/18 08:39 Dose: 0.25 mcg Carvedilol (Coreg) 12.5 mg PO Q12 [facility] Last Admin: 05/16/18 08:33 Dose: Not Given Clonidine HCl (Catapres) 0.2 mg PO BID [facility] Last Admin: 05/16/18 08:33 Dose: Not Given Dextrose (Dextrose 50% Inj) 0 ml IV STAT PRN; Protocol PRN Reason: Hypoglycemia Protocol Dextrose (Glutose 15) 0 gm PO ONCE PRN; Protocol PRN Reason: Hypoglycemia Protocol Epoetin Vickey (Procrit) 20,000 unit SC TTS [facility] Last Admin: 05/16/18 10:05 Dose: 20,000 unit Ergocalciferol (Drisdol 50,000 Intl Units Cap) 1 cap PO Q7D [facility] Last Admin: 05/15/18 17:55 Dose: 1 cap Famotidine (Pepcid) 40 mg PO DAILY [facility] Last Admin: 05/16/18 08:38 Dose: 40 mg Glipizide (Glucotrol) 5 mg PO ACB [facility] Last Admin: 05/16/18 08:36 Dose: 5 mg Glucagon (Glucagen Diagnostic Kit) 0 mg IM STAT PRN; Protocol PRN Reason: Hypoglycemia Protocol Heparin Sodium (Porcine) (Heparin) 5,000 units SC Q12 [facility]; Protocol Last Admin: 05/16/18 08:36 Dose: 5,000 units Hydralazine HCl (Apresoline) 10 mg IV Q6 PRN PRN Reason: Systolic Blood Pressure Last Admin: 05/08/18 14:41 Dose: 10 mg Hydralazine HCl (Apresoline) 50 mg PO TID [facility] Last Admin: 05/16/18 12:12 Dose: Not Given Iron Sucrose 100 mg/ Sodium (Chloride) 105 mls @ 105 mls/hr IVPB DAILY [facility] Stop: 05/19/18 09:01 Last Admin: 05/16/18 08:39 Dose: 105 mls/hr Insulin Detemir (Levemir) 15 units SC HS [facility] Last Admin: 05/15/18 21:56 Dose: 15 units Insulin Human Lispro (Humalog) 0 units SC ACHS [facility]; Protocol Last Admin: 05/16/18 12:17 Dose: 2 units Labetalol HCl (Trandate) 20 mg IVP Q6H PRN PRN Reason: Systolic Blood Pressure Last Admin: 05/06/18 05:06 Dose: 20 mg Losartan Potassium (Cozaar) 50 mg PO QPM [facility] Last Admin: 05/15/18 17:57 Dose: 50 mg Metoclopramide HCl (Reglan) 10 mg IVP Q6 PRN PRN Reason: Nausea/Vomiting Last Admin: 05/10/18 21:22 Dose: 10 mg Ondansetron HCl (Zofran Inj) 4 mg IVP Q6 PRN PRN Reason: Nausea/Vomiting Last Admin: 05/08/18 10:59 Dose: 4 mg Psyllium Hydrophilic Mucilloid (Hydrocil Instant) 1 pkt PO DAILY [facility] Last Admin: 05/16/18 08:37 Dose: 1 pkt Sevelamer Carbonate (Renvela) 800 mg PO TID [facility] Last Admin: 05/16/18 12:17 Dose: 800 mg Vitamin B Complex/Vit C/Folic Acid (Nephro-Tana) 1 tab PO DAILY [facility] Last Admin: 05/16/18 08:38 Dose: 1 tab - Labs Labs: 05/15/18 05:45 05/15/18 05:45 PT 9.8 Seconds (9.8-13.1) 05/05/18 19:05 INR 0.9 05/05/18 19:05 APTT 28.3 Seconds (25.6-37.1) 05/05/18 19:05 Attending/Attestation - Attestation I have personally seen and examined this patient.: Yes I have fully participated in the care of the patient.: Yes I have reviewed all pertinent clinical information, including history, physical exam and plan: Yes
[2018-05-16] MEDS ORDERED: Bisacodyl 5mg EC Tab PO ONE (11:21)
[2018-05-16] MEDS: Insulin Detemir 100 Units/ml Inj SC SCH (21:48)
[2018-05-17 06:21] LABS: HEMOGLOBIN 9.6 g/dL (12.0-16.0); MEAN CELL VOLUME 96.3 fl (81.0-99.0); MEAN CORPUSCULAR HEMOGLOBIN 30.7 pg (27.0-31.0); MEAN CORPUSCULAR HGB CONC 31.8 g/dL (33.0-37.0); RBC 3.14 Mil/uL (3.80-5.20); RED CELL DISTRIBUTION WIDTH 19.1 % (11.5-14.5); WHITE BLOOD COUNT 6.8 K/uL (4.8-10.8)
[2018-05-17 06:37] LABS: ALB/GLOB RATIO 0.9 (1.0-2.1); ALBUMIN 2.3 g/dL (3.5-5.0); CALCIUM 7.6 mg/dL (8.4-10.2)
[2018-05-17] MEDS: Insulin Lispro (humaLOG) 100 Units/ml Inj SC SCH ×4 (06:47→22:55)
[2018-05-17] MEDS: Psyllium Packet PO SCH (08:35)
[2018-05-17] MEDS: Multivitamin Vitamin B Complex (Nephro-Vite) Tab PO SCH (08:36)
--- NOTE | 2018-05-17 11:10 | CP.PCM.PN ---
Subjective - Date & Time of Evaluation Date of Evaluation: 05/17/18 Time of Evaluation: 11:05 - Subjective Subjective: Patient seen and evaluated at bedside. No acute events overnight. Patient is Afebrile. Patient states that she had a bowel motion yesterday. Patient had HD session yesterday. Patient was sitting in her bed comfortably, NAD. Patient BP i s improving and controlled. Blood sugars remain uncontrolled. No new complaints nor concerns. She denies any overnight F/N/V/C or SOB. Objective - Vital Signs/Intake and Output Vital Signs (last 24 hours): Temp Pulse Resp BP Pulse Ox 98.3 F 88 20 172/93 H 93 L 05/17/18 08:44 05/17/18 08:44 05/17/18 08:44 05/17/18 08:44 05/17/18 08:44 - Medications Medications: Current Medications Acetaminophen (Tylenol 325mg Tab) 650 mg PO Q6 PRN PRN Reason: Pain, Mild (1-3) Last Admin: 05/16/18 16:45 Dose: 650 mg Aspirin (Ecotrin) 81 mg PO DAILY [facility] Last Admin: 05/17/18 08:36 Dose: 81 mg Atorvastatin Calcium (Lipitor) 40 mg PO HS [facility] Last Admin: 05/16/18 21:40 Dose: 40 mg Calcitriol (Rocaltrol) 0.25 mcg PO DAILY [facility] Last Admin: 05/17/18 08:37 Dose: 0.25 mcg Carvedilol (Coreg) 12.5 mg PO Q12 [facility] Last Admin: 05/17/18 08:37 Dose: 12.5 mg Clonidine HCl (Catapres) 0.2 mg PO BID [facility] Last Admin: 05/17/18 08:36 Dose: 0.2 mg Dextrose (Dextrose 50% Inj) 0 ml IV STAT PRN; Protocol PRN Reason: Hypoglycemia Protocol Dextrose (Glutose 15) 0 gm PO ONCE PRN; Protocol PRN Reason: Hypoglycemia Protocol Epoetin Vickey (Procrit) 20,000 unit SC TTS [facility] Last Admin: 05/16/18 10:05 Dose: 20,000 unit Ergocalciferol (Drisdol 50,000 Intl Units Cap) 1 cap PO Q7D [facility] Last Admin: 05/15/18 17:55 Dose: 1 cap Famotidine (Pepcid) 40 mg PO DAILY [facility] Last Admin: 05/17/18 08:35 Dose: 40 mg Glipizide (Glucotrol) 5 mg PO ACB [facility] Last Admin: 05/17/18 08:36 Dose: 5 mg Glucagon (Glucagen Diagnostic Kit) 0 mg IM STAT PRN; Protocol PRN Reason: Hypoglycemia Protocol Heparin Sodium (Porcine) (Heparin) 5,000 units SC Q12 [facility]; Protocol Last Admin: 05/17/18 08:34 Dose: 5,000 units Hydralazine HCl (Apresoline) 50 mg PO TID [facility] Last Admin: 05/17/18 08:37 Dose: 50 mg Iron Sucrose 100 mg/ Sodium (Chloride) 105 mls @ 105 mls/hr IVPB DAILY [facility] Stop: 05/19/18 09:01 Last Admin: 05/17/18 08:38 Dose: 105 mls/hr Insulin Detemir (Levemir) 20 units SC HS [facility] Insulin Human Lispro (Humalog) 0 units SC ACHS [facility]; Protocol Last Admin: 05/17/18 06:47 Dose: 4 units Losartan Potassium (Cozaar) 50 mg PO QPM [facility] Last Admin: 05/16/18 17:00 Dose: Not Given Metoclopramide HCl (Reglan) 10 mg IVP Q6 PRN PRN Reason: Nausea/Vomiting Last Admin: 05/10/18 21:22 Dose: 10 mg Ondansetron HCl (Zofran Inj) 4 mg IVP Q6 PRN PRN Reason: Nausea/Vomiting Last Admin: 05/08/18 10:59 Dose: 4 mg Psyllium Hydrophilic Mucilloid (Hydrocil Instant) 1 pkt PO DAILY [facility] Last Admin: 05/17/18 08:35 Dose: 1 pkt Sevelamer Carbonate (Renvela) 800 mg PO TID [facility] Last Admin: 05/17/18 08:36 Dose: 800 mg Vitamin B Complex/Vit C/Folic Acid (Nephro-Tana) 1 tab PO DAILY [facility] Last Admin: 05/17/18 08:36 Dose: 1 tab - Labs Labs: 05/17/18 05:40 05/17/18 05:40 PT 9.8 Seconds (9.8-13.1) 05/05/18 19:05 INR 0.9 05/05/18 19:05 APTT 28.3 Seconds (25.6-37.1) 05/05/18 19:05 - Constitutional Appears: Well, Non-toxic, No Acute Distress - Head Exam Head Exam: ATRAUMATIC, NORMOCEPHALIC - Eye Exam Eye Exam: EOMI, Normal appearance, PERRL Pupil Exam: NORMAL ACCOMODATION, PERRL - ENT Exam ENT Exam: Mucous Membranes Moist, Normal Exam - Neck Exam Neck Exam: Full ROM, Normal Inspection Additional comments: Right Subclavian permacath looks in place with sutures intact. Clean site. No clinical signs of active bacterial infection, No erythema, No edema, No pus, No tenderness. - Respiratory Exam Respiratory Exam: Clear to Ausculation Bilateral, NORMAL BREATHING PATTERN - Cardiovascular Exam Cardiovascular Exam: REGULAR RHYTHM, RRR - GI/Abdominal Exam GI & Abdominal Exam: Soft, Normal Bowel Sounds - Extremities Exam Extremities Exam: Full ROM, Normal Capillary Refill, Normal Inspection - Back Exam Back Exam: NORMAL INSPECTION - Neurological Exam Neurological Exam: Alert, Awake, Oriented x3 Neuro motor strength exam: Left Upper Extremity: 5, Right Upper Extremity: 5, Left Lower Extremity: 5, Right Lower Extremity: 5 - Psychiatric Exam Psychiatric exam: Normal Affect, Normal Mood - Skin Skin Exam: Dry, Intact, Normal Color, Warm Assessment and Plan - Assessment and Plan (Free Text) Assessment: 42 y/o female patient admitted Acute on chronic kidney injury 2ry to dehydration, enterocolitis, and acute on chronic anemia, Now ESRD.Patient will continue with HD treatments TTS. Plan: Plan: 1) ESRD -HD via Permacath (placed on 05/12/18) -Nephrology on board -HD: TTS -f/u am CBC/CMP -Still waiting to find an outpatient dialysis for the patient. 2) Metabolic Acidosis secondary to LYNETTE -Resolved 3) Enterocolitis -resolved 4) Diffuse nonspecific anasarca on CT with low albumin - Status post 3 doses of albumin infusion 5) Hypertension -improving control -Losartan 50 mg PO QD -C/w Coreg 12.5 mg -Labetolol IV 20mg PRN if BP >200 systolic -Hydralzine 10mg PO TID -Clonidine 0.2mg BID 6) IDDM-type II -uncontrolled -elevated fasting BS -HBA1C 7.1 on 05/2018 -Increased Levemir to 20 Units -lispro high dose Correction scale -Hypoglycemic protocol 7) HLD - c/w with home statin therapy 8) DVT PPX -Heparin 5000 U Q12H 9) Lines - Right Subclavian permacath 10) Constipation - Metamulcil packet QD - Dulcolax 5mg PO once 10) Code Status -Full CODE
--- NOTE | 2018-05-17 12:41 | CP.PCM.PN ---
Subjective - Date & Time of Evaluation Date of Evaluation: 05/17/18 Time of Evaluation: 12:39 - Subjective Subjective: no significant changes Patient is stable vital signs stable. Patient waiting for placement and patient need to have AV fistula please call vascular Objective - Vital Signs/Intake and Output Vital Signs (last 24 hours): Temp Pulse Resp BP Pulse Ox 98.3 F 88 20 172/93 H 93 L 05/17/18 08:44 05/17/18 08:44 05/17/18 08:44 05/17/18 08:44 05/17/18 08:44 - Medications Medications: Current Medications Acetaminophen (Tylenol 325mg Tab) 650 mg PO Q6 PRN PRN Reason: Pain, Mild (1-3) Last Admin: 05/16/18 16:45 Dose: 650 mg Aspirin (Ecotrin) 81 mg PO DAILY [facility] Last Admin: 05/17/18 08:36 Dose: 81 mg Atorvastatin Calcium (Lipitor) 40 mg PO HS [facility] Last Admin: 05/16/18 21:40 Dose: 40 mg Calcitriol (Rocaltrol) 0.25 mcg PO DAILY [facility] Last Admin: 05/17/18 08:37 Dose: 0.25 mcg Carvedilol (Coreg) 12.5 mg PO Q12 [facility] Last Admin: 05/17/18 08:37 Dose: 12.5 mg Clonidine HCl (Catapres) 0.2 mg PO BID [facility] Last Admin: 05/17/18 08:36 Dose: 0.2 mg Dextrose (Dextrose 50% Inj) 0 ml IV STAT PRN; Protocol PRN Reason: Hypoglycemia Protocol Dextrose (Glutose 15) 0 gm PO ONCE PRN; Protocol PRN Reason: Hypoglycemia Protocol Epoetin Vickey (Procrit) 20,000 unit SC TTS [facility] Last Admin: 05/16/18 10:05 Dose: 20,000 unit Ergocalciferol (Drisdol 50,000 Intl Units Cap) 1 cap PO Q7D [facility] Last Admin: 05/15/18 17:55 Dose: 1 cap Famotidine (Pepcid) 40 mg PO DAILY [facility] Last Admin: 05/17/18 08:35 Dose: 40 mg Glipizide (Glucotrol) 5 mg PO ACB [facility] Last Admin: 05/17/18 08:36 Dose: 5 mg Glucagon (Glucagen Diagnostic Kit) 0 mg IM STAT PRN; Protocol PRN Reason: Hypoglycemia Protocol Heparin Sodium (Porcine) (Heparin) 5,000 units SC Q12 [facility]; Protocol Last Admin: 05/17/18 08:34 Dose: 5,000 units Hydralazine HCl (Apresoline) 50 mg PO TID [facility] Last Admin: 05/17/18 08:37 Dose: 50 mg Iron Sucrose 100 mg/ Sodium (Chloride) 105 mls @ 105 mls/hr IVPB DAILY [facility] Stop: 05/19/18 09:01 Last Admin: 05/17/18 08:38 Dose: 105 mls/hr Insulin Detemir (Levemir) 20 units SC HS [facility] Insulin Human Lispro (Humalog) 0 units SC ACHS [facility]; Protocol Last Admin: 05/17/18 06:47 Dose: 4 units Losartan Potassium (Cozaar) 50 mg PO QPM [facility] Last Admin: 05/16/18 17:00 Dose: Not Given Metoclopramide HCl (Reglan) 10 mg IVP Q6 PRN PRN Reason: Nausea/Vomiting Last Admin: 05/10/18 21:22 Dose: 10 mg Ondansetron HCl (Zofran Inj) 4 mg IVP Q6 PRN PRN Reason: Nausea/Vomiting Last Admin: 05/08/18 10:59 Dose: 4 mg Psyllium Hydrophilic Mucilloid (Hydrocil Instant) 1 pkt PO DAILY [facility] Last Admin: 05/17/18 08:35 Dose: 1 pkt Sevelamer Carbonate (Renvela) 800 mg PO TID [facility] Last Admin: 05/17/18 08:36 Dose: 800 mg Vitamin B Complex/Vit C/Folic Acid (Nephro-Tana) 1 tab PO DAILY [facility] Last Admin: 05/17/18 08:36 Dose: 1 tab - Labs Labs: 05/17/18 05:40 05/17/18 05:40 PT 9.8 Seconds (9.8-13.1) 05/05/18 19:05 INR 0.9 05/05/18 19:05 APTT 28.3 Seconds (25.6-37.1) 05/05/18 19:05 - Constitutional Appears: No Acute Distress - Eye Exam Eye Exam: Conjunctival injection - ENT Exam ENT Exam: Mucous Membranes Moist - Neck Exam Neck Exam: absent: Lymphadenopathy - Cardiovascular Exam Cardiovascular Exam: JVD. absent: Gallop, Rubs - GI/Abdominal Exam GI & Abdominal Exam: Soft, Normal Bowel Sounds - Extremities Exam Extremities Exam: absent: Calf Tenderness - Back Exam Back Exam: absent: CVA tenderness (L), CVA tenderness (R) - Neurological Exam Neurological Exam: Alert - Psychiatric Exam Psychiatric exam: Normal Affect - Skin Skin Exam: absent: Cyanosis Assessment and Plan (1) Chronic kidney disease with end stage renal failure on dialysis Assessment & Plan: Assessment & Plan: end stage renal disease patient requiring dialysis Diabetic kidney disease with diabetes mellitus Hypertension Anasarca reported on CT scan of the abdomen appeared to be resolving Anemia Hyperphosphatemia Secondary hyperparathyroidism Hypoalbuminemia The plan Continue hemodialysis TTS Patient went for permacath today EPO on dialysis for anemia Phosphorus binders Patient to go to [facility] dialysis as outpatient Spot urine for protein to creatinine ratio remain pending PTH 308 add calcitriol 0.25 g daily Ultrasound of the kidney nonspecific Please call dietitian for hypoalbuminemia and diet instruction Status: Acute (2) Anemia in chronic kidney disease, on chronic dialysis Status: Acute
[2018-05-17] MEDS: Insulin Detemir 100 Units/ml Inj SC SCH (22:56)
[2018-05-18] MEDS: Insulin Lispro (humaLOG) 100 Units/ml Inj SC SCH ×4 (07:57→22:43)
[2018-05-18] MEDS: Multivitamin Vitamin B Complex (Nephro-Vite) Tab PO SCH (08:26)
[2018-05-18] MEDS: Epoetin Alfa 20000 UNIT/ML (RENAL DOSE) SC SCH (08:27)
[2018-05-18] MEDS: Psyllium Packet PO SCH (08:27)
--- NOTE | 2018-05-18 10:34 | CP.PCM.PN ---
Subjective - Date & Time of Evaluation Date of Evaluation: 05/18/18 Time of Evaluation: 10:33 - Subjective Subjective: dialysis note patient is awake and conscious Seen on hemodialysis Discussed with the dialysis nurse Vital signs stable Objective - Vital Signs/Intake and Output Vital Signs (last 24 hours): Temp Pulse Resp BP Pulse Ox 98.6 F 78 20 145/79 99 05/18/18 08:41 05/18/18 08:41 05/18/18 08:41 05/18/18 08:41 05/18/18 08:41 - Medications Medications: Current Medications Acetaminophen (Tylenol 325mg Tab) 650 mg PO Q6 PRN PRN Reason: Pain, Mild (1-3) Last Admin: 05/16/18 16:45 Dose: 650 mg Aspirin (Ecotrin) 81 mg PO DAILY [facility] Last Admin: 05/18/18 08:25 Dose: 81 mg Atorvastatin Calcium (Lipitor) 40 mg PO HS [facility] Last Admin: 05/17/18 21:35 Dose: 40 mg Calcitriol (Rocaltrol) 0.25 mcg PO DAILY [facility] Last Admin: 05/18/18 08:26 Dose: 0.25 mcg Carvedilol (Coreg) 12.5 mg PO Q12 [facility] Last Admin: 05/18/18 08:27 Dose: Not Given Clonidine HCl (Catapres) 0.2 mg PO BID [facility] Last Admin: 05/18/18 08:25 Dose: Not Given Dextrose (Dextrose 50% Inj) 0 ml IV STAT PRN; Protocol PRN Reason: Hypoglycemia Protocol Dextrose (Glutose 15) 0 gm PO ONCE PRN; Protocol PRN Reason: Hypoglycemia Protocol Epoetin Vickey (Procrit) 20,000 unit SC TTS [facility] Last Admin: 05/18/18 08:27 Dose: 20,000 unit Ergocalciferol (Drisdol 50,000 Intl Units Cap) 1 cap PO Q7D [facility] Last Admin: 05/15/18 17:55 Dose: 1 cap Famotidine (Pepcid) 40 mg PO DAILY [facility] Last Admin: 05/18/18 08:26 Dose: 40 mg Glipizide (Glucotrol) 5 mg PO ACB [facility] Last Admin: 05/18/18 08:26 Dose: 5 mg Glucagon (Glucagen Diagnostic Kit) 0 mg IM STAT PRN; Protocol PRN Reason: Hypoglycemia Protocol Heparin Sodium (Porcine) (Heparin) 5,000 units SC Q12 [facility]; Protocol Last Admin: 05/18/18 08:26 Dose: 5,000 units Hydralazine HCl (Apresoline) 50 mg PO TID [facility] Last Admin: 05/18/18 08:25 Dose: Not Given Iron Sucrose 100 mg/ Sodium (Chloride) 105 mls @ 105 mls/hr IVPB DAILY [facility] Stop: 05/19/18 09:01 Last Admin: 05/17/18 08:38 Dose: 105 mls/hr Insulin Detemir (Levemir) 20 units SC HS [facility] Last Admin: 05/17/18 22:56 Dose: 20 u Insulin Human Lispro (Humalog) 0 units SC ACHS [facility]; Protocol Last Admin: 05/18/18 07:57 Dose: Not Given Losartan Potassium (Cozaar) 50 mg PO QPM [facility] Last Admin: 05/17/18 17:39 Dose: 50 mg Metoclopramide HCl (Reglan) 10 mg IVP Q6 PRN PRN Reason: Nausea/Vomiting Last Admin: 05/10/18 21:22 Dose: 10 mg Ondansetron HCl (Zofran Inj) 4 mg IVP Q6 PRN PRN Reason: Nausea/Vomiting Last Admin: 05/08/18 10:59 Dose: 4 mg Psyllium Hydrophilic Mucilloid (Hydrocil Instant) 1 pkt PO DAILY [facility] Last Admin: 05/18/18 08:27 Dose: 1 pkt Sevelamer Carbonate (Renvela) 800 mg PO TID [facility] Last Admin: 05/18/18 08:25 Dose: 800 mg Vitamin B Complex/Vit C/Folic Acid (Nephro-Tana) 1 tab PO DAILY [facility] Last Admin: 05/18/18 08:26 Dose: 1 tab - Labs Labs: 05/17/18 05:40 05/18/18 05:45 PT 9.8 Seconds (9.8-13.1) 05/05/18 19:05 INR 0.9 05/05/18 19:05 APTT 28.3 Seconds (25.6-37.1) 05/05/18 19:05 - Constitutional Appears: No Acute Distress - Eye Exam Eye Exam: Conjunctival injection - ENT Exam ENT Exam: Mucous Membranes Moist - Neck Exam Neck Exam: absent: Lymphadenopathy - Respiratory Exam Respiratory Exam: NORMAL BREATHING PATTERN. absent: Chest Wall Tenderness - GI/Abdominal Exam GI & Abdominal Exam: Soft, Normal Bowel Sounds - Extremities Exam Extremities Exam: absent: Calf Tenderness - Back Exam Back Exam: absent: CVA tenderness (L), CVA tenderness (R) - Neurological Exam Neurological Exam: Alert - Psychiatric Exam Psychiatric exam: Normal Affect - Skin Skin Exam: absent: Cyanosis Assessment and Plan (1) Chronic kidney disease with end stage renal failure on dialysis Assessment & Plan: end stage renal disease patient requiring dialysis Diabetic kidney disease with diabetes mellitus Hypertension Anasarca reported on CT scan of the abdomen appeared to be resolving Anemia Hyperphosphatemia Secondary hyperparathyroidism Hypoalbuminemia The plan she was seen on hemodialysis now. no problems reported with the dialysis catheter today. Continue hemodialysis TTS EPO on dialysis for anemia Phosphorus binders Patient to go to [facility] dialysis as outpatient PTH [id number] add calcitriol 0.25 g daily Ultrasound of the kidney nonspecific Please call dietitian for hypoalbuminemia and diet instruction please call vascular for AV fistula Status: Acute (2) Anemia in chronic kidney disease, on chronic dialysis Status: Acute
--- NOTE | 2018-05-18 10:35 | CP.PCM.PN ---
Subjective - Date & Time of Evaluation Date of Evaluation: 05/18/18 Time of Evaluation: 10:29 - Subjective Subjective: Patient seen and evaluated at bedside. No acute events overnight. Patient is Afebrile. Patient states that she didn't have any bowel motion yesterday but she passed gas. Patient was doing her HD session during the visit. Patient was sit ting in her bed comfortably, NAD. Patient BP is improving and controlled. Blood sugars remain uncontrolled. No new complaints nor concerns. She denies any overnight F/N/V/C or SOB. Objective - Vital Signs/Intake and Output Vital Signs (last 24 hours): Temp Pulse Resp BP Pulse Ox 98.6 F 78 20 145/79 99 05/18/18 08:41 05/18/18 08:41 05/18/18 08:41 05/18/18 08:41 05/18/18 08:41 - Medications Medications: Current Medications Acetaminophen (Tylenol 325mg Tab) 650 mg PO Q6 PRN PRN Reason: Pain, Mild (1-3) Last Admin: 05/16/18 16:45 Dose: 650 mg Aspirin (Ecotrin) 81 mg PO DAILY [facility] Last Admin: 05/18/18 08:25 Dose: 81 mg Atorvastatin Calcium (Lipitor) 40 mg PO HS [facility] Last Admin: 05/17/18 21:35 Dose: 40 mg Calcitriol (Rocaltrol) 0.25 mcg PO DAILY [facility] Last Admin: 05/18/18 08:26 Dose: 0.25 mcg Carvedilol (Coreg) 12.5 mg PO Q12 [facility] Last Admin: 05/18/18 08:27 Dose: Not Given Clonidine HCl (Catapres) 0.2 mg PO BID [facility] Last Admin: 05/18/18 08:25 Dose: Not Given Dextrose (Dextrose 50% Inj) 0 ml IV STAT PRN; Protocol PRN Reason: Hypoglycemia Protocol Dextrose (Glutose 15) 0 gm PO ONCE PRN; Protocol PRN Reason: Hypoglycemia Protocol Epoetin Vickey (Procrit) 20,000 unit SC TTS [facility] Last Admin: 05/18/18 08:27 Dose: 20,000 unit Ergocalciferol (Drisdol 50,000 Intl Units Cap) 1 cap PO Q7D [facility] Last Admin: 05/15/18 17:55 Dose: 1 cap Famotidine (Pepcid) 40 mg PO DAILY [facility] Last Admin: 05/18/18 08:26 Dose: 40 mg Glipizide (Glucotrol) 5 mg PO ACB [facility] Last Admin: 05/18/18 08:26 Dose: 5 mg Glucagon (Glucagen Diagnostic Kit) 0 mg IM STAT PRN; Protocol PRN Reason: Hypoglycemia Protocol Heparin Sodium (Porcine) (Heparin) 5,000 units SC Q12 [facility]; Protocol Last Admin: 05/18/18 08:26 Dose: 5,000 units Hydralazine HCl (Apresoline) 50 mg PO TID [facility] Last Admin: 05/18/18 08:25 Dose: Not Given Iron Sucrose 100 mg/ Sodium (Chloride) 105 mls @ 105 mls/hr IVPB DAILY [facility] Stop: 05/19/18 09:01 Last Admin: 05/17/18 08:38 Dose: 105 mls/hr Insulin Detemir (Levemir) 20 units SC HS [facility] Last Admin: 05/17/18 22:56 Dose: 20 u Insulin Human Lispro (Humalog) 0 units SC ACHS [facility]; Protocol Last Admin: 05/18/18 07:57 Dose: Not Given Losartan Potassium (Cozaar) 50 mg PO QPM [facility] Last Admin: 05/17/18 17:39 Dose: 50 mg Metoclopramide HCl (Reglan) 10 mg IVP Q6 PRN PRN Reason: Nausea/Vomiting Last Admin: 05/10/18 21:22 Dose: 10 mg Ondansetron HCl (Zofran Inj) 4 mg IVP Q6 PRN PRN Reason: Nausea/Vomiting Last Admin: 05/08/18 10:59 Dose: 4 mg Psyllium Hydrophilic Mucilloid (Hydrocil Instant) 1 pkt PO DAILY [facility] Last Admin: 05/18/18 08:27 Dose: 1 pkt Sevelamer Carbonate (Renvela) 800 mg PO TID [facility] Last Admin: 05/18/18 08:25 Dose: 800 mg Vitamin B Complex/Vit C/Folic Acid (Nephro-Tana) 1 tab PO DAILY [facility] Last Admin: 05/18/18 08:26 Dose: 1 tab - Labs Labs: 05/17/18 05:40 05/18/18 05:45 PT 9.8 Seconds (9.8-13.1) 05/05/18 19:05 INR 0.9 05/05/18 19:05 APTT 28.3 Seconds (25.6-37.1) 05/05/18 19:05 - Constitutional Appears: Well, Non-toxic, No Acute Distress - Head Exam Head Exam: ATRAUMATIC, NORMOCEPHALIC - Eye Exam Eye Exam: EOMI, Normal appearance, PERRL Pupil Exam: NORMAL ACCOMODATION, PERRL - ENT Exam ENT Exam: Mucous Membranes Moist, Normal Exam - Neck Exam Neck Exam: Full ROM, Normal Inspection Additional comments: Right Subclavian permacath looks in place with sutures intact. Clean site. No clinical signs of active bacterial infection, No erythema, No edema, No pus, No tenderness. - Respiratory Exam Respiratory Exam: Clear to Ausculation Bilateral, NORMAL BREATHING PATTERN - Cardiovascular Exam Cardiovascular Exam: REGULAR RHYTHM - GI/Abdominal Exam GI & Abdominal Exam: Soft, Normal Bowel Sounds - Extremities Exam Extremities Exam: Normal Capillary Refill, Normal Inspection - Back Exam Back Exam: NORMAL INSPECTION - Neurological Exam Neurological Exam: Alert, Awake, Oriented x3 Neuro motor strength exam: Left Upper Extremity: 5, Right Upper Extremity: 5, Le ft Lower Extremity: 5, Right Lower Extremity: 5 - Psychiatric Exam Psychiatric exam: Normal Affect - Skin Skin Exam: Dry, Intact, Normal Color, Warm Assessment and Plan - Assessment and Plan (Free Text) Assessment: 42 y/o female patient admitted Acute on chronic kidney injury 2ry to dehydration, enterocolitis, and acute on chronic anemia, Now ESRD.Patient will continue with HD treatments TTS. Plan: 1) ESRD -HD via Permacath (placed on 05/12/18) -Nephrology on board -HD: TTS -f/u am CBC/CMP -Still waiting to find an outpatient dialysis for the patient. -Recommended by nephro. to call vascular for A-V fistula placement 2) Metabolic Acidosis secondary to LYNETTE -Resolved 3) Enterocolitis -resolved 4) Diffuse nonspecific anasarca on CT with low albumin - Status post 3 doses of albumin infusion 5) Hypertension -improving control -Losartan 50 mg PO QD -C/w Coreg 12.5 mg -Labetolol IV 20mg PRN if BP >200 systolic -Hydralzine 10mg PO TID -Clonidine 0.2mg BID 6) IDDM-type II -uncontrolled -elevated fasting BS -HBA1C 7.1 on 05/2018 -Increased Levemir to 20 Units -lispro high dose Correction scale -Hypoglycemic protocol 7) HLD - c/w with home statin therapy 8) DVT PPX -Heparin 5000 U Q12H 9) Lines - Right Subclavian permacath 10) Constipation - Metamulcil packet QD - Dulcolax 5mg PO once 10) Code Status -Full CODE
[2018-05-18] MEDS: Insulin Detemir 100 Units/ml Inj SC SCH (22:49)
[2018-05-19] MEDS: Insulin Lispro (humaLOG) 100 Units/ml Inj SC SCH ×4 (09:25→21:40)
[2018-05-19] MEDS: Multivitamin Vitamin B Complex (Nephro-Vite) Tab PO SCH (09:26)
[2018-05-19] MEDS: Psyllium Packet PO SCH (09:26)
--- NOTE | 2018-05-19 11:21 | CP.PCM.PN ---
<Fidencio June - Last Filed: 05/19/18 12:57> Subjective - Date & Time of Evaluation Date of Evaluation: 05/19/18 Time of Evaluation: 11:19 - Subjective Subjective: Patient seen and evaluated at bedside. No acute events overnight. Patient is Afebrile. Patient states that she didn't have any a bowel motion since yesterday but she can pass gases. Patient had HD session yesterday. Patient was sitting in her bed comfortably, NAD. Patient BP is improving and controlled. Blood sugars remain uncontrolled. No new complaints nor concerns. She denies any overnight F/N/V/C or SOB. Objective - Vital Signs/Intake and Output Vital Signs (last 24 hours): Temp Pulse Resp BP Pulse Ox 99.1 F 83 20 158/77 H 95 05/19/18 08:16 05/19/18 09:24 05/19/18 08:16 05/19/18 09:24 05/19/18 08:16 - Medications Medications: Current Medications Acetaminophen (Tylenol 325mg Tab) 650 mg PO Q6 PRN PRN Reason: Pain, Mild (1-3) Last Admin: 05/18/18 15:45 Dose: 650 mg Aspirin (Ecotrin) 81 mg PO DAILY [facility] Last Admin: 05/19/18 09:24 Dose: 81 mg Atorvastatin Calcium (Lipitor) 40 mg PO HS [facility] Last Admin: 05/18/18 22:43 Dose: 40 mg Calcitriol (Rocaltrol) 0.25 mcg PO DAILY [facility] Last Admin: 05/19/18 09:26 Dose: 0.25 mcg Carvedilol (Coreg) 12.5 mg PO Q12 [facility] Last Admin: 05/19/18 09:24 Dose: 12.5 mg Clonidine HCl (Catapres) 0.2 mg PO BID [facility] Last Admin: 05/19/18 09:24 Dose: 0.2 mg Dextrose (Dextrose 50% Inj) 0 ml IV STAT PRN; Protocol PRN Reason: Hypoglycemia Protocol Dextrose (Glutose 15) 0 gm PO ONCE PRN; Protocol PRN Reason: Hypoglycemia Protocol Epoetin Vickey (Procrit) 20,000 unit SC TTS [facility] Last Admin: 05/18/18 08:27 Dose: 20,000 unit Ergocalciferol (Drisdol 50,000 Intl Units Cap) 1 cap PO Q7D [facility] Last Admin: 05/15/18 17:55 Dose: 1 cap Famotidine (Pepcid) 40 mg PO DAILY [facility] Last Admin: 05/19/18 09:26 Dose: 40 mg Glipizide (Glucotrol) 5 mg PO ACB [facility] Last Admin: 05/19/18 09:25 Dose: 5 mg Glucagon (Glucagen Diagnostic Kit) 0 mg IM STAT PRN; Protocol PRN Reason: Hypoglycemia Protocol Heparin Sodium (Porcine) (Heparin) 5,000 units SC Q12 [facility]; Protocol Last Admin: 05/19/18 09:25 Dose: 5,000 units Hydralazine HCl (Apresoline) 50 mg PO TID [facility] Last Admin: 05/19/18 09:22 Dose: 50 mg Insulin Detemir (Levemir) 20 units SC HS [facility] Last Admin: 05/18/18 22:49 Dose: 20 u Insulin Human Lispro (Humalog) 0 units SC ACHS [facility]; Protocol Last Admin: 05/19/18 09:25 Dose: Not Given Losartan Potassium (Cozaar) 50 mg PO QPM [facility] Last Admin: 05/18/18 17:04 Dose: 50 mg Ondansetron HCl (Zofran Inj) 4 mg IVP Q6 PRN PRN Reason: Nausea/Vomiting Last Admin: 05/08/18 10:59 Dose: 4 mg Psyllium Hydrophilic Mucilloid (Hydrocil Instant) 1 pkt PO DAILY [facility] Last Admin: 05/19/18 09:26 Dose: 1 pkt Sevelamer Carbonate (Renvela) 800 mg PO TID [facility] Last Admin: 05/19/18 09:26 Dose: 800 mg Vitamin B Complex/Vit C/Folic Acid (Nephro-Tana) 1 tab PO DAILY [facility] Last Admin: 05/19/18 09:26 Dose: 1 tab - Labs Labs: 05/17/18 05:40 05/18/18 05:45 PT 9.8 Seconds (9.8-13.1) 05/05/18 19:05 INR 0.9 05/05/18 19:05 APTT 28.3 Seconds (25.6-37.1) 05/05/18 19:05 - Constitutional Appears: Well, Non-toxic, No Acute Distress - Head Exam Head Exam: ATRAUMATIC, NORMOCEPHALIC - Eye Exam Eye Exam: EOMI, Normal appearance, PERRL Pupil Exam: NORMAL ACCOMODATION, PERRL - ENT Exam ENT Exam: Mucous Membranes Moist, Normal Exam - Neck Exam Neck Exam: Full ROM, Normal Inspection Additional comments: Right Subclavian permacath looks in place with sutures intact. Clean site. No clinical signs of active bacterial infection, No erythema, No edema, No pus, No tenderness. - Respiratory Exam Respiratory Exam: Clear to Ausculation Bilateral, NORMAL BREATHING PATTERN - Cardiovascular Exam Cardiovascular Exam: REGULAR RHYTHM, RRR - GI/Abdominal Exam GI & Abdominal Exam: Soft, Normal Bowel Sounds - Extremities Exam Extremities Exam: Normal Capillary Refill, Normal Inspection - Back Exam Back Exam: NORMAL INSPECTION - Neurological Exam Neurological Exam: Alert, Awake, Oriented x3 Neuro motor strength exam: Left Upper Extremity: 5, Right Upper Extremity: 5, Left Lower Extremity: 5, Right Lower Extremity: 5 - Psychiatric Exam Psychiatric exam: Normal Affect, Normal Mood - Skin Skin Exam: Dry, Intact, Normal Color, Warm Assessment and Plan - Assessment and Plan (Free Text) Assessment: 42 y/o female patient admitted Acute on chronic kidney injury 2ry to dehydrat ion, enterocolitis, and acute on chronic anemia, Now ESRD.Patient will continue with HD treatments TTS. Plan: 1) ESRD -HD via Permacath (placed on 05/12/18) -Nephrology on board -HD: TTS -f/u am CBC/CMP -Still waiting to find an outpatient dialysis for the patient. 2) Metabolic Acidosis secondary to LYNETTE -Resolved 3) Enterocolitis -resolved 4) Diffuse nonspecific anasarca on CT with low albumin - Status post 3 doses of albumin infusion 5) Hypertension -improving control -Losartan 50 mg PO QD -C/w Coreg 12.5 mg -Labetolol IV 20mg PRN if BP >200 systolic -Hydralzine 10mg PO TID -Clonidine 0.2mg BID 6) IDDM-type II -uncontrolled -elevated fasting BS -HBA1C 7.1 on 05/2018 -Levemir to 20 Units -lispro high dose Correction scale -Hypoglycemic protocol 7) HLD - c/w with home statin therapy 8) DVT PPX -Heparin 5000 U Q12H 9) Lines - Right Subclavian permacath 10) Constipation - Metamulcil packet QD - Dulcolax 5mg PO once 10) Code Status -Full CODE <Caitlyn Perez - Last Filed: 05/20/18 10:01> Objective - Vital Signs/Intake and Output Vital Signs (last 24 hours): Temp Pulse Resp BP Pulse Ox 98.4 F 80 20 148/77 96 05/20/18 08:28 05/20/18 08:28 05/20/18 08:28 05/20/18 08:28 05/20/18 08:28 - Medications Medications: Current Medications Acetaminophen (Tylenol 325mg Tab) 650 mg PO Q6 PRN PRN Reason: Pain, Mild (1-3) Last Admin: 05/19/18 20:55 Dose: 650 mg Aspirin (Ecotrin) 81 mg PO DAILY [facility] Last Admin: 05/19/18 09:24 Dose: 81 mg Atorvastatin Calcium (Lipitor) 40 mg PO HS [facility] Last Admin: 05/19/18 21:05 Dose: 40 mg Calcitriol (Rocaltrol) 0.25 mcg PO DAILY [facility] Last Admin: 05/19/18 09:26 Dose: 0.25 mcg Carvedilol (Coreg) 12.5 mg PO Q12 [facility] Last Admin: 05/19/18 20:44 Dose: 12.5 mg Cephalexin Monohydrate (Keflex) 500 mg PO Q12 [facility]; Protocol Last Admin: 05/19/18 20:47 Dose: 500 mg Clonidine HCl (Catapres) 0.2 mg PO BID [facility] Last Admin: 05/19/18 16:58 Dose: 0.2 mg Dextrose (Dextrose 50% Inj) 0 ml IV STAT PRN; Protocol PRN Reason: Hypoglycemia Protocol Dextrose (Glutose 15) 0 gm PO ONCE PRN; Protocol PRN Reason: Hypoglycemia Protocol Epoetin Vickey (Procrit) 20,000 unit SC TTS [facility] Last Admin: 05/18/18 08:27 Dose: 20,000 unit Ergocalciferol (Drisdol 50,000 Intl Units Cap) 1 cap PO Q7D [facility] Last Admin: 05/15/18 17:55 Dose: 1 cap Famotidine (Pepcid) 40 mg PO DAILY [facility] Last Admin: 05/19/18 09:26 Dose: 40 mg Glipizide (Glucotrol) 5 mg PO ACB [facility] Last Admin: 05/19/18 09:25 Dose: 5 mg Glucagon (Glucagen Diagnostic Kit) 0 mg IM STAT PRN; Protocol PRN Reason: Hypoglycemia Protocol Heparin Sodium (Porcine) (Heparin) 5,000 units SC Q12 [facility]; Protocol Last Admin: 05/19/18 20:46 Dose: 5,000 units Hydralazine HCl (Apresoline) 50 mg PO TID [facility] Last Admin: 05/19/18 16:57 Dose: 50 mg Insulin Detemir (Levemir) 20 units SC HS [facility] Last Admin: 05/19/18 21:41 Dose: 20 u Insulin Human Lispro (Humalog) 0 units SC ACHS [facility]; Protocol Last Admin: 05/20/18 07:30 Dose: Not Given Losartan Potassium (Cozaar) 50 mg PO QPM [facility] Last Admin: 05/19/18 16:59 Dose: 50 mg Ondansetron HCl (Zofran Inj) 4 mg IVP Q6 PRN PRN Reason: Nausea/Vomiting Last Admin: 05/08/18 10:59 Dose: 4 mg Psyllium Hydrophilic Mucilloid (Hydrocil Instant) 1 pkt PO DAILY [facility] Last Admin: 05/19/18 09:26 Dose: 1 pkt Sevelamer Carbonate (Renvela) 800 mg PO TID [facility] Last Admin: 05/19/18 16:57 Dose: 800 mg Vitamin B Complex/Vit C/Folic Acid (Nephro-Tana) 1 tab PO DAILY [facility] Last Admin: 05/19/18 09:26 Dose: 1 tab - Labs Labs: 05/20/18 07:00 05/18/18 05:45 PT 9.8 Seconds (9.8-13.1) 05/05/18 19:05 INR 0.9 05/05/18 19:05 APTT 28.3 Seconds (25.6-37.1) 05/05/18 19:05 Attending/Attestation - Attestation I have personally seen and examined this patient.: Yes I have fully participated in the care of the patient.: Yes I have reviewed all pertinent clinical information, including history, physical exam and plan: Yes Notes (Text): 05/20/18 10:01 Seen, examined, and discussed with resident. Agree with findings and plan as above.
--- NOTE | 2018-05-19 14:11 | CP.PCM.PN ---
Subjective - Date & Time of Evaluation Date of Evaluation: 05/19/18 Time of Evaluation: 14:10 - Subjective Subjective: Patient is stable no complain no nausea no vomiting Patient waiting for placement as outpatient for dialysis Objective - Vital Signs/Intake and Output Vital Signs (last 24 hours): Temp Pulse Resp BP Pulse Ox 99.1 F 67 20 146/74 95 05/19/18 08:16 05/19/18 12:59 05/19/18 08:16 05/19/18 12:59 05/19/18 08:16 - Medications Medications: Current Medications Acetaminophen (Tylenol 325mg Tab) 650 mg PO Q6 PRN PRN Reason: Pain, Mild (1-3) Last Admin: 05/18/18 15:45 Dose: 650 mg Aspirin (Ecotrin) 81 mg PO DAILY [facility] Last Admin: 05/19/18 09:24 Dose: 81 mg Atorvastatin Calcium (Lipitor) 40 mg PO HS [facility] Last Admin: 05/18/18 22:43 Dose: 40 mg Calcitriol (Rocaltrol) 0.25 mcg PO DAILY [facility] Last Admin: 05/19/18 09:26 Dose: 0.25 mcg Carvedilol (Coreg) 12.5 mg PO Q12 [facility] Last Admin: 05/19/18 09:24 Dose: 12.5 mg Clonidine HCl (Catapres) 0.2 mg PO BID [facility] Last Admin: 05/19/18 09:24 Dose: 0.2 mg Dextrose (Dextrose 50% Inj) 0 ml IV STAT PRN; Protocol PRN Reason: Hypoglycemia Protocol Dextrose (Glutose 15) 0 gm PO ONCE PRN; Protocol PRN Reason: Hypoglycemia Protocol Epoetin Vickey (Procrit) 20,000 unit SC TTS [facility] Last Admin: 05/18/18 08:27 Dose: 20,000 unit Ergocalciferol (Drisdol 50,000 Intl Units Cap) 1 cap PO Q7D [facility] Last Admin: 05/15/18 17:55 Dose: 1 cap Famotidine (Pepcid) 40 mg PO DAILY [facility] Last Admin: 05/19/18 09:26 Dose: 40 mg Glipizide (Glucotrol) 5 mg PO ACB [facility] Last Admin: 05/19/18 09:25 Dose: 5 mg Glucagon (Glucagen Diagnostic Kit) 0 mg IM STAT PRN; Protocol PRN Reason: Hypoglycemia Protocol Heparin Sodium (Porcine) (Heparin) 5,000 units SC Q12 [facility]; Protocol Last Admin: 05/19/18 09:25 Dose: 5,000 units Hydralazine HCl (Apresoline) 50 mg PO TID [facility] Last Admin: 05/19/18 12:59 Dose: 50 mg Insulin Detemir (Levemir) 20 units SC HS [facility] Last Admin: 05/18/18 22:49 Dose: 20 u Insulin Human Lispro (Humalog) 0 units SC ACHS [facility]; Protocol Last Admin: 05/19/18 12:54 Dose: 8 units Losartan Potassium (Cozaar) 50 mg PO QPM [facility] Last Admin: 05/18/18 17:04 Dose: 50 mg Ondansetron HCl (Zofran Inj) 4 mg IVP Q6 PRN PRN Reason: Nausea/Vomiting Last Admin: 05/08/18 10:59 Dose: 4 mg Psyllium Hydrophilic Mucilloid (Hydrocil Instant) 1 pkt PO DAILY [facility] Last Admin: 05/19/18 09:26 Dose: 1 pkt Sevelamer Carbonate (Renvela) 800 mg PO TID [facility] Last Admin: 05/19/18 12:56 Dose: 800 mg Vitamin B Complex/Vit C/Folic Acid (Nephro-Tana) 1 tab PO DAILY [facility] Last Admin: 05/19/18 09:26 Dose: 1 tab - Labs Labs: 05/17/18 05:40 05/18/18 05:45 PT 9.8 Seconds (9.8-13.1) 05/05/18 19:05 INR 0.9 05/05/18 19:05 APTT 28.3 Seconds (25.6-37.1) 05/05/18 19:05 - Constitutional Appears: No Acute Distress - Eye Exam Eye Exam: Conjunctival injection - ENT Exam ENT Exam: Mucous Membranes Moist - Neck Exam Neck Exam: absent: Lymphadenopathy - Respiratory Exam Respiratory Exam: NORMAL BREATHING PATTERN. absent: Chest Wall Tenderness, Rales - Cardiovascular Exam Cardiovascular Exam: absent: Gallop, JVD, Rubs - GI/Abdominal Exam GI & Abdominal Exam: Soft, Normal Bowel Sounds - Extremities Exam Extremities Exam: absent: Calf Tenderness - Back Exam Back Exam: absent: CVA tenderness (L), CVA tenderness (R) - Neurological Exam Neurological Exam: Alert - Psychiatric Exam Psychiatric exam: Normal Affect - Skin Skin Exam: absent: Cyanosis Assessment and Plan (1) Chronic kidney disease with end stage renal failure on dialysis Assessment & Plan: end stage renal disease patient requiring dialysis TTS Diabetic kidney disease with diabetes mellitus Hypertension Anasarca reported on CT scan of the abdomen appeared to be resolving Anemia Hyperphosphatemia Secondary hyperparathyroidism Hypoalbuminemia The plan Continue hemodialysis TTS Patient went for permacath today EPO on dialysis for anemia Phosphorus binders Patient to go to [facility] dialysis as outpatient Spot urine for protein to creatinine ratio remain pending PTH 308 add calcitriol 0.25 g daily Ultrasound of the kidney nonspecific Please call dietitian for hypoalbuminemia and diet instruction Status: Acute (2) Anemia in chronic kidney disease, on chronic dialysis Status: Acute
[2018-05-19] MEDS: Insulin Detemir 100 Units/ml Inj SC SCH (21:41)
[2018-05-20] MEDS: Insulin Lispro (humaLOG) 100 Units/ml Inj SC SCH ×4 (07:30→21:27)
--- NOTE | 2018-05-20 07:50 | CP.PCM.PN ---
<Jeffrey Salazar - Last Filed: 05/20/18 09:54> Subjective - Date & Time of Evaluation Date of Evaluation: 05/20/18 Time of Evaluation: 09:54 - Subjective Subjective: Patient seen and evaluated at bedside. No acute events overnight. Patient is Afebrile. Patient to have HD today. Patient was sitting in her bed comfortably, NAD and tolerating PO. Patient BP is improving and controlled. Blood sugars remain uncontrolled. No new complaints nor concerns. She denies any overnight F/N/V/C or SOB. Objective - Vital Signs/Intake and Output Vital Signs (last 24 hours): Temp Pulse Resp BP Pulse Ox 98.9 F 84 18 127/71 95 05/20/18 00:00 05/20/18 00:00 05/20/18 00:00 05/20/18 00:00 05/20/18 00:00 - Medications Medications: Current Medications Acetaminophen (Tylenol 325mg Tab) 650 mg PO Q6 PRN PRN Reason: Pain, Mild (1-3) Last Admin: 05/19/18 20:55 Dose: 650 mg Aspirin (Ecotrin) 81 mg PO DAILY [facility] Last Admin: 05/19/18 09:24 Dose: 81 mg Atorvastatin Calcium (Lipitor) 40 mg PO HS [facility] Last Admin: 05/19/18 21:05 Dose: 40 mg Calcitriol (Rocaltrol) 0.25 mcg PO DAILY [facility] Last Admin: 05/19/18 09:26 Dose: 0.25 mcg Carvedilol (Coreg) 12.5 mg PO Q12 [facility] Last Admin: 05/19/18 20:44 Dose: 12.5 mg Cephalexin Monohydrate (Keflex) 500 mg PO Q12 [facility]; Protocol Last Admin: 05/19/18 20:47 Dose: 500 mg Clonidine HCl (Catapres) 0.2 mg PO BID [facility] Last Admin: 05/19/18 16:58 Dose: 0.2 mg Dextrose (Dextrose 50% Inj) 0 ml IV STAT PRN; Protocol PRN Reason: Hypoglycemia Protocol Dextrose (Glutose 15) 0 gm PO ONCE PRN; Protocol PRN Reason: Hypoglycemia Protocol Epoetin Vickey (Procrit) 20,000 unit SC TTS [facility] Last Admin: 05/18/18 08:27 Dose: 20,000 unit Ergocalciferol (Drisdol 50,000 Intl Units Cap) 1 cap PO Q7D [facility] Last Admin: 05/15/18 17:55 Dose: 1 cap Famotidine (Pepcid) 40 mg PO DAILY [facility] Last Admin: 05/19/18 09:26 Dose: 40 mg Glipizide (Glucotrol) 5 mg PO ACB [facility] Last Admin: 05/19/18 09:25 Dose: 5 mg Glucagon (Glucagen Diagnostic Kit) 0 mg IM STAT PRN; Protocol PRN Reason: Hypoglycemia Protocol Heparin Sodium (Porcine) (Heparin) 5,000 units SC Q12 [facility]; Protocol Last Admin: 05/19/18 20:46 Dose: 5,000 units Hydralazine HCl (Apresoline) 50 mg PO TID [facility] Last Admin: 05/19/18 16:57 Dose: 50 mg Insulin Detemir (Levemir) 20 units SC HS [facility] Last Admin: 05/19/18 21:41 Dose: 20 u Insulin Human Lispro (Humalog) 0 units SC ACHS [facility]; Protocol Last Admin: 05/19/18 21:40 Dose: Not Given Losartan Potassium (Cozaar) 50 mg PO QPM [facility] Last Admin: 05/19/18 16:59 Dose: 50 mg Ondansetron HCl (Zofran Inj) 4 mg IVP Q6 PRN PRN Reason: Nausea/Vomiting Last Admin: 05/08/18 10:59 Dose: 4 mg Psyllium Hydrophilic Mucilloid (Hydrocil Instant) 1 pkt PO DAILY [facility] Last Admin: 05/19/18 09:26 Dose: 1 pkt Sevelamer Carbonate (Renvela) 800 mg PO TID [facility] Last Admin: 05/19/18 16:57 Dose: 800 mg Vitamin B Complex/Vit C/Folic Acid (Nephro-Tana) 1 tab PO DAILY [facility] Last Admin: 05/19/18 09:26 Dose: 1 tab - Labs Labs: 05/17/18 05:40 05/18/18 05:45 PT 9.8 Seconds (9.8-13.1) 05/05/18 19:05 INR 0.9 05/05/18 19:05 APTT 28.3 Seconds (25.6-37.1) 05/05/18 19:05 - Constitutional Appears: Non-toxic, No Acute Distress - Head Exam Head Exam: ATRAUMATIC, NORMAL INSPECTION, NORMOCEPHALIC - Eye Exam Eye Exam: Normal appearance - ENT Exam ENT Exam: Mucous Membranes Moist - Neck Exam Neck Exam: Full ROM. absent: Tenderness Additional comments: Right Subclavian permacath looks in place with sutures intact. Clean site. No clinical signs of active bacterial infection, No erythema, No edema, No pus, No tenderness. - Respiratory Exam Respiratory Exam: Clear to Ausculation Bilateral, NORMAL BREATHING PATTERN. absent: Rales, Rhonchi, Wheezes, Respiratory Distress - Cardiovascular Exam Cardiovascular Exam: REGULAR RHYTHM, RRR - Extremities Exam Extremities Exam: Normal Capillary Refill, Normal Inspection - Neurological Exam Neurological Exam: Alert, Awake, Oriented x3 - Psychiatric Exam Psychiatric exam: Normal Affect, Normal Mood - Skin Skin Exam: Dry, Intact, Normal Color, Warm Assessment and Plan - Assessment and Plan (Free Text) Assessment: 42 y/o female patient admitted Acute on chronic kidney injury secondary to dehydration, enterocolitis, and acute on chronic anemia, Now ESRD. Patient will continue with HD treatments TTS. Plan: 1) ESRD - HD via Permacath (placed on 05/12/18) - Nephrology on board - HD: TTS - f/u am CBC/CMP - Still waiting to find an outpatient dialysis for the patient, possible AV fistula. 2) Metabolic Acidosis secondary to LYNETTE - Resolved 3) Enterocolitis - resolved 4) Diffuse nonspecific anasarca on CT with low albumin - Status post 3 doses of albumin infusion 5) Hypertension - improving control - Losartan 50 mg PO QD - C/w Coreg 12.5 mg - Labetolol IV 20mg PRN if BP >200 systolic - Hydralzine 10mg PO TID - Clonidine 0.2mg BID 6) IDDM-type II - uncontrolled - elevated fasting BS - HBA1C 7.1 on 05/2018 - Levemir to 20 Units - lispro high dose Correction scale - Hypoglycemic protocol 7) HLD - c/w with home statin therapy 8) DVT PPX - Heparin 5000 U Q12H 9) Lines - Right Subclavian permacath 10) Constipation - Metamulcil packet QD - Dulcolax 5mg PO once 11) Code Status - Full CODE <Caitlyn Perez - Last Filed: 05/20/18 10:26> Objective - Vital Signs/Intake and Output Vital Signs (last 24 hours): Temp Pulse Resp BP Pulse Ox 98.4 F 80 20 148/77 96 05/20/18 08:28 05/20/18 08:28 05/20/18 08:28 05/20/18 08:28 05/20/18 08:28 - Medications Medications: Current Medications Acetaminophen (Tylenol 325mg Tab) 650 mg PO Q6 PRN PRN Reason: Pain, Mild (1-3) Last Admin: 05/19/18 20:55 Dose: 650 mg Aspirin (Ecotrin) 81 mg PO DAILY [facility] Last Admin: 05/19/18 09:24 Dose: 81 mg Atorvastatin Calcium (Lipitor) 40 mg PO HS [facility] Last Admin: 05/19/18 21:05 Dose: 40 mg Calcitriol (Rocaltrol) 0.25 mcg PO DAILY [facility] Last Admin: 05/19/18 09:26 Dose: 0.25 mcg Carvedilol (Coreg) 12.5 mg PO Q12 [facility] Last Admin: 05/19/18 20:44 Dose: 12.5 mg Cephalexin Monohydrate (Keflex) 500 mg PO Q12 [facility]; Protocol Last Admin: 05/19/18 20:47 Dose: 500 mg Clonidine HCl (Catapres) 0.2 mg PO BID [facility] Last Admin: 05/19/18 16:58 Dose: 0.2 mg Dextrose (Dextrose 50% Inj) 0 ml IV STAT PRN; Protocol PRN Reason: Hypoglycemia Protocol Dextrose (Glutose 15) 0 gm PO ONCE PRN; Protocol PRN Reason: Hypoglycemia Protocol Epoetin Vickey (Procrit) 20,000 unit SC TTS [facility] Last Admin: 05/18/18 08:27 Dose: 20,000 unit Ergocalciferol (Drisdol 50,000 Intl Units Cap) 1 cap PO Q7D [facility] Last Admin: 05/15/18 17:55 Dose: 1 cap Famotidine (Pepcid) 40 mg PO DAILY [facility] Last Admin: 05/19/18 09:26 Dose: 40 mg Glipizide (Glucotrol) 5 mg PO ACB [facility] Last Admin: 05/19/18 09:25 Dose: 5 mg Glucagon (Glucagen Diagnostic Kit) 0 mg IM STAT PRN; Protocol PRN Reason: Hypoglycemia Protocol Heparin Sodium (Porcine) (Heparin) 5,000 units SC Q12 [facility]; Protocol Last Admin: 05/19/18 20:46 Dose: 5,000 units Hydralazine HCl (Apresoline) 50 mg PO TID [facility] Last Admin: 05/19/18 16:57 Dose: 50 mg Insulin Detemir (Levemir) 20 units SC HS [facility] Last Admin: 05/19/18 21:41 Dose: 20 u Insulin Human Lispro (Humalog) 0 units SC ACHS [facility]; Protocol Last Admin: 05/20/18 07:30 Dose: Not Given Losartan Potassium (Cozaar) 50 mg PO QPM [facility] Last Admin: 05/19/18 16:59 Dose: 50 mg Ondansetron HCl (Zofran Inj) 4 mg IVP Q6 PRN PRN Reason: Nausea/Vomiting Last Admin: 05/08/18 10:59 Dose: 4 mg Psyllium Hydrophilic Mucilloid (Hydrocil Instant) 1 pkt PO DAILY [facility] Last Admin: 05/19/18 09:26 Dose: 1 pkt Sevelamer Carbonate (Renvela) 800 mg PO TID [facility] Last Admin: 05/19/18 16:57 Dose: 800 mg Vitamin B Complex/Vit C/Folic Acid (Nephro-Tana) 1 tab PO DAILY [facility] Last Admin: 05/19/18 09:26 Dose: 1 tab - Labs Labs: 05/20/18 07:00 05/18/18 05:45 PT 9.8 Seconds (9.8-13.1) 05/05/18 19:05 INR 0.9 05/05/18 19:05 APTT 28.3 Seconds (25.6-37.1) 05/05/18 19:05 Attending/Attestation - Attestation I have personally seen and examined this patient.: Yes I have fully participated in the care of the patient.: Yes I have reviewed all pertinent clinical information, including history, physical exam and plan: Yes Notes (Text): 05/20/18 10:26 Seen, examined, and discussed with resident. Agree with findings and plan as above.
[2018-05-20 08:09] LABS: BASO # 0.1 K/uL (0.0-0.2); BASO % 0.9 % (0.0-2.0); EOS # 0.3 K/uL (0.0-0.7); EOS % 4.5 % (0.0-4.0); HEMOGLOBIN 9.9 g/dL (12.0-16.0); LYMPH # 1.8 K/uL (1.0-4.3); LYMPH % 31.7 % (20.0-40.0); MEAN CORPUSCULAR HEMOGLOBIN 30.9 pg (27.0-31.0); MEAN CORPUSCULAR HGB CONC 31.6 g/dL (33.0-37.0); MEAN PLATELET VOLUME 9.3 fl (7.2-11.7); MONO # 0.8 K/uL (0.0-0.8); MONO % 13.8 % (0.0-10.0); NEUT # 2.8 K/uL (1.8-7.0); NEUT % 49.1 % (50.0-75.0); NRBC % 0.2 % (0.0-0.0); RBC 3.19 Mil/uL (3.80-5.20); RED CELL DISTRIBUTION WIDTH 20.1 % (11.5-14.5); WHITE BLOOD COUNT 5.8 K/uL (4.8-10.8)
[2018-05-20] MEDS: Psyllium Packet PO SCH (11:07)
[2018-05-20] MEDS: Multivitamin Vitamin B Complex (Nephro-Vite) Tab PO SCH (11:08)
--- NOTE | 2018-05-20 15:20 | CP.PCM.PN ---
Subjective - Date & Time of Evaluation Date of Evaluation: 05/20/18 Time of Evaluation: 15:18 - Subjective Subjective: RENAL: seen and examined no events o/n o:vs reviewed gen: nad sclera: anicteric op: clear neck: Supplec cv: +s1+s2 no rub lungs cta abd: soft nt/nd no organomegaly ext: no edema neuro: a+ox3 psych: nml affect skin: no rash imp: ESRD TTS Diabetic chronic Kidney Disease (E11.22) Hypertensive Chronic Kidney Disease (I12.0) Anemia (D64.9), Hyperphosphatemia (E83.39), Secondary Hyperparathyroidism (E21.1), HTN (I12.0) obesity Plan: HD as TTS schedule, continue Continue with Nephrovite 1 tab/day. prbc as needed by primary, on valente continue phos binder bp stable Glycemic control, Dialysis consistent diet Further work up/management as per primary team Dose meds/antibiotics (if needed) for ESRD status. Avoid fleets enema/magnesium based laxatives. SW consult for outpt HD placement. vascular surgery consult for AVF. save non- dominant arm from phlebotomy/IV lines. pt stable for d/c from renal perspective once has outpt hd arrangements Objective - Vital Signs/Intake and Output Vital Signs (last 24 hours): Temp Pulse Resp BP Pulse Ox 98.4 F 80 20 148/77 96 05/20/18 08:28 05/20/18 08:28 05/20/18 08:28 05/20/18 08:28 05/20/18 08:28 - Medications Medications: Current Medications Acetaminophen (Tylenol 325mg Tab) 650 mg PO Q6 PRN PRN Reason: Pain, Mild (1-3) Last Admin: 05/19/18 20:55 Dose: 650 mg Aspirin (Ecotrin) 81 mg PO DAILY [facility] Last Admin: 05/20/18 11:03 Dose: 81 mg Atorvastatin Calcium (Lipitor) 40 mg PO HS [facility] Last Admin: 05/19/18 21:05 Dose: 40 mg Calcitriol (Rocaltrol) 0.25 mcg PO DAILY [facility] Last Admin: 05/20/18 11:09 Dose: 0.25 mcg Carvedilol (Coreg) 12.5 mg PO Q12 [facility] Last Admin: 05/20/18 11:03 Dose: Not Given Cephalexin Monohydrate (Keflex) 500 mg PO Q12 [facility]; Protocol Last Admin: 05/20/18 11:04 Dose: 500 mg Clonidine HCl (Catapres) 0.2 mg PO BID [facility] Last Admin: 05/20/18 11:03 Dose: Not Given Dextrose (Dextrose 50% Inj) 0 ml IV STAT PRN; Protocol PRN Reason: Hypoglycemia Protocol Dextrose (Glutose 15) 0 gm PO ONCE PRN; Protocol PRN Reason: Hypoglycemia Protocol Epoetin Vickey (Procrit) 20,000 unit SC TTS [facility] Last Admin: 05/18/18 08:27 Dose: 20,000 unit Ergocalciferol (Drisdol 50,000 Intl Units Cap) 1 cap PO Q7D [facility] Last Admin: 05/15/18 17:55 Dose: 1 cap Famotidine (Pepcid) 40 mg PO DAILY [facility] Last Admin: 05/20/18 11:08 Dose: 40 mg Glipizide (Glucotrol) 5 mg PO ACB [facility] Last Admin: 05/20/18 11:04 Dose: 5 mg Glucagon (Glucagen Diagnostic Kit) 0 mg IM STAT PRN; Protocol PRN Reason: Hypoglycemia Protocol Heparin Sodium (Porcine) (Heparin) 5,000 units SC Q12 [facility]; Protocol Last Admin: 05/20/18 11:04 Dose: 5,000 units Hydralazine HCl (Apresoline) 50 mg PO TID [facility] Last Admin: 05/20/18 14:07 Dose: Not Given Insulin Detemir (Levemir) 20 units SC HS [facility] Last Admin: 05/19/18 21:41 Dose: 20 u Insulin Human Lispro (Humalog) 0 units SC ACHS [facility]; Protocol Last Admin: 05/20/18 14:09 Dose: 6 units Losartan Potassium (Cozaar) 50 mg PO QPM [facility] Last Admin: 05/19/18 16:59 Dose: 50 mg Ondansetron HCl (Zofran Inj) 4 mg IVP Q6 PRN PRN Reason: Nausea/Vomiting Last Admin: 05/08/18 10:59 Dose: 4 mg Psyllium Hydrophilic Mucilloid (Hydrocil Instant) 1 pkt PO DAILY [facility] Last Admin: 05/20/18 11:07 Dose: 1 pkt Sevelamer Carbonate (Renvela) 800 mg PO TID [facility] Last Admin: 05/20/18 14:10 Dose: 800 mg Vitamin B Complex/Vit C/Folic Acid (Nephro-Tana) 1 tab PO DAILY [facility] Last Admin: 05/20/18 11:08 Dose: 1 tab - Labs Labs: 05/20/18 07:00 05/18/18 05:45 PT 9.8 Seconds (9.8-13.1) 05/05/18 19:05 INR 0.9 05/05/18 19:05 APTT 28.3 Seconds (25.6-37.1) 05/05/18 19:05
[2018-05-20] MEDS: Epoetin Alfa 20000 UNIT/ML (RENAL DOSE) SC SCH (18:47)
[2018-05-20] MEDS: Insulin Detemir 100 Units/ml Inj SC SCH (21:27)
--- NOTE | 2018-05-21 08:06 | CP.PCM.PN ---
Subjective - Date & Time of Evaluation Date of Evaluation: 05/21/18 Time of Evaluation: 09:38 - Subjective Subjective: Patient seen and evaluated at bedside this morning. No acute events overnight. Patient is Afebrile. Patient had HD yesterday w/o issue. Patient was sitting in her bed comfortably, NAD and tolerating PO. Patient BP is improving and con trolled. Blood sugars remain uncontrolled. No new complaints nor concerns. She denies any overnight F/N/V/C or SOB. Objective - Vital Signs/Intake and Output Vital Signs (last 24 hours): Temp Pulse Resp BP Pulse Ox 99.4 F 90 18 135/74 96 05/20/18 23:37 05/20/18 23:37 05/20/18 23:37 05/20/18 23:37 05/20/18 23:37 - Medications Medications: Current Medications Acetaminophen (Tylenol 325mg Tab) 650 mg PO Q6 PRN PRN Reason: Pain, Mild (1-3) Last Admin: 05/19/18 20:55 Dose: 650 mg Aspirin (Ecotrin) 81 mg PO DAILY [facility]CLUD[facility] Last Admin: 05/20/18 11:03 Dose: 81 mg Atorvastatin Calcium (Lipitor) 40 mg PO HS [facility] Last Admin: 05/20/18 21:27 Dose: 40 mg Calcitriol (Rocaltrol) 0.25 mcg PO DAILY [facility] Last Admin: 05/20/18 11:09 Dose: 0.25 mcg Carvedilol (Coreg) 12.5 mg PO Q12 [facility] Last Admin: 05/20/18 20:10 Dose: 12.5 mg Cephalexin Monohydrate (Keflex) 500 mg PO Q12 [facility]; Protocol Last Admin: 05/20/18 20:14 Dose: 500 mg Clonidine HCl (Catapres) 0.2 mg PO BID [facility] Last Admin: 05/20/18 18:51 Dose: 0.2 mg Epoetin Vickey (Procrit) 20,000 unit SC TTS COUNT [facility]CLUDES [facility] Last Admin: 05/20/18 18:47 Dose: 20,000 unit Ergocalciferol (Drisdol 50,000 Intl Units Cap) 1 cap PO Q7D [facility] Last Admin: 05/15/18 17:55 Dose: 1 cap Famotidine (Pepcid) 40 mg PO DAILY [facility] Last Admin: 05/20/18 11:08 Dose: 40 mg Glipizide (Glucotrol) 5 mg PO ACB [facility] Last Admin: 05/20/18 11:04 Dose: 5 mg Heparin Sodium (Porcine) (Heparin) 5,000 units SC Q12 [facility]; Protocol Last Admin: 05/20/18 20:11 Dose: 5,000 units Hydralazine HCl (Apresoline) 50 mg PO TID [facility] Last Admin: 05/20/18 18:50 Dose: 50 mg Insulin Detemir (Levemir) 20 units SC HS [facility] Last Admin: 05/20/18 21:27 Dose: 20 u Insulin Human Lispro (Humalog) 0 units SC ACHS [facility]; Protocol Last Admin: 05/20/18 21:27 Dose: Not Given Losartan Potassium (Cozaar) 50 mg PO QPM [facility] Last Admin: 05/20/18 18:51 Dose: 50 mg Ondansetron HCl (Zofran Inj) 4 mg IVP Q6 PRN PRN Reason: Nausea/Vomiting Last Admin: 05/08/18 10:59 Dose: 4 mg Psyllium Hydrophilic Mucilloid (Hydrocil Instant) 1 pkt PO DAILY [facility] Last Admin: 05/20/18 11:07 Dose: 1 pkt Sevelamer Carbonate (Renvela) 800 mg PO TID [facility] Last Admin: 05/20/18 17:35 Dose: 800 mg Vitamin B Complex/Vit C/Folic Acid (Nephro-Tana) 1 tab PO DAILY [facility] Last Admin: 05/20/18 11:08 Dose: 1 tab - Labs Labs: 05/20/18 07:00 05/18/18 05:45 PT 9.8 Seconds (9.8-13.1) 05/05/18 19:05 INR 0.9 05/05/18 19:05 APTT 28.3 Seconds (25.6-37.1) 05/05/18 19:05 - Constitutional Appears: Non-toxic, No Acute Distress - Head Exam Head Exam: ATRAUMATIC, NORMAL INSPECTION, NORMOCEPHALIC - Eye Exam Eye Exam: Normal appearance - ENT Exam ENT Exam: Mucous Membranes Moist - Neck Exam Neck Exam: Full ROM. absent: Tenderness Additional comments: Right Subclavian permacath looks in place with sutures intact. Clean site. No clinical signs of active bacterial infection, No erythema, No edema, No pus, No tenderness. - Respiratory Exam Respiratory Exam: Clear to Ausculation Bilateral, NORMAL BREATHING PATTERN. absent: Decreased Breath Sounds, Rales, Rhonchi, Wheezes, Respiratory Distress - Cardiovascular Exam Cardiovascular Exam: REGULAR RHYTHM, RRR - GI/Abdominal Exam GI & Abdominal Exam: Soft, Normal Bowel Sounds. absent: Distended, Tenderness - Extremities Exam Extremities Exam: Normal Capillary Refill, Normal Inspection Additional comments: left hand cellulitis improved - Neurological Exam Neurological Exam: Alert, Awake, Oriented x3 - Psychiatric Exam Psychiatric exam: Normal Affect, Normal Mood - Skin Skin Exam: Dry, Intact, Normal Color, Warm Assessment and Plan - Assessment and Plan (Free Text) Assessment: 42 y/o female patient admitted Acute on chronic kidney injury secondary to dehydration, enterocolitis, and acute on chronic anemia, Now ESRD. Patient will continue with HD treatments TTS. Plan: ESRD - HD via Permacath (placed on 05/12/18) - Nephrology on board - HD: TTS - Still waiting to find an outpatient dialysis for the patient, possible AV fistula. Left hand cellulitis - most likely secondary to contamination at site of previous line - improving - keflex 500 mg PO Q12h day #3 - lactobacillus acidophilus 1 cap PO BID Metabolic Acidosis secondary to LYNETTE - Resolved Enterocolitis - resolved Diffuse nonspecific anasarca on CT with low albumin - Status post 3 doses of albumin infusion Hypertension - improving control - Losartan 50 mg PO QD - C/w Coreg 12.5 mg - Labetolol IV 20mg PRN if BP >200 systolic - Hydralzine 10mg PO TID - Clonidine 0.2mg BID IDDM-type II - uncontrolled - elevated fasting BS - HBA1C 7.1 on 05/2018 - Levemir to 20 Units - lispro high dose Correction scale - Hypoglycemic protocol HLD - c/w with home statin therapy DVT PPX - Heparin 5000 U Q12H Lines - Right Subclavian permacath Constipation - Metamulcil packet QD - Dulcolax 5mg PO once Code Status - Full CODE
[2018-05-21] MEDS: Psyllium Packet PO SCH (09:02)
[2018-05-21] MEDS: Insulin Lispro (humaLOG) 100 Units/ml Inj SC SCH ×4 (09:05→22:21)
[2018-05-21] MEDS: Multivitamin Vitamin B Complex (Nephro-Vite) Tab PO SCH (09:06)
--- NOTE | 2018-05-21 10:49 | CP.PCM.PN ---
Subjective - Date & Time of Evaluation Date of Evaluation: 05/21/18 Time of Evaluation: 10:48 - Subjective Subjective: RENAL: seen and examined no events o/n o:vs reviewed gen: nad sclera: anicteric op: clear neck: Supplec cv: +s1+s2 no rub lungs cta abd: soft nt/nd no organomegaly ext: no edema neuro: a+ox3 psych: nml affect skin: no rash imp: ESRD TTS Diabetic chronic Kidney Disease (E11.22) Hypertensive Chronic Kidney Disease (I12.0) Anemia (D64.9), Hyperphosphatemia (E83.39), Secondary Hyperparathyroidism (E21.1), HTN (I12.0) obesity Plan: HD as TTS schedule, continue Continue with Nephrovite 1 tab/day. prbc as needed by primary, on valente continue phos binder bp stable Glycemic control, Dialysis consistent diet Further work up/management as per primary team Dose meds/antibiotics (if needed) for ESRD status. Avoid fleets enema/magnesium based laxatives. Objective - Vital Signs/Intake and Output Vital Signs (last 24 hours): Temp Pulse Resp BP Pulse Ox 98.7 F 82 20 166/96 H 95 05/21/18 08:19 05/21/18 08:19 05/21/18 08:19 05/21/18 08:19 05/21/18 08:19 - Medications Medications: Current Medications Acetaminophen (Tylenol 325mg Tab) 650 mg PO Q6 PRN PRN Reason: Pain, Mild (1-3) Last Admin: 05/19/18 20:55 Dose: 650 mg Atorvastatin Calcium (Lipitor) 40 mg PO HS [facility] Last Admin: 05/20/18 21:27 Dose: 40 mg Calcitriol (Rocaltrol) 0.25 mcg PO DAILY [facility] Last Admin: 05/21/18 09:02 Dose: 0.25 mcg Cephalexin Monohydrate (Keflex) 500 mg PO Q12 [facility]; Protocol Last Admin: 05/21/18 09:06 Dose: 500 mg Clonidine HCl (Catapres) 0.2 mg PO BID [facility] Last Admin: 05/21/18 09:06 Dose: 0.2 mg Ergocalciferol (Drisdol 50,000 Intl Units Cap) 1 cap PO Q7D [facility] Last Admin: 11/12/18 17:55 Dose: 1 cap Famotidine (Pepcid) 40 mg PO DAILY [facility] Last Admin: 05/21/18 09:07 Dose: 40 mg Glipizide (Glucotrol) 5 mg PO ACB [facility] Last Admin: 05/21/18 09:02 Dose: 5 mg Heparin Sodium (Porcine) (Heparin) 5,000 units SC Q12 [facility]; Protocol Last Admin: 05/21/18 09:04 Dose: 5,000 units Hydralazine HCl (Apresoline) 50 mg PO TID [facility] Last Admin: 05/21/18 09:03 Dose: 50 mg Insulin Detemir (Levemir) 20 units SC HS [facility] Last Admin: 05/20/18 21:27 Dose: 20 u Insulin Human Lispro (Humalog) 0 units SC ACHS [facility]; Protocol Last Admin: 05/21/18 09:05 Dose: 2 units Lactobacillus Acidophilus (Bacid Acidophilus) 1 cap PO BID [facility] Losartan Potassium (Cozaar) 50 mg PO QPM [facility] Last Admin: 05/20/18 18:51 Dose: 50 mg Ondansetron HCl (Zofran Inj) 4 mg IVP Q6 PRN PRN Reason: Nausea/Vomiting Last Admin: 05/08/18 10:59 Dose: 4 mg Psyllium Hydrophilic Mucilloid (Hydrocil Instant) 1 pkt PO DAILY [facility] Last Admin: 05/21/18 09:02 Dose: 1 pkt Sevelamer Carbonate (Renvela) 800 mg PO TID [facility] Last Admin: 05/21/18 09:02 Dose: 800 mg Vitamin B Complex/Vit C/Folic Acid (Nephro-Tana) 1 tab PO DAILY [facility] Last Admin: 05/21/18 09:06 Dose: 1 tab - Labs Labs: 05/20/18 07:00 05/18/18 05:45 PT 9.8 Seconds (9.8-13.1) 05/05/18 19:05 INR 0.9 05/05/18 19:05 APTT 28.3 Seconds (25.6-37.1) 05/05/18 19:05
[2018-05-21] MEDS: Lactobacillus Acidophilus 500 MU Cap PO SCH ×2 (12:45→17:33)
[2018-05-21] MEDS: Insulin Detemir 100 Units/ml Inj SC SCH (22:20)
[2018-05-22] MEDS: Lactobacillus Acidophilus 500 MU Cap PO SCH ×2 (08:40→17:27)
[2018-05-22] MEDS: Psyllium Packet PO SCH (08:42)
[2018-05-22] MEDS: Multivitamin Vitamin B Complex (Nephro-Vite) Tab PO SCH (08:43)
[2018-05-22] MEDS: Insulin Lispro (humaLOG) 100 Units/ml Inj SC SCH ×3 (08:57→17:34)
--- NOTE | 2018-05-22 09:33 | CP.PCM.PN ---
Subjective - Date & Time of Evaluation Date of Evaluation: 05/22/18 Time of Evaluation: 09:25 - Subjective Subjective: Patient seen and evaluated at bedside. No acute events overnight. Patient is Afebrile. Patient states that she had bowel motion in Tuesday. Patient had HD session in Tuesday. Patient was sitting in her bed comfortably, NAD. Patient BP is improving and controlled. Blood sugar remain uncontrolled. No new complaints nor concerns. She denies any overnight F/N/V/C or SOB. Objective - Vital Signs/Intake and Output Vital Signs (last 24 hours): Temp Pulse Resp BP Pulse Ox 97.7 F 85 19 148/66 95 05/22/18 07:57 05/22/18 08:40 05/22/18 07:57 05/22/18 08:40 05/22/18 07:57 - Medications Medications: Current Medications Acetaminophen (Tylenol 325mg Tab) 650 mg PO Q6 PRN PRN Reason: Pain, Mild (1-3) Last Admin: 05/19/18 20:55 Dose: 650 mg Atorvastatin Calcium (Lipitor) 40 mg PO HS [facility] Last Admin: 05/21/18 22:19 Dose: 40 mg Calcitriol (Rocaltrol) 0.25 mcg PO DAILY [facility] Last Admin: 05/22/18 08:44 Dose: 0.25 mcg Cephalexin Monohydrate (Keflex) 500 mg PO Q12 [facility]; Protocol Last Admin: 05/22/18 08:42 Dose: 500 mg Clonidine HCl (Catapres) 0.2 mg PO BID [facility] Last Admin: 05/22/18 08:40 Dose: 0.2 mg Ergocalciferol (Drisdol 50,000 Intl Units Cap) 1 cap PO Q7D [facility] Last Admin: 05/15/18 17:55 Dose: 1 cap Famotidine (Pepcid) 40 mg PO DAILY [facility] Last Admin: 05/22/18 08:43 Dose: 40 mg Glipizide (Glucotrol) 10 mg PO ACB [facility] Heparin Sodium (Porcine) (Heparin) 5,000 units SC Q12 [facility]; Protocol Last Admin: 05/22/18 08:41 Dose: 5,000 units Hydralazine HCl (Apresoline) 50 mg PO TID [facility] Last Admin: 05/22/18 08:40 Dose: 50 mg Insulin Detemir (Levemir) 20 units SC HS [facility] Last Admin: 05/21/18 22:20 Dose: 20 u Insulin Human Lispro (Humalog) 0 units SC ACHS [facility]; Protocol Last Admin: 05/22/18 08:57 Dose: 4 units Lactobacillus Acidophilus (Bacid Acidophilus) 1 cap PO BID [facility] Last Admin: 05/22/18 08:40 Dose: 1 cap Losartan Potassium (Cozaar) 50 mg PO QPM [facility] Last Admin: 05/21/18 17:34 Dose: 50 mg Ondansetron HCl (Zofran Inj) 4 mg IVP Q6 PRN PRN Reason: Nausea/Vomiting Last Admin: 05/08/18 10:59 Dose: 4 mg Psyllium Hydrophilic Mucilloid (Hydrocil Instant) 1 pkt PO DAILY [facility] Last Admin: 05/22/18 08:42 Dose: 1 pkt Sevelamer Carbonate (Renvela) 800 mg PO TID [facility] Last Admin: 05/22/18 08:44 Dose: 800 mg Vitamin B Complex/Vit C/Folic Acid (Nephro-Tana) 1 tab PO DAILY [facility] Last Admin: 05/22/18 08:43 Dose: 1 tab - Labs Labs: 05/20/18 07:00 05/18/18 05:45 PT 9.8 Seconds (9.8-13.1) 05/05/18 19:05 INR 0.9 05/05/18 19:05 APTT 28.3 Seconds (25.6-37.1) 05/05/18 19:05 - Constitutional Appears: Well, Non-toxic, No Acute Distress - Head Exam Head Exam: ATRAUMATIC, NORMOCEPHALIC - Eye Exam Eye Exam: EOMI, Normal appearance, PERRL Pupil Exam: NORMAL ACCOMODATION, PERRL - ENT Exam ENT Exam: Mucous Membranes Moist, Normal Exam - Neck Exam Neck Exam: Full ROM, Normal Inspection Additional comments: Right Subclavian permacath looks in place with sutures intact. Clean site. No clinical signs of active bacterial infection, No erythema, No edema, No pus, No tenderness. - Respiratory Exam Respiratory Exam: Clear to Ausculation Bilateral, NORMAL BREATHING PATTERN - Cardiovascular Exam Cardiovascular Exam: REGULAR RHYTHM, RRR - GI/Abdominal Exam GI & Abdominal Exam: Soft, Normal Bowel Sounds - Extremities Exam Extremities Exam: Normal Capillary Refill, Normal Inspection Additional comments: red, tender minimally swollen area noted on the lateral aspect of the left forearm. - Back Exam Back Exam: NORMAL INSPECTION - Neurological Exam Neurological Exam: Alert, Awake, Oriented x3 Neuro motor strength exam: Left Upper Extremity: 5, Right Upper Extremity: 5, Left Lower Extremity: 5, Right Lower Extremity: 5 - Psychiatric Exam Psychiatric exam: Normal Affect, Normal Mood - Skin Skin Exam: Dry, Intact, Normal Color, Warm Assessment and Plan - Assessment and Plan (Free Text) Assessment: 42 y/o female patient admitted Acute on chronic kidney injury 2ry to dehydration, enterocolitis, and acute on chronic anemia, Now ESRD.Patient will continue with HD treatments TTS. Plan: ESRD - HD via Permacath (placed on 05/12/18) - Nephrology on board - HD: TTS - Still waiting to find an outpatient dialysis for the patient, possible AV fistula. Left hand cellulitis - most likely secondary to contamination at site of previous line - improving - keflex 500 mg PO Q12h day #4 - lactobacillus acidophilus 1 cap PO BID Metabolic Acidosis secondary to LYNETTE - Resolved Enterocolitis - resolved Diffuse nonspecific anasarca on CT with low albumin - Status post 3 doses of albumin infusion Hypertension - improving control - Losartan 50 mg PO QD - C/w Coreg 12.5 mg - Labetolol IV 20mg PRN if BP >200 systolic - Hydralzine 10mg PO TID - Clonidine 0.2mg BID IDDM-type II - uncontrolled - elevated fasting BS - HBA1C 7.1 on 05/2018 - Levemir to 20 Units - lispro high dose Correction scale - Glucotrol 10 mg PO - Hypoglycemic protocol HLD - c/w with home statin therapy DVT PPX - Heparin 5000 U Q12H Lines - Right Subclavian permacath Constipation - Metamulcil packet QD - Dulcolax 5mg PO once Code Status - Full CODE
--- NOTE | 2018-05-22 10:18 | CP.PCM.PN ---
Subjective - Date & Time of Evaluation Date of Evaluation: 05/22/18 Time of Evaluation: 10:16 - Subjective Subjective: patient awake and conscious not in any distress and stable Objective - Vital Signs/Intake and Output Vital Signs (last 24 hours): Temp Pulse Resp BP Pulse Ox 97.7 F 85 19 148/66 95 05/22/18 07:57 05/22/18 08:40 05/22/18 07:57 05/22/18 08:40 05/22/18 07:57 - Medications Medications: Current Medications Acetaminophen (Tylenol 325mg Tab) 650 mg PO Q6 PRN PRN Reason: Pain, Mild (1-3) Last Admin: 05/19/18 20:55 Dose: 650 mg Atorvastatin Calcium (Lipitor) 40 mg PO HS [facility] Last Admin: 05/21/18 22:19 Dose: 40 mg Calcitriol (Rocaltrol) 0.25 mcg PO DAILY [facility] Last Admin: 05/22/18 08:44 Dose: 0.25 mcg Cephalexin Monohydrate (Keflex) 500 mg PO Q12 [facility]; Protocol Last Admin: 05/22/18 08:42 Dose: 500 mg Clonidine HCl (Catapres) 0.2 mg PO BID [facility] Last Admin: 05/22/18 08:40 Dose: 0.2 mg Ergocalciferol (Drisdol 50,000 Intl Units Cap) 1 cap PO Q7D [facility] Last Admin: 05/15/18 17:55 Dose: 1 cap Famotidine (Pepcid) 40 mg PO DAILY [facility] Last Admin: 05/22/18 08:43 Dose: 40 mg Glipizide (Glucotrol) 10 mg PO ACB [facility] Heparin Sodium (Porcine) (Heparin) 5,000 units SC Q12 [facility]; Protocol Last Admin: 05/22/18 08:41 Dose: 5,000 units Hydralazine HCl (Apresoline) 50 mg PO TID [facility] Last Admin: 05/22/18 08:40 Dose: 50 mg Insulin Detemir (Levemir) 20 units SC HS [facility] Last Admin: 05/21/18 22:20 Dose: 20 u Insulin Human Lispro (Humalog) 0 units SC ACHS [facility]; Protocol Last Admin: 05/22/18 08:57 Dose: 4 units Lactobacillus Acidophilus (Bacid Acidophilus) 1 cap PO BID [facility] Last Admin: 05/22/18 08:40 Dose: 1 cap Losartan Potassium (Cozaar) 50 mg PO QPM [facility] Last Admin: 05/21/18 17:34 Dose: 50 mg Ondansetron HCl (Zofran Inj) 4 mg IVP Q6 PRN PRN Reason: Nausea/Vomiting Last Admin: 05/08/18 10:59 Dose: 4 mg Psyllium Hydrophilic Mucilloid (Hydrocil Instant) 1 pkt PO DAILY [facility] Last Admin: 05/22/18 08:42 Dose: 1 pkt Sevelamer Carbonate (Renvela) 800 mg PO TID [facility] Last Admin: 05/22/18 08:44 Dose: 800 mg Vitamin B Complex/Vit C/Folic Acid (Nephro-Tana) 1 tab PO DAILY [facility] Last Admin: 05/22/18 08:43 Dose: 1 tab - Labs Labs: 05/20/18 07:00 05/18/18 05:45 PT 9.8 Seconds (9.8-13.1) 05/05/18 19:05 INR 0.9 05/05/18 19:05 APTT 28.3 Seconds (25.6-37.1) 05/05/18 19:05 - Constitutional Appears: No Acute Distress - Eye Exam Eye Exam: Conjunctival injection - ENT Exam ENT Exam: absent: Mucous Membranes Moist - Respiratory Exam Respiratory Exam: NORMAL BREATHING PATTERN. absent: Chest Wall Tenderness - Extremities Exam Extremities Exam: absent: Calf Tenderness - Back Exam Back Exam: absent: CVA tenderness (L), CVA tenderness (R) - Neurological Exam Neurological Exam: Alert - Psychiatric Exam Psychiatric exam: Normal Affect - Skin Skin Exam: absent: Cyanosis Assessment and Plan (1) Chronic kidney disease with end stage renal failure on dialysis Assessment & Plan: Assessment & Plan: end stage renal disease patient requiring dialysis TTS Diabetic kidney disease with diabetes mellitus Hypertension Anasarca reported on CT scan of the abdomen appeared to be resolving Anemia Hyperphosphatemia Secondary hyperparathyroidism Hypoalbuminemia The plan waiting for placement Continue hemodialysis TTS Patient went for permacath today EPO on dialysis for anemia Phosphorus binders Patient to go to [facility] dialysis as outpatient Spot urine for protein to creatinine ratio remain pending PTH 308 add calcitriol 0.25 g daily Ultrasound of the kidney nonspecific Please call dietitian for hypoalbuminemia and diet instruction Status: Acute (2) Anemia in chronic kidney disease, on chronic dialysis Status: Acute
[2018-05-22] MEDS: Ergocalciferol 50,000 Intl Units Cap PO SCH (12:29)
[2018-05-23] MEDS: Insulin Lispro (humaLOG) 100 Units/ml Inj SC SCH ×5 (00:09→22:45)
[2018-05-23] MEDS: Insulin Detemir 100 Units/ml Inj SC SCH ×2 (00:09→22:40)
[2018-05-23] MEDS: Lactobacillus Acidophilus 500 MU Cap PO SCH ×2 (08:42→17:25)
[2018-05-23] MEDS: Multivitamin Vitamin B Complex (Nephro-Vite) Tab PO SCH (08:46)
[2018-05-23] MEDS: Psyllium Packet PO SCH (08:51)
--- NOTE | 2018-05-23 10:30 | CP.PCM.PN ---
<Fidencio June - Last Filed: 05/23/18 10:32> Subjective - Date & Time of Evaluation Date of Evaluation: 05/23/18 Time of Evaluation: 10:25 - Subjective Subjective: Patient seen and evaluated at bedside. No acute events overnight. Patient is Afebrile. Patient states that she had bowel motion in Tuesday. Patient will have her HD session today. Patient was sitting in her bed comfortably, NAD. Blood sugar started to get improved. No new complaints nor concerns. She denies any overnight F/N/V/C or SOB. Objective - Vital Signs/Intake and Output Vital Signs (last 24 hours): Temp Pulse Resp BP Pulse Ox 98.8 F 82 20 130/82 97 05/23/18 07:57 05/23/18 07:57 05/23/18 07:57 05/23/18 07:57 05/23/18 07:57 - Medications Medications: Current Medications Acetaminophen (Tylenol 325mg Tab) 650 mg PO Q6 PRN PRN Reason: Pain, Mild (1-3) Last Admin: 05/19/18 20:55 Dose: 650 mg Atorvastatin Calcium (Lipitor) 40 mg PO HS [facility] Last Admin: 05/23/18 00:10 Dose: 40 mg Calcitriol (Rocaltrol) 0.25 mcg PO DAILY [facility] Last Admin: 05/23/18 08:46 Dose: 0.25 mcg Cephalexin Monohydrate (Keflex) 500 mg PO Q12 [facility]; Protocol Last Admin: 05/23/18 08:45 Dose: 500 mg Clonidine HCl (Catapres) 0.2 mg PO BID [facility] Last Admin: 05/22/18 17:23 Dose: Not Given Ergocalciferol (Drisdol 50,000 Intl Units Cap) 1 cap PO Q7D [facility] Last Admin: 05/22/18 12:29 Dose: 1 cap Famotidine (Pepcid) 40 mg PO DAILY [facility] Last Admin: 05/22/18 08:43 Dose: 40 mg Glipizide (Glucotrol) 10 mg PO ACB [facility] Last Admin: 05/23/18 08:43 Dose: 10 mg Heparin Sodium (Porcine) (Heparin) 5,000 units SC Q12 [facility]; Protocol Last Admin: 05/23/18 08:46 Dose: 5,000 units Hydralazine HCl (Apresoline) 50 mg PO TID [facility] Last Admin: 05/22/18 17:23 Dose: Not Given Insulin Detemir (Levemir) 20 units SC HS [facility] Last Admin: 05/23/18 00:09 Dose: 20 u Insulin Human Lispro (Humalog) 0 units SC ACHS [facility]; Protocol Last Admin: 05/23/18 08:47 Dose: 4 units Lactobacillus Acidophilus (Bacid Acidophilus) 1 cap PO BID [facility] Last Admin: 05/23/18 08:42 Dose: 1 cap Losartan Potassium (Cozaar) 50 mg PO QPM [facility] Last Admin: 05/22/18 17:31 Dose: 50 mg Ondansetron HCl (Zofran Inj) 4 mg IVP Q6 PRN PRN Reason: Nausea/Vomiting Last Admin: 05/08/18 10:59 Dose: 4 mg Psyllium Hydrophilic Mucilloid (Hydrocil Instant) 1 pkt PO DAILY [facility] Last Admin: 05/23/18 08:51 Dose: 1 pkt Sevelamer Carbonate (Renvela) 800 mg PO TID [facility] Last Admin: 05/23/18 08:46 Dose: 800 mg Vitamin B Complex/Vit C/Folic Acid (Nephro-Tana) 1 tab PO DAILY [facility] Last Admin: 05/23/18 08:46 Dose: 1 tab - Labs Labs: 05/20/18 07:00 05/18/18 05:45 PT 9.8 Seconds (9.8-13.1) 05/05/18 19:05 INR 0.9 05/05/18 19:05 APTT 28.3 Seconds (25.6-37.1) 05/05/18 19:05 - Constitutional Appears: Well, Non-toxic, No Acute Distress - Head Exam Head Exam: ATRAUMATIC, NORMOCEPHALIC - Eye Exam Eye Exam: EOMI, Normal appearance, PERRL Pupil Exam: NORMAL ACCOMODATION, PERRL - ENT Exam ENT Exam: Mucous Membranes Moist, Normal Exam - Neck Exam Neck Exam: Full ROM, Normal Inspection Additional comments: Right Subclavian permacath looks in place with sutures intact. Clean site. No clinical signs of active bacterial infection, No erythema, No edema, No pus, No tenderness. - Respiratory Exam Respiratory Exam: Clear to Ausculation Bilateral, NORMAL BREATHING PATTERN - Cardiovascular Exam Cardiovascular Exam: REGULAR RHYTHM, RRR - GI/Abdominal Exam GI & Abdominal Exam: Soft, Normal Bowel Sounds - Extremities Exam Extremities Exam: Full ROM, Normal Capillary Refill, Normal Inspection Additional comments: red, tender minimally swollen area noted on the lateral aspect of the left forearm. - Back Exam Back Exam: NORMAL INSPECTION - Neurological Exam Neurological Exam: Alert, Awake, Oriented x3 Neuro motor strength exam: Left Upper Extremity: 5, Right Upper Extremity: 5, Left Lower Extremity: 5, Right Lower Extremity: 5 - Psychiatric Exam Psychiatric exam: Normal Affect, Normal Mood - Skin Skin Exam: Dry, Intact, Normal Color, Warm Assessment and Plan - Assessment and Plan (Free Text) Assessment: 42 y/o female patient admitted Acute on chronic kidney injury 2ry to dehydration, enterocolitis, and acute on chronic anemia, Now ESRD.Patient will continue with HD treatments TTS. Plan: ESRD - HD via Permacath (placed on 05/12/18) - Nephrology on board - HD: TTS - Still waiting to find an outpatient dialysis for the patient, possible AV fistula. - Consulted Vascular surgery at [facility] for AV fistula surgery. Left hand cellulitis - most likely secondary to contamination at site of previous line - improving - keflex 500 mg PO Q12h day #5 - lactobacillus acidophilus 1 cap PO BID Metabolic Acidosis secondary to LYNETTE - Resolved Enterocolitis - resolved Diffuse nonspecific anasarca on CT with low albumin - Status post 3 doses of albumin infusion Hypertension - improving control - Losartan 50 mg PO QD - C/w Coreg 12.5 mg - Labetolol IV 20mg PRN if BP >200 systolic - Hydralzine 10mg PO TID - Clonidine 0.2mg BID IDDM-type II - uncontrolled - elevated fasting BS - HBA1C 7.1 on 05/2018 - Levemir to 20 Units - lispro high dose Correction scale - Glucotrol 10 mg PO - Hypoglycemic protocol HLD - c/w with home statin therapy DVT PPX - Heparin 5000 U Q12H Lines - Right Subclavian permacath Constipation - Metamulcil packet QD - Dulcolax 5mg PO once Code Status - Full CODE <Caitlyn Perez - Last Filed: 05/23/18 17:20> Objective - Vital Signs/Intake and Output Vital Signs (last 24 hours): Temp Pulse Resp BP Pulse Ox 98.4 F 82 18 166/91 H 100 05/23/18 15:57 05/23/18 15:57 05/23/18 15:57 05/23/18 15:57 05/23/18 15:57 - Medications Medications: Current Medications Acetaminophen (Tylenol 325mg Tab) 650 mg PO Q6 PRN PRN Reason: Pain, Mild (1-3) Last Admin: 05/19/18 20:55 Dose: 650 mg Atorvastatin Calcium (Lipitor) 40 mg PO HS [facility] Last Admin: 05/23/18 00:10 Dose: 40 mg Calcitriol (Rocaltrol) 0.25 mcg PO DAILY [facility] Last Admin: 05/23/18 08:46 Dose: 0.25 mcg Cephalexin Monohydrate (Keflex) 500 mg PO Q12 [facility]; Protocol Last Admin: 05/23/18 08:45 Dose: 500 mg Clonidine HCl (Catapres) 0.2 mg PO BID [facility] Last Admin: 05/23/18 09:00 Dose: Not Given Ergocalciferol (Drisdol 50,000 Intl Units Cap) 1 cap PO Q7D [facility] Last Admin: 05/22/18 12:29 Dose: 1 cap Famotidine (Pepcid) 40 mg PO DAILY [facility] Last Admin: 05/23/18 12:24 Dose: 40 mg Glipizide (Glucotrol) 10 mg PO ACB [facility] Last Admin: 05/23/18 08:43 Dose: 10 mg Heparin Sodium (Porcine) (Heparin) 5,000 units SC Q12 [facility]; Protocol Last Admin: 05/23/18 08:46 Dose: 5,000 units Hydralazine HCl (Apresoline) 50 mg PO TID [facility] Last Admin: 05/23/18 12:22 Dose: Not Given Insulin Detemir (Levemir) 20 units SC HS [facility] Last Admin: 05/23/18 00:09 Dose: 20 u Insulin Human Lispro (Humalog) 0 units SC [facility]; Protocol Last Admin: 05/23/18 16:23 Dose: Not Given Lactobacillus Acidophilus (Bacid Acidophilus) 1 cap PO BID [facility] Last Admin: 05/23/18 08:42 Dose: 1 cap Losartan Potassium (Cozaar) 50 mg PO QPM [facility] Last Admin: 05/22/18 17:31 Dose: 50 mg Ondansetron HCl (Zofran Inj) 4 mg IVP Q6 PRN PRN Reason: Nausea/Vomiting Last Admin: 05/08/18 10:59 Dose: 4 mg Psyllium Hydrophilic Mucilloid (Hydrocil Instant) 1 pkt PO DAILY [facility] Last Admin: 05/23/18 08:51 Dose: 1 pkt Sevelamer Carbonate (Renvela) 800 mg PO TID [facility] Last Admin: 05/23/18 12:25 Dose: 800 mg Vitamin B Complex/Vit C/Folic Acid (Nephro-Tana) 1 tab PO DAILY [facility] Last Admin: 05/23/18 08:46 Dose: 1 tab - Labs Labs: 05/20/18 07:00 05/18/18 05:45 PT 9.8 Seconds (9.8-13.1) 05/05/18 19:05 INR 0.9 05/05/18 19:05 APTT 28.3 Seconds (25.6-37.1) 05/05/18 19:05 Attending/Attestation - Attestation I have personally seen and examined this patient.: Yes I have fully participated in the care of the patient.: Yes I have reviewed all pertinent clinical information, including history, physical exam and plan: Yes Notes (Text): 05/23/18 17:20 Seen examined and discussed with resident. Agree with findings and plan as above.
--- NOTE | 2018-05-23 13:49 | CP.PCM.PN ---
Subjective - Date & Time of Evaluation Date of Evaluation: 05/23/18 Time of Evaluation: 13:49 - Subjective Subjective: dialysis note she was seen on hemodialysis now. Vital signs stable. Patient tolerating hemodialysis. Objective - Vital Signs/Intake and Output Vital Signs (last 24 hours): Temp Pulse Resp BP Pulse Ox 98.8 F 98 H 20 130/82 97 05/23/18 09:00 05/23/18 12:22 05/23/18 09:00 05/23/18 12:22 05/23/18 09:00 - Medications Medications: Current Medications Acetaminophen (Tylenol 325mg Tab) 650 mg PO Q6 PRN PRN Reason: Pain, Mild (1-3) Last Admin: 05/19/18 20:55 Dose: 650 mg Atorvastatin Calcium (Lipitor) 40 mg PO HS [facility] Last Admin: 05/23/18 00:10 Dose: 40 mg Calcitriol (Rocaltrol) 0.25 mcg PO DAILY [facility] Last Admin: 05/23/18 08:46 Dose: 0.25 mcg Cephalexin Monohydrate (Keflex) 500 mg PO Q12 [facility]; Protocol Last Admin: 05/23/18 08:45 Dose: 500 mg Clonidine HCl (Catapres) 0.2 mg PO BID [facility] Last Admin: 05/23/18 09:00 Dose: Not Given Ergocalciferol (Drisdol 50,000 Intl Units Cap) 1 cap PO Q7D [facility] Last Admin: 05/22/18 12:29 Dose: 1 cap Famotidine (Pepcid) 40 mg PO DAILY [facility] Last Admin: 05/23/18 12:24 Dose: 40 mg Glipizide (Glucotrol) 10 mg PO ACB [facility] Last Admin: 05/23/18 08:43 Dose: 10 mg Heparin Sodium (Porcine) (Heparin) 5,000 units SC Q12 [facility]; Protocol Last Admin: 05/23/18 08:46 Dose: 5,000 units Hydralazine HCl (Apresoline) 50 mg PO TID [facility] Last Admin: 05/23/18 12:22 Dose: Not Given Insulin Detemir (Levemir) 20 units SC HS [facility] Last Admin: 05/23/18 00:09 Dose: 20 u Insulin Human Lispro (Humalog) 0 units SC ACHS [facility]; Protocol Last Admin: 05/23/18 12:27 Dose: 8 units Lactobacillus Acidophilus (Bacid Acidophilus) 1 cap PO BID [facility] Last Admin: 05/23/18 08:42 Dose: 1 cap Losartan Potassium (Cozaar) 50 mg PO QPM [facility] Last Admin: 05/22/18 17:31 Dose: 50 mg Ondansetron HCl (Zofran Inj) 4 mg IVP Q6 PRN PRN Reason: Nausea/Vomiting Last Admin: 05/08/18 10:59 Dose: 4 mg Psyllium Hydrophilic Mucilloid (Hydrocil Instant) 1 pkt PO DAILY [facility] Last Admin: 05/23/18 08:51 Dose: 1 pkt Sevelamer Carbonate (Renvela) 800 mg PO TID [facility] Last Admin: 05/23/18 12:25 Dose: 800 mg Vitamin B Complex/Vit C/Folic Acid (Nephro-Tana) 1 tab PO DAILY [facility] Last Admin: 05/23/18 08:46 Dose: 1 tab - Labs Labs: 05/20/18 07:00 05/18/18 05:45 PT 9.8 Seconds (9.8-13.1) 05/05/18 19:05 INR 0.9 05/05/18 19:05 APTT 28.3 Seconds (25.6-37.1) 05/05/18 19:05 - Constitutional Appears: No Acute Distress - Eye Exam Eye Exam: Conjunctival injection - ENT Exam ENT Exam: Mucous Membranes Moist - Neck Exam Neck Exam: absent: Lymphadenopathy - Respiratory Exam Respiratory Exam: NORMAL BREATHING PATTERN. absent: Chest Wall Tenderness - Cardiovascular Exam Cardiovascular Exam: REGULAR RHYTHM. absent: Gallop - Extremities Exam Extremities Exam: absent: Calf Tenderness - Back Exam Back Exam: absent: CVA tenderness (L), CVA tenderness (R) - Neurological Exam Neurological Exam: Alert - Psychiatric Exam Psychiatric exam: Normal Affect - Skin Skin Exam: absent: Cyanosis Assessment and Plan (1) Chronic kidney disease with end stage renal failure on dialysis Assessment & Plan: Assessment & Plan: end stage renal disease patient requiring dialysis Diabetic kidney disease with diabetes mellitus Hypertension Anasarca reported on CT scan of the abdomen appeared to be resolving Anemia Hyperphosphatemia Secondary hyperparathyroidism Hypoalbuminemia The plan she was seen on hemodialysis now. no problems reported with the dialysis catheter today. Continue hemodialysis TTS EPO on dialysis for anemia Phosphorus binders Patient to go to [facility] dialysis as outpatient PTH [id number] add calcitriol 0.25 g daily Ultrasound of the kidney nonspecific Please call dietitian for hypoalbuminemia and diet instruction please call vascular for AV fistula Status: Acute (2) Anemia in chronic kidney disease, on chronic dialysis Status: Acute
[2018-05-24] MEDS: Psyllium Packet PO SCH (08:36)
[2018-05-24] MEDS: Lactobacillus Acidophilus 500 MU Cap PO SCH ×2 (08:39→16:24)
[2018-05-24] MEDS: Insulin Lispro (humaLOG) 100 Units/ml Inj SC SCH ×4 (08:41→22:07)
[2018-05-24] MEDS: Multivitamin Vitamin B Complex (Nephro-Vite) Tab PO SCH (08:43)
--- NOTE | 2018-05-24 10:27 | CP.PCM.PN ---
<Fidencio June - Last Filed: 05/24/18 10:22> Subjective - Date & Time of Evaluation Date of Evaluation: 05/24/18 Time of Evaluation: 10:22 - Subjective Subjective: Patient seen and evaluated at bedside. No acute events overnight. Patient is Afebrile. Patient states that she had bowel motion in yesterday. Patient states that she had HD session yesterday. Patient was sitting in her bed comfortably, NAD. Blood sugar is improving. No new complaints nor concerns. She denies any overnight F/N/V/C or SOB. Objective - Vital Signs/Intake and Output Vital Signs (last 24 hours): Temp Pulse Resp BP Pulse Ox 98.1 F 81 20 155/76 H 98 05/24/18 08:27 05/24/18 08:27 05/24/18 08:27 05/24/18 08:27 05/24/18 08:27 - Medications Medications: Current Medications Acetaminophen (Tylenol 325mg Tab) 650 mg PO Q6 PRN PRN Reason: Pain, Mild (1-3) Last Admin: 05/23/18 18:50 Dose: 650 mg Atorvastatin Calcium (Lipitor) 40 mg PO HS [facility] Last Admin: 05/23/18 22:39 Dose: 40 mg Calcitriol (Rocaltrol) 0.25 mcg PO DAILY [facility] Last Admin: 05/24/18 08:43 Dose: 0.25 mcg Cephalexin Monohydrate (Keflex) 500 mg PO Q12 [facility]; Protocol Last Admin: 05/24/18 08:44 Dose: 500 mg Clonidine HCl (Catapres) 0.2 mg PO BID [facility] Last Admin: 05/24/18 08:45 Dose: 0.2 mg Ergocalciferol (Drisdol 50,000 Intl Units Cap) 1 cap PO Q7D [facility] Last Admin: 05/22/18 12:29 Dose: 1 cap Famotidine (Pepcid) 40 mg PO DAILY [facility] Last Admin: 05/24/18 08:43 Dose: 40 mg Glipizide (Glucotrol) 10 mg PO ACB [facility] Last Admin: 05/24/18 08:43 Dose: 10 mg Heparin Sodium (Porcine) (Heparin) 5,000 units SC Q12 [facility]; Protocol Last Admin: 05/24/18 08:40 Dose: 5,000 units Hydralazine HCl (Apresoline) 50 mg PO TID [facility] Last Admin: 05/24/18 08:42 Dose: 50 mg Insulin Detemir (Levemir) 20 units SC HS [facility] Last Admin: 05/23/18 22:40 Dose: 20 u Insulin Human Lispro (Humalog) 0 units SC ACHS [facility]; Protocol Last Admin: 05/24/18 08:41 Dose: 4 units Lactobacillus Acidophilus (Bacid Acidophilus) 1 cap PO BID [facility] Last Admin: 05/24/18 08:39 Dose: 1 cap Losartan Potassium (Cozaar) 50 mg PO QPM [facility] Last Admin: 05/23/18 17:27 Dose: 50 mg Ondansetron HCl (Zofran Inj) 4 mg IVP Q6 PRN PRN Reason: Nausea/Vomiting Last Admin: 05/08/18 10:59 Dose: 4 mg Psyllium Hydrophilic Mucilloid (Hydrocil Instant) 1 pkt PO DAILY [facility] Last Admin: 05/24/18 08:36 Dose: 1 pkt Sevelamer Carbonate (Renvela) 800 mg PO TID [facility] Last Admin: 05/24/18 08:40 Dose: 800 mg Vitamin B Complex/Vit C/Folic Acid (Nephro-Tana) 1 tab PO DAILY [facility] Last Admin: 05/24/18 08:43 Dose: 1 tab - Labs Labs: 05/20/18 07:00 05/18/18 05:45 PT 9.8 Seconds (9.8-13.1) 05/05/18 19:05 INR 0.9 05/05/18 19:05 APTT 28.3 Seconds (25.6-37.1) 05/05/18 19:05 - Constitutional Appears: Well, Non-toxic, No Acute Distress - Head Exam Head Exam: ATRAUMATIC, NORMOCEPHALIC - Eye Exam Eye Exam: EOMI, Normal appearance, PERRL Pupil Exam: NORMAL ACCOMODATION, PERRL - ENT Exam ENT Exam: Mucous Membranes Moist, Normal Exam - Neck Exam Neck Exam: Full ROM, Normal Inspection Additional comments: Right Subclavian permacath looks in place with sutures intact. Clean site. No clinical signs of active bacterial infection, No erythema, No edema, No pus, No tenderness. - Respiratory Exam Respiratory Exam: Clear to Ausculation Bilateral, NORMAL BREATHING PATTERN - Cardiovascular Exam Cardiovascular Exam: REGULAR RHYTHM, RRR - GI/Abdominal Exam GI & Abdominal Exam: Soft, Normal Bowel Sounds - Extremities Exam Extremities Exam: Full ROM, Normal Capillary Refill, Normal Inspection Additional comments: Minimally swollen, red and mildly tender area noted on the lateral aspect of the left forearm. - Back Exam Back Exam: NORMAL INSPECTION - Neurological Exam Neurological Exam: Alert, Awake, Oriented x3 Neuro motor strength exam: Left Upper Extremity: 5, Right Upper Extremity: 5, Left Lower Extremity: 5, Right Lower Extremity: 5 - Psychiatric Exam Psychiatric exam: Normal Affect, Normal Mood - Skin Skin Exam: Dry, Intact, Normal Color, Warm Assessment and Plan - Assessment and Plan (Free Text) Assessment: 42 y/o female patient admitted Acute on chronic kidney injury 2ry to dehydration, enterocolitis, and acute on chronic anemia, Now ESRD.Patient will continue with HD treatments TTS. Plan: ESRD - HD via Permacath (placed on 05/12/18) - Nephrology on board - HD: TTS - Still waiting to find an outpatient dialysis for the patient, possible AV fistula. - Consulted Vascular surgery at [facility] for AV fistula surgery. Contacting Dr. Page for arrangement of the AV fistula surgery. Left hand cellulitis - most likely secondary to contamination at site of previous line - improving - keflex 500 mg PO Q12h day #6 - lactobacillus acidophilus 1 cap PO BID Metabolic Acidosis secondary to LYNETTE - Resolved Enterocolitis - resolved Diffuse nonspecific anasarca on CT with low albumin - Status post 3 doses of albumin infusion Hypertension - improving control - Losartan 50 mg PO QD - C/w Coreg 12.5 mg - Labetolol IV 20mg PRN if BP >200 systolic - Hydralzine 10mg PO TID - Clonidine 0.2mg BID IDDM-type II - uncontrolled - elevated fasting BS - HBA1C 7.1 on 05/2018 - Levemir to 20 Units - lispro high dose Correction scale - Glucotrol 10 mg PO - Hypoglycemic protocol HLD - c/w with home statin therapy DVT PPX - Heparin 5000 U Q12H Lines - Right Subclavian permacath Constipation - Metamulcil packet QD Code Status - Full CODE <Caitlyn Perez - Last Filed: 05/24/18 18:05> Objective - Vital Signs/Intake and Output Vital Signs (last 24 hours): Temp Pulse Resp BP Pulse Ox 98.1 F 78 20 171/97 H 99 05/24/18 16:13 05/24/18 16:13 05/24/18 16:13 05/24/18 16:13 05/24/18 16:13 - Medications Medications: Current Medications Acetaminophen (Tylenol 325mg Tab) 650 mg PO Q6 PRN PRN Reason: Pain, Mild (1-3) Last Admin: 05/23/18 18:50 Dose: 650 mg Atorvastatin Calcium (Lipitor) 40 mg PO HS [facility] Last Admin: 05/23/18 22:39 Dose: 40 mg Calcitriol (Rocaltrol) 0.25 mcg PO DAILY [facility] Last Admin: 05/24/18 08:43 Dose: 0.25 mcg Cephalexin Monohydrate (Keflex) 500 mg PO Q12 [facility]; Protocol Last Admin: 05/24/18 08:44 Dose: 500 mg Clonidine HCl (Catapres) 0.2 mg PO BID [facility] Last Admin: 05/24/18 16:25 Dose: 0.2 mg Ergocalciferol (Drisdol 50,000 Intl Units Cap) 1 cap PO Q7D [facility] Last Admin: 05/22/18 12:29 Dose: 1 cap Famotidine (Pepcid) 40 mg PO DAILY [facility] Last Admin: 05/24/18 08:43 Dose: 40 mg Glipizide (Glucotrol) 10 mg PO ACB [facility] Last Admin: 05/24/18 08:43 Dose: 10 mg Heparin Sodium (Porcine) (Heparin) 5,000 units SC Q12 [facility]; Protocol Last Admin: 05/24/18 08:40 Dose: 5,000 units Hydralazine HCl (Apresoline) 50 mg PO TID [facility] Last Admin: 05/24/18 16:25 Dose: 50 mg Insulin Detemir (Levemir) 20 units SC HS [facility] Last Admin: 05/23/18 22:40 Dose: 20 u Insulin Human Lispro (Humalog) 0 units SC ACHS [facility]; Protocol Last Admin: 05/24/18 16:25 Dose: 4 units Lactobacillus Acidophilus (Bacid Acidophilus) 1 cap PO BID [facility] Last Admin: 05/24/18 16:24 Dose: 1 cap Losartan Potassium (Cozaar) 50 mg PO QPM [facility] Last Admin: 05/24/18 17:07 Dose: 50 mg Ondansetron HCl (Zofran Inj) 4 mg IVP Q6 PRN PRN Reason: Nausea/Vomiting Last Admin: 05/08/18 10:59 Dose: 4 mg Psyllium Hydrophilic Mucilloid (Hydrocil Instant) 1 pkt PO DAILY [facility] Last Admin: 05/24/18 08:36 Dose: 1 pkt Sevelamer Carbonate (Renvela) 800 mg PO TID [facility] Last Admin: 05/24/18 16:26 Dose: 800 mg Vitamin B Complex/Vit C/Folic Acid (Nephro-Tana) 1 tab PO DAILY [facility] Last Admin: 05/24/18 08:43 Dose: 1 tab - Labs Labs: 05/20/18 07:00 05/18/18 05:45 PT 9.8 Seconds (9.8-13.1) 05/05/18 19:05 INR 0.9 05/05/18 19:05 APTT 28.3 Seconds (25.6-37.1) 05/05/18 19:05 Attending/Attestation - Attestation I have personally seen and examined this patient.: Yes I have fully participated in the care of the patient.: Yes I have reviewed all pertinent clinical information, including history, physical exam and plan: Yes Notes (Text): 05/24/18 18:04 AV Fistula planned for TUESDAY, HD TTS. Discussed with vadim Ayers. CBC, BMP, type and cross ordered. Cardiology consult also for pre procedure evaluation.
--- NOTE | 2018-05-24 13:17 | CP.PCM.PN ---
Subjective - Date & Time of Evaluation Date of Evaluation: 05/24/18 Time of Evaluation: 13:16 - Subjective Subjective: patient is asymptomatic Patient is stable Objective - Vital Signs/Intake and Output Vital Signs (last 24 hours): Temp Pulse Resp BP Pulse Ox 98.1 F 81 20 155/76 H 98 05/24/18 08:27 05/24/18 08:27 05/24/18 08:27 05/24/18 08:27 05/24/18 08:27 - Medications Medications: Current Medications Acetaminophen (Tylenol 325mg Tab) 650 mg PO Q6 PRN PRN Reason: Pain, Mild (1-3) Last Admin: 05/23/18 18:50 Dose: 650 mg Atorvastatin Calcium (Lipitor) 40 mg PO HS [facility] Last Admin: 05/23/18 22:39 Dose: 40 mg Calcitriol (Rocaltrol) 0.25 mcg PO DAILY [facility] Last Admin: 05/24/18 08:43 Dose: 0.25 mcg Cephalexin Monohydrate (Keflex) 500 mg PO Q12 [facility]; Protocol Last Admin: 05/24/18 08:44 Dose: 500 mg Clonidine HCl (Catapres) 0.2 mg PO BID [facility] Last Admin: 05/24/18 08:45 Dose: 0.2 mg Ergocalciferol (Drisdol 50,000 Intl Units Cap) 1 cap PO Q7D [facility] Last Admin: 05/22/18 12:29 Dose: 1 cap Famotidine (Pepcid) 40 mg PO DAILY [facility] Last Admin: 05/24/18 08:43 Dose: 40 mg Glipizide (Glucotrol) 10 mg PO ACB [facility] Last Admin: 05/24/18 08:43 Dose: 10 mg Heparin Sodium (Porcine) (Heparin) 5,000 units SC Q12 [facility]; Protocol Last Admin: 05/24/18 08:40 Dose: 5,000 units Hydralazine HCl (Apresoline) 50 mg PO TID [facility] Last Admin: 05/24/18 12:12 Dose: 50 mg Insulin Detemir (Levemir) 20 units SC HS [facility] Last Admin: 05/23/18 22:40 Dose: 20 u Insulin Human Lispro (Humalog) 0 units SC ACHS [facility]; Protocol Last Admin: 05/24/18 12:13 Dose: 6 units Lactobacillus Acidophilus (Bacid Acidophilus) 1 cap PO BID [facility] Last Admin: 05/24/18 08:39 Dose: 1 cap Losartan Potassium (Cozaar) 50 mg PO QPM [facility] Last Admin: 05/23/18 17:27 Dose: 50 mg Ondansetron HCl (Zofran Inj) 4 mg IVP Q6 PRN PRN Reason: Nausea/Vomiting Last Admin: 05/08/18 10:59 Dose: 4 mg Psyllium Hydrophilic Mucilloid (Hydrocil Instant) 1 pkt PO DAILY [facility] Last Admin: 05/24/18 08:36 Dose: 1 pkt Sevelamer Carbonate (Renvela) 800 mg PO TID [facility] Last Admin: 05/24/18 12:11 Dose: 800 mg Vitamin B Complex/Vit C/Folic Acid (Nephro-Tana) 1 tab PO DAILY [facility] Last Admin: 05/24/18 08:43 Dose: 1 tab - Labs Labs: 05/20/18 07:00 05/18/18 05:45 PT 9.8 Seconds (9.8-13.1) 05/05/18 19:05 INR 0.9 05/05/18 19:05 APTT 28.3 Seconds (25.6-37.1) 05/05/18 19:05 - Constitutional Appears: No Acute Distress - Eye Exam Eye Exam: Conjunctival injection - ENT Exam ENT Exam: Mucous Membranes Moist - Neck Exam Neck Exam: absent: Lymphadenopathy - Respiratory Exam Respiratory Exam: NORMAL BREATHING PATTERN. absent: Chest Wall Tenderness - Cardiovascular Exam Cardiovascular Exam: absent: Gallop, JVD, Rubs - GI/Abdominal Exam GI & Abdominal Exam: Soft, Normal Bowel Sounds - Extremities Exam Extremities Exam: absent: Calf Tenderness - Back Exam Back Exam: absent: CVA tenderness (L), CVA tenderness (R) - Neurological Exam Neurological Exam: Alert Assessment and Plan (1) Chronic kidney disease with end stage renal failure on dialysis Assessment & Plan: end stage renal disease patient requiring dialysis Diabetic kidney disease with diabetes mellitus Hypertension Anasarca reported on CT scan of the abdomen appeared to be resolving Anemia Hyperphosphatemia Secondary hyperparathyroidism Hypoalbuminemia The plan waiting for AV fistula to be placed And placement for outpatient dialysis Continue hemodialysis as scheduled Status: Acute (2) Anemia in chronic kidney disease, on chronic dialysis Status: Acute
[2018-05-24] MEDS: Insulin Detemir 100 Units/ml Inj SC SCH (22:10)
[2018-05-25] MEDS: Insulin Lispro (humaLOG) 100 Units/ml Inj SC SCH ×4 (07:35→21:01)
--- NOTE | 2018-05-25 07:48 | CP.PCM.PN ---
Subjective - Date & Time of Evaluation Date of Evaluation: 05/25/18 Time of Evaluation: 10:48 - Subjective Subjective: Patient seen and examined this morning at bedside. There are no acute events overnight, NAD. Patient is Afebrile. Patient currently receiving dialysis. Patient was sitting in her bed comfortably, NAD. Blood sugar is stable. No new complaints nor concerns. Patient denies any overnight F/N/V/C or SOB. Objective - Vital Signs/Intake and Output Vital Signs (last 24 hours): Temp Pulse Resp BP Pulse Ox 98 F 84 20 113/71 96 05/25/18 02:29 05/25/18 02:29 05/25/18 02:29 05/25/18 02:29 05/25/18 02:29 - Medications Medications: Current Medications Acetaminophen (Tylenol 325mg Tab) 650 mg PO Q6 PRN PRN Reason: Pain, Mild (1-3) Last Admin: 05/23/18 18:50 Dose: 650 mg Atorvastatin Calcium (Lipitor) 40 mg PO HS [facility] Last Admin: 05/24/18 22:09 Dose: 40 mg Calcitriol (Rocaltrol) 0.25 mcg PO DAILY [facility] Last Admin: 05/24/18 08:43 Dose: 0.25 mcg Cephalexin Monohydrate (Keflex) 500 mg PO Q12 [facility]; Protocol Last Admin: 05/24/18 20:19 Dose: 500 mg Clonidine HCl (Catapres) 0.2 mg PO BID [facility] Last Admin: 05/24/18 16:25 Dose: 0.2 mg Ergocalciferol (Drisdol 50,000 Intl Units Cap) 1 cap PO Q7D [facility] Last Admin: 05/22/18 12:29 Dose: 1 cap Famotidine (Pepcid) 40 mg PO DAILY [facility] Last Admin: 05/24/18 08:43 Dose: 40 mg Glipizide (Glucotrol) 10 mg PO ACB [facility] Last Admin: 05/24/18 08:43 Dose: 10 mg Heparin Sodium (Porcine) (Heparin) 5,000 units SC Q12 [facility]; Protocol Last Admin: 05/24/18 20:19 Dose: 5,000 units Hydralazine HCl (Apresoline) 50 mg PO TID [facility] Last Admin: 05/24/18 16:25 Dose: 50 mg Insulin Detemir (Levemir) 20 units SC HS [facility] Last Admin: 05/24/18 22:10 Dose: 20 u Insulin Human Lispro (Humalog) 0 units SC ACHS [facility]; Protocol Last Admin: 05/24/18 22:07 Dose: Not Given Lactobacillus Acidophilus (Bacid Acidophilus) 1 cap PO BID [facility] Last Admin: 05/24/18 16:24 Dose: 1 cap Losartan Potassium (Cozaar) 50 mg PO QPM [facility] Last Admin: 05/24/18 17:07 Dose: 50 mg Ondansetron HCl (Zofran Inj) 4 mg IVP Q6 PRN PRN Reason: Nausea/Vomiting Last Admin: 05/08/18 10:59 Dose: 4 mg Psyllium Hydrophilic Mucilloid (Hydrocil Instant) 1 pkt PO DAILY [facility] Last Admin: 05/24/18 08:36 Dose: 1 pkt Sevelamer Carbonate (Renvela) 800 mg PO TID [facility] Last Admin: 05/24/18 16:26 Dose: 800 mg Vitamin B Complex/Vit C/Folic Acid (Nephro-Tana) 1 tab PO DAILY [facility] Last Admin: 05/24/18 08:43 Dose: 1 tab - Labs Labs: 05/20/18 07:00 05/18/18 05:45 PT 9.8 Seconds (9.8-13.1) 05/05/18 19:05 INR 0.9 05/05/18 19:05 APTT 28.3 Seconds (25.6-37.1) 05/05/18 19:05 - Constitutional Appears: Non-toxic, No Acute Distress - Head Exam Head Exam: ATRAUMATIC, NORMAL INSPECTION, NORMOCEPHALIC - Eye Exam Eye Exam: EOMI, Normal appearance Pupil Exam: PERRL - ENT Exam ENT Exam: Mucous Membranes Moist - Neck Exam Neck Exam: Full ROM. absent: Tenderness Additional comments: Right Subclavian permacath looks in place with sutures intact. Clean site. No clinical signs of active bacterial infection, No erythema, No edema, No pus, No tenderness. - Respiratory Exam Respiratory Exam: Clear to Ausculation Bilateral, NORMAL BREATHING PATTERN. absent: Decreased Breath Sounds, Rales, Rhonchi, Wheezes, Respiratory Distress - Cardiovascular Exam Cardiovascular Exam: REGULAR RHYTHM, RRR, +S1, +S2 - GI/Abdominal Exam GI & Abdominal Exam: Soft, Normal Bowel Sounds. absent: Distended, Tenderness - Extremities Exam Extremities Exam: Full ROM, Normal Capillary Refill, Normal Inspection Additional comments: Minimally swollen, non-tender area noted on the lateral aspect of the left forearm. - Neurological Exam Neurological Exam: Alert, Awake, Oriented x3 - Psychiatric Exam Psychiatric exam: Normal Affect, Normal Mood - Skin Skin Exam: Dry, Intact, Normal Color, Warm Assessment and Plan - Assessment and Plan (Free Text) Assessment: 42 y/o female patient admitted Acute on chronic kidney injury secondary to dehydration, enterocolitis, and acute on chronic anemia, Now ESRD. Patient will continue with HD treatments TTS. Plan: ESRD - HD via Permacath (placed on 05/12/18) - Nephrology on board - HD: TTS - Still waiting to find an outpatient dialysis for the patient - AV Fistula w/ Dr. Nava tentatively for Tuesday05/29/2018 - Cardio consult, Dr. Gilman, for pre-op clearance Left hand cellulitis - most likely secondary to contamination at site of previous line - resolved - keflex 500 mg PO Q12h day #7 - lactobacillus acidophilus 1 cap PO BID - keflex course completed this evening Metabolic Acidosis secondary to LYNETTE - Resolved Enterocolitis - resolved Diffuse nonspecific anasarca on CT with low albumin - Status post 3 doses of albumin infusion Hypertension - improving control - Losartan 50 mg PO QD - C/w Coreg 12.5 mg - Labetolol IV 20mg PRN if BP >200 systolic - Hydralzine 10mg PO TID - Clonidine 0.2mg BID IDDM-type II - uncontrolled - elevated fasting BS - HBA1C 7.1 on 05/2018 - Levemir to 20 Units - lispro high dose Correction scale - Glucotrol 10 mg PO - Hypoglycemic protocol HLD - c/w with home statin therapy DVT PPX - Heparin 5000 U Q12H Lines - Right Subclavian permacath Constipation - Metamulcil packet QD Code Status - Full CODE
[2018-05-25] MEDS: Multivitamin Vitamin B Complex (Nephro-Vite) Tab PO SCH (08:43)
[2018-05-25] MEDS: Psyllium Packet PO SCH (08:46)
--- NOTE | 2018-05-25 08:50 | CP.PCM.CON ---
History of Present Illness - History of Present Illness History of Present Illness: 42 y/o female with CKD Cardiology consult called for Pre op clearance for AV Fistula scheduled for 05/29 PMH: CKD stage III HTN, DM, anemia HLD PSH: , Cleft lip EKG: normal Sinus Rhythm Past Patient History - Infectious Disease Hx of Infectious Diseases: None - Past Medical History & Family History Past Medical History?: Yes - Past Social History Smoking Status: Former Smoker - CARDIAC Hx Cardiac Disorders: Yes Hx Atrial Fibrillation: No Hx Cardia Arrhythmia: No Hx Congestive Heart Failure: No Hx Hypercholesterolemia: Yes Hx Hypertension: Yes Hx Pacemaker: No - PULMONARY Hx Respiratory Disorders: No Hx Asthma: No Hx Chronic Obstructive Pulmonary Disease (COPD): No - NEUROLOGICAL Hx Neurological Disorder: No Hx Seizures: No - HEENT Hx HEENT Problems: No - RENAL Hx Chronic Kidney Disease: Yes - ENDOCRINE/METABOLIC Hx Endocrine Disorders: Yes Hx Diabetes Mellitus Type 2: Yes - HEMATOLOGICAL/ONCOLOGICAL Hx Blood Disorders: No - INTEGUMENTARY Hx Dermatological Problems: No - MUSCULOSKELETAL/RHEUMATOLOGICAL Hx Musculoskeletal Disorders: No Hx Arthritis: No Hx Falls: No - GASTROINTESTINAL Hx Gastrointestinal Disorders: No - GENITOURINARY/GYNECOLOGICAL Hx Genitourinary Disorders: No - PSYCHIATRIC Hx Psychophysiologic Disorder: No Hx Substance Use: No - SURGICAL HISTORY Hx Surgeries: Yes Hx Coronary Artery Bypass Graft: No Other/Comment: Cleft left repair - ANESTHESIA Hx Anesthesia: Yes Hx Anesthesia Reactions: No Hx Malignant Hyperthermia: No Meds Allergies/Adverse Reactions: Allergies Allergy/AdvReac Type Severity Reaction Status Date / Time No Known Allergies Allergy Verified 03/28/18 18:43 - Medications Medications: Current Medications Acetaminophen (Tylenol 325mg Tab) 650 mg PO Q6 PRN PRN Reason: Pain, Mild (1-3) Last Admin: 05/23/18 18:50 Dose: 650 mg Atorvastatin Calcium (Lipitor) 40 mg PO HS [facility] Last Admin: 05/24/18 22:09 Dose: 40 mg Calcitriol (Rocaltrol) 0.25 mcg PO DAILY [facility] Last Admin: 05/25/18 08:44 Dose: 0.25 mcg Cephalexin Monohydrate (Keflex) 500 mg PO Q12 [facility]; Protocol Last Admin: 05/25/18 08:44 Dose: 500 mg Clonidine HCl (Catapres) 0.2 mg PO BID [facility] Last Admin: 05/24/18 16:25 Dose: 0.2 mg Ergocalciferol (Drisdol 50,000 Intl Units Cap) 1 cap PO Q7D [facility] Last Admin: 05/22/18 12:29 Dose: 1 cap Famotidine (Pepcid) 40 mg PO DAILY [facility] Last Admin: 05/25/18 08:44 Dose: 40 mg Glipizide (Glucotrol) 10 mg PO ACB [facility] Last Admin: 05/25/18 07:30 Dose: 10 mg Heparin Sodium (Porcine) (Heparin) 5,000 units SC Q12 [facility]; Protocol Last Admin: 05/25/18 08:46 Dose: 5,000 units Hydralazine HCl (Apresoline) 50 mg PO TID [facility] Last Admin: 05/24/18 16:25 Dose: 50 mg Insulin Detemir (Levemir) 20 units SC HS [facility] Last Admin: 05/24/18 22:10 Dose: 20 u Insulin Human Lispro (Humalog) 0 units SC ACHS [facility]; Protocol Last Admin: 05/24/18 22:07 Dose: Not Given Lactobacillus Acidophilus (Bacid Acidophilus) 1 cap PO BID [facility] Last Admin: 05/24/18 16:24 Dose: 1 cap Losartan Potassium (Cozaar) 50 mg PO QPM [facility] Last Admin: 05/24/18 17:07 Dose: 50 mg Ondansetron HCl (Zofran Inj) 4 mg IVP Q6 PRN PRN Reason: Nausea/Vomiting Last Admin: 05/08/18 10:59 Dose: 4 mg Psyllium Hydrophilic Mucilloid (Hydrocil Instant) 1 pkt PO DAILY [facility] Last Admin: 05/25/18 08:46 Dose: 1 pkt Sevelamer Carbonate (Renvela) 800 mg PO TID [facility] Last Admin: 05/25/18 08:43 Dose: 800 mg Vitamin B Complex/Vit C/Folic Acid (Nephro-Tana) 1 tab PO DAILY [facility] Last Admin: 05/25/18 08:43 Dose: 1 tab Results - Vital Signs Recent Vital Signs: Last Vital Signs Temp 98.4 F 05/25/18 08:26 Pulse 75 05/25/18 08:26 Resp 20 05/25/18 08:26 BP 161/88 H 05/25/18 08:26 Pulse Ox 99 05/25/18 08:26 - Labs Result Diagrams: 05/20/18 07:00 05/18/18 05:45 Labs: Laboratory Results - last 24 hr 05/24/18 05/24/18 05/24/18 11:05 15:58 22:03 POC Glucose (mg/dL) 290 H 218 H 291 H 05/25/18 05:51 POC Glucose (mg/dL) 182 H Assessment & Plan (1) Anemia Status: Acute (2) Anemia in chronic kidney disease, on chronic dialysis Assessment and Plan: the patient is cleared for surgery Status: Acute (3) Chronic kidney disease with end stage renal failure on dialysis Status: Acute
[2018-05-25] MEDS: Lactobacillus Acidophilus 500 MU Cap PO SCH (09:05)
--- NOTE | 2018-05-25 09:19 | CARD ---
APPROVED REPORT Date of service: 05/25/2018 EKG Measurement Heart [id number] <Conclusion> Normal sinus rhythm Nonspecific T wave abnormality Abnormal ECG
--- NOTE | 2018-05-25 15:46 | CP.PCM.PN ---
Subjective - Date & Time of Evaluation Date of Evaluation: 05/25/18 Time of Evaluation: 15:45 - Subjective Subjective: renal follow up note seen on hd and examined vitals reviewed heent normal op moist no jvd skin normal s1s2 present no resp distress abd soft ao times 3 cooperative A&P: end stage renal disease patient requiring dialysis Diabetic kidney disease with diabetes mellitus Hypertension Anasarca reported on CT scan of the abdomen appeared to be resolving Anemia Hyperphosphatemia Secondary hyperparathyroidism Hypoalbuminemia hd today per schedule lytes reviewed bp acceptable monitor phos levels anemia monitor, valente as needed with hd Objective - Vital Signs/Intake and Output Vital Signs (last 24 hours): Temp Pulse Resp BP Pulse Ox 98.4 F 75 20 161/88 H 99 05/25/18 08:26 05/25/18 08:26 05/25/18 08:26 05/25/18 13:10 05/25/18 08:26 - Medications Medications: Current Medications Acetaminophen (Tylenol 325mg Tab) 650 mg PO Q6 PRN PRN Reason: Pain, Mild (1-3) Last Admin: 05/23/18 18:50 Dose: 650 mg Atorvastatin Calcium (Lipitor) 40 mg PO HS [facility] Last Admin: 05/24/18 22:09 Dose: 40 mg Calcitriol (Rocaltrol) 0.25 mcg PO DAILY [facility] Last Admin: 05/25/18 08:44 Dose: 0.25 mcg Clonidine HCl (Catapres) 0.2 mg PO BID [facility] Last Admin: 05/25/18 09:00 Dose: Not Given Ergocalciferol (Drisdol 50,000 Intl Units Cap) 1 cap PO Q7D [facility] Last Admin: 05/22/18 12:29 Dose: 1 cap Famotidine (Pepcid) 40 mg PO DAILY [facility] Last Admin: 05/25/18 08:44 Dose: 40 mg Glipizide (Glucotrol) 10 mg PO ACB [facility] Last Admin: 05/25/18 07:30 Dose: 10 mg Heparin Sodium (Porcine) (Heparin) 5,000 units SC Q12 [facility]; Protocol Last Admin: 05/25/18 08:46 Dose: 5,000 units Hydralazine HCl (Apresoline) 50 mg PO TID [facility] Last Admin: 05/25/18 13:10 Dose: 50 mg Insulin Detemir (Levemir) 20 units SC HS [facility] Last Admin: 05/24/18 22:10 Dose: 20 u Insulin Human Lispro (Humalog) 0 units SC ACHS [facility]; Protocol Last Admin: 05/25/18 11:12 Dose: 2 units Losartan Potassium (Cozaar) 50 mg PO QPM [facility] Last Admin: 05/24/18 17:07 Dose: 50 mg Ondansetron HCl (Zofran Inj) 4 mg IVP Q6 PRN PRN Reason: Nausea/Vomiting Last Admin: 05/08/18 10:59 Dose: 4 mg Psyllium Hydrophilic Mucilloid (Hydrocil Instant) 1 pkt PO DAILY [facility] Last Admin: 05/25/18 08:46 Dose: 1 pkt Sevelamer Carbonate (Renvela) 800 mg PO TID [facility] Last Admin: 05/25/18 13:10 Dose: 800 mg Vitamin B Complex/Vit C/Folic Acid (Nephro-Tana) 1 tab PO DAILY [facility] Last Admin: 05/25/18 08:43 Dose: 1 tab - Labs Labs: 05/20/18 07:00 05/18/18 05:45 PT 9.8 Seconds (9.8-13.1) 05/05/18 19:05 INR 0.9 05/05/18 19:05 APTT 28.3 Seconds (25.6-37.1) 05/05/18 19:05
[2018-05-25] MEDS: Insulin Detemir 100 Units/ml Inj SC SCH (21:04)
--- NOTE | 2018-05-26 06:46 | CP.PCM.PN ---
Subjective - Date & Time of Evaluation Date of Evaluation: 05/26/18 Time of Evaluation: 11:48 - Subjective Subjective: Patient seen and examined this morning at bedside. There are no acute events overnight, NAD. Patient is Afebrile. Patient received dialysis yesterday w/o issues. Patient was sitting in her bed comfortably, NAD. Blood sugar is stable. No new complaints nor concerns. Patient denies any overnight F/N/V/C or SOB. Objective - Vital Signs/Intake and Output Vital Signs (last 24 hours): Temp Pulse Resp BP Pulse Ox 98 F 89 20 152/68 H 96 05/26/18 00:52 05/26/18 00:52 05/26/18 00:52 05/26/18 00:52 05/26/18 00:52 - Medications Medications: Current Medications Acetaminophen (Tylenol 325mg Tab) 650 mg PO Q6 PRN PRN Reason: Pain, Mild (1-3) Last Admin: 05/23/18 18:50 Dose: 650 mg Atorvastatin Calcium (Lipitor) 40 mg PO HS [facility] Last Admin: 05/25/18 21:04 Dose: 40 mg Calcitriol (Rocaltrol) 0.25 mcg PO DAILY [facility] Last Admin: 05/25/18 08:44 Dose: 0.25 mcg Clonidine HCl (Catapres) 0.2 mg PO BID [facility] Last Admin: 05/25/18 16:47 Dose: 0.2 mg Ergocalciferol (Drisdol 50,000 Intl Units Cap) 1 cap PO Q7D [facility] Last Admin: 05/22/18 12:29 Dose: 1 cap Famotidine (Pepcid) 40 mg PO DAILY [facility] Last Admin: 05/25/18 08:44 Dose: 40 mg Glipizide (Glucotrol) 10 mg PO ACB [facility] Last Admin: 05/25/18 07:30 Dose: 10 mg Heparin Sodium (Porcine) (Heparin) 5,000 units SC Q12 [facility]; Protocol Last Admin: 05/25/18 21:01 Dose: 5,000 units Hydralazine HCl (Apresoline) 50 mg PO TID [facility] Last Admin: 05/25/18 16:50 Dose: 50 mg Insulin Detemir (Levemir) 20 units SC HS [facility] Last Admin: 05/25/18 21:04 Dose: 20 u Insulin Human Lispro (Humalog) 0 units SC ACHS [facility]; Protocol Last Admin: 05/25/18 21:01 Dose: Not Given Losartan Potassium (Cozaar) 50 mg PO QPM [facility] Last Admin: 05/25/18 18:24 Dose: 50 mg Ondansetron HCl (Zofran Inj) 4 mg IVP Q6 PRN PRN Reason: Nausea/Vomiting Last Admin: 05/08/18 10:59 Dose: 4 mg Psyllium Hydrophilic Mucilloid (Hydrocil Instant) 1 pkt PO DAILY [facility] Last Admin: 05/25/18 08:46 Dose: 1 pkt Sevelamer Carbonate (Renvela) 800 mg PO TID [facility] Last Admin: 05/25/18 16:46 Dose: 800 mg Vitamin B Complex/Vit C/Folic Acid (Nephro-Tana) 1 tab PO DAILY [facility] Last Admin: 05/25/18 08:43 Dose: 1 tab - Labs Labs: 05/20/18 07:00 05/18/18 05:45 PT 9.8 Seconds (9.8-13.1) 05/05/18 19:05 INR 0.9 05/05/18 19:05 APTT 28.3 Seconds (25.6-37.1) 05/05/18 19:05 - Constitutional Appears: Non-toxic, No Acute Distress - Head Exam Head Exam: ATRAUMATIC, NORMAL INSPECTION, NORMOCEPHALIC - Eye Exam Eye Exam: EOMI, Normal appearance - Neck Exam Neck Exam: Full ROM. absent: Tenderness Additional comments: Right Subclavian permacath looks in place with sutures intact. Clean site. No clinical signs of active bacterial infection, No erythema, No edema, No pus, No tenderness. - Respiratory Exam Respiratory Exam: Clear to Ausculation Bilateral, NORMAL BREATHING PATTERN. absent: Decreased Breath Sounds, Rales, Rhonchi, Wheezes, Respiratory Distress - Cardiovascular Exam Cardiovascular Exam: REGULAR RHYTHM, RRR, +S1, +S2 - GI/Abdominal Exam GI & Abdominal Exam: Soft, Normal Bowel Sounds. absent: Distended, Tenderness - Extremities Exam Extremities Exam: Full ROM, Normal Capillary Refill, Normal Inspection Additional comments: Minimally swollen, non-tender area noted on the lateral aspect of the left forearm. - Neurological Exam Neurological Exam: Alert, Awake, Oriented x3 - Psychiatric Exam Psychiatric exam: Normal Affect, Normal Mood - Skin Skin Exam: Dry, Intact, Normal Color, Warm Assessment and Plan - Assessment and Plan (Free Text) Assessment: 42 y/o female patient admitted Acute on chronic kidney injury secondary to dehydration, enterocolitis, and acute on chronic anemia, Now ESRD. Patient will continue with HD treatments TTS. Plan: ESRD - HD via Permacath (placed on 05/12/18) - Nephrology on board - HD: TTS - Still waiting to find an outpatient dialysis for the patient - AV Fistula w/ Dr. Nava tentatively for Tuesday05/29/2018 - Cardio consult, Dr. Gilman, for pre-op clearance; patient cleared by c ardiology Left hand cellulitis - resolved - most likely secondary to contamination at site of previous line - resolved - DC'ed keflex 500 mg PO Q12h day #7 - lactobacillus acidophilus 1 cap PO BID - keflex course completed this evening Metabolic Acidosis secondary to LYNETTE - Resolved Enterocolitis - resolved Diffuse nonspecific anasarca on CT with low albumin - Status post 3 doses of albumin infusion Hypertension - improving control - Losartan 50 mg PO QD - C/w Coreg 12.5 mg - Labetolol IV 20mg PRN if BP >200 systolic - Hydralzine 10mg PO TID - Clonidine 0.2mg BID IDDM-type II - uncontrolled - elevated fasting BS - HBA1C 7.1 on 05/2018 - Levemir to 20 Units - lispro high dose Correction scale - Glucotrol 10 mg PO - Hypoglycemic protocol HLD - c/w with home statin therapy DVT PPX - Heparin 5000 U Q12H Lines - Right Subclavian permacath Constipation - Metamulcil packet QD Code Status - Full CODE
[2018-05-26] MEDS: Insulin Lispro (humaLOG) 100 Units/ml Inj SC SCH ×4 (07:30→21:50)
[2018-05-26] MEDS: Psyllium Packet PO SCH (09:18)
[2018-05-26] MEDS: Multivitamin Vitamin B Complex (Nephro-Vite) Tab PO SCH (09:18)
[2018-05-26] MEDS: Insulin Detemir 100 Units/ml Inj SC SCH (21:48)
[2018-05-27] MEDS: Insulin Lispro (humaLOG) 100 Units/ml Inj SC SCH ×4 (06:36→21:53)
--- NOTE | 2018-05-27 08:17 | CP.PCM.PN ---
Objective - Vital Signs/Intake and Output Vital Signs (last 24 hours): Temp Pulse Resp BP Pulse Ox 98 F 82 20 156/87 H 97 05/27/18 01:53 05/27/18 01:53 05/27/18 01:53 05/27/18 01:53 05/27/18 01:53 - Medications Medications: Current Medications Acetaminophen (Tylenol 325mg Tab) 650 mg PO Q6 PRN PRN Reason: Pain, Mild (1-3) Last Admin: 05/23/18 18:50 Dose: 650 mg Atorvastatin Calcium (Lipitor) 40 mg PO HS [facility] Last Admin: 05/26/18 21:50 Dose: 40 mg Calcitriol (Rocaltrol) 0.25 mcg PO DAILY [facility] Last Admin: 05/26/18 09:18 Dose: 0.25 mcg Clonidine HCl (Catapres) 0.2 mg PO BID [facility] Last Admin: 05/26/18 17:01 Dose: 0.2 mg Ergocalciferol (Drisdol 50,000 Intl Units Cap) 1 cap PO Q7D [facility] Last Admin: 05/22/18 12:29 Dose: 1 cap Famotidine (Pepcid) 40 mg PO DAILY [facility] Last Admin: 05/26/18 09:19 Dose: 40 mg Glipizide (Glucotrol) 10 mg PO ACB [facility] Last Admin: 05/26/18 07:18 Dose: 10 mg Heparin Sodium (Porcine) (Heparin) 5,000 units SC Q12 [facility]; Protocol Last Admin: 05/26/18 20:46 Dose: 5,000 units Hydralazine HCl (Apresoline) 50 mg PO TID [facility] Last Admin: 05/26/18 17:01 Dose: 50 mg Insulin Detemir (Levemir) 20 units SC HS [facility] Last Admin: 05/26/18 21:48 Dose: 20 u Insulin Human Lispro (Humalog) 0 units SC ACHS [facility]; Protocol Last Admin: 05/27/18 06:36 Dose: Not Given Losartan Potassium (Cozaar) 50 mg PO QPM [facility] Last Admin: 05/26/18 17:00 Dose: 50 mg Ondansetron HCl (Zofran Inj) 4 mg IVP Q6 PRN PRN Reason: Nausea/Vomiting Last Admin: 05/08/18 10:59 Dose: 4 mg Psyllium Hydrophilic Mucilloid (Hydrocil Instant) 1 pkt PO DAILY [facility] Last Admin: 05/26/18 09:18 Dose: 1 pkt Sevelamer Carbonate (Renvela) 800 mg PO TID [facility] Last Admin: 05/26/18 17:00 Dose: 800 mg Vitamin B Complex/Vit C/Folic Acid (Nephro-Tana) 1 tab PO DAILY [facility] Last Admin: 05/26/18 09:18 Dose: 1 tab - Labs Labs: 05/20/18 07:00 05/18/18 05:45 PT 9.8 Seconds (9.8-13.1) 05/05/18 19:05 INR 0.9 05/05/18 19:05 APTT 28.3 Seconds (25.6-37.1) 05/05/18 19:05
[2018-05-27] MEDS: Multivitamin Vitamin B Complex (Nephro-Vite) Tab PO SCH (09:15)
[2018-05-27] MEDS: Psyllium Packet PO SCH (09:15)
[2018-05-27 11:18] LABS: HEMOGLOBIN 11.1 g/dL (12.0-16.0); MEAN CELL VOLUME 96.5 fl (81.0-99.0); MEAN CORPUSCULAR HEMOGLOBIN 30.4 pg (27.0-31.0); MEAN CORPUSCULAR HGB CONC 31.5 g/dL (33.0-37.0); RBC 3.65 Mil/uL (3.80-5.20); RED CELL DISTRIBUTION WIDTH 18.3 % (11.5-14.5); WHITE BLOOD COUNT 5.4 K/uL (4.8-10.8)
[2018-05-27 11:47] LABS: CALCIUM 8.2 mg/dL (8.4-10.2)
--- NOTE | 2018-05-27 16:21 | CP.PCM.PN ---
Subjective - Date & Time of Evaluation Date of Evaluation: 05/27/18 Time of Evaluation: 16:19 - Subjective Subjective: renal follow up note seen on hd and examined vitals reviewed heent normal op moist no jvd skin normal s1s2 present no resp distress abd soft ao times 3 cooperative A&P: end stage renal disease patient requiring dialysis Diabetic kidney disease with diabetes mellitus Hypertension Anasarca reported on CT scan of the abdomen appeared to be resolving Anemia Hyperphosphatemia Secondary hyperparathyroidism Hypoalbuminemia hd today per schedule tolerating well volume stable, UF as tolerated lytes reviewed bp acceptable monitor phos levels anemia monitor, valente as needed with hd Objective - Vital Signs/Intake and Output Vital Signs (last 24 hours): Temp Pulse Resp BP Pulse Ox 97.7 F 74 18 161/90 H 99 05/27/18 09:08 05/27/18 09:08 05/27/18 09:08 05/27/18 09:08 05/27/18 09:08 - Medications Medications: Current Medications Acetaminophen (Tylenol 325mg Tab) 650 mg PO Q6 PRN PRN Reason: Pain, Mild (1-3) Last Admin: 05/23/18 18:50 Dose: 650 mg Atorvastatin Calcium (Lipitor) 40 mg PO HS [facility] Last Admin: 05/26/18 21:50 Dose: 40 mg Calcitriol (Rocaltrol) 0.25 mcg PO DAILY [facility] Last Admin: 05/27/18 09:14 Dose: 0.25 mcg Clonidine HCl (Catapres) 0.2 mg PO BID [facility] Last Admin: 05/26/18 17:01 Dose: 0.2 mg Ergocalciferol (Drisdol 50,000 Intl Units Cap) 1 cap PO Q7D [facility] Last Admin: 05/22/18 12:29 Dose: 1 cap Famotidine (Pepcid) 40 mg PO DAILY [facility] Last Admin: 05/27/18 09:15 Dose: 40 mg Glipizide (Glucotrol) 10 mg PO ACB [facility] Last Admin: 05/27/18 07:30 Dose: 10 mg Heparin Sodium (Porcine) (Heparin) 5,000 units SC Q12 [facility]; Protocol Last Admin: 05/27/18 09:14 Dose: 5,000 units Hydralazine HCl (Apresoline) 50 mg PO TID [facility] Last Admin: 05/27/18 15:42 Dose: 50 mg Insulin Detemir (Levemir) 20 units SC HS [facility] Last Admin: 05/26/18 21:48 Dose: 20 u Insulin Human Lispro (Humalog) 0 units SC [facility]; Protocol Last Admin: 05/27/18 11:35 Dose: 4 units Losartan Potassium (Cozaar) 50 mg PO QPM [facility] Last Admin: 05/26/18 17:00 Dose: 50 mg Ondansetron HCl (Zofran Inj) 4 mg IVP Q6 PRN PRN Reason: Nausea/Vomiting Last Admin: 05/08/18 10:59 Dose: 4 mg Psyllium Hydrophilic Mucilloid (Hydrocil Instant) 1 pkt PO DAILY [facility] Last Admin: 05/27/18 09:15 Dose: 1 pkt Sevelamer Carbonate (Renvela) 800 mg PO TID [facility] Last Admin: 05/27/18 09:14 Dose: 800 mg Vitamin B Complex/Vit C/Folic Acid (Nephro-Tana) 1 tab PO DAILY [facility] Last Admin: 05/27/18 09:15 Dose: 1 tab - Labs Labs: 05/27/18 09:42 05/27/18 09:42 PT 9.8 Seconds (9.8-13.1) 05/05/18 19:05 INR 0.9 05/05/18 19:05 APTT 28.3 Seconds (25.6-37.1) 05/05/18 19:05
--- NOTE | 2018-05-27 18:09 | CP.PCM.PN ---
Subjective - Date & Time of Evaluation Date of Evaluation: 05/27/18 Time of Evaluation: 10:30 - Subjective Subjective: Patient seen and examined bedside . Feeling well. BP not well controlled , labile Received HD today Complains of some numbness , to bilateral feet plantar aspect No acute issues overnight Objective - Vital Signs/Intake and Output Vital Signs (last 24 hours): Temp Pulse Resp BP Pulse Ox 98.2 F 91 H 20 179/95 H 97 05/27/18 17:00 05/27/18 17:00 05/27/18 17:00 05/27/18 17:21 05/27/18 17:00 - Medications Medications: Current Medications Acetaminophen (Tylenol 325mg Tab) 650 mg PO Q6 PRN PRN Reason: Pain, Mild (1-3) Last Admin: 05/23/18 18:50 Dose: 650 mg Atorvastatin Calcium (Lipitor) 40 mg PO HS [facility] Last Admin: 05/26/18 21:50 Dose: 40 mg Calcitriol (Rocaltrol) 0.25 mcg PO DAILY [facility] Last Admin: 05/27/18 09:14 Dose: 0.25 mcg Clonidine HCl (Catapres) 0.2 mg PO BID [facility] Last Admin: 05/27/18 16:19 Dose: 0.2 mg Ergocalciferol (Drisdol 50,000 Intl Units Cap) 1 cap PO Q7D [facility] Last Admin: 05/22/18 12:29 Dose: 1 cap Famotidine (Pepcid) 40 mg PO DAILY [facility] Last Admin: 05/27/18 09:15 Dose: 40 mg Glipizide (Glucotrol) 10 mg PO ACB [facility] Last Admin: 05/27/18 07:30 Dose: 10 mg Heparin Sodium (Porcine) (Heparin) 5,000 units SC Q12 [facility]; Protocol Last Admin: 05/27/18 09:14 Dose: 5,000 units Hydralazine HCl (Apresoline) 50 mg PO TID [facility] Last Admin: 05/27/18 16:19 Dose: 50 mg Insulin Detemir (Levemir) 20 units SC HS [facility] Last Admin: 05/26/18 21:48 Dose: 20 u Insulin Human Lispro (Humalog) 0 units SC ACHS [facility]; Protocol Last Admin: 05/27/18 17:19 Dose: 6 units Losartan Potassium (Cozaar) 50 mg PO QPM [facility] Last Admin: 05/27/18 17:21 Dose: 50 mg Ondansetron HCl (Zofran Inj) 4 mg IVP Q6 PRN PRN Reason: Nausea/Vomiting Last Admin: 05/08/18 10:59 Dose: 4 mg Psyllium Hydrophilic Mucilloid (Hydrocil Instant) 1 pkt PO DAILY [facility] Last Admin: 05/27/18 09:15 Dose: 1 pkt Sevelamer Carbonate (Renvela) 800 mg PO TID [facility] Last Admin: 05/27/18 17:21 Dose: 800 mg Vitamin B Complex/Vit C/Folic Acid (Nephro-Tana) 1 tab PO DAILY [facility] Last Admin: 05/27/18 09:15 Dose: 1 tab - Labs Labs: 05/27/18 09:42 05/27/18 09:42 PT 9.8 Seconds (9.8-13.1) 05/05/18 19:05 INR 0.9 05/05/18 19:05 APTT 28.3 Seconds (25.6-37.1) 05/05/18 19:05 - Constitutional Appears: Non-toxic, No Acute Distress - Head Exam Head Exam: ATRAUMATIC, NORMAL INSPECTION, NORMOCEPHALIC - Eye Exam Eye Exam: EOMI, Normal appearance, PERRL Pupil Exam: NORMAL ACCOMODATION - ENT Exam ENT Exam: Mucous Membranes Moist, Normal Exam - Neck Exam Neck Exam: Full ROM, Normal Inspection - Respiratory Exam Respiratory Exam: Clear to Ausculation Bilateral. absent: Rales, Rhonchi, Wheezes - Cardiovascular Exam Cardiovascular Exam: REGULAR RHYTHM, RRR, +S1, +S2. absent: JVD - GI/Abdominal Exam GI & Abdominal Exam: Soft, Normal Bowel Sounds. absent: Distended, Guarding, Tenderness, Rebound - Rectal Exam Rectal Exam: Deferred - Extremities Exam Extremities Exam: Full ROM, Normal Capillary Refill, Normal Inspection. absent: Pedal Edema - Back Exam Back Exam: NORMAL INSPECTION - Neurological Exam Neurological Exam: Alert, Awake, CN II-XII Intact, Oriented x3 - Psychiatric Exam Psychiatric exam: Normal Affect, Normal Mood - Skin Skin Exam: Dry, Intact, Normal Color, Warm Assessment and Plan - Assessment and Plan (Free Text) Assessment: 42 y/o Female with PMH CKD , HTN , IDDM , dyslipidemia, anemia of chronic disease was sent for evaluation to ER by PMD for worsening of her renal function with BUN/Cr 60/7 and metabolic acidosis Patient admitted for acute on chronic renal failure and started on HD .Nephrology consulted .Plan is to continue with HD as outpatient TTS .At present receiving HD HD access is via right Chest Permacath. Plan for AVF placement on Tuesday at [facility] by Dr Deandra ANAND on consult for HD spot in community. 1.ESRD on Chronic HD Continue HD as scheduled TTS . For AVF placement on Tuesday Nephrology on consult SW on consult for HD spot in community 2.Anemia of chronic disease on Procrit and Venofer 3.Hypertension uncontrolled on Cozaar 50 mg , Hydralazine 50 mg PO TID, Clonidine 0.2 mg BID Continue current meds for now 4.IDDM better controlled on Levemir 20 unit SQ HS and glipizide 5.Dyslipidemia on statin 6.Left hand celullitis resolved. Finished course of Keflex 7. DVT prophylaxis on Heparin
[2018-05-27] MEDS: Insulin Detemir 100 Units/ml Inj SC SCH (21:55)
[2018-05-28] MEDS: Insulin Lispro (humaLOG) 100 Units/ml Inj SC SCH ×4 (06:43→21:17)
[2018-05-28] MEDS: Psyllium Packet PO SCH (08:28)
[2018-05-28] MEDS: Multivitamin Vitamin B Complex (Nephro-Vite) Tab PO SCH (08:29)
--- NOTE | 2018-05-28 09:46 | CP.PCM.PN ---
Subjective - Date & Time of Evaluation Date of Evaluation: 05/28/18 Time of Evaluation: 11:04 - Subjective Subjective: Patient seen and examined this morning at bedside. There are no acute events overnight, NAD. Patient is Afebrile. Patient received dialysis yesterday w/o issues. Patient was sitting in her chair comfortably, NAD. Blood sugar is stab le. No new complaints nor concerns. Patient denies any overnight F/N/V/C or SOB. Objective - Vital Signs/Intake and Output Vital Signs (last 24 hours): Temp Pulse Resp BP Pulse Ox 98.8 F 78 20 141/79 98 05/28/18 08:42 05/28/18 08:42 05/28/18 08:42 05/28/18 08:42 05/28/18 08:42 - Medications Medications: Current Medications Acetaminophen (Tylenol 325mg Tab) 650 mg PO Q6 PRN PRN Reason: Pain, Mild (1-3) Last Admin: 05/23/18 18:50 Dose: 650 mg Atorvastatin Calcium (Lipitor) 40 mg PO HS [facility] Last Admin: 05/27/18 21:54 Dose: 40 mg Calcitriol (Rocaltrol) 0.25 mcg PO DAILY [facility] Last Admin: 05/28/18 08:29 Dose: 0.25 mcg Clonidine HCl (Catapres) 0.2 mg PO BID [facility] Last Admin: 05/28/18 08:30 Dose: 0.2 mg Ergocalciferol (Drisdol 50,000 Intl Units Cap) 1 cap PO Q7D [facility] Last Admin: 05/22/18 12:29 Dose: 1 cap Famotidine (Pepcid) 40 mg PO DAILY [facility] Last Admin: 05/28/18 08:29 Dose: 40 mg Glipizide (Glucotrol) 10 mg PO ACB [facility] Last Admin: 05/28/18 08:28 Dose: 10 mg Heparin Sodium (Porcine) (Heparin) 5,000 units SC Q12 [facility]; Protocol Last Admin: 05/28/18 08:28 Dose: 5,000 units Hydralazine HCl (Apresoline) 50 mg PO TID [facility] Last Admin: 05/28/18 08:30 Dose: 50 mg Insulin Detemir (Levemir) 20 units SC HS [facility] Last Admin: 05/27/18 21:55 Dose: 20 u Insulin Human Lispro (Humalog) 0 units SC ACHS [facility]; Protocol Last Admin: 05/28/18 06:43 Dose: Not Given Losartan Potassium (Cozaar) 50 mg PO QPM [facility] Last Admin: 05/27/18 17:21 Dose: 50 mg Ondansetron HCl (Zofran Inj) 4 mg IVP Q6 PRN PRN Reason: Nausea/Vomiting Last Admin: 05/08/18 10:59 Dose: 4 mg Psyllium Hydrophilic Mucilloid (Hydrocil Instant) 1 pkt PO DAILY [facility] Last Admin: 05/28/18 08:28 Dose: 1 pkt Sevelamer Carbonate (Renvela) 800 mg PO TID [facility] Last Admin: 05/28/18 08:28 Dose: 800 mg Vitamin B Complex/Vit C/Folic Acid (Nephro-Tana) 1 tab PO DAILY [facility] Last Admin: 05/28/18 08:29 Dose: 1 tab - Labs Labs: 05/27/18 09:42 05/27/18 09:42 PT 9.8 Seconds (9.8-13.1) 05/05/18 19:05 INR 0.9 05/05/18 19:05 APTT 28.3 Seconds (25.6-37.1) 05/05/18 19:05 - Constitutional Appears: Non-toxic, No Acute Distress - Head Exam Head Exam: ATRAUMATIC, NORMAL INSPECTION, NORMOCEPHALIC - Eye Exam Eye Exam: EOMI, Normal appearance, PERRL - ENT Exam ENT Exam: Mucous Membranes Moist - Neck Exam Neck Exam: Full ROM. absent: Tenderness - Respiratory Exam Respiratory Exam: Clear to Ausculation Bilateral, NORMAL BREATHING PATTERN. absent: Decreased Breath Sounds, Rales, Rhonchi, Wheezes, Respiratory Distress - Cardiovascular Exam Cardiovascular Exam: REGULAR RHYTHM - GI/Abdominal Exam GI & Abdominal Exam: Soft, Normal Bowel Sounds. absent: Distended, Guarding, Tenderness - Extremities Exam Extremities Exam: Full ROM, Normal Capillary Refill. absent: Pedal Edema - Neurological Exam Neurological Exam: Alert, Awake, Oriented x3 - Psychiatric Exam Psychiatric exam: Normal Affect, Normal Mood - Skin Skin Exam: Dry, Normal Color, Warm Assessment and Plan - Assessment and Plan (Free Text) Assessment: 42 y/o female patient admitted Acute on chronic kidney injury secondary to dehydration, enterocolitis, and acute on chronic anemia, Now ESRD. Patient will continue with HD treatments TTS. Patient scheduled for OR tomorrow at [facility] for AV fistula Plan: ESRD - HD via Permacath (placed on 05/12/18) - Nephrology on board - HD: TTS - Still waiting to find an outpatient dialysis for the patient - AV Fistula w/ Dr. Nava tentatively for Tuesday05/29/2018 at [facility] - NPO after midnight except medications, hold heparin - Cardio consult, Dr. Gilman, for pre-op clearance; patient cleared by cardiology Left hand cellulitis - resolved - most likely secondary to contamination at site of previous line - resolved - DC'ed keflex 500 mg PO Q12h day #7 - lactobacillus acidophilus 1 cap PO BID - keflex course completed this evening Metabolic Acidosis secondary to LYNETTE - Resolved Enterocolitis - resolved Diffuse nonspecific anasarca on CT with low albumin - Status post 3 doses of albumin infusion Hypertension - improving control - Losartan 50 mg PO QD - C/w Coreg 12.5 mg - Labetolol IV 20mg PRN if BP >200 systolic - Hydralzine 10mg PO TID - Clonidine 0.2mg BID IDDM-type II - uncontrolled - elevated fasting BS - HBA1C 7.1 on 05/2018 - Levemir to 20 Units - lispro high dose Correction scale - Glucotrol 10 mg PO - Hypoglycemic protocol HLD - c/w with home statin therapy DVT PPX - Heparin 5000 U Q12H Lines - Right Subclavian permacath Constipation - Metamulcil packet QD Code Status - Full CODE
[2018-05-28] MEDS: Insulin Detemir 100 Units/ml Inj SC SCH (21:16)
[2018-05-29 06:27] LABS: INR 0.9; PROTHROMBIN TIME 10.2 Seconds (9.8-13.1)
[2018-05-29 06:30] LABS: HEMOGLOBIN 12.2 g/dL (12.0-16.0); MEAN CELL VOLUME 96.8 fl (81.0-99.0); RBC 3.94 Mil/uL (3.80-5.20); WHITE BLOOD COUNT 5.6 K/uL (4.8-10.8)
[2018-05-29 06:54] LABS: CALCIUM 8.9 mg/dL (8.4-10.2)
[2018-05-29] MEDS: Insulin Lispro (humaLOG) 100 Units/ml Inj SC SCH ×4 (08:20→21:35)
[2018-05-29] MEDS: Psyllium Packet PO SCH (08:55)
[2018-05-29] MEDS: Multivitamin Vitamin B Complex (Nephro-Vite) Tab PO SCH (08:56)
[2018-05-29] MEDS ORDERED: HYDROmorphone 0.5 mg/0.5 ml ISec IVP PRN (11:53)
--- NOTE | 2018-05-29 12:06 | PCM.SURG1 ---
Surgeon's Initial Post Op Note - Surgeon's Notes Surgeon: Dr. Nava Core Analyst: Dr. Luna PGY-3 Type of Anesthesia: General Endo Pre-Operative Diagnosis: End Stage Renal Disease Operative Findings: See operative report Post-Operative Diagnosis: Same Operation Performed: Creation of Brachio-basilic AVF Left arm Specimen/Specimens Removed: none Estimated Blood Loss: EBL {In ML}: 15 Blood Products Given: N/A Drains Used: No Drains Post-Op Condition: Good Date of Surgery/Procedure: 05/29/18 Time of Surgery/Procedure: 12:05
--- NOTE | 2018-05-29 16:36 | CP.PCM.PN ---
<Jeffrey Salazar - Last Filed: 05/29/18 16:33> Subjective - Date & Time of Evaluation Date of Evaluation: 05/29/18 Time of Evaluation: 16:33 - Subjective Subjective: Patient seen and examined this afternoon at bedside. Patient is s/p left UE AV fistula placement. Patient returned from [facility] and reports mild pain at surgical site. Patient has no other complaints. Patient denies headaches, chest pain, dyspnea, abdominal pain, nausea, vomiting, diarrhea, dysuria, or fvever. There were no acute events overnight, NAD. Patient is Afebrile. Patient was sitting in her chair comfortably, NAD. Blood sugar is stable. Objective - Vital Signs/Intake and Output Vital Signs (last 24 hours): Temp Pulse Resp BP Pulse Ox 97.9 F 86 18 104/65 97 05/29/18 16:08 05/29/18 16:08 05/29/18 16:08 05/29/18 16:08 05/29/18 16:08 - Medications Medications: Current Medications Acetaminophen (Tylenol 325mg Tab) 650 mg PO Q6 PRN PRN Reason: Pain, Mild (1-3) Last Admin: 05/23/18 18:50 Dose: 650 mg Atorvastatin Calcium (Lipitor) 40 mg PO HS [facility] Last Admin: 05/28/18 21:16 Dose: 40 mg Calcitriol (Rocaltrol) 0.25 mcg PO DAILY [facility] Last Admin: 05/29/18 08:56 Dose: Not Given Clonidine HCl (Catapres) 0.2 mg PO BID [facility] Last Admin: 05/29/18 08:27 Dose: 0.2 mg Ergocalciferol (Drisdol 50,000 Intl Units Cap) 1 cap PO Q7D [facility] Last Admin: 05/22/18 12:29 Dose: 1 cap Famotidine (Pepcid) 40 mg PO DAILY [facility] Last Admin: 05/29/18 08:56 Dose: Not Given Glipizide (Glucotrol) 10 mg PO ACB [facility] Last Admin: 05/29/18 08:55 Dose: Not Given Heparin Sodium (Porcine) (Heparin) 5,000 units SC Q12 [facility]; Protocol Last Admin: 05/28/18 08:28 Dose: 5,000 units Hydralazine HCl (Apresoline) 50 mg PO TID [facility] Last Admin: 05/29/18 14:51 Dose: Not Given Hydromorphone HCl (Dilaudid) 0.5 mg IVP Q15M PRN PRN Reason: Pain, severe (8-10) Insulin Detemir (Levemir) 20 units SC HS [facility] Last Admin: 05/28/18 21:16 Dose: 20 u Insulin Human Lispro (Humalog) 0 units SC [facility]; Protocol Last Admin: 05/29/18 11:30 Dose: Not Given Losartan Potassium (Cozaar) 50 mg PO QPM [facility] Last Admin: 05/28/18 16:59 Dose: 50 mg Ondansetron HCl (Zofran Inj) 4 mg IVP Q6 PRN PRN Reason: Nausea/Vomiting Last Admin: 05/08/18 10:59 Dose: 4 mg Psyllium Hydrophilic Mucilloid (Hydrocil Instant) 1 pkt PO DAILY [facility] Last Admin: 05/29/18 08:55 Dose: Not Given Sevelamer Carbonate (Renvela) 800 mg PO TID [facility] Last Admin: 05/29/18 14:51 Dose: Not Given Vitamin B Complex/Vit C/Folic Acid (Nephro-Tana) 1 tab PO DAILY [facility] Last Admin: 05/29/18 08:56 Dose: Not Given - Labs Labs: 05/29/18 05:18 05/29/18 05:18 PT 10.2 Seconds (9.8-13.1) 05/29/18 05:18 INR 0.9 05/29/18 05:18 APTT 28.3 Seconds (25.6-37.1) 05/05/18 19:05 - Constitutional Appears: Non-toxic, No Acute Distress - Head Exam Head Exam: ATRAUMATIC, NORMAL INSPECTION, NORMOCEPHALIC - Eye Exam Eye Exam: Normal appearance Pupil Exam: NORMAL ACCOMODATION - ENT Exam ENT Exam: Mucous Membranes Moist - Neck Exam Neck Exam: Full ROM. absent: Tenderness - Respiratory Exam Respiratory Exam: Clear to Ausculation Bilateral, NORMAL BREATHING PATTERN. absent: Accessory Muscle Use, Decreased Breath Sounds, Rales, Rhonchi, Wheezes, Respiratory Distress - Cardiovascular Exam Cardiovascular Exam: REGULAR RHYTHM, RRR, +S1, +S2. absent: JVD, Murmur - GI/Abdominal Exam GI & Abdominal Exam: Soft, Normal Bowel Sounds. absent: Distended, Tenderness - Extremities Exam Extremities Exam: absent: Calf Tenderness, Pedal Edema Additional comments: s/p left UE AV fistula placement, dressing in place c/d/i - Neurological Exam Neurological Exam: Alert, Awake, Normal Gait, Oriented x3 - Psychiatric Exam Psychiatric exam: Normal Affect, Normal Mood - Skin Skin Exam: Dry, Normal Color, Warm Assessment and Plan - Assessment and Plan (Free Text) Assessment: 42 y/o female patient admitted Acute on chronic kidney injury secondary to dehydration, enterocolitis, and acute on chronic anemia, Now ESRD. Patient will continue with HD treatments TTS. Patient s/p left UE AV fistula placement Plan: ESRD - HD via Permacath (placed on 05/12/18) - Nephrology on board - HD: TTS - Still waiting to find an outpatient dialysis for the patient - s/p left UE AV Fistula placement done by Dr. Nava at [facility] Left hand cellulitis - resolved - most likely secondary to contamination at site of previous line - resolved - DC'ed keflex 500 mg PO Q12h day #7 - lactobacillus acidophilus 1 cap PO BID - keflex course completed Metabolic Acidosis secondary to LYNETTE - Resolved Enterocolitis - resolved Diffuse nonspecific anasarca on CT with low albumin - Status post 3 doses of albumin infusion Hypertension - improving control - Losartan 50 mg PO QD - C/w Coreg 12.5 mg - Labetolol IV 20mg PRN if BP >200 systolic - Hydralzine 10mg PO TID - Clonidine 0.2mg BID IDDM-type II - uncontrolled - elevated fasting BS - HBA1C 7.1 on 05/2018 - Levemir to 20 Units - lispro high dose Correction scale - Glucotrol 10 mg PO - Hypoglycemic protocol HLD - c/w with home statin therapy DVT PPX - Heparin 5000 U Q12H Lines - Right Subclavian permacath Constipation - Metamulcil packet QD Code Status - Full CODE <Rachel Murillo - Last Filed: 05/29/18 17:13> Objective - Vital Signs/Intake and Output Vital Signs (last 24 hours): Temp Pulse Resp BP Pulse Ox 97.9 F 86 18 104/65 97 05/29/18 16:08 05/29/18 16:08 05/29/18 16:08 05/29/18 16:08 05/29/18 16:08 - Medications Medications: Current Medications Acetaminophen (Tylenol 325mg Tab) 650 mg PO Q6 PRN PRN Reason: Pain, Mild (1-3) Last Admin: 05/23/18 18:50 Dose: 650 mg Atorvastatin Calcium (Lipitor) 40 mg PO HS [facility] Last Admin: 05/28/18 21:16 Dose: 40 mg Calcitriol (Rocaltrol) 0.25 mcg PO DAILY [facility] Last Admin: 05/29/18 08:56 Dose: Not Given Clonidine HCl (Catapres) 0.2 mg PO BID [facility] Last Admin: 05/29/18 08:27 Dose: 0.2 mg Ergocalciferol (Drisdol 50,000 Intl Units Cap) 1 cap PO Q7D [facility] Last Admin: 05/22/18 12:29 Dose: 1 cap Famotidine (Pepcid) 40 mg PO DAILY [facility] Last Admin: 05/29/18 08:56 Dose: Not Given Glipizide (Glucotrol) 10 mg PO ACB [facility] Last Admin: 05/29/18 08:55 Dose: Not Given Heparin Sodium (Porcine) (Heparin) 5,000 units SC Q12 [facility]; Protocol Last Admin: 05/28/18 08:28 Dose: 5,000 units Hydralazine HCl (Apresoline) 50 mg PO TID [facility] Last Admin: 05/29/18 14:51 Dose: Not Given Hydromorphone HCl (Dilaudid) 0.5 mg IVP Q15M PRN PRN Reason: Pain, severe (8-10) Insulin Detemir (Levemir) 20 units SC [facility] Last Admin: 05/28/18 21:16 Dose: 20 u Insulin Human Lispro (Humalog) 0 units SC [facility]; Protocol Last Admin: 05/29/18 11:30 Dose: Not Given Losartan Potassium (Cozaar) 50 mg PO QPM [facility] Last Admin: 05/28/18 16:59 Dose: 50 mg Ondansetron HCl (Zofran Inj) 4 mg IVP Q6 PRN PRN Reason: Nausea/Vomiting Last Admin: 05/08/18 10:59 Dose: 4 mg Psyllium Hydrophilic Mucilloid (Hydrocil Instant) 1 pkt PO DAILY [facility] Last Admin: 05/29/18 08:55 Dose: Not Given Sevelamer Carbonate (Renvela) 800 mg PO TID [facility] Last Admin: 05/29/18 14:51 Dose: Not Given Vitamin B Complex/Vit C/Folic Acid (Nephro-Tana) 1 tab PO DAILY [facility] Last Admin: 05/29/18 08:56 Dose: Not Given - Labs Labs: 05/29/18 05:18 05/29/18 05:18 PT 10.2 Seconds (9.8-13.1) 05/29/18 05:18 INR 0.9 05/29/18 05:18 APTT 28.3 Seconds (25.6-37.1) 05/05/18 19:05 Attending/Attestation - Attestation I have personally seen and examined this patient.: Yes I have fully participated in the care of the patient.: Yes I have reviewed all pertinent clinical information, including history, physical exam and plan: Yes
[2018-05-29] MEDS: Ergocalciferol 50,000 Intl Units Cap PO SCH (17:11)
[2018-05-29] MEDS ORDERED: Morphine 4 MG/ML VIAL IVP ONE (17:19)
[2018-05-29] MEDS: Insulin Detemir 100 Units/ml Inj SC SCH (21:35)
[2018-05-30] MEDS ORDERED: Morphine 4 MG/ML VIAL IVP STA (06:07)
[2018-05-30 08:04] VITALS: O2SAT 97
[2018-05-30] MEDS: Insulin Lispro (humaLOG) 100 Units/ml Inj SC SCH ×3 (09:05→17:32)
[2018-05-30] MEDS: Psyllium Packet PO SCH (09:06)
[2018-05-30] MEDS: Multivitamin Vitamin B Complex (Nephro-Vite) Tab PO SCH (09:06)
--- NOTE | 2018-05-30 11:54 | CP.PCM.DIS ---
Provider - Provider Date of Admission: 05/05/18 21:20 Attending physician: Kar Alexander Time Spent in preparation of Discharge (in minutes): 30 Hospital Course - Lab Results Lab Results: Micro Results 05/05/18 18:25 Blood-Venous Blood Culture - Final NO GROWTH AFTER 5 DAYS 05/05/18 18:22 Blood-Venous Blood Culture - Final NO GROWTH AFTER 5 DAYS 05/05/18 18:22 Blood-Venous Gram Stain - Final TEST NOT PERFORMED Most Recent Lab Values WBC 5.6 K/uL (4.8-10.8) 05/29/18 05:18 RBC 3.94 Mil/uL (3.80-5.20) 05/29/18 05:18 Hgb 12.2 g/dL (12.0-16.0) 05/29/18 05:18 Hct 38.2 % (34.0-47.0) 05/29/18 05:18 MCV 96.8 fl (81.0-99.0) 05/29/18 05:18 MCH 31.0 pg (27.0-31.0) 05/29/18 05:18 MCHC 32.0 g/dL (33.0-37.0) L 05/29/18 05:18 RDW 18.0 % (11.5-14.5) H 05/29/18 05:18 Plt Count 241 K/uL (130-400) 05/29/18 05:18 MPV 9.3 fl (7.2-11.7) 05/20/18 07:00 Neut % (Auto) 49.1 % (50.0-75.0) L 05/20/18 07:00 Lymph % (Auto) 31.7 % (20.0-40.0) 05/20/18 07:00 Imperial % (Auto) 13.8 % (0.0-10.0) H 05/20/18 07:00 Eos % (Auto) 4.5 % (0.0-4.0) H 05/20/18 07:00 Baso % (Auto) 0.9 % (0.0-2.0) 05/20/18 07:00 Neut # (Auto) 2.8 K/uL (1.8-7.0) 05/20/18 07:00 Lymph # (Auto) 1.8 K/uL (1.0-4.3) 05/20/18 07:00 Imperial # (Auto) 0.8 K/uL (0.0-0.8) 05/20/18 07:00 Eos # (Auto) 0.3 K/uL (0.0-0.7) 05/20/18 07:00 Baso # (Auto) 0.1 K/uL (0.0-0.2) 05/20/18 07:00 PT 10.2 Seconds (9.8-13.1) 05/29/18 05:18 INR 0.9 05/29/18 05:18 APTT 28.3 Seconds (25.6-37.1) 05/05/18 19:05 Sodium 137 mmol/l (132-148) 05/29/18 05:18 Potassium 4.6 MMOL/L (3.6-5.0) 05/29/18 05:18 Chloride 106 mmol/L (98-107) 05/29/18 05:18 Carbon Dioxide 27 mmol/L (22-30) 05/29/18 05:18 Anion Gap 9 (10-20) L 05/29/18 05:18 BUN 45 mg/dl (7-17) H 05/29/18 05:18 Creatinine 7.5 mg/dl (0.7-1.2) H* 05/29/18 05:18 Est GFR ( Amer) 7 05/29/18 05:18 Est GFR (Non-Af Amer) 6 05/29/18 05:18 POC Glucose (mg/dL) 140 mg/dL (65-110) H 05/30/18 11:01 Random Glucose 185 mg/dL (65-105) H 05/29/18 05:18 Calcium 8.9 mg/dL (8.4-10.2) 05/29/18 05:18 Phosphorus 3.4 mg/dl (2.5-4.5) 05/12/18 10:00 Magnesium 1.7 MG/DL (1.6-2.3) 05/06/18 05:15 Iron 34 ug/dL (37-170) L 05/06/18 05:15 TIBC 204 ug/dL (250-450) L 05/06/18 05:15 % Saturation 17 % (20-55) L 05/06/18 05:15 Ferritin 74.2 ng/Ml (6.24-137.0) 05/07/18 05:30 Total Bilirubin 0.1 mg/dl (0.2-1.3) L 05/17/18 05:40 AST 19 U/L (14-36) 05/17/18 05:40 ALT 35 U/L (9-52) 05/17/18 05:40 Alkaline Phosphatase 89 U/L (38-126) 05/17/18 05:40 Troponin I 0.0230 ng/mL (0.00-0.120) 05/09/18 23:59 Total Protein 4.8 G/DL (6.3-8.2) L 05/17/18 05:40 Albumin 2.3 g/dL (3.5-5.0) L 05/17/18 05:40 Globulin 2.5 gm/dL (2.2-3.9) 05/17/18 05:40 Albumin/Globulin Ratio 0.9 (1.0-2.1) L 05/17/18 05:40 Vitamin B12 727 pg/mL (239-931) 05/06/18 05:15 25-OH Vitamin D Total < 12.8 NG/ML (30.0-100.0) L 05/07/18 05:30 Folate 8.3 ng/mL 05/06/18 05:15 PTH Intact Whole Molec 201 pg/mL (14-64) H 05/12/18 10:00 Urine Color Straw (YELLOW) 05/05/18 18:22 Urine Clarity Slighty-cloudy (Clear) 05/05/18 18:22 Urine pH 7.0 (5.0-8.0) 05/05/18 18:22 Ur Specific Hiko 1.011 (1.003-1.030) 05/05/18 18:22 Urine Protein >=500 mg/dL (NEGATIVE) 05/05/18 18:22 Urine Glucose (UA) >=500 mg/dL (Normal) 05/05/18 18:22 Urine Ketones Negative mg/dL (NEGATIVE) 05/05/18 18:22 Urine Blood Small (NEGATIVE) 05/05/18 18:22 Urine Nitrate Negative (NEGATIVE) 05/05/18 18:22 Urine Bilirubin Negative (NEGATIVE) 05/05/18 18:22 Urine Urobilinogen 0.2-1.0 mg/dL (0.2-1.0) 05/05/18 18:22 Ur Leukocyte Esterase Neg Naomi/uL (Negative) 05/05/18 18:22 Urine RBC (Auto) 6 /hpf (0-3) H 05/05/18 18:22 Urine Microscopic WBC 3 /hpf (0-5) 05/05/18 18:22 Ur Squamous Epith Cells 2 /hpf (0-5) 05/05/18 18:22 Urine Bacteria Occ (<OCC) H 05/05/18 18:22 Ur Random Creatinine 20.3 mg/dL 05/13/18 11:20 U Random Total Protein 629.0 mg/dL (0.0-12.0) H 05/13/18 11:20 Stool Occult Blood Negative (NEGATIVE) 05/05/18 20:07 Stool Leukocytes, Qual Negative (NEGATIVE) 05/08/18 14:53 C. difficile Ag & Toxin Negative (NEGATIVE) 05/08/18 14:53 Hep Bs Antigen Negative (NEGATIVE) 05/09/18 03:09 Hep Bs Antibody Negative (NEGATIVE) 05/08/18 21:20 Hep B Core IgM Ab Negative (NEGATIVE) 05/09/18 03:09 Blood Type O POSITIVE 05/27/18 10:40 Blood Type Confirm O POSITIVE 05/06/18 06:41 Antibody Screen Negative 05/27/18 10:40 Crossmatch See Detail 05/05/18 19:05 BBK History Checked Patient has bt 05/27/18 10:40 - Hospital Course Hospital Course: Assessment: 42 y/o female patient admitted Acute on chronic kidney injury secondary to dehydration, enterocolitis, and acute on chronic anemia, Now ESRD. Patient will continue with HD treatments TTS. Patient is 1 day s/p left UE AV fistula placement Plan: ESRD, Renal failure, patient is on HD - c/w HD via Permacath (placed on 05/12/18) - Nephrology on board - HD: TTS - Patient accepted by [facility] for HD - F/U with nephrology outpatient upon D/C L UE AV fistula - F/U with Vascular surgery. - C/W local wound care. - Keep the dressing C/D/I. R Subclavian permicath - Keep the dressing at the permicath C/D/I. - Maintain the area arount the permicath C/D/I. Patient was Acute on chronic kidney injury secondary to dehydration, enterocolitis, and acute on chronic anemia, Now ESRD, Renal failure, patient is on HD on presentation. Patient was started on - IV fluids and albumin, cipro and vanc, nephrology consulted for elevated renal functions. Patient was put on dialysis TTS after insertion of R subclavian permicath. Left UE AV fistula placed by vascular surgery yesterday. [facility]. patient home medications reconciled. Patient remained totally asymptomatic during hospital stay. After an uneventful hospital stay the patient was discharged to home. There were no acute changes to his prescribed medical regimen. Patient to follow up with nephrology and with vascular surgery. Discharge Exam - Head Exam Head Exam: ATRAUMATIC, NORMAL INSPECTION, NORMOCEPHALIC - Eye Exam Eye Exam: EOMI, Normal appearance, PERRL Pupil Exam: NORMAL ACCOMODATION, PERRL - Neck Exam Additional comments: Right Subclavian permacath looks in place with sutures intact. Clean site. No clinical signs of active bacterial infection, No erythema, No edema, No pus, No tenderness. - Respiratory Exam Respiratory Exam: Clear to PA & Lateral, NORMAL BREATHING PATTERN, UNREMARKABLE - Cardiovascular Exam Cardiovascular Exam: REGULAR RHYTHM, RRR - GI/Abdominal Exam GI & Abdominal Exam: Normal Bowel Sounds, Unremarkable - Extremities Exam Extremities exam: normal capillary refill Additional comments: 1 day s/p left UE AV fistula placement, dressing in place c/d/i - Neurological Exam Neurological exam: Alert, Oriented x3 - Psychiatric Exam Psychiatric exam: Normal Affect, Normal Mood - Skin Skin Exam: Dry, Intact, Normal Color, Warm Discharge Plan - Follow Up Plan Condition: FAIR Disposition: HOME/ ROUTINE Instructions: Hemodialysis (DC), Kidney Failure (DC), Renal Failure Diet (DC) Additional Instructions: hacer roque con stewart primario dentro 1 semana Referrals: Yan Degroot MD [Staff Provider] - Alexys Wheat MD [Staff Provider] -
--- NOTE | 2018-05-30 13:49 | CP.PCM.PN ---
Subjective - Date & Time of Evaluation Date of Evaluation: 05/30/18 Time of Evaluation: 11:00 - Subjective Subjective: dialysis note she was seen on hemodialysis and stable Objective - Vital Signs/Intake and Output Vital Signs (last 24 hours): Temp Pulse Resp BP Pulse Ox 98.5 F 74 19 121/80 97 05/30/18 08:03 05/30/18 12:35 05/30/18 08:03 05/30/18 12:35 05/30/18 08:03 - Medications Medications: Current Medications Acetaminophen (Tylenol 325mg Tab) 650 mg PO Q6 PRN PRN Reason: Pain, Mild (1-3) Last Admin: 05/23/18 18:50 Dose: 650 mg Atorvastatin Calcium (Lipitor) 40 mg PO HS [facility] Last Admin: 05/29/18 21:34 Dose: 40 mg Calcitriol (Rocaltrol) 0.25 mcg PO DAILY [facility] Last Admin: 05/30/18 09:06 Dose: 0.25 mcg Clonidine HCl (Catapres) 0.2 mg PO BID [facility] Last Admin: 05/30/18 08:06 Dose: Not Given Ergocalciferol (Drisdol 50,000 Intl Units Cap) 1 cap PO Q7D [facility] Last Admin: 05/29/18 17:11 Dose: 1 cap Famotidine (Pepcid) 40 mg PO DAILY [facility] Last Admin: 05/30/18 09:06 Dose: 40 mg Glipizide (Glucotrol) 10 mg PO ACB [facility] Last Admin: 05/30/18 09:05 Dose: 10 mg Heparin Sodium (Porcine) (Heparin) 5,000 units SC Q12 [facility]; Protocol Last Admin: 05/30/18 09:05 Dose: 5,000 units Hydralazine HCl (Apresoline) 50 mg PO TID [facility] Last Admin: 05/30/18 12:35 Dose: 50 mg Hydromorphone HCl (Dilaudid) 0.5 mg IVP Q15M PRN PRN Reason: Pain, severe (8-10) Insulin Detemir (Levemir) 20 units SC HS [facility] Last Admin: 05/29/18 21:35 Dose: 20 u Insulin Human Lispro (Humalog) 0 units SC [facility]; Protocol Last Admin: 05/30/18 12:32 Dose: Not Given Losartan Potassium (Cozaar) 50 mg PO QPM [facility] Last Admin: 05/29/18 17:10 Dose: 50 mg Ondansetron HCl (Zofran Inj) 4 mg IVP Q6 PRN PRN Reason: Nausea/Vomiting Last Admin: 05/08/18 10:59 Dose: 4 mg Psyllium Hydrophilic Mucilloid (Hydrocil Instant) 1 pkt PO DAILY [facility] Last Admin: 05/30/18 09:06 Dose: 1 pkt Sevelamer Carbonate (Renvela) 800 mg PO TID [facility] Last Admin: 05/30/18 12:35 Dose: 800 mg Vitamin B Complex/Vit C/Folic Acid (Nephro-Tana) 1 tab PO DAILY [facility] Last Admin: 05/30/18 09:06 Dose: 1 tab - Labs Labs: 05/29/18 05:18 05/29/18 05:18 PT 10.2 Seconds (9.8-13.1) 05/29/18 05:18 INR 0.9 05/29/18 05:18 APTT 28.3 Seconds (25.6-37.1) 05/05/18 19:05 - Constitutional Appears: No Acute Distress - Eye Exam Eye Exam: Conjunctival injection - ENT Exam ENT Exam: Mucous Membranes Moist - Cardiovascular Exam Cardiovascular Exam: REGULAR RHYTHM. absent: Gallop, JVD, Rubs - GI/Abdominal Exam GI & Abdominal Exam: Normal Bowel Sounds - Extremities Exam Extremities Exam: absent: Calf Tenderness - Back Exam Back Exam: absent: CVA tenderness (L), CVA tenderness (R) - Neurological Exam Neurological Exam: Alert - Psychiatric Exam Psychiatric exam: Normal Affect - Skin Skin Exam: absent: Cyanosis Assessment and Plan (1) Chronic kidney disease with end stage renal failure on dialysis Assessment & Plan: Assessment & Plan: Assessment & Plan: end stage renal disease patient requiring dialysis Diabetic kidney disease with diabetes mellitus Hypertension Anasarca reported on CT scan of the abdomen appeared to be resolving Anemia Hyperphosphatemia Secondary hyperparathyroidism Hypoalbuminemia status post AV fistula The plan she was seen on hemodialysis now. no problems reported with the dialysis catheter Continue hemodialysis TTS EPO on dialysis for anemia Phosphorus binders Patient to go to [facility] dialysis as outpatient PTH 308 add calcitriol 0.25 g daily Ultrasound of the kidney nonspecific follow-up outpatient dialysis unit Status: Acute (2) Anemia in chronic kidney disease, on chronic dialysis Status: Acute
[2018-05-30 16:51] VITALS: BP 147/84; PULSE 96; RESP 18; TEMP 98.7
== END 2018-05-30 17:30 | disposition home or self-care (01) | DRG 444 ==
LOC: H.ER 16:42 → OBSVTOIN 21:20 → H.ERHOLD 21:20 → H.TEL 23:40 → H.MEDSURG1 05-13 22:25
PROVIDERS: ADMIT Internal Medicine; ATTEND Internal Medicine
PROC: 05HM33Z Insertion of Infusion Device into Right Internal Jugular Vein, Percutaneous Approach (ICD-10-PCS; principal; 2018-05-08)
PROC: 5A1D70Z Performance of Urinary Filtration, Intermittent, Less than 6 Hours Per Day (ICD-10-PCS; 2018-05-08)
PROC: 05PYX3Z Removal of Infusion Device from Upper Vein, External Approach (ICD-10-PCS; 2018-05-12)
PROC: 02H633Z Insertion of Infusion Device into Right Atrium, Percutaneous Approach (ICD-10-PCS; 2018-05-12)
PROC: 0JH63XZ Insertion of Tunneled Vascular Access Device into Chest Subcutaneous Tissue and Fascia, Percutaneous Approach (ICD-10-PCS; 2018-05-12)
PROC: 03180ZD Bypass Left Brachial Artery to Upper Arm Vein, Open Approach (ICD-10-PCS; 2018-05-29)
DX: N17.9 Acute kidney failure, unspecified (principal); E87.2 Acidosis; E46 Unspecified protein-calorie malnutrition; I12.0 Hypertensive chronic kidney disease with stage 5 chronic kidney disease or end stage renal disease; E11.65 Type 2 diabetes mellitus with hyperglycemia; Z79.4 Long term (current) use of insulin; N25.81 Secondary hyperparathyroidism of renal origin; N18.6 End stage renal disease; E86.0 Dehydration; E83.39 Other disorders of phosphorus metabolism; E66.9 Obesity, unspecified; D63.1 Anemia in chronic kidney disease; E11.22 Type 2 diabetes mellitus with diabetic chronic kidney disease; E78.5 Hyperlipidemia, unspecified; E78.00 Pure hypercholesterolemia, unspecified; Z87.891 Personal history of nicotine dependence; L03.114 Cellulitis of left upper limb; K59.00 Constipation, unspecified; K52.9 Noninfective gastroenteritis and colitis, unspecified